=== PATIENT | female | born 1945 | race Caucasian/White ===

== ENCOUNTER 2016-11-11 16:21 | Inpatient (IN) | payer MEDICARE, OTHER ==
[2016-11-11] VITALS (7 sets, daily range): BP systolic 157–186; BP diastolic 79–98; PULSE 75–90; RESP 15–18; TEMP 97.9–98.9; O2SAT 94–100
[~2016-11-11] VITALS: Ht 152.4 cm; Wt 67.4 kg
[~2016-11-11 16:21] MED LIST: ASPI81CH CHEW; ATOR40TA16 PO; CLON0.5T PO; DICL1GEL TOPICAL; LISI10TA3 PO; METO25TA3 PO; PLAV75TA29 PO; PROZ20CA11 PO
--- NOTE | 2016-11-11 16:53 | PD ---
HPI Chief Complaint: Cardiac Complaint Time Seen by Provider: 16:35 Travel History International Travel<30 days: No Contact w/Intl Traveler<30days: No Traveled to known affect area: No History of Present Illness HPI 71-year-old female complains of chest pain. Patient states that she started having substernal chest pressure about 3 weeks ago. Patient denies any pain radiation. Patient denies palpitation nausea or diaphoresis. Patient states that the pain is not worse with exertion. Patient denies any coughing congestion fever chills. Patient has history hypertension, CAD, hyperlipidemia. Patient is a smoker. Patient has history of MIs 2, status post stents placement. Patient on aspirin 325 mg daily and Plavix. Patient also has history of CHF, end-stage renal disease on dialysis. Patient is on dialysis Saturday and weekly. Patient states that she missed her dialysis appointment 3 days ago. 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 Woo recently and was advised to take nitroglycerin as needed for chest pain. On a scale of 1-10 the chest pain is a 3 now. PFSH Past Medical History Hx Anticoagulant Therapy: Yes (PLAVIX) Anemia: Yes Arthritis: Yes Asthma: No Atrial Fibrillation: Yes Blood Disorders: No Anxiety: Yes Depression: Yes Heart Rhythm Problems: Yes (HX OF A-FIB) Cancer: No Cardiovascular Problems: Yes (STENTS, MIX2 CHF) High Cholesterol: Yes Chest Pain: Yes Congestive Heart Failure: Yes COPD: Yes Cerebrovascular Accident: No Coronary Artery Disease: Yes Diabetes: No Dialysis: Yes (sat, , sat) Diminished Hearing: No Endocrine: No Gastrointestinal Disorders: Yes (gerd) Genitourinary: Yes (uti's) Headaches: No Hepatitis: No Hypertension: Yes Immune Disorder: No Implanted Vascular Access Dvce: No Kidney Stones: Yes Musculoskeletal: Yes (arthritis) Neurologic: No Psychiatric: No Reproductive: No Respiratory: Yes (COPD) Migraines: Yes Myocardial Infarction: Yes (JUNE 2014) Renal Failure: Yes Seizures: No Triglycerides - High: Yes Menopausal: Yes Past Surgical History Abdominal Surgery: No AICD: No Arteriovenous Shunt: No Body Medical Devices: right dialysis catheter Cardiac Surgery: Yes (STENTS X 2) Ear Surgery: No Endocrine Surgery: No Eye Surgery: No Genitourinary Surgery: No Gynecologic Surgery: Yes (D & C) Insulin Pump: No Joint Replacement: No Neurologic Surgery: No Oral Surgery: No Pacemaker: No Tonsillectomy: Yes Other Surgery: Yes (right vas cath) Social History Alcohol Use: Yes (occ.) Tobacco Use: Yes (1 ppd) Substance Use: No Allergies-Medications (Allergen,Severity, Reaction): Coded Allergies: Niacin (Verified Allergy, Severe, ANAPHALACTIC, 04/16/16) *MDRO Multi-Drug Resistant Organism (Verified Adverse Reaction, Unknown, ) ESBL+Klebsiella Pneumoniae (urine) - 03/2015 & 05/2015 Reported Meds & Prescriptions Reported Meds & Active Scripts Active Clonazepam 0.5 Mg Tab 0.5 Mg PO BID Plavix (Clopidogrel Bisulfate) 75 Mg Tab 75 Mg PO DAILY Reported Lisinopril 5 Mg Tab 5 Mg PO DAILY Aspirin 325 Mg Tab 325 Mg PO DAILY Metoprolol Tartrate 25 Mg Tab 25 Mg PO BID Atorvastatin (Atorvastatin Calcium) 40 Mg Tab 40 Mg PO HS Review of Systems General / Constitutional: No: Fever Eyes: No: Visual changes HENT: No: Headaches Cardiovascular: Positive: Chest Pain or Discomfort Respiratory: No: Shortness of Breath Gastrointestinal: No: Abdominal Pain Genitourinary: No: Dysuria Musculoskeletal: No: Pain Skin: No Rash Neurologic: No: Weakness Psychiatric: No: Depression Endocrine: No: Polydipsia Hematologic/Lymphatic: No: Easy Bruising Physical Exam Narrative GENERAL: Well-nourished, well-developed patient. SKIN: Focused skin assessment warm/dry. HEAD: Normocephalic. EYES: No scleral icterus. No injection or drainage. NECK: Supple, trachea midline. No JVD or lymphadenopathy. CARDIOVASCULAR: Regular rate and rhythm without murmurs, gallops, or rubs. RESPIRATORY: Breath sounds equal bilaterally. No accessory muscle use. GASTROINTESTINAL: Abdomen soft, non-tender, nondistended. MUSCULOSKELETAL: No cyanosis, or edema. BACK: Nontender without obvious deformity. No CVA tenderness. Neurologic exam normal. Data Data Last Documented VS Vital Signs Date Time Temp Pulse Resp B/P Pulse Ox O2 Delivery O2 Flow Rate FiO2 11/11/16 16:49 97.9 76 18 169/79 100 Room Air Orders Electrocardiogram (11/11/16 16:44) Complete Blood Count With Diff (11/11/16 16:44) Comprehensive Metabolic Panel (11/11/16 16:44) Creatine Kinase (Cpk) (11/11/16 16:44) Troponin I (11/11/16 16:44) B-Type Natriuretic Peptide (11/11/16 16:44) Prothrombin Time / Inr (Pt) (11/11/16 16:44) Act Partial Throm Time (Ptt) (11/11/16 16:44) Chest, Single Ap (11/11/16 16:44) Iv Access Insert/Monitor (11/11/16 16:44) Ecg Monitoring (11/11/16 16:44) Oximetry (11/11/16 16:44) Ondansetron Inj (Zofran Inj) (11/11/16 18:30) Electrocardiogram (11/11/16 ) Labs Laboratory Tests Test 11/11/16 16:45 White Blood Count 4.7 TH/MM3 Red Blood Count 3.45 MIL/MM3 Hemoglobin 11.2 GM/DL Hematocrit 34.4 % Mean Corpuscular Volume 99.7 FL Mean Corpuscular Hemoglobin 32.3 PG Mean Corpuscular Hemoglobin 32.5 % Concent Red Cell Distribution Width 19.8 % Platelet Count 175 TH/MM3 Mean Platelet Volume 7.1 FL Neutrophils (%) (Auto) 82.4 % Lymphocytes (%) (Auto) 8.5 % Monocytes (%) (Auto) 8.2 % Eosinophils (%) (Auto) 0.4 % Basophils (%) (Auto) 0.5 % Neutrophils # (Auto) 3.8 TH/MM3 Lymphocytes # (Auto) 0.4 TH/MM3 Monocytes # (Auto) 0.4 TH/MM3 Eosinophils # (Auto) 0.0 TH/MM3 Basophils # (Auto) 0.0 TH/MM3 CBC Comment DIFF FINAL Differential Comment Prothrombin Time 11.9 SEC Prothromb Time International 1.1 RATIO Ratio Activated Partial 26.9 SEC Thromboplast Time Sodium Level 127 MEQ/L Potassium Level 3.8 MEQ/L Chloride Level 90 MEQ/L Carbon Dioxide Level 18.6 MEQ/L Anion Gap 18 MEQ/L Blood Urea Nitrogen 55 MG/DL Creatinine 4.65 MG/DL Estimat Glomerular Filtration 9 ML/MIN Rate Random Glucose 80 MG/DL Calcium Level 7.9 MG/DL Total Bilirubin 0.8 MG/DL Aspartate Amino Transf 25 U/L (AST/SGOT) Alanine Aminotransferase 14 U/L (ALT/SGPT) Alkaline Phosphatase 177 U/L Total Creatine Kinase 107 U/L Troponin I 0.04 NG/ML B-Type Natriuretic Peptide GREATER THAN 5000 PG/ML Total Protein 7.2 GM/DL Albumin 3.6 GM/DL MDM Medical Decision Making Medical Screen Exam Complete: Yes Emergency Medical Condition: Yes Interpretation(s) Last Impressions Chest X-Ray 11/11/16 1644 Signed Impressions: Service Date/Time: Friday, November 11, 2016 16:52 - CONCLUSION: 1. Mild basilar opacity most characteristic of atelectasis. Cardiomegaly. Joey Wilkerson MD 1829 PM. CBC within normal limit. Sodium 127. Bicarbonate 18.6. BUN 55. Creatinine 4.65. BNP greater than 5000. Cardiac enzymes are normal. Differential Diagnosis Differential diagnosis including musculoskeletal, angina, AL, PE, pneumothorax. Narrative Course 71-year-old female with chest pain. History of CAD status post stents placement. Diagnosis Primary Impression: Chest pain Qualified Code: R07.9 - Chest pain, unspecified type Yared Russell MD Nov 11, 2016 16:53
[2016-11-11] MEDS ORDERED: ASPI325T PO (16:59)
[2016-11-11] MEDS ORDERED: LISI-519 PO (16:59)
[2016-11-11 17:15] LABS: AUTOMATED NEUTROPHIL # 3.8 TH/MM3 (1.8-7.7); BASOPHIL % 0.5 % (0.0-2.0); EOSINOPHIL % 0.4 % (0.0-4.0); HEMATOCRIT 34.4 % (35.0-46.0); HEMO FLAGS DIFF FINAL; LYMPH % 8.5 % (9.0-44.0); LYMPHOCYTE # 0.4 TH/MM3 (1.0-4.8); MEAN CELL VOLUME 99.7 FL (80.0-100.0); MEAN CORPUSCULAR HEMOGLOBIN 32.3 PG (27.0-34.0); MEAN CORPUSCULAR HGB CONC 32.5 % (32.0-36.0); MONO % 8.2 % (0.0-8.0); NEUT % 82.4 % (16.0-70.0); PLATELET COUNT 175 TH/MM3 (150-450); RED BLOOD COUNT 3.45 MIL/MM3 (4.00-5.30); RED CELL DISTRIBUTION WIDTH 19.8 % (11.6-17.2); WHITE BLOOD COUNT 4.7 TH/MM3 (4.0-11.0)
--- NOTE | 2016-11-11 17:23 | RADRPT ---
EXAM DATE/TIME: 11/11/2016 16:52 [facility] COMPARISON: CHEST SINGLE AP, November 04, 2015, 14:40. INDICATIONS : Chest pain. MEDICAL HISTORY : None. SURGICAL HISTORY : None. ENCOUNTER: Initial ACUITY: 1 day PAIN SCORE: 7/10 LOCATION: Bilateral chest FINDINGS: There is cardiomegaly. Mild basilar opacity most characteristic of atelectasis. No effusion. No pneum othorax. Mildly tortuous aorta. CONCLUSION: 1. Mild basilar opacity most characteristic of atelectasis. Cardiomegaly. Joey Wilkerson MD on November 11, 2016 at 17:20 Board Certified Radiologist. This report was verified electronically.
[2016-11-11 17:34] LABS: ANION GAP 18 MEQ/L (5-15); AST (GOT) 25 U/L (15-37); BICARBONATE 18.6 MEQ/L (21.0-32.0); BLOOD UREA NITROGEN 55 MG/DL (7-18); CHLORIDE 90 MEQ/L (98-107); GLOMERULAR FILTRATION RATE 9 ML/MIN (>89); POTASSIUM 3.8 MEQ/L (3.5-5.1); SODIUM (NA) 127 MEQ/L (136-145)
[2016-11-11 17:35] LABS: ALT (GPT) 14 U/L (10-53)
[2016-11-11 17:38] LABS: APTT (PATIENT) 26.9 SEC (24.3-30.1); INTERNATIONAL NORMALIZED RATIO 1.1 RATIO; PROTHROMBIN TIME - PATIENT 11.9 SEC (9.8-11.6)
[2016-11-11 17:39] LABS: ALKALINE PHOSPHATASE 177 U/L (45-117); CREATINE KINASE 107 U/L (26-192); TOTAL BILIRUBIN ADULT 0.8 MG/DL (0.2-1.0)
[2016-11-11] MEDS ORDERED: ONDANSETRON HCL 4 MG/2 ML VIAL IV PUSH ONE (18:30)
[2016-11-11] MEDS ORDERED: ENOXAPARIN SODIUM 80 MG/0.8 ML SYRINGE SQ ONE (18:45)
[2016-11-11] MEDS ORDERED: ACETAMINOPHEN 325 MG TAB PO PRN (19:15)
[2016-11-11] MEDS ORDERED: SENNOSIDES 8.6 MG TAB PO PRN (19:15)
[2016-11-11] MEDS ORDERED: SODIUM CHLORIDE 0.9% FLUSH 10 ML FLUSH IV FLUSH PRN (19:15)
[2016-11-11] MEDS ORDERED: MAGNESIUM HYDROXIDE SUSP 30 ML CUP PO PRN (19:15)
[2016-11-11] MEDS ORDERED: BISACODYL 10 MG SUPP RECTAL PRN (19:15)
[2016-11-11] MEDS ORDERED: LACTULOSE SYRUP 20 GM/30 ML CUP PO PRN (19:15)
--- NOTE | 2016-11-11 19:15 | HHI.HP ---
HPI [facility] Primary [facility] Physician Gudelia Del Real MD Admission Diagnosis chest pain Diagnoses: (1) Chest pain (2) CHF (congestive heart failure) Diagnosis: Principal (3) ESRD (end stage renal disease) Diagnosis: Principal (4) HTN (hypertension) Diagnosis: Principal (5) Tobacco abuse Diagnosis: Principal Travel History International Travel<30 Days: No Contact w/Intl Traveler <30 Da: No Traveled to Known Affected Are: No History of Present Illness This is a 71-year-old female with a PMH of HTN, CAD, ESRD on HD , CHF (Echo 11/06/15 w/ EF 30-35%), COPD and Tobacco Abuse who presented to the ER w/ complaints of chest pain. States symptoms have been ongoing x2-3 wks, follows w / [employer] Operator, Dr. Woo, seen in office and instructed to take NTG for likely angina. On HD and however missed HD on due to symptoms. Today, pt w/ severe pain, mostly on exertion. Took 6 NTG tablets w/ minimal relief. On arrival, BP 169/79, HR 78, O2 sat 98% on RA, Afebrile. CBC unremarkable except for mild anemia, hemoglobin 11.2. Creatinine 4.65, previously 7.68 on 12/13/15. Troponin 0.04. EKG with no acute changes. BNP greater than 5000. CXR with mild basilar opacity characteristic of atelectasis. Dr. Connell consulted by ER physician, recommended Lovenox, V/ Q Scan for possible PE and admission to [facility] for possible ACS. Review of Systems Except as stated in HPI: all other systems reviewed are Neg ROS: 14 point review of systems otherwise negative. Past Family Social History Past Medical History PMH: HTN, CAD, ESRD on HD , CHF (Echo 11/06/15 w/ EF 30-35%), COPD and Tobacco Abuse Past Surgical History PAST SURGICAL HISTORY: Dialysis Catheter Placement, Cardiac Stent, Tonsillectomy, D&C Allergies: Coded Allergies: Niacin (Verified Allergy, Severe, ANAPHALACTIC, 04/16/16) *MDRO Multi-Drug Resistant Organism (Verified Adverse Reaction, Unknown, ) ESBL+Klebsiella Pneumoniae (urine) - 03/2015 & 05/2015 Family History PAST FAMILY HISTORY: Reviewed. No h/o DM or CAD Social History PAST SOCIAL HISTORY: Occasional alcohol. Smokes 1ppd. Negative for drugs. Physical Exam Vital Signs Vital Signs Date Time Temp Pulse Resp B/P Pulse Ox O2 Delivery O2 Flow Rate FiO2 11/11/16 16:49 97.9 76 18 169/79 100 Room Air 11/11/16 16:43 75 18 100 Room Air 11/11/16 16:36 97.9 78 15 169/79 98 Room Air Physical Exam PE: GENERAL: Middle-aged white female in no acute distress. HEENT: PERRLA, EOMI. No scleral icterus or conjunctival pallor. No lid lag or facial droop. CARDIOVASCULAR: Regular rate and rhythm. No obvious murmurs to auscultation. No chest tenderness to palpation. RESPIRATORY: No obvious rhonchi or wheezing. Clear to auscultation. Breath sounds equal bilaterally. GASTROINTESTINAL: Abdomen soft, non-tender, nondistended. BS normal. MUSCULOSKELETAL: Extremities without clubbing, cyanosis, or edema. No obvious deformities. NEUROLOGICAL: Awake, alert and oriented x4. No focal neurologic deficits. Moving both upper and lower extremities spontaneously. Laboratory Laboratory Tests Test 11/11/16 16:45 White Blood Count 4.7 Red Blood Count 3.45 Hemoglobin 11.2 Hematocrit 34.4 Mean Corpuscular Volume 99.7 Mean Corpuscular Hemoglobin 32.3 Mean Corpuscular Hemoglobin 32.5 Concent Red Cell Distribution Width 19.8 Platelet Count 175 Mean Platelet Volume 7.1 Neutrophils (%) (Auto) 82.4 Lymphocytes (%) (Auto) 8.5 Monocytes (%) (Auto) 8.2 Eosinophils (%) (Auto) 0.4 Basophils (%) (Auto) 0.5 Neutrophils # (Auto) 3.8 Lymphocytes # (Auto) 0.4 Monocytes # (Auto) 0.4 Eosinophils # (Auto) 0.0 Basophils # (Auto) 0.0 CBC Comment DIFF FINAL Differential Comment Prothrombin Time 11.9 Prothromb Time International 1.1 Ratio Activated Partial 26.9 Thromboplast Time Sodium Level 127 Potassium Level 3.8 Chloride Level 90 Carbon Dioxide Level 18.6 Anion Gap 18 Blood Urea Nitrogen 55 Creatinine 4.65 Estimat Glomerular Filtration 9 Rate Random Glucose 80 Calcium Level 7.9 Total Bilirubin 0.8 Aspartate Amino Transf 25 (AST/SGOT) Alanine Aminotransferase 14 (ALT/SGPT) Alkaline Phosphatase 177 Total Creatine Kinase 107 Troponin I 0.04 B-Type Natriuretic Peptide GREATER THAN 5000 Total Protein 7.2 Albumin 3.6 Result Diagram: 11/11/16 1645 11/11/16 1645 Assessment and Plan Problem List: (1) Chest pain ICD Code: R07.9 Status: Acute (2) CHF (congestive heart failure) ICD Code: I50.9 Status: Acute (3) ESRD (end stage renal disease) ICD Code: N18.6 Status: Chronic (4) HTN (hypertension) ICD Code: I10 Status: Chronic (5) Tobacco abuse ICD Code: Z72.0 Status: Chronic Assessment and Plan A/P: 1. Chest Pain: R/o ACS, h/o CAD s/p CO/Stent in the past, symptoms ongoing x2- 3wks, seen by [employer] Operator Dr. Woo and prescribed NTG, NTG x6 today prior to arrival w/ minimal improvement. Trop 0.04, EKG w/ no acute ischemia. Dr. Connell consulted by ER physician, recommended Lovenox/VQ Scan and admission for possible ACS. Follow up V/Q. Check serial cardiac enzymes, resume home ASA /Plavix/B-chuck/Statin. NTG/Morphine prn as needed. Will place consult for Dr. Woo w/ whom she follows. 2. CHF: Acute on Chronic. Systolic. Echo 11/06/15 w/ EF 30-35%. BNP >5000. CXR w/ basilar atelectasis, images reviewed by me. Fluid overload likely due to missed HD. 3. ESRD on HD: /, missed HD on . Follows w/ Dr. Wu, will consult to resume HD. 4. HTN: BP 160-170's, resume home medication, monitor BP. 5. Tobacco Abuse: Pt counselled. Ativan prn. No NicoDerm to avoid vasoconstriction. 6. DVT Prophylaxis: S/p Lovenox in ER 7. Social work for d/c planning as needed 8. Case discussed w/ ER physician at length. Physician Certification 2 Midnight Certification Type: Admission for Inpatient Services Order for Inpatient Services The services are ordered in accordance with Medicare regulations or non- Medicare payer requirements, as applicable. In the case of services not specified as inpatient-only, they are appropriately provided as inpatient services in accordance with the 2-midnight benchmark. Estimated LOS (days): 2 days is the estimated time the patient will need to remain in the hospital, assuming treatment plan goals are met and no additional complications. Post-Hospital Plan: Not yet determined Problem Qualifiers (1) Chest pain: Qualified Code: R07.9 - Chest pain, unspecified type Nakia Peraza MD Nov 11, 2016 19:15
[2016-11-11] MEDS ORDERED: NITROGLYCERIN 2% OINT 1 GM PACKET TOPICAL PRN (19:30)
[2016-11-11] MEDS ORDERED: LORazepam 2 MG/ML VIAL IV PUSH PRN (19:30)
[2016-11-11] MEDS: oxyCODONE/ACETAMINOPHEN 5 MG/325 MG TAB PO PRN (20:54)
[2016-11-11] MEDS: DOCUSATE SODIUM 50 MG/SENNA 8.6 MG TAB PO SCH (21:00)
[2016-11-11] MEDS: ATORVASTATIN 40 MG TAB PO SCH (21:00)
[2016-11-11] MEDS: clonazePAM 0.5 MG TAB PO SCH (21:37)
[2016-11-11] MEDS: SODIUM CHLORIDE 0.9% FLUSH 10 ML FLUSH IV FLUSH SCH (21:38)
--- NOTE | 2016-11-11 21:38 | RADRPT ---
EXAM DATE/TIME: 11/11/2016 20:58 [facility] COMPARISON: No previous studies available for comparison. INDICATIONS : Substernal chest pain for 3 weeks. Dyspnea. DOSE: 8.8 mCi Tc99m MAA IV 1.2 mCi Tc99m DTPA aerosol MEDICAL HISTORY : Myocardial infarction. Hypercholesterolemia. Congestive heart failure. Smoker. Hypertension. COPD. Re nal failure. SURGICAL HISTORY : Coronary artery stent. ENCOUNTER: Initial ACUITY: 3 weeks PAIN SCALE: 3/10 LOCATION: chest TECHNIQUE: Following five minutes of tidal breathing of DTPA aerosol, planar images of the lungs were performed in eight projections. The patient was then injected with MAA, and eight-view perfusion scan was perf ormed. FINDINGS: No segmental perfusion abnormalities. Ventilation is somewhat heterogeneous in appearance. Heart size enlarged. CONCLUSION: 1. Low probability for pulmonary embolus. Joey Wilkerson MD on November 11, 2016 at 21:35 Board Certified Radiologist. This report was verified electronically.
[2016-11-11] MEDS: METOPROLOL TARTRATE 25 MG TAB PO SCH (21:40)
[2016-11-11] MEDS: MORPHINE SULFATE 4 MG/ML INJ IV PRN (23:20)
[2016-11-12] VITALS (25 sets, daily range): BP systolic 100–149; BP diastolic 60–85; PULSE 60–73; RESP 16–18; TEMP 97.4–98.9; O2SAT 91–95
[2016-11-12] MEDS: MORPHINE SULFATE 4 MG/ML INJ IV PRN ×5 (04:39→21:35)
[2016-11-12 06:53] LABS: AUTOMATED NEUTROPHIL # 4.8 TH/MM3 (1.8-7.7); BASOPHIL % 0.2 % (0.0-2.0); EOSINOPHIL % 0.1 % (0.0-4.0); HEMATOCRIT 33.9 % (35.0-46.0); HEMO FLAGS DIFF FINAL; LYMPH % 3.9 % (9.0-44.0); LYMPHOCYTE # 0.2 TH/MM3 (1.0-4.8); MEAN CELL VOLUME 99.3 FL (80.0-100.0); MEAN CORPUSCULAR HEMOGLOBIN 33.1 PG (27.0-34.0); MEAN CORPUSCULAR HGB CONC 33.3 % (32.0-36.0); NEUT % 83.8 % (16.0-70.0); PLATELET COUNT 128 TH/MM3 (150-450); RED BLOOD COUNT 3.42 MIL/MM3 (4.00-5.30); RED CELL DISTRIBUTION WIDTH 19.5 % (11.6-17.2); WHITE BLOOD COUNT 5.7 TH/MM3 (4.0-11.0)
[2016-11-12 07:18] LABS: ANION GAP 17 MEQ/L (5-15); AST (GOT) 21 U/L (15-37); BICARBONATE 21.9 MEQ/L (21.0-32.0); BLOOD UREA NITROGEN 60 MG/DL (7-18); CHLORIDE 89 MEQ/L (98-107); GLOMERULAR FILTRATION RATE 9 ML/MIN (>89); POTASSIUM 4.1 MEQ/L (3.5-5.1); SODIUM (NA) 128 MEQ/L (136-145)
[2016-11-12 07:22] LABS: ALKALINE PHOSPHATASE 164 U/L (45-117); ALT (GPT) 13 U/L (10-53); TOTAL BILIRUBIN ADULT 1.6 MG/DL (0.2-1.0)
--- NOTE | 2016-11-12 07:49 | HHI.PR ---
Addendum to Inpatient Note Addendum Reason: Additional Documentation Additional Information I was going to take her for a heart cath but started having severe vomiting. She actually missed 2 days of medications because of nausea and vomiting. I would like her to have upper endoscopy before possible cardiac procedures. Hold her NPO and get a GI consult Tee Woo MD Nov 12, 2016 07:49
[2016-11-12] MEDS: METOPROLOL TARTRATE 25 MG TAB PO SCH ×2 (08:29→21:41)
[2016-11-12] MEDS: clonazePAM 0.5 MG TAB PO SCH ×2 (08:30→21:41)
[2016-11-12] MEDS: ASPIRIN 325 MG TAB PO SCH (08:31)
[2016-11-12] MEDS: CLOPIDOGREL 75 MG TAB PO SCH ×2 (08:31→08:37)
[2016-11-12] MEDS: SODIUM CHLORIDE 0.9% FLUSH 10 ML FLUSH IV FLUSH SCH ×2 (08:35→21:42)
[2016-11-12] MEDS: LISINOPRIL 5 MG TAB PO SCH (08:36)
[2016-11-12] MEDS: DOCUSATE SODIUM 50 MG/SENNA 8.6 MG TAB PO SCH ×2 (08:36→21:00)
--- NOTE | 2016-11-12 08:41 | HHI.PR ---
Subjective Remarks Pt continues to complain of chest pains. 4-510. no more vomiting since this morning. no nausea at this time. Objective Vitals Vital Signs Date Time Temp Pulse Resp B/P Pulse Ox O2 Delivery O2 Flow Rate FiO2 11/12/16 06:00 64 11/12/16 05:00 68 11/12/16 04:41 98.9 61 16 149/85 91 11/12/16 04:00 68 11/12/16 03:00 70 11/12/16 02:00 66 11/12/16 01:00 60 11/12/16 00:00 70 11/11/16 23:58 157/89 11/11/16 23:33 98.9 75 18 184/98 96 11/11/16 22:10 Room Air 11/11/16 21:43 98 Room Air 11/11/16 21:35 90 186/91 94 Room Air 11/11/16 18:57 89 178/87 97 Room Air 11/11/16 16:49 97.9 76 18 169/79 100 Room Air 11/11/16 16:43 75 18 100 Room Air 11/11/16 16:36 97.9 78 15 169/79 98 Room Air I/O 11/11/16 11/11/16 11/11/16 11/12/16 11/12/16 11/12/16 07:00 15:00 23:00 07:00 15:00 23:00 Intake Total 480 ml Output Total 0 ml Balance 480 ml Intake Oral 480 ml Output Stool Total 0 ml # Voids 2 Result Diagram: 11/12/16 0528 11/12/16 0528 Imaging Last Impressions Lung Scan-V Nuclear Medicine 11/11/16 190 Signed Impressions: Service Date/Time: Friday, November 11, 2016 20:58 - CONCLUSION: 1. Low probability for pulmonary embolus. Joey Wilkerson MD Chest X-Ray 11/11/16 1644 Signed Impressions: Service Date/Time: Friday, November 11, 2016 16:52 - CONCLUSION: 1. Mild basilar opacity most characteristic of atelectasis. Cardiomegaly. Joey Wilkerson MD Objective Remarks GENERAL: Middle-aged white female laying in bed HEENT: EOMI. CARDIOVASCULAR: Regular rate and rhythm. No obvious murmurs to auscultation. RESPIRATORY: No obvious wheezing. Clear to auscultation. Breath sounds equal bilaterally. GASTROINTESTINAL: Abdomen soft, non-tender, nondistended. BS normal. MUSCULOSKELETAL: Extremities without edema. No obvious deformities. NEUROLOGICAL: Awake, alert and oriented x4. No focal neurologic deficits. Moving both upper and lower extremities spontaneously. A/P Problem List: (1) Chest pain ICD Code: R07.9 Status: Acute (2) CHF (congestive heart failure) ICD Code: I50.9 Status: Acute (3) ESRD (end stage renal disease) ICD Code: N18.6 Status: Chronic (4) HTN (hypertension) ICD Code: I10 Status: Chronic (5) Tobacco abuse ICD Code: Z72.0 Status: Chronic Assessment and Plan 1. Chest Pain: R/o ACS, h/o CAD s/p MD/Stent in the past, symptoms ongoing x2- 3wks, seen by [employer] Dr. Woo and prescribed NTG, NTG x6 prior to arrival w/ minimal improvement. Trop 0.04, EKG w/ no acute ischemia. VQ Scan showed low prob PE. Serial cardiac enzymes neg. was supposed to go for cardiac cath this morning however pt has been having n/v and vomited prior to going for cath therefore cards has consulted GI, on ASA/Plavix/B-chuck/Statin. NTG/ Morphine prn as needed. Dr. Rivas following. Pt scheduled for EGD today prior to cardiac cath. 2. CHF: Acute on Chronic. Systolic. Echo 11/06/15 w/ EF 30-35%. BNP >5000. CXR w/ basilar atelectasis. Fluid overload likely due to missed HD. Nephrology consulted. 3. ESRD on HD: /, missed HD on . Follows w/ Dr. Wu, nephrology consult inplace. 4. HTN: BP better controlled this morning, on home medication, monitor BP. 5. Tobacco Abuse: Pt has been counselled. Ativan prn. No NicoDerm to avoid vasoconstriction. 6. DVT Prophylaxis: S/p Lovenox in ER, SCD/[facility]OS[facility] Discharge Planning Pt was supposed to get a cardiac cath today but due to vomiting, she will go for EGD today first. Problem Qualifiers (1) Chest pain: Qualified Code: R07.9 - Chest pain, unspecified type Aissatou Fields MD Nov 12, 2016 08:40
--- NOTE | 2016-11-12 09:00 | PD.CONS ---
HPI History of Present Illness This is a 71 year old female who presented to the ER for evaluation of chest pain. She has a history of coronary artery disease, congestive heart failure, and end stage renal disease (on hemodialysis on Tuesdays or Saturdays). She started having chest pain this past Saturday. This is a midsternal "heaviness" that comes and goes and is worse with activity. She has also had associated nausea/vomiting associated with her chest pain. There is no hematemesis. She denies any heartburn or hematochezia. She does have occasional mid abdominal cramping and reports that her stools have been dark. She does take Plavix at home, but states that she has not been able to keep this down since Saturday. She denies any history of PUD and has never had an EGD. There is no family hx of esophageal or gastric cancer. Her maternal grandfather did from colon cancer. She is being evaluated by cardiology and they were planning for cardiac catheterization, but this is on hold and they have requested EGD prior to cardiac catheterization. PFSH Past Medical History HTN CAD ESRD, HD on Saturday and Saturdays CHF COPD Past Surgical History Dialysis catheter placement Cardiac catheterization Tonsillectomy D&C Coded Allergies: Niacin (Verified Allergy, Severe, ANAPHALACTIC, 04/16/16) *MDRO Multi-Drug Resistant Organism (Verified Adverse Reaction, Unknown, ) ESBL+Klebsiella Pneumoniae (urine) - 03/2015 & 05/2015 Medications Allergies Coded Allergies Type Severity Reaction Last Updated Verified Niacin Allergy Severe ANAPHALACTIC 04/16/16 Yes *MDRO Multi-Drug Resistant Organism Adverse Reaction Unknown 04/16/16 Yes Active Scripts Medications Dose Route/Sig Days Date Category Lisinopril 5 Mg Tab 5 Mg PO DAILY 11/11/16 Reported Aspirin 325 Mg Tab 325 Mg PO DAILY 11/11/16 Reported Clonazepam 0.5 Mg Tab 0.5 Mg PO BID 11/01/16 Rx Plavix (Clopidogrel Bisulfate) 75 Mg Tab 75 Mg PO DAILY 10/29/16 Rx Metoprolol Tartrate 25 Mg Tab 25 Mg PO BID 02/28/16 Reported Atorvastatin (Atorvastatin Calcium) 40 Mg Tab 40 Mg PO HS 02/28/16 Reported Family History MGF from colon cancer. Social History Occasional alcohol. Smokes 1ppd. Negative for drugs. Review of Systems Constitutional: COMPLAINS OF: Fatigue, DENIES: Fever, Chills, Change in appetite Respiratory: DENIES: Cough, Shortness of breath Cardiovascular: COMPLAINS OF: Chest pain Gastrointestinal: COMPLAINS OF: Abdominal pain, Black stools (denies black stools, but c/o dark stools), Diarrhea, Nausea, Vomiting, DENIES: Bloody stools , Constipation, Swelling of Abdomen, Heartburn, Hematemesis Musculoskeletal: DENIES: Joint pain Integumentary: DENIES: Abnormal pigmentation Hematologic/lymphatic: DENIES: Bruising Neurologic: DENIES: Headache Psychiatric: DENIES: Confusion GI Exam Vitals I&O Vital Signs Date Time Temp Pulse Resp B/P Pulse Ox O2 Delivery O2 Flow Rate FiO2 11/12/16 06:00 64 11/12/16 05:00 68 11/12/16 04:41 98.9 61 16 149/85 91 11/12/16 04:00 68 11/12/16 03:00 70 11/12/16 02:00 66 11/12/16 01:00 60 11/12/16 00:00 70 11/11/16 23:58 157/89 11/11/16 23:33 98.9 75 18 184/98 96 11/11/16 22:10 Room Air 11/11/16 21:43 98 Room Air 11/11/16 21:35 90 186/91 94 Room Air 11/11/16 18:57 89 178/87 97 Room Air 11/11/16 16:49 97.9 76 18 169/79 100 Room Air 11/11/16 16:43 75 18 100 Room Air 11/11/16 16:36 97.9 78 15 169/79 98 Room Air I/O 11/11/16 11/11/16 11/11/16 11/12/16 11/12/16 11/12/16 07:00 15:00 23:00 07:00 15:00 23:00 Intake Total 480 ml Output Total 0 ml Balance 480 ml Intake Oral 480 ml Output Stool Total 0 ml # Voids 2 Imaging Last Impressions Lung Scan-VQ Nuclear Medicine 11/11/16 1902 Signed Impressions: Service Date/Time: Friday, November 11, 2016 20:58 - CONCLUSION: 1. Low probability for pulmonary embolus. Joey Wilkerson MD Chest X-Ray 11/11/16 2385 Signed Impressions: Service Date/Time: Friday, November 11, 2016 16:52 - CONCLUSION: 1. Mild basilar opacity most characteristic of atelectasis. Cardiomegaly. Joey Wilkerson MD Laboratory Test 11/11/16 11/12/16 11/12/16 16:45 00:12 05:28 White Blood Count 4.7 TH/MM3 5.7 TH/MM3 Red Blood Count 3.45 MIL/MM3 3.42 MIL/MM3 Hemoglobin 11.2 GM/DL 11.3 GM/DL Hematocrit 34.4 % 33.9 % Mean Corpuscular Volume 99.7 FL 99.3 FL Mean Corpuscular Hemoglobin 32.3 PG 33.1 PG Mean Corpuscular Hemoglobin 32.5 % 33.3 % Concent Red Cell Distribution Width 19.8 % 19.5 % Platelet Count 175 TH/MM3 128 TH/MM3 Mean Platelet Volume 7.1 FL 7.9 FL Neutrophils (%) (Auto) 82.4 % 83.8 % Lymphocytes (%) (Auto) 8.5 % 3.9 % Monocytes (%) (Auto) 8.2 % 12.0 % Eosinophils (%) (Auto) 0.4 % 0.1 % Basophils (%) (Auto) 0.5 % 0.2 % Neutrophils # (Auto) 3.8 TH/MM3 4.8 TH/MM3 Lymphocytes # (Auto) 0.4 TH/MM3 0.2 TH/MM3 Monocytes # (Auto) 0.4 TH/MM3 0.7 TH/MM3 Eosinophils # (Auto) 0.0 TH/MM3 0.0 TH/MM3 Basophils # (Auto) 0.0 TH/MM3 0.0 TH/MM3 CBC Comment DIFF FINAL DIFF FINAL Differential Comment Prothrombin Time 11.9 SEC Prothromb Time International 1.1 RATIO Ratio Activated Partial 26.9 SEC Thromboplast Time Sodium Level 127 MEQ/L 128 MEQ/L Potassium Level 3.8 MEQ/L 4.1 MEQ/L Chloride Level 90 MEQ/L 89 MEQ/L Carbon Dioxide Level 18.6 MEQ/L 21.9 MEQ/L Anion Gap 18 MEQ/L 17 MEQ/L Blood Urea Nitrogen 55 MG/DL 60 MG/DL Creatinine 4.65 MG/DL 4.93 MG/DL Estimat Glomerular Filtration 9 ML/MIN 9 ML/MIN Rate Random Glucose 80 MG/DL 127 MG/DL Calcium Level 7.9 MG/DL 8.6 MG/DL Total Bilirubin 0.8 MG/DL 1.6 MG/DL Aspartate Amino Transf 25 U/L 21 U/L (AST/SGOT) Alanine Aminotransferase 14 U/L 13 U/L (ALT/SGPT) Alkaline Phosphatase 177 U/L 164 U/L Total Creatine Kinase 107 U/L Troponin I 0.04 NG/ML 0.04 NG/ML 0.03 NG/ML B-Type Natriuretic Peptide GREATER THAN 5000 PG/ML Total Protein 7.2 GM/DL 7.3 GM/DL Albumin 3.6 GM/DL 3.5 GM/DL Physical Examination HEENT: Normocephalic; atraumatic; no jaundice. CHEST: CTA CARDIAC: RRR ABDOMEN: Soft, nondistended, nontender; no hepatosplenomegaly; bowel sounds are present in all four quadrants. EXTREMITIES: No clubbing, cyanosis, or edema. SKIN: Normal; no rash; no jaundice. SAFETY OFFICER: No focal deficits; alert and oriented times three. Assessment and Plan Plan ASSESSMENT: - N/V. Pt has had chest pain with associated n/v since Saturday. She has a hx of CAD and the plan was for cardiac catheterization, but this is on hold until pt can be evaluated with EGD. She denies hematemesis. She denies black stools, but does report dark stool. Mild mid abdominal cramping. Denies PUD hx. On Plavix , last took on Saturday- states she has not been able to take meds since that time secondary to n/v. LFT T. Bili 1.6, AST 21, ALT 13, Alk Phosph 164. No imaging. Will plan for EGD today, check lipase. If negative, consider imaging of abdomen/gb. PPI. NPO. - Anemia, normocytic. Mild. Denies obvious blood loss, but does report dark stools. 11.3/33.9 - Chest pain. Midsternal "heaviness" with associated n/v since Saturday- worse with exertion. Hx of CAD and CHF. Dr. Woo following, requesting EGD prior to cardiac catheterization. - ESRD, on HD on Tuesdays/Sat. Per renal - COPD, HTN per attending. PLAN: - Plan for egd today - Obtain consents - NPO - Add lipase to labs - Add PPI - Zofran prn - If EGD negative, consider imaging of abdomen with CT vs. US - Supportive care - Further recommendations to follow based on results of above - Pt seen and examined by Dr. Deleon and myself and this note is written on his behalf Medina Perry Nov 12, 2016 09:00
--- NOTE | 2016-11-12 09:07 | MB ---
cc: MANOJ HARRIS M.D. DATE OF CONSULTATION: 11/12/2016 REASON FOR CONSULTATION Gwen Richey is a 71-year-old woman known to me. She has known coronary artery disease. She had a previous non-ST segment elevation [place] in 2014. On August 29, 2014 she underwent stenting of the mid LAD using a 2.5 x 14 bare metal Integrity overlapping with a 2.25 x 14 mm bare metal Integrity stent. At that time her right coronary artery was totally occluded with [id number] collaterals. The circumflex had irregularities. The LAD had an 80% mid lesion. She has been treated medically. She has had problems with intermittent poor compliance. She continues to smoke. She occasionally misses dialysis sessions. She occasionally misses her medication. She has been counseled multiple times on this. She started having chest pain about two weeks ago which became severe in the last two days as a pressure in the center of her chest. She is dialyzed Tuesdays and Saturdays and she missed dialysis on Saturday because of feeling sick. She had some prolonged chest pain before coming in. She also had some chest pain last night. She also notes some nausea, vomiting and diarrhea on Saturday but none today. She had no fever or chills, no cough. PAST MEDICAL HISTORY 1. Coronary artery disease. 2. Previous CHF due to missing dialysis sessions. 3. COPD. 4. End-stage renal disease. 5. Hyperlipidemia. 6. Hypertensive heart disease. 7. Memory loss. 8. Tobacco use. 9. She had some intermittent episodes of nonsustained V-tach even after LAD stenting. PAST SURGICAL HISTORY 1. Cath procedure on August 25, 2014 with stenting of the LAD. 2. Graft fistula in the left upper arm. 3. Previous D&C. 4. Tonsillectomy. MEDICATIONS 1. Aspirin. 2. Clopidogrel. 3. Lisinopril 5 mg. 4. Lipitor 40 mg. 5. Metoprolol 25 mg b.i.d. 6. Nitro paste 1/2 inch q.6h. 7. She also had some pain medication. 8. She received one dose of Lovenox at 9:37 p.m. last night. ALLERGIES NIACIN. FAMILY HISTORY Positive for coronary artery disease in the paternal grandfather, heart disease in the paternal grandfather, myocardial infarction in father at age 60 and mother at age 60. SOCIAL HISTORY Smokes one pack a day since age 20, has never quit. Alcohol intermittent. REVIEW OF SYSTEMS Denies any bleeding. The remaining review of systems is negative. PHYSICAL EXAMINATION GENERAL: A well-developed, well-nourished female in no acute distress. VITAL SIGNS: Charted. HEENT: Unremarkable. NECK: There is a soft right bruit. CHEST: Diminished breath sounds. No wheezes or rales. CARDIAC: S1, S2, regular rate and rhythm. No murmur appreciated. ABDOMEN: Soft, nontender. No masses. EXTREMITIES: Intact femoral pulses. No peripheral edema. EKG EKG when she first came in shows sinus rhythm, poor R-wave progression, about 0.[address] depression, cannot exclude ischemia. IMAGING V/Q scan shows low probability for PE. Chest x-ray shows mild basilar opacity, most characteristic of atelectasis. LABORATORY Hematocrit 33.9. Sodium 128. Troponins are negative. BNP is greater than 5000. IMPRESSION A 71-year-old female with unstable angina for 2 weeks, becoming acutely worse in the past 2 days. Troponins are currently negative. She has longstanding smoking. PLAN The plan is to perform a diagnostic cath and then will decide whether she needs revascularization or treatment with meds. Further therapy to be determined. Informed consent has been obtained. See addendum. Clinical picture has changed after persistent nausea and vomiting with EGDE shwing severe PUD. MD CARMELA Bui/THELMA /7:29 AM /8:38 AM NASRIN
[2016-11-12] MEDS ORDERED: ePHEDrine/NS 25 MG/5 ML SYR IV ONE (12:00)
[2016-11-12] MEDS ORDERED: PROPOFOL 200 MG/20 ML AMP IV ONE (16:00)
--- NOTE | 2016-11-12 16:07 | EKG ---
Date Performed: 11/11/2016 Time Performed: 18:30:43 PTAGE: 71 years EKG: Sinus rhythm POSSIBLE LEFT ATRIAL ENLARGEMENT BORDERLINE RIGHT AXIS DEVIATION CONSIDER ANTERIOR MYOCARDIAL INFARC TION, AGE INDETERMINATE ABNORMAL ECG PREVIOUS TRACING : 11/11/2016 16.30 DOCTOR: Oj Coyne Interpretating Date/Time 11/12/2016 16:06:38
--- NOTE | 2016-11-12 16:08 | GIPROC ---
[facility] [address] [facility]. [facility], [address] EGD PROCEDURE REPORT EXAM DATE: 11/12/2016 PATIENT NAME: Gwen Richey MR#: [id number] BIRTHDATE: 1945 STATUS: inpatient ATTENDING: Mayda Patel MD VISIT ID: [id number] CUPOLA MECHANIC: Julia Wilson RN and Josh Villavicencio RN ORDER #: [id number] INDICATIONS: The patient is a 71 yr old female here for an EGD due to epigastric abdominal pain and vomiting. PROCEDURE PERFORMED: EGD w/ biopsy MEDICATIONS: Per Anesthesia and None. ASA CLASS: Class III PHYSICAL EXAM: normal CONSENT: The patient understands the risks and benefits of the procedure and understands that these risks include, but are not limited to: sedation, allergic reaction, infection, perforation and/or bleeding. Alternative means of evaluation and treatment include, among others: physical exam, x-rays, and/or surgical intervention. The patient elects to proceed with this endoscopic procedure. DESCRIPTION OF PROCEDURE: for proper function. Hand hygiene and appropriate measures for infection prevention was taken. After the risks, benefits and alternatives of the procedure were thoroughly explained, Informed consent was verified, confirmed and timeout was successfully executed by the treatment team. The endoscope was introduced through the mouth and advanced to the second portion of the duodenum. The instrument was slowly withdrawn as the mucosa was fully examined. Sever grade esophagitis D with ulcers in distal esopahus Bx done. Sever gastritis Bx from antrum. Sever duodentitis with multiple small ulcers in the bulb. Retroflexed views revealed no abnormalities The gastroscope was then slowly withdrawn and removed. COMPLICATIONS: There were no complications. IMPRESSIONS: 1. Sever grade esophagitis D with ulcers in distal esopahus Bx done 2. Sever gastritis Bx from antrum 3. Sever duodentitis with multiple small ulcers in the bulb 4. Retroflexed views revealed no abnormalities RECOMMENDATIONS: 1. Await biopsy results. Biopsy results will not be ready for 7-10 days. If you don't hear from us in two weeks, call our office for biopsy results. 2. Anti-reflux regimen 3. Avoid NSAIDS 4. Continue PPI PATIENT CONDITION: stable DISPOSITION: Inpatient REPEAT EXAM: Return 2 months EGD Mayda Patel MD eSigned: Mayda Patel MD 11/12/2016 4:08 PM cc: PATIENT NAME: Gwen Richey MR#: [id number]
--- NOTE | 2016-11-12 16:09 | EKG ---
Date Performed: 11/11/2016 Time Performed: 16:30:14 PTAGE: 71 years EKG: Sinus rhythm POSSIBLE LEFT ATRIAL ENLARGEMENT CONSIDER ANTERIOR MYOCARDIAL INFARCTION, AGE INDETERMINATE ABNORMAL ECG PREVIOUS TRACING : 12/12/2015 16.01 DOCTOR: Oj Coyne Interpretating Date/Time 11/12/2016 16:07:28
[2016-11-12] MEDS ORDERED: DO NOT ADM ANY ANTICOAGULANT DRUGS PRN (16:45)
[2016-11-12] MEDS: ONDANSETRON HCL 4 MG/2 ML VIAL IVP PRN (21:35)
[2016-11-12] MEDS: ATORVASTATIN 40 MG TAB PO SCH (21:40)
[2016-11-13] VITALS (26 sets, daily range): BP systolic 85–118; BP diastolic 57–67; PULSE 66–95; RESP 16–18; TEMP 98–98.3; O2SAT 92–94
[2016-11-13] MEDS: MORPHINE SULFATE 4 MG/ML INJ IV PRN ×3 (00:50→16:54)
[2016-11-13] MEDS: ONDANSETRON HCL 4 MG/2 ML VIAL IVP PRN (06:05)
[2016-11-13 06:40] LABS: AUTOMATED NEUTROPHIL # 4.2 TH/MM3 (1.8-7.7); BASOPHIL % 0.6 % (0.0-2.0); EOSINOPHIL % 0.6 % (0.0-4.0); HEMATOCRIT 33.9 % (35.0-46.0); HEMO FLAGS DIFF FINAL; LYMPH % 6.7 % (9.0-44.0); LYMPHOCYTE # 0.4 TH/MM3 (1.0-4.8); MEAN CELL VOLUME 100.4 FL (80.0-100.0); MEAN CORPUSCULAR HEMOGLOBIN 32.8 PG (27.0-34.0); MEAN CORPUSCULAR HGB CONC 32.7 % (32.0-36.0); MONO % 13.2 % (0.0-8.0); NEUT % 78.9 % (16.0-70.0); PLATELET COUNT 109 TH/MM3 (150-450); RED BLOOD COUNT 3.38 MIL/MM3 (4.00-5.30); RED CELL DISTRIBUTION WIDTH 19.5 % (11.6-17.2); WHITE BLOOD COUNT 5.3 TH/MM3 (4.0-11.0)
[2016-11-13 07:20] LABS: BICARBONATE 26.5 MEQ/L (21.0-32.0)
[2016-11-13] MEDS: clonazePAM 0.5 MG TAB PO SCH ×2 (08:07→21:47)
[2016-11-13] MEDS: DOCUSATE SODIUM 50 MG/SENNA 8.6 MG TAB PO SCH ×2 (08:08→21:00)
[2016-11-13] MEDS: ASPIRIN 325 MG TAB PO SCH (08:09)
[2016-11-13] MEDS: CLOPIDOGREL 75 MG TAB PO SCH (08:09)
[2016-11-13] MEDS: LISINOPRIL 5 MG TAB PO SCH (08:09)
[2016-11-13] MEDS: METOPROLOL TARTRATE 25 MG TAB PO SCH ×3 (08:10→21:47)
[2016-11-13] MEDS: SODIUM CHLORIDE 0.9% FLUSH 10 ML FLUSH IV FLUSH SCH ×2 (08:12→21:47)
--- NOTE | 2016-11-13 09:03 | PD.CARD.PN ---
Subjective Subjective Remarks Intermittent vomiting continues. EGDE results noted Objective Medications Current Medications Medications (Trade) Dose Ordered Sig/Diego Route Start Time Stop Time Status Last Admin (NS Flush) 2 ml UNSCH PRN IV FLUSH 11/11/16 19:15 (NS Flush) 2 ml BID IV FLUSH 11/11/16 21:00 11/13/16 08:12 (Zofran Inj) 4 mg Q6H PRN IVP 11/11/16 19:15 11/13/16 06:05 (Tylenol) 650 mg Q6H PRN PO 11/11/16 19:15 (Percocet 5-325 Mg) 1 tab Q6H PRN PO 11/11/16 19:15 11/11/16 20:54 (Morphine Inj) 2 mg Q3H PRN IV 11/11/16 19:15 11/13/16 06:05 (Ro-Colace) 1 tab BID PO 11/11/16 21:00 (Milk Of Magnesia Liq) 30 ml Q12H PRN PO 11/11/16 19:15 (Senokot) 17.2 mg Q12H PRN PO 11/11/16 19:15 (Dulcolax Supp) 10 mg DAILY PRN RECTAL 11/11/16 19:15 (Lactulose Liq) 30 ml DAILY PRN PO 11/11/16 19:15 (Aspirin) 325 mg DAILY PO 11/12/16 09:00 11/13/16 08:09 (Lipitor) 40 mg HS PO 11/11/16 21:00 11/12/16 21:40 (KlonoPIN) 0.5 mg BID PO 11/11/16 21:00 11/13/16 08:07 (Plavix) 75 mg DAILY PO 11/12/16 09:00 (Prinivil) 5 mg DAILY PO 11/12/16 09:00 (Lopressor) 25 mg BID PO 11/11/16 21:00 11/12/16 21:41 (Nitroglycerin 2% Oint) 0.5 inch Q6HR PRN TOPICAL 11/11/16 19:30 11/11/16 23:20 (Ativan Inj) 1 mg Q2H PRN IV PUSH 11/11/16 19:30 Miscellaneous Information ALL NURSING DEPARTME... UNSCH PRN .XX 11/12/16 16:45 11/13/16 16:44 Vital Signs / I&O Vital Signs Date Time Temp Pulse Resp B/P Pulse Ox O2 Delivery O2 Flow Rate FiO2 11/13/16 08:19 68 11/13/16 07:00 72 11/13/16 07:00 98.1 72 18 85/67 93 11/13/16 06:00 68 11/13/16 05:00 98.3 68 18 100/63 92 11/13/16 05:00 66 11/13/16 04:00 67 11/13/16 03:00 68 11/13/16 02:00 66 11/13/16 01:00 70 11/13/16 00:00 98.3 70 18 114/65 93 11/13/16 00:00 73 11/12/16 23:00 66 11/12/16 22:00 72 11/12/16 21:00 68 11/12/16 20:00 97.4 70 18 113/68 93 11/12/16 20:00 73 11/12/16 19:00 70 11/12/16 18:35 16 11/12/16 18:00 72 11/12/16 17:00 67 11/12/16 16:55 98.4 66 20 121/66 98 Room Air 11/12/16 16:45 66 20 121/66 98 Room Air 11/12/16 16:30 66 20 122/63 100 Room Air 11/12/16 16:24 98.4 72 20 113/58 95 Nasal Cannula 2 11/12/16 15:15 97.7 65 16 100/60 94 11/12/16 15:00 63 11/12/16 14:00 60 11/12/16 13:00 67 11/12/16 12:00 64 11/12/16 11:00 64 11/12/16 11:00 97.7 62 18 100/64 94 11/12/16 10:00 64 11/12/16 09:00 68 I/O 11/12/16 11/12/16 11/12/16 11/13/16 11/13/16 11/13/16 06:59 14:59 22:59 06:59 14:59 22:59 Intake Total 480 ml 230 ml Output Total 0 ml Balance 480 ml 230 ml Intake Oral 480 ml IV Total 30 ml Other 200 ml Output Stool Total 0 ml # Voids 2 2 Physical Exam Awake Chest diminished BS CV S1S2 RRR No edema Laboratory Laboratory Tests Test 11/13/16 05:45 White Blood Count 5.3 TH/MM3 Red Blood Count 3.38 MIL/MM3 Hemoglobin 11.1 GM/DL Hematocrit 33.9 % Mean Corpuscular Volume 100.4 FL Mean Corpuscular Hemoglobin 32.8 PG Mean Corpuscular Hemoglobin 32.7 % Concent Red Cell Distribution Width 19.5 % Platelet Count 109 TH/MM3 Mean Platelet Volume 8.5 FL Neutrophils (%) (Auto) 78.9 % Lymphocytes (%) (Auto) 6.7 % Monocytes (%) (Auto) 13.2 % Eosinophils (%) (Auto) 0.6 % Basophils (%) (Auto) 0.6 % Neutrophils # (Auto) 4.2 TH/MM3 Lymphocytes # (Auto) 0.4 TH/MM3 Monocytes # (Auto) 0.7 TH/MM3 Eosinophils # (Auto) 0.0 TH/MM3 Basophils # (Auto) 0.0 TH/MM3 CBC Comment DIFF FINAL Differential Comment Sodium Level 129 MEQ/L Potassium Level 4.0 MEQ/L Chloride Level 91 MEQ/L Carbon Dioxide Level 26.5 MEQ/L Anion Gap 12 MEQ/L Blood Urea Nitrogen 67 MG/DL Creatinine 5.88 MG/DL Estimat Glomerular Filtration 7 ML/MIN Rate Random Glucose 105 MG/DL Calcium Level 8.7 MG/DL Imaging Last 48 hours Impressions Lung Scan-V Nuclear Medicine 11/11/16 1902 Signed Impressions: Service Date/Time: Friday, November 11, 2016 20:58 - CONCLUSION: 1. Low probability for pulmonary embolus. Joey Wilkerson MD Chest X-Ray 11/11/16 1644 Signed Impressions: Service Date/Time: Friday, November 11, 2016 16:52 - CONCLUSION: 1. Mild basilar opacity most characteristic of atelectasis. Cardiomegaly. Joey Wilkerson MD Assessment and Plan Problem List: (1) CAD (coronary artery disease) Assessment and Plan: Chest pain most likely due to PUD. No troponin changes. Intermittent vomiting continues (2) Duodenitis (3) Duodenal ulcer (4) Esophageal ulcer (5) Esophagitis (6) Tobacco abuse Assessment and Plan: refuses to quit. Counseled. Remains noncompliant. Assessment and Plan I am going to hold off on heart cath. DC Tee Casiano MD Nov 13, 2016 09:03
[2016-11-13] MEDS: PANTOPRAZOLE SOD 40 MG DELAYED RELEASE TAB PO SCH (09:42)
[2016-11-13] MEDS ORDERED: SODIUM CHLOR 0.9% 1000 ML INJ 1,000 ML IV PRN ×2 (09:55)
[2016-11-13] MEDS ORDERED: cloNIDine HCL 0.1 MG TAB PO PRN (10:00)
[2016-11-13] MEDS ORDERED: diphenhydrAMINE HCL 25 MG CAP PO PRN (10:00)
[2016-11-13] MEDS ORDERED: HEPARIN SODIUM - IV 10,000 UNITS/10 ML VIAL IVF PRN (10:00)
[2016-11-13] MEDS ORDERED: SODIUM CHLORIDE 0.9% FLUSH 10 ML FLUSH IV FLUSH PRN (10:00)
[2016-11-13] MEDS ORDERED: ACETAMINOPHEN 325 MG TAB PO PRN (10:00)
[2016-11-13] MEDS ORDERED: MANNITOL 12.5 GM/50 ML VIAL IV PRN (10:00)
[2016-11-13] MEDS ORDERED: ONDANSETRON HCL 4 MG/2 ML VIAL IV PRN (10:00)
[2016-11-13] MEDS ORDERED: GENTAMICIN SULFATE (DIALYSIS USE ONLY) 20 MG/2 ML VIAL IV PRN (10:00)
[2016-11-13] MEDS ORDERED: NITROGLYCERIN 0.4 MG SL 25 TABS/BTL SL PRN (10:00)
[2016-11-13] MEDS ORDERED: HEPARIN SODIUM - IV 10,000 UNITS/10 ML VIAL PRN (10:00)
[2016-11-13] MEDS ORDERED: ALBUMIN HUMAN 25% 25 GM/100 ML BAGP IV PRN (10:00)
--- NOTE | 2016-11-13 10:34 | PD.CONS ---
HPI Service Nephrology Consult Requested By Dr. Peraza Reason for Consult ESRD on HD Primary Care Physician Gudelia Del Real MD History of Present Illness This is a 71 y/o female patient who was referred to ER for evaluation of chest pain. She was at her hospital housekeeper office, Dr. Woo, when she admitted to chest pain for several weeks. She was given NTG which did not alleviate the pain. PMH of HTN, CAD, ESRD on HD T/Sat, CHF (Echo 11/06/15 w/ EF 30-35%), chronic hyponatremia, COPD and current Tobacco Abuse. She has been vomiting frequently since admission. Had an EGD as preop for cardiac cath ( which was cancelled) that showed severe gastric ulcers, a biopsy was taken and is in process. She is seen in preparation for dialysis. A graft of her left upper extremity functions well. We were consulted for dialysis management. She has a hx of non compliance with treatment schedules and physician recommendations. Her last HD was last Saturday, one week ago. She is a full code. (Mily Gray) Review of Systems Constitutional: COMPLAINS OF: Fatigue, DENIES: Fever, Weight gain Cardiovascular: COMPLAINS OF: Chest pain, DENIES: Dyspnea on Exertion, Lower Extremity Edema Gastrointestinal: COMPLAINS OF: Abdominal pain, Nausea, Vomiting, DENIES: Black stools Musculoskeletal: DENIES: Muscle aches Neurologic: DENIES: Headache (Mily Gray) Past Family Social History Allergies: Coded Allergies: Niacin (Verified Allergy, Severe, ANAPHALACTIC, 04/16/16) *MDRO Multi-Drug Resistant Organism (Verified Adverse Reaction, Unknown, ) ESBL+Klebsiella Pneumoniae (urine) - 03/2015 & 05/2015 Past Medical History ESRD on hemodialysis Tuesdays and Saturdays Coronary artery disease status post NSTEMI 2014 Hyperlipidemia Systolic congestive heart failure COPD Anxiety Active tobacco abuse anemia metabolic bone disorder non compliance Past Surgical History PCI with stent placement (BMS to LAD) 2014 AV graft placement in the left upper extremity PermCath placement and removal tonsillectomy D&C Reported Medications Clonazepam 0.5 Mg Tab 0.5 Mg PO BID Plavix (Clopidogrel Bisulfate) 75 Mg Tab 75 Mg PO DAILY Lisinopril 5 Mg Tab 5 Mg PO DAILY Aspirin 325 Mg Tab 325 Mg PO DAILY Metoprolol Tartrate 25 Mg Tab 25 Mg PO BID Atorvastatin (Atorvastatin Calcium) 40 Mg Tab 40 Mg PO HS Active Ordered Medications Current Medications Medications (Trade) Dose Ordered Sig/Diego Route Start Time Stop Time Status Last Admin (NS Flush) 2 ml UNSCH PRN IV FLUSH 11/11/16 19:15 (NS Flush) 2 ml BID IV FLUSH 11/11/16 21:00 11/13/16 08:12 (Zofran Inj) 4 mg Q6H PRN IVP 11/11/16 19:15 11/13/16 06:05 (Tylenol) 650 mg Q6H PRN PO 11/11/16 19:15 (Percocet 5-325 Mg) 1 tab Q6H PRN PO 11/11/16 19:15 11/11/16 20:54 (Morphine Inj) 2 mg Q3H PRN IV 11/11/16 19:15 11/13/16 06:05 (Ro-Colace) 1 tab BID PO 11/11/16 21:00 (Milk Of Magnesia Liq) 30 ml Q12H PRN PO 11/11/16 19:15 (Senokot) 17.2 mg Q12H PRN PO 11/11/16 19:15 (Dulcolax Supp) 10 mg DAILY PRN RECTAL 11/11/16 19:15 (Lactulose Liq) 30 ml DAILY PRN PO 11/11/16 19:15 (Lipitor) 40 mg HS PO 11/11/16 21:00 11/12/16 21:40 (KlonoPIN) 0.5 mg BID PO 11/11/16 21:00 11/13/16 08:07 (Plavix) 75 mg DAILY PO 11/12/16 09:00 (Prinivil) 5 mg DAILY PO 11/12/16 09:00 (Lopressor) 25 mg BID PO 11/11/16 21:00 11/12/16 21:41 (Nitroglycerin 2% Oint) 0.5 inch Q6HR PRN TOPICAL 11/11/16 19:30 11/11/16 23:20 (Ativan Inj) 1 mg Q2H PRN IV PUSH 11/11/16 19:30 Miscellaneous Information ALL NURSING DEPARTME... UNSCH PRN .XX 11/12/16 16:45 11/13/16 16:44 (Protonix) 40 mg DAILY PO 11/13/16 09:15 11/13/16 09:42 Family History no hx of renal disorders strong hx of CAD Social History Active smoker, 1/2 ppd for "years" + ETOH "but not a lot", admits to drinking liquir denies illicit substances Lives alone Independent with ADLs Full code reports family support non compliance with treatment schedules, advised fluid restriction, smoking cessation (Mily Gray) Physical Exam Vital Signs Vital Signs Date Time Temp Pulse Resp B/P Pulse Ox O2 Delivery O2 Flow Rate FiO2 11/13/16 09:25 73 11/13/16 08:19 68 11/13/16 07:00 72 11/13/16 07:00 98.1 72 18 85/67 93 11/13/16 06:00 68 11/13/16 05:00 98.3 68 18 100/63 92 11/13/16 05:00 66 11/13/16 04:00 67 11/13/16 03:00 68 11/13/16 02:00 66 11/13/16 01:00 70 11/13/16 00:00 98.3 70 18 114/65 93 11/13/16 00:00 73 11/12/16 23:00 66 11/12/16 22:00 72 11/12/16 21:00 68 11/12/16 20:00 97.4 70 18 113/68 93 11/12/16 20:00 73 11/12/16 19:00 70 11/12/16 18:35 16 11/12/16 18:00 72 11/12/16 17:00 67 11/12/16 16:55 98.4 66 20 121/66 98 Room Air 11/12/16 16:45 66 20 121/66 98 Room Air 11/12/16 16:30 66 20 122/63 100 Room Air 11/12/16 16:24 98.4 72 20 113/58 95 Nasal Cannula 2 11/12/16 15:15 97.7 65 16 100/60 94 11/12/16 15:00 63 11/12/16 14:00 60 11/12/16 13:00 67 11/12/16 12:00 64 11/12/16 11:00 64 11/12/16 11:00 97.7 62 18 100/64 94 Physical Exam Elderly CF in NAD sitting up in bed receiving dialysis Alert, oriented x 3 S1/S2, no murmurs appreciated Lungs with bibasilar rales, more pronounced on right Abd: soft, non tender, no distension Ext: no edema, LUE AVG, + thrill/bruit prior to being accessed, now accessed for HD without difficulty Laboratory Laboratory Tests Test 11/13/16 05:45 White Blood Count 5.3 Red Blood Count 3.38 Hemoglobin 11.1 Hematocrit 33.9 Mean Corpuscular Volume 100.4 Mean Corpuscular Hemoglobin 32.8 Mean Corpuscular Hemoglobin 32.7 Concent Red Cell Distribution Width 19.5 Platelet Count 109 Mean Platelet Volume 8.5 Neutrophils (%) (Auto) 78.9 Lymphocytes (%) (Auto) 6.7 Monocytes (%) (Auto) 13.2 Eosinophils (%) (Auto) 0.6 Basophils (%) (Auto) 0.6 Neutrophils # (Auto) 4.2 Lymphocytes # (Auto) 0.4 Monocytes # (Auto) 0.7 Eosinophils # (Auto) 0.0 Basophils # (Auto) 0.0 CBC Comment DIFF FINAL Differential Comment Sodium Level 129 Potassium Level 4.0 Chloride Level 91 Carbon Dioxide Level 26.5 Anion Gap 12 Blood Urea Nitrogen 67 Creatinine 5.88 Estimat Glomerular Filtration 7 Rate Random Glucose 105 Calcium Level 8.7 (Mily Gray) Result Diagram: 11/13/16 0545 11/13/16 0545 Imaging Last Impressions Lung Scan-V Nuclear Medicine 11/11/16 1902 Signed Impressions: Service Date/Time: Friday, November 11, 2016 20:58 - CONCLUSION: 1. Low probability for pulmonary embolus. Joey Wilkerson MD Chest X-Ray 11/11/16 1644 Signed Impressions: Service Date/Time: Friday, November 11, 2016 16:52 - CONCLUSION: 1. Mild basilar opacity most characteristic of atelectasis. Cardiomegaly. Joey Wilkerson MD (Mily Gray) Assessment and Plan Problem List: (1) ESRD (end stage renal disease) Plan: Typical /Sat HD schedule last HD one week ago, she missed Saturday due to not feeling well, HD today, orders entered seen during dialysis on a 3K, 3.5 hr treatment, 3.5 L UF, 300 BFR fluid removal as tolerated, she has been vomiting and still makes some urine monitor electrolytes intermittently avoid IVF, gadolinium is contraindicated check phosphorus level, she reports that her binders have been held recently (2) Chest pain Plan: cardiology and GI have evaluated previous plan for heart cath, diagnostic, but that was cancelled chest pain thought to be due to gastritis, ulcers (3) CAD (coronary artery disease) Plan: hx of stents in the past on statin, beta chuck, JOSE, plavix ASA has been stopped (4) Anemia Plan: no epogen required monitor hemoglobin (5) Hyponatremia Plan: chronic, hypervolemic UF with dialysis, discussed fluid restriction (6) CHF (congestive heart failure) Plan: monitor fluid status, UF as tolerated (7) HTN (hypertension) Plan: continue antihypertensives with hold parameters. (Mily Gray) Assessment and Plan patient was seen and examined. Seen during dialysis. Agree with above assessment and plan. (Arvin Farnsworth MD) Problem Qualifiers (1) Chest pain: Qualified Code: R07.9 - Chest pain, unspecified type Mily Gray Nov 13, 2016 10:34 Arvin Farnsworth MD Nov 13, 2016 12:14
[2016-11-13] MEDS: GELATIN 12 MM/7 MM FOAM TOP PRN (13:33)
[2016-11-13] MEDS: SODIUM CHLOR 0.9% 1000 ML INJ 1,000 ML IV PRN (13:33)
--- NOTE | 2016-11-13 15:11 | HHI.PR ---
Subjective Remarks Follow-up for chest pain, emesis, and stage renal disease Patient seen in dialysis. She stated that emesis has improved. She also stated that chest pain has improved and she gets more pain with deep inspiration. otherwise no other complaints. Objective Vitals Vital Signs Date Time Temp Pulse Resp B/P Pulse Ox O2 Delivery O2 Flow Rate FiO2 11/13/16 15:00 98.0 72 18 118/67 93 11/13/16 15:00 72 11/13/16 14:00 72 11/13/16 13:00 74 11/13/16 12:00 70 11/13/16 11:00 73 11/13/16 11:00 73 11/13/16 10:21 73 11/13/16 09:25 73 11/13/16 08:19 68 11/13/16 07:00 72 11/13/16 07:00 98.1 72 18 85/67 93 11/13/16 06:00 68 11/13/16 05:00 98.3 68 18 100/63 92 11/13/16 05:00 66 11/13/16 04:00 67 11/13/16 03:00 68 11/13/16 02:00 66 11/13/16 01:00 70 11/13/16 00:00 98.3 70 18 114/65 93 11/13/16 00:00 73 11/12/16 23:00 66 11/12/16 22:00 72 11/12/16 21:00 68 11/12/16 20:00 97.4 70 18 113/68 93 11/12/16 20:00 73 11/12/16 19:00 70 11/12/16 18:35 16 11/12/16 18:00 72 11/12/16 17:00 67 11/12/16 16:55 98.4 66 20 121/66 98 Room Air 11/12/16 16:45 66 20 121/66 98 Room Air 11/12/16 16:30 66 20 122/63 100 Room Air 11/12/16 16:24 98.4 72 20 113/58 95 Nasal Cannula 2 11/12/16 15:15 97.7 65 16 100/60 94 I/O 11/12/16 11/12/16 11/12/16 11/13/16 11/13/16 11/13/16 06:59 14:59 22:59 06:59 14:59 22:59 Intake Total 480 ml 230 ml Output Total 0 ml Balance 480 ml 230 ml Intake Oral 480 ml IV Total 30 ml Other 200 ml Output Stool Total 0 ml # Voids 2 2 Result Diagram: 11/13/1654411/13/16544 Objective Remarks GENERAL: In no acute distress CARDIOVASCULAR: Regular rate and rhythm without murmurs, gallops, or rubs. RESPIRATORY: Breath sounds equal bilaterally. No accessory muscle use. GASTROINTESTINAL: Abdomen soft, nondistended. Positive for tenderness palpation in the epigastric area but mild. No peritoneal signs. MUSCULOSKELETAL: No cyanosis, or edema. BACK: Nontender without obvious deformity. No CVA tenderness. Procedures EGD on 11/12/2016. Medications and IVs Current Medications Ondansetron HCl (Zofran Inj) 4 mg ONCE ONCE IV PUSH Last administered on 18:38; Start 11/11/16 at 18:30; Stop 11/11/16 at 18:31; Status DC Enoxaparin Sodium (Lovenox Inj) 70 mg ONCE ONCE SQ Last administered on 21:37; Start 11/11/16 at 18:45; Stop 11/11/16 at 18:46; Status DC Sodium Chloride (NS Flush) 2 ml UNSCH PRN IV FLUSH FLUSH AFTER USING IV ACCESS ; Start 11/11/16 at 19:15 Sodium Chloride (NS Flush) 2 ml BID IV FLUSH Last administered on 11/13/16 08: 12; Start 11/11/16 at 21:00 Ondansetron HCl (Zofran Inj) 4 mg Q6H PRN IVP NAUSEA OR VOMITING Last administered on 11/13/16 06:05; Start 11/11/16 at 19:15 Acetaminophen (Tylenol) 650 mg Q6H PRN PO FEVER/PAIN SCALE 1 TO 2; Start at 19:15 Oxycodone/ Acetaminophen (Percocet 5-325 Mg) 1 tab Q6H PRN PO PAIN SCALE 3 TO 5 Last administered on 11/11/16 20:54; Start 11/11/16 at 19:15 Morphine Sulfate (Morphine Inj) 2 mg Q3H PRN IV Pain 6-10 Last administered on 11/13/16 06:05; Start 11/11/16 at 19:15 Senna/Docusate Sodium (Ro-Colace) 1 tab BID PO ; Start 11/11/16 at 21:00 Magnesium Hydroxide (Milk Of Magnesia Liq) 30 ml Q12H PRN PO MILD - MODERATE CONSTIPATION; Start 11/11/16 at 19:15 Sennosides (Senokot) 17.2 mg Q12H PRN PO MODERATE - SEVERE CONSTIPATION; Start 11/11/16 at 19:15 Bisacodyl (Dulcolax Supp) 10 mg DAILY PRN RECTAL SEVERE CONSITIPATION; Start at 19:15 Lactulose (Lactulose Liq) 30 ml DAILY PRN PO SEVERE CONSITIPATION; Start at 19:15 Aspirin (Aspirin) 325 mg DAILY PO Last administered on 11/13/16 08:09; Start at 09:00; Stop 11/13/16 at 09:04; Status DC Atorvastatin Calcium (Lipitor) 40 mg HS PO Last administered on 11/12/16 21:40 ; Start 11/11/16 at 21:00 Clonazepam (KlonoPIN) 0.5 mg BID PO Last administered on 11/13/16 08:07; Start 11/11/16 at 21:00 Clopidogrel Bisulfate (Plavix) 75 mg DAILY PO ; Start 11/12/16 at 09:00 Lisinopril (Prinivil) 5 mg DAILY PO ; Start 11/12/16 at 09:00 Metoprolol Tartrate (Lopressor) 25 mg BID PO Last administered on 11/12/16 21: 41; Start 11/11/16 at 21:00 Nitroglycerin (Nitroglycerin 2% Oint) 0.5 inch Q6HR PRN TOPICAL CHEST PAIN Last administered on 11/11/16 23:20; Start 11/11/16 at 19:30 Lorazepam (Ativan Inj) 1 mg Q2H PRN IV PUSH WITHDRAWAL/AGITATION; Start at 19:30 Propofol (Diprivan 200 Mg/20 ml Inj) 120 mg STK-MED ONCE IV ; Start 11/12/16 at 16:00; Stop 11/12/16 at 16:15; Status DC Miscellaneous Information ALL NURSING DEPARTME... UNSCH PRN .XX SEE LABEL COMMENTS; Start 11/12/16 at 16:45; Stop 11/13/16 at 16:44 Ephedrine Sulfate (ePHEDrine/NS 25 MG/5 ML SYR) 25 mg STK-MED ONCE IV ; Start at 12:00; Stop 11/13/16 at 08:47; Status DC Pantoprazole Sodium 40 mg 40 mg DAILY PO Last administered on 11/13/16 09:42; Start 11/13/16 at 09:15 Sodium Chloride (NS 1000 ml Inj) 1,000 ml @ 0 mls/hr Q0M PRN IV For Prime & Rinse Back Last administered on 11/13/16 13:33; Start 11/13/16 at 09:55 Heparin Sodium (Porcine) 8000 units 8,000 units UNSCH PRN IVF WITH DIALYSIS; Start 11/13/16 at 10:00 Sodium Chloride 1,000 ml @ 200 mls/hr Q5H PRN IV WITH DIALYSIS; Start 11/13/16 at 09:55 Sodium Chloride (NS 1000 ml Inj) 1,000 ml @ 0 mls/hr Q0M PRN IV WITH DIALYSIS; Start 11/13/16 at 09:55 Mannitol (Mannitol Inj) 12.5 gm UNSCH PRN IV WITH DIALYSIS; Start 11/13/16 at 10 :00 Albumin Human (Albumin 25% Inj) 25 gm UNSCH PRN IV WITH DIALYSIS; Start at 10:00 Sodium Chloride (NS Flush) 5 ml UNSCH PRN IV FLUSH WITH DIALYSIS; Start at 10:00 Heparin Sodium (Porcine) (Heparin Inj) UNSCH PRN .XX WITH DIALYSIS; Start 11/13 at 10:00 Gentamicin Sulfate (Gentamicin (Dialysis) Inj) 20 mg UNSCH PRN IV WITH DIALYSIS ; Start 11/13/16 at 10:00 Ondansetron HCl (Zofran Inj) 4 mg UNSCH PRN IV WITH DIALYSIS; Start 11/13/16 at 10:00 Acetaminophen (Tylenol) 650 mg UNSCH PRN PO for headach, pain, temp > 101F; Start 11/13/16 at 10:00 Diphenhydramine HCl (Benadryl) 25 mg UNSCH PRN PO for hives/itching/anaphylaxis ; Start 11/13/16 at 10:00 Nitroglycerin (Nitrostat Sl) 0.4 mg UNSCH PRN SL CHEST PAIN; Start 11/13/16 at 10:00 Clonidine (Catapres) 0.1 mg UNSCH PRN PO for BP > 180/100 X 2 readings; Start 11/13/16 at 10:00 Gelatin (Gelfoam 12 Mm/7 Mm Top) 1 foam UNSCH PRN TOP SEE LABEL COMMENTS Last administered on 11/13/16t 13:33; Start 11/13/16 at 10:00 A/P Problem List: (1) Chest pain ICD Code: R07.9 Status: Acute (2) CHF (congestive heart failure) ICD Code: I50.9 Status: Acute (3) ESRD (end stage renal disease) ICD Code: N18.6 Status: Chronic (4) HTN (hypertension) ICD Code: I10 Status: Chronic (5) Tobacco abuse ICD Code: Z72.0 Status: Chronic Assessment and Plan Chest Pain -r/o ACS, h/o CAD s/p NM/Stent in the past, symptoms ongoing x2-3wks, seen by Wallcovering Texturer Dr. Woo and prescribed NTG, NTG x6 prior to arrival w/ minimal improvement. Trop 0.04, EKG w/ no acute ischemia. VQ Scan showed low prob PE. -Aspirin discontinued by Dr. Woo due to severe ulcers. -Per Dr. Woo very unlikely that this is cardiac in nature. He stated that he will hold off cart catheterization secondary to emesis. Severe Gastritis severe/duodenitis with ulcers/severe esophagitis with ulcer -Per GI recommend PPI, anti-acid, avoid NSAIDs. CHF: Acute on Chronic. Systolic. Echo 11/06/15 w/ EF 30-35%. BNP >5000. CXR w/ basilar atelectasis. -Patient currently in dialysis. ESRD on HD: -/, missed HD on . patient seen by Dr. Wu. Motorcycle Maker is following. HTN -Continue with home medication. Tobacco Abuse: Pt has been counselled. Ativan prn. No NicoDerm to avoid vasoconstriction. DVT Prophylaxis: S/p Lovenox in ER, SCD/AKOSUA Problem Qualifiers (1) Chest pain: Qualified Code: R07.9 - Chest pain, unspecified type Caridad Schaefer MD Nov 13, 2016 15:11
[2016-11-13] MEDS ORDERED: ATROPINE SULFATE 1 MG/10 ML SYRINGE ONE (17:20)
[2016-11-13] MEDS: ATORVASTATIN 40 MG TAB PO SCH (21:47)
[2016-11-13] MEDS: oxyCODONE/ACETAMINOPHEN 5 MG/325 MG TAB PO PRN (22:02)
[2016-11-14] VITALS (38 sets, daily range): BP systolic 71–114; BP diastolic 47–96; PULSE 72–144; RESP 15–20; TEMP 97.8–98.8; O2SAT 88–98
[2016-11-14] MEDS: DOCUSATE SODIUM 50 MG/SENNA 8.6 MG TAB PO SCH ×2 (09:00→20:43)
[2016-11-14] MEDS: LISINOPRIL 5 MG TAB PO SCH (09:00)
[2016-11-14] MEDS ORDERED: PANT40TA3 PO (09:11)
[2016-11-14] MEDS ORDERED: SENN1TAB PO (09:11)
[2016-11-14] MEDS ORDERED: SEVEL800 PO (09:11)
--- NOTE | 2016-11-14 09:14 | HHI.DCPOC ---
Discharge Care Plan Diagnosis: (1) Duodenitis (2) Esophageal ulcer (3) Duodenal ulcer (4) Esophagitis (5) Tobacco abuse Goals to Promote Your Health * To prevent worsening of your condition and complications * To maintain your health at the optimal level Directions to Meet Your Goals Take your medications as prescribed Follow your dietary instruction Follow activity as directed Keep your appointments as scheduled Take your immunizations and boosters as scheduled If your symptoms worsen call your PCP, if no PCP go to Urgent Care Center or Emergency Room Smoking is Dangerous to Your Health. Avoid second hand smoke Call the 24-hour hour crisis hotline for domestic abuse at Caridad Schaefer MD Nov 14, 2016 09:13
--- NOTE | 2016-11-14 09:16 | HHI.DS ---
Discharge Summary Admission Date Nov 11, 2016 at 19:05 Admitting Diagnosis chest pain (1) Chest pain ICD Code: R07.9 (2) CHF (congestive heart failure) ICD Code: I50.9 (3) ESRD (end stage renal disease) ICD Code: N18.6 (4) HTN (hypertension) ICD Code: I10 (5) Tobacco abuse ICD Code: Z72.0 Procedures EGD on 11/12/2016. Brief History - From Admission This is a 71-year-old female with a PMH of HTN, CAD, ESRD on HD /, CHF (Echo 11/06/15 w/ EF 30-35%), COPD and Tobacco Abuse who presented to the ER w/ complaints of chest pain. States symptoms have been ongoing x2-3 wks, follows w / Waiver Analyst, Dr. Woo, seen in office and instructed to take NTG for likely angina. On HD and however missed HD on due to symptoms. Today, pt w/ severe pain, mostly on exertion. Took 6 NTG tablets w/ minimal relief. On arrival, BP 169/79, HR 78, O2 sat 98% on RA, Afebrile. CBC unremarkable except for mild anemia, hemoglobin 11.2. Creatinine 4.65, previously 7.68 on 12/13/15. Troponin 0.04. EKG with no acute changes. BNP greater than 5000. CXR with mild basilar opacity characteristic of atelectasis. Dr. Connell consulted by ER physician, recommended Lovenox, V/ Q Scan for possible PE and [facility]. CBC/BMP: 11/13/16 0545 11/13/16 0545 Significant Findings Laboratory Tests Test 11/11/16 11/12/16 11/13/16 16:45 05:28 05:45 Red Blood Count 3.45 MIL/MM3 3.42 MIL/MM3 3.38 MIL/MM3 (4.00-5.30) (4.00-5.30) (4.00-5.30) Hemoglobin 11.2 GM/DL 11.3 GM/DL 11.1 GM/DL (11.6-15.3) (11.6-15.3) (11.6-15.3) Hematocrit 34.4 % 33.9 % 33.9 % (35.0-46.0) (35.0-46.0) (35.0-46.0) Red Cell Distribution Width 19.8 % 19.5 % 19.5 % (11.6-17.2) (11.6-17.2) (11.6-17.2) Neutrophils (%) (Auto) 82.4 % 83.8 % 78.9 % (16.0-70.0) (16.0-70.0) (16.0-70.0) Lymphocytes (%) (Auto) 8.5 % 3.9 % 6.7 % (9.0-44.0) (9.0-44.0) (9.0-44.0) Monocytes (%) (Auto) 8.2 % (0.0-8.0) 12.0 % 13.2 % (0.0-8.0) (0.0-8.0) Lymphocytes # (Auto) 0.4 TH/MM3 0.2 TH/MM3 0.4 TH/MM3 (1.0-4.8) (1.0-4.8) (1.0-4.8) Prothrombin Time 11.9 SEC (9.8-11.6) Sodium Level 127 MEQ/L 128 MEQ/L 129 MEQ/L (136-145) (136-145) (136-145) Chloride Level 90 MEQ/L 89 MEQ/L 91 MEQ/L (98-107) (98-107) (98-107) Carbon Dioxide Level 18.6 MEQ/L (21.0-32.0) Anion Gap 18 MEQ/L (5-15) 17 MEQ/L (5-15) Blood Urea Nitrogen 55 MG/DL (7-18) 60 MG/DL (7-18) 67 MG/DL (7-18) Creatinine 4.65 MG/DL 4.93 MG/DL 5.88 MG/DL (0.50-1.00) (0.50-1.00) (0.50-1.00) Estimat Glomerular Filtration 9 ML/MIN (>89) 9 ML/MIN (>89) 7 ML/MIN (>89) Rate Calcium Level 7.9 MG/DL (8.5-10.1) Alkaline Phosphatase 177 U/L 164 U/L (45-117) (45-117) B-Type Natriuretic Peptide GREATER THAN 5000 PG/ML (0-100) Platelet Count 128 TH/MM3 109 TH/MM3 (150-450) (150-450) Random Glucose 127 MG/DL (74-106) Total Bilirubin 1.6 MG/DL (0.2-1.0) Mean Corpuscular Volume 100.4 FL (80.0-100.0) Phosphorus Level 7.1 MG/DL (2.5-4.9) PE at Discharge GENERAL: In no acute distress CARDIOVASCULAR: Regular rate and rhythm without murmurs, gallops, or rubs. RESPIRATORY: Breath sounds equal bilaterally. No accessory muscle use. GASTROINTESTINAL: Abdomen soft, nondistended. Positive for tenderness palpation in the epigastric area but mild. No peritoneal signs. MUSCULOSKELETAL: No cyanosis, or edema. BACK: Nontender without obvious deformity. No CVA tenderness. Discharge Disposition: Discharge Home Discharge Instructions DIET: Follow Instructions for: Heart Healthy Diet, Renal Failure Diet Additional Diet Instructions: eat small portions of meals throughout the day. Activities you can perform: Regular-No Restrictions Caridad Schaefer MD Nov 14, 2016 09:16
[2016-11-14] MEDS: clonazePAM 0.5 MG TAB PO SCH ×2 (09:27→20:42)
[2016-11-14] MEDS: CLOPIDOGREL 75 MG TAB PO SCH (09:27)
[2016-11-14] MEDS: METOPROLOL TARTRATE 25 MG TAB PO SCH ×2 (09:29→20:41)
[2016-11-14] MEDS: PANTOPRAZOLE SOD 40 MG DELAYED RELEASE TAB PO SCH (09:29)
[2016-11-14] MEDS: SODIUM CHLORIDE 0.9% FLUSH 10 ML FLUSH IV FLUSH SCH ×2 (09:29→20:43)
--- NOTE | 2016-11-14 10:01 | HHI.NPPN ---
Subjective Complaints: Chest Pain Renal Failure: Chronic, End Stage Renal Disease Interval History Chest pain mostly resolved. No further vomiting episodes. Potential discharge today. (Mily Gray) Review of Systems Cardiovascular Cardiac: Chest Pain (Mily Gray) Gastrointestinal Gastrointestinal: Nausea & Vomiting (Mily Gray) Objective Data Data 11/13/16 11/14/16 18:59 06:59 Intake Total 500 ml 240 ml Balance 500 ml 240 ml Intake Oral 500 ml 240 ml IV Total 0 ml 0 ml # Voids 2 # Bowel Movements 0 1 Vital Signs Date Time Temp Pulse Resp B/P Pulse Ox O2 Delivery O2 Flow Rate FiO2 11/14/16 09:11 88 Nasal Cannula 11/14/16 06:00 87 11/14/16 05:00 81 11/14/16 04:00 81 11/14/16 03:45 92 Room Air 11/14/16 03:45 98.5 83 16 94/60 92 11/14/16 03:00 84 11/14/16 02:00 84 11/14/16 01:00 90 11/14/16 00:00 84 11/13/16 23:30 93 2.00 11/13/16 23:30 98.1 83 16 93/64 93 11/13/16 23:00 94 11/13/16 22:00 84 11/13/16 21:00 98.1 85 16 90/57 93 11/13/16 21:00 94 11/13/16 21:00 93 2.00 11/13/16 20:55 86 Room Air 11/13/16 20:00 94 11/13/16 19:00 95 11/13/16 18:54 76 11/13/16 17:39 71 11/13/16 17:21 94 21 11/13/16 16:11 70 11/13/16 15:00 98.0 72 18 118/67 93 11/13/16 15:00 72 11/13/16 14:00 72 11/13/16 13:00 74 11/13/16 12:00 70 11/13/16 11:00 73 11/13/16 11:00 73 11/13/16 10:21 73 (Mily Gray) -: 11/13/16 0545 11/13/16 0545 Imaging Last 72 hours Impressions Lung Scan-VQ Nuclear Medicine 11/11/16 1902 Signed Impressions: Service Date/Time: Friday, November 11, 2016 20:58 - CONCLUSION: 1. Low probability for pulmonary embolus. Joey Wilkerson MD Chest X-Ray 11/11/16 1644 Signed Impressions: Service Date/Time: Friday, November 11, 2016 16:52 - CONCLUSION: 1. Mild basilar opacity most characteristic of atelectasis. Cardiomegaly. Joey Wilkerson MD (Mily Gray B. COMPUTER SYSTEMS SUPPORT SPECIALIST) Physical Exam General Appearance: Well Developed, Well Nourished, Comfortable (Oleg Grayon B. COMPUTER SYSTEMS SUPPORT SPECIALIST) Eyes Eye Exam: Pupils Equal (Oleg Grayon B. COMPUTER SYSTEMS SUPPORT SPECIALIST) Throat Throat Exam: Oral Mucosa [place] & Moist (MarinaMily B. COMPUTER SYSTEMS SUPPORT SPECIALIST) Pulmonary Resp Exam: Clear Bilaterally, Breath Sounds Equal (MarinaMily B. COMPUTER SYSTEMS SUPPORT SPECIALIST) Cardiology CV Exam: Regular, Normal Sinus Rhythm, Good Perfusion (lOeg Grayon B. COMPUTER SYSTEMS SUPPORT SPECIALIST) Gastrointestinal/Abdomen GI Exam: Soft, Non-Tender, Bowel Sounds Present (MarinaMily B. COMPUTER SYSTEMS SUPPORT SPECIALIST) Musculoskeletal MS Exam: Joints Intact, Normal Gait, Normal Tone, Good Strength (Marina Mily B. COMPUTER SYSTEMS SUPPORT SPECIALIST) Integumentary Skin Exam: Clear, Warm, Dry, Intact (MarinaMily B. COMPUTER SYSTEMS SUPPORT SPECIALIST) Extremeties Extremities Exam: No Edema, Pedal Pulses Palpable (Oleg Grayon B. COMPUTER SYSTEMS SUPPORT SPECIALIST) Neurologic Neuro Exam: Alert, Awake, Oriented, Speech Clear, Moving All Extremities ( MarinaMily B. COMPUTER SYSTEMS SUPPORT SPECIALIST) Psychiatric Psych Exam: Appropriate Responses (MarinaMily B. COMPUTER SYSTEMS SUPPORT SPECIALIST) Assessment/Plan Discussed Condition With: Patient Assessment Summary: Anemia of CKD, Hypertension, End Stage Renal Disease Problem List: (1) ESRD (end stage renal disease) Plan: 3.5 UF yesterday stable from nephrology perspective if discharged advised compliance to Tues/Sat HD schedule Renvela started while admitted, has Fosrenol at home, advised to take 2 tabs with each meal avoid IVF while admitted no dietary protein restriction (2) Chest pain Plan: cardiology and GI have evaluated chest pain thought to be due to gastritis, ulcers F/U with cardiology as recommended (3) CAD (coronary artery disease) Plan: hx of stents in the past on statin, beta chuck, JOSE, plavix ASA has been stopped due to active ulcer (4) Anemia Plan: no epogen required monitor hemoglobin (5) Hyponatremia Plan: chronic, hypervolemic UF with dialysis, discussed fluid restriction (6) CHF (congestive heart failure) Plan: monitor fluid status, UF as tolerated (7) HTN (hypertension) Plan: continue antihypertensives with hold parameters. Plan cleared for discharge from renal perspective (Mily Gray) Plan patient was seen and examined. Dialysis will be continued. Patient was advised to stop smoking. On Protonix. (Arvin Farnsworth MD) Problem Qualifiers (1) Chest pain: Qualified Code: R07.9 - Chest pain, unspecified type Mily Gray Nov 14, 2016 10:01 Arvin Farnsworth MD Nov 15, 2016 09:06
--- NOTE | 2016-11-14 11:51 | HHI.PR ---
Subjective Remarks f/u for Chest pain and emesis patient stated chest pain and emesis resolved and she feels a lot better. she is tolerating PO intake. denied any CP, SOB, palpitations, lightheadedness/dizziness. patient was going to be discharge but then she developed atrial fibrillation with RVR. asymptomatic. d/w her nurse. Objective Vitals Vital Signs Date Time Temp Pulse Resp B/P Pulse Ox O2 Delivery O2 Flow Rate FiO2 11/14/16 10:47 94 Nasal Cannula 2.00 11/14/16 10:20 87 Room Air 11/14/16 09:11 88 Nasal Cannula 11/14/16 07:30 91 Room Air 11/14/16 06:00 87 11/14/16 05:00 81 11/14/16 04:00 81 11/14/16 03:45 92 Room Air 11/14/16 03:45 98.5 83 16 94/60 92 11/14/16 03:00 84 11/14/16 02:00 84 11/14/16 01:00 90 11/14/16 00:00 84 11/13/16 23:30 93 2.00 11/13/16 23:30 98.1 83 16 93/64 93 11/13/16 23:00 94 11/13/16 22:00 84 11/13/16 21:00 98.1 85 16 90/57 93 11/13/16 21:00 94 11/13/16 21:00 93 2.00 11/13/16 20:55 86 Room Air 11/13/16 20:00 94 11/13/16 19:00 95 11/13/16 18:54 76 11/13/16 17:39 71 11/13/16 17:21 94 21 11/13/16 16:11 70 11/13/16 15:00 98.0 72 18 118/67 93 11/13/16 15:00 72 11/13/16 14:00 72 11/13/16 13:00 74 11/13/16 12:00 70 I/O 11/13/16 11/13/16 11/13/16 11/14/16 11/14/16 11/14/16 07:00 15:00 23:00 07:00 15:00 23:00 Intake Total 500 ml 240 ml Output Total 3500 ml Balance -3500 ml 500 ml 240 ml Intake Oral 500 ml 240 ml IV Total 0 ml 0 ml Hemodialysis 3500 ml # Voids 2 # Bowel Movements 0 1 Result Diagram: 11/13/1654411/13/16544 Objective Remarks GENERAL: In no acute distress CARDIOVASCULAR: Regular rate and rhythm without murmurs, gallops, or rubs but later developed atrial fib. she was not examined at that time. RESPIRATORY: Breath sounds equal bilaterally. No accessory muscle use. GASTROINTESTINAL: Abdomen soft, nondistended. negative tenderness palpation. No peritoneal signs. MUSCULOSKELETAL: No cyanosis, or edema. BACK: Nontender without obvious deformity. No CVA tenderness. Procedures EGD on 11/12/2016. Medications and IVs Current Medications Ondansetron HCl (Zofran Inj) 4 mg ONCE ONCE IV PUSH Last administered on 18:38; Start 11/11/16 at 18:30; Stop 11/11/16 at 18:31; Status DC Enoxaparin Sodium (Lovenox Inj) 70 mg ONCE ONCE SQ Last administered on 21:37; Start 11/11/16 at 18:45; Stop 11/11/16 at 18:46; Status DC Sodium Chloride (NS Flush) 2 ml UNSCH PRN IV FLUSH FLUSH AFTER USING IV ACCESS ; Start 11/11/16 at 19:15 Sodium Chloride (NS Flush) 2 ml BID IV FLUSH Last administered on 11/14/16 09: 29; Start 11/11/16 at 21:00 Ondansetron HCl (Zofran Inj) 4 mg Q6H PRN IVP NAUSEA OR VOMITING Last administered on 11/13/16 06:05; Start 11/11/16 at 19:15 Acetaminophen (Tylenol) 650 mg Q6H PRN PO FEVER/PAIN SCALE 1 TO 2; Start at 19:15 Oxycodone/ Acetaminophen (Percocet 5-325 Mg) 1 tab Q6H PRN PO PAIN SCALE 3 TO 5 Last administered on 11/13/16 22:02; Start 11/11/16 at 19:15 Morphine Sulfate (Morphine Inj) 2 mg Q3H PRN IV Pain 6-10 Last administered on 11/13/16 16:54; Start 11/11/16 at 19:15 Senna/Docusate Sodium (Ro-Colace) 1 tab BID PO ; Start 11/11/16 at 21:00 Magnesium Hydroxide (Milk Of Magnesia Liq) 30 ml Q12H PRN PO MILD - MODERATE CONSTIPATION; Start 11/11/16 at 19:15 Sennosides (Senokot) 17.2 mg Q12H PRN PO MODERATE - SEVERE CONSTIPATION; Start 11/11/16 at 19:15 Bisacodyl (Dulcolax Supp) 10 mg DAILY PRN RECTAL SEVERE CONSITIPATION; Start at 19:15 Lactulose (Lactulose Liq) 30 ml DAILY PRN PO SEVERE CONSITIPATION; Start at 19:15 Aspirin (Aspirin) 325 mg DAILY PO Last administered on 11/13/16 08:09; Start at 09:00; Stop 11/13/16 at 09:04; Status DC Atorvastatin Calcium (Lipitor) 40 mg HS PO Last administered on 11/13/16 21:47 ; Start 11/11/16 at 21:00 Clonazepam (KlonoPIN) 0.5 mg BID PO Last administered on 11/14/16 09:27; Start 11/11/16 at 21:00 Clopidogrel Bisulfate (Plavix) 75 mg DAILY PO Last administered on 11/14/16 09: 27; Start 11/12/16 at 09:00 Lisinopril (Prinivil) 5 mg DAILY PO ; Start 11/12/16 at 09:00 Metoprolol Tartrate (Lopressor) 25 mg BID PO Last administered on 11/14/16 09: 29; Start 11/11/16 at 21:00 Nitroglycerin (Nitroglycerin 2% Oint) 0.5 inch Q6HR PRN TOPICAL CHEST PAIN Last administered on 11/11/16 23:20; Start 11/11/16 at 19:30 Lorazepam (Ativan Inj) 1 mg Q2H PRN IV PUSH WITHDRAWAL/AGITATION; Start at 19:30 Propofol (Diprivan 200 Mg/20 ml Inj) 120 mg STK-MED ONCE IV ; Start 11/12/16 at 16:00; Stop 11/12/16 at 16:15; Status DC Miscellaneous Information ALL NURSING DEPARTME... UNSCH PRN .XX SEE LABEL COMMENTS; Start 11/12/16 at 16:45; Stop 11/13/16 at 16:44; Status DC Ephedrine Sulfate (ePHEDrine/NS 25 MG/5 ML SYR) 25 mg STK-MED ONCE IV ; Start at 12:00; Stop 11/13/16 at 08:47; Status DC Pantoprazole Sodium 40 mg 40 mg DAILY PO Last administered on 11/14/16 09:29; Start 11/13/16 at 09:15 Sodium Chloride (NS 1000 ml Inj) 1,000 ml @ 0 mls/hr Q0M PRN IV For Prime & Rinse Back Last administered on 11/13/16 13:33; Start 11/13/16 at 09:55 Heparin Sodium (Porcine) 8000 units 8,000 units UNSCH PRN IVF WITH DIALYSIS; Start 11/13/16 at 10:00 Sodium Chloride 1,000 ml @ 200 mls/hr Q5H PRN IV WITH DIALYSIS; Start 11/13/16 at 09:55 Sodium Chloride (NS 1000 ml Inj) 1,000 ml @ 0 mls/hr Q0M PRN IV WITH DIALYSIS; Start 11/13/16 at 09:55 Mannitol (Mannitol Inj) 12.5 gm UNSCH PRN IV WITH DIALYSIS; Start 11/13/16 at 10 :00 Albumin Human (Albumin 25% Inj) 25 gm UNSCH PRN IV WITH DIALYSIS; Start at 10:00 Sodium Chloride (NS Flush) 5 ml UNSCH PRN IV FLUSH WITH DIALYSIS; Start at 10:00 Heparin Sodium (Porcine) (Heparin Inj) UNSCH PRN .XX WITH DIALYSIS; Start 11/13 at 10:00 Gentamicin Sulfate (Gentamicin (Dialysis) Inj) 20 mg UNSCH PRN IV WITH DIALYSIS ; Start 11/13/16 at 10:00 Ondansetron HCl (Zofran Inj) 4 mg UNSCH PRN IV WITH DIALYSIS; Start 11/13/16 at 10:00 Acetaminophen (Tylenol) 650 mg UNSCH PRN PO for headach, pain, temp > 101F; Start 11/13/16 at 10:00 Diphenhydramine HCl (Benadryl) 25 mg UNSCH PRN PO for hives/itching/anaphylaxis ; Start 11/13/16 at 10:00 Nitroglycerin (Nitrostat Sl) 0.4 mg UNSCH PRN SL CHEST PAIN; Start 11/13/16 at 10:00 Clonidine (Catapres) 0.1 mg UNSCH PRN PO for BP > 180/100 X 2 readings; Start 11/13/16 at 10:00 Gelatin (Gelfoam 12 Mm/7 Mm Top) 1 foam UNSCH PRN TOP SEE LABEL COMMENTS Last administered on 11/13/16t 13:33; Start 11/13/16 at 10:00 Atropine Sulfate (Atropine Inj) 1 mg STK-MED ONCE .ROUTE ; Start 11/13/16 at 17: 20; Stop 11/13/16 at 17:21; Status DC Sevelamer Carbonate (Renvela) 800 mg TIDAC PO ; Start 11/14/16 at 12:00; Status UNV Sevelamer Carbonate (Renvela) 1,600 mg TIDAC PO ; Start 11/14/16 at 12:00 A/P Problem List: (1) Chest pain ICD Code: R07.9 Status: Acute (2) CHF (congestive heart failure) ICD Code: I50.9 Status: Acute (3) ESRD (end stage renal disease) ICD Code: N18.6 Status: Chronic (4) HTN (hypertension) ICD Code: I10 Status: Chronic (5) Tobacco abuse ICD Code: Z72.0 Status: Chronic Assessment and Plan Chest Pain -r/o ACS, h/o CAD s/p MN/Stent in the past, symptoms ongoing x2-3wks, seen by Director Intelligence Analysis Programs Dr. Woo and prescribed NTG, NTG x6 prior to arrival w/ minimal improvement. Trop 0.04, EKG w/ no acute ischemia. VQ Scan showed low prob PE. -Aspirin discontinued by Dr. Woo due to severe ulcers. -due to ulcers. pain improved drastically with treatment. -cath cancelled. atrial fibrillation RVR -patient received metoprolol. SBP in 90s so cant use Cardizem. Director [employer] Analysis [employer] called by nurse. -pending recs from head of global strategic partnerships. Severe Gastritis severe/duodenitis with ulcers/severe esophagitis with ulcer -Per GI recommend PPI, anti-acid, avoid NSAIDs. CHF: Acute on Chronic. Systolic. Echo 11/06/15 w/ EF 30-35%. BNP >5000. CXR w/ basilar atelectasis. -Patient currently in dialysis. ESRD on HD: -/, missed HD on . patient seen by Dr. Wu. [employer] Director is following. HTN -Continue with home medication. Tobacco Abuse: Pt has been counselled. Ativan prn. No NicoDerm to avoid vasoconstriction. DVT Prophylaxis: S/p Lovenox in ER, SCD/AKOSUA Discharge Planning patient was stable for discharge but them developed atrial fibrillation with RVR before she released/discharge. she will need to stay in hospital for treatment. d/w patient's nurse. Problem Qualifiers (1) Chest pain: Qualified Code: R07.9 - Chest pain, unspecified type Caridad Schaefer MD Nov 14, 2016 11:51
[2016-11-14] MEDS: SEVELAMER CARBONATE 800 MG TAB PO SCH ×2 (12:00→16:46)
[2016-11-14] MEDS ORDERED: SEVELAMER CARBONATE 800 MG TAB PO SCH (12:00)
[2016-11-14] MEDS ORDERED: AMIODARONE 150 MG/D5W 97 ML BOLUS 10 MINUTES IV ONE ×2 (13:00)
[2016-11-14] MEDS ORDERED: AMIODARONE INJ 450 MG in D5W (EXCEL BAG) 241 ML IV SCH (13:00)
[2016-11-14] MEDS: oxyCODONE/ACETAMINOPHEN 5 MG/325 MG TAB PO PRN (14:04)
[2016-11-14] MEDS ORDERED: SODIUM CHLORID 0.9% 500 ML INJ 500 ML IV ONE (16:45)
[2016-11-14] MEDS: ONDANSETRON HCL 4 MG/2 ML VIAL IVP PRN (16:46)
[2016-11-14 17:44] LABS: AUTOMATED NEUTROPHIL # 4.5 TH/MM3 (1.8-7.7); BASOPHIL # 0.1 TH/MM3 (0-0.2); BASOPHIL % 1.4 % (0.0-2.0); EOSINOPHIL # 0.1 TH/MM3 (0-0.4); EOSINOPHIL % 1.3 % (0.0-4.0); HEMATOCRIT 35.5 % (35.0-46.0); LYMPH % 7.4 % (9.0-44.0); LYMPHOCYTE # 0.4 TH/MM3 (1.0-4.8); MEAN CELL VOLUME 101.9 FL (80.0-100.0); MEAN CORPUSCULAR HEMOGLOBIN 32.9 PG (27.0-34.0); MEAN CORPUSCULAR HGB CONC 32.3 % (32.0-36.0); MONO % 13.2 % (0.0-8.0); NEUT % 76.7 % (16.0-70.0); PLATELET COUNT 137 TH/MM3 (150-450); RED BLOOD COUNT 3.48 MIL/MM3 (4.00-5.30); RED CELL DISTRIBUTION WIDTH 19.1 % (11.6-17.2); WHITE BLOOD COUNT 5.8 TH/MM3 (4.0-11.0)
[2016-11-14 17:47] LABS: HEMO FLAGS AUTO DIFF
[2016-11-14 18:39] LABS: BANDS 6 % (0-6); BASOPHILS 1 % (0-2); CORRECTED NUCLEATED RBC 2 /100 WBC (0-0); EOSINOPHILS 1 % (0-4); NEUTROPHIL # MANUAL DIFF 4.4 TH/MM3 (1.8-7.7); POLYS (SEG NEUTROPHILS) 69 % (16-70); WBC DIFF SAMPLE 100
[2016-11-14 18:41] LABS: OVALOCYTES 1+ (NORMAL)
[2016-11-14 18:42] LABS: PLATELET ESTIMATE SMEAR LOW (NORMAL); PLATELET MORPHOLOGY NORMAL (NORMAL); SCAN/DIFF FINAL DIFF MANUAL
[2016-11-14] MEDS: ATORVASTATIN 40 MG TAB PO SCH (20:42)
[2016-11-14] MEDS: AMIODARONE 200 MG TAB PO SCH (20:42)
[2016-11-15] VITALS (27 sets, daily range): BP systolic 76–138; BP diastolic 47–60; PULSE 62–88; RESP 18–20; TEMP 97.8–98.8; O2SAT 92–94
[2016-11-15] MEDS: oxyCODONE/ACETAMINOPHEN 5 MG/325 MG TAB PO PRN (06:47)
[2016-11-15] MEDS: SEVELAMER CARBONATE 800 MG TAB PO SCH ×4 (08:00→17:00)
[2016-11-15] MEDS: METOPROLOL TARTRATE 25 MG TAB PO SCH ×3 (09:00→21:27)
[2016-11-15] MEDS: DOCUSATE SODIUM 50 MG/SENNA 8.6 MG TAB PO SCH ×2 (09:00→21:00)
[2016-11-15] MEDS: SODIUM CHLORIDE 0.9% FLUSH 10 ML FLUSH IV FLUSH SCH ×2 (09:00→21:28)
[2016-11-15] MEDS: LISINOPRIL 5 MG TAB PO SCH ×2 (09:00→09:04)
[2016-11-15] MEDS: AMIODARONE 200 MG TAB PO SCH ×2 (09:03→21:27)
[2016-11-15] MEDS: CLOPIDOGREL 75 MG TAB PO SCH (09:03)
[2016-11-15] MEDS: clonazePAM 0.5 MG TAB PO SCH ×2 (09:04→21:27)
[2016-11-15] MEDS: PANTOPRAZOLE SOD 40 MG DELAYED RELEASE TAB PO SCH (09:04)
--- NOTE | 2016-11-15 09:27 | PD.CARD.PN ---
Subjective Subjective Remarks c/o diarrhea. otherwise feeling better Objective Medications Current Medications Medications (Trade) Dose Ordered Sig/Diego Route Start Time Stop Time Status Last Admin (NS Flush) 2 ml UNSCH PRN IV FLUSH 11/11/16 19:15 (NS Flush) 2 ml BID IV FLUSH 11/11/16 21:00 11/15/16 09:00 (Zofran Inj) 4 mg Q6H PRN IVP 11/11/16 19:15 11/14/16 16:46 (Tylenol) 650 mg Q6H PRN PO 11/11/16 19:15 (Percocet 5-325 Mg) 1 tab Q6H PRN PO 11/11/16 19:15 11/15/16 06:47 (Morphine Inj) 2 mg Q3H PRN IV 11/11/16 19:15 11/13/16 16:54 (Ro-Colace) 1 tab BID PO 11/11/16 21:00 (Milk Of Magnesia Liq) 30 ml Q12H PRN PO 11/11/16 19:15 (Senokot) 17.2 mg Q12H PRN PO 11/11/16 19:15 (Dulcolax Supp) 10 mg DAILY PRN RECTAL 11/11/16 19:15 (Lactulose Liq) 30 ml DAILY PRN PO 11/11/16 19:15 (Lipitor) 40 mg HS PO 11/11/16 21:00 11/14/16 20:42 (KlonoPIN) 0.5 mg BID PO 11/11/16 21:00 11/15/16 09:04 (Plavix) 75 mg DAILY PO 11/12/16 09:00 11/15/16 09:03 (Prinivil) 5 mg DAILY PO 11/12/16 09:00 (Lopressor) 25 mg BID PO 11/11/16 21:00 11/14/16 20:41 (Nitroglycerin 2% Oint) 0.5 inch Q6HR PRN TOPICAL 11/11/16 19:30 11/11/16 23:20 (Ativan Inj) 1 mg Q2H PRN IV PUSH 11/11/16 19:30 Pantoprazole Sodium 40 mg 40 mg DAILY PO 11/13/16 09:15 11/15/16 09:04 (NS 1000 ml Inj) 1,000 ml @ 0 mls/hr Q0M PRN IV 11/13/16 09:55 11/13/16 13:33 Heparin Sodium (Porcine) 8000 units 8,000 units UNSCH PRN IVF 11/13/16 10:00 Sodium Chloride 1,000 ml @ 200 mls/hr Q5H PRN IV 11/13/16 09:55 (NS 1000 ml Inj) 1,000 ml @ 0 mls/hr Q0M PRN IV 11/13/16 09:55 (Mannitol Inj) 12.5 gm UNSCH PRN IV 11/13/16 10:00 (Albumin 25% Inj) 25 gm UNSCH PRN IV 11/13/16 10:00 (NS Flush) 5 ml UNSCH PRN IV FLUSH 11/13/16 10:00 (Heparin Inj) UNSCH PRN .XX 11/13/16 10:00 (Gentamicin (Dialysis) Inj) 20 mg UNSCH PRN IV 11/13/16 10:00 (Zofran Inj) 4 mg UNSCH PRN IV 11/13/16 10:00 (Tylenol) 650 mg UNSCH PRN PO 11/13/16 10:00 (Benadryl) 25 mg UNSCH PRN PO 11/13/16 10:00 (Nitrostat Sl) 0.4 mg UNSCH PRN SL 11/13/16 10:00 (Catapres) 0.1 mg UNSCH PRN PO 11/13/16 10:00 (Gelfoam 12 Mm/7 Mm Top) 1 foam UNSCH PRN TOP 11/13/16 10:00 11/13/16 13:33 (Renvela) 1,600 mg TIDAC PO 11/14/16 12:00 (Cordarone) 400 mg BID PO 11/14/16 21:00 11/15/16 09:03 Vital Signs / I&O Vital Signs Date Time Temp Pulse Resp B/P Pulse Ox O2 Delivery O2 Flow Rate FiO2 11/15/16 07:01 70 11/15/16 06:00 76 11/15/16 05:00 74 11/15/16 04:08 98.3 76 20 102/53 94 11/15/16 04:00 Room Air 11/15/16 04:00 74 11/15/16 03:00 74 11/15/16 02:00 88 11/15/16 01:00 77 11/15/16 00:00 97.8 79 20 138/60 94 11/15/16 00:00 80 11/15/16 00:00 94 Room Air 11/14/16 23:00 78 11/14/16 22:00 74 11/14/16 21:02 98/49 11/14/16 21:00 72 11/14/16 20:46 86/57 11/14/16 20:00 72 11/14/16 19:51 97 Nasal Cannula 2.00 11/14/16 19:50 88 21 11/14/16 19:28 75 11/14/16 19:28 97.9 73 20 81/52 93 11/14/16 19:28 Room Air 11/14/16 18:33 94 Nasal Cannula 11/14/16 18:00 74 11/14/16 17:00 72 11/14/16 16:00 72 11/14/16 15:50 97.8 73 15 71/47 94 11/14/16 15:00 74 11/14/16 14:45 90/55 11/14/16 14:30 81/58 11/14/16 14:15 96/65 11/14/16 14:00 128 11/14/16 13:58 114/96 11/14/16 13:00 144 11/14/16 12:00 140 11/14/16 11:30 98 Nasal Cannula 11/14/16 11:20 98.8 129 16 98/60 98 11/14/16 11:00 144 11/14/16 10:47 94 Nasal Cannula 2.00 11/14/16 10:20 103/69 11/14/16 10:20 87 Room Air 11/14/16 10:00 134 I/O 11/14/16 11/14/16 11/14/16 11/15/16 11/15/16 11/15/16 07:00 15:00 23:00 07:00 15:00 23:00 Intake Total 240 ml 1160 ml 200 ml Output Total 0 ml Balance 240 ml 1160 ml 200 ml Intake Oral 240 ml 660 ml 200 ml IV Total 0 ml 500 ml 0 ml Emesis 0 ml # Voids 2 4 3 # Bowel Movements 1 2 3 Physical Exam Awake Chest diminished BS CV S1S2 RRR No edema Tele: AF with RVR yest - fairly brief - now sinus Laboratory Laboratory Tests Test 11/14/16 17:10 White Blood Count 5.8 TH/MM3 Red Blood Count 3.48 MIL/MM3 Hemoglobin 11.5 GM/DL Hematocrit 35.5 % Mean Corpuscular Volume 101.9 FL Mean Corpuscular Hemoglobin 32.9 PG Mean Corpuscular Hemoglobin 32.3 % Concent Red Cell Distribution Width 19.1 % Platelet Count 137 TH/MM3 Mean Platelet Volume 8.6 FL Neutrophils (%) (Auto) 76.7 % Lymphocytes (%) (Auto) 7.4 % Monocytes (%) (Auto) 13.2 % Eosinophils (%) (Auto) 1.3 % Basophils (%) (Auto) 1.4 % Neutrophils # (Auto) 4.5 TH/MM3 Lymphocytes # (Auto) 0.4 TH/MM3 Monocytes # (Auto) 0.8 TH/MM3 Eosinophils # (Auto) 0.1 TH/MM3 Basophils # (Auto) 0.1 TH/MM3 CBC Comment AUTO DIFF Differential Total Cells 100 Counted Neutrophils % (Manual) 69 % Band Neutrophils % 6 % Lymphocytes % 8 % Monocytes % 15 % Eosinophils % 1 % Basophils % 1 % Neutrophils # (Manual) 4.4 TH/MM3 Nucleated Red Blood Cells 2 /100 WBC Differential Comment FINAL DIFF MANUAL Platelet Estimate LOW Platelet Morphology Comment NORMAL Ovalocytes 1+ Assessment and Plan Problem List: (1) CAD (coronary artery disease) Assessment and Plan: doubt ACS (2) Duodenitis (3) Duodenal ulcer (4) Esophageal ulcer (5) Esophagitis (6) Tobacco abuse Assessment and Plan: noncompliant with cessatio (7) Paroxysmal atrial fibrillation with rapid ventricular response Assessment and Plan: Would like to avoid antithrombotic due to PUD/ bleeding risk. Cont amio (8) Hypotension Assessment and Plan: Etiology unclear - she does not look sick/unstable. ? from diarrhea. Will go ahead and check echo Tee Woo MD Nov 15, 2016 09:27
--- NOTE | 2016-11-15 10:01 | HHI.NPPN ---
Subjective Complaints: Chest Pain Renal Failure: Chronic, End Stage Renal Disease Interval History Her discharge was held yesterday due to new onset A fib RVR. She has converted to NSR however is hypotensive this AM. (Mily Gray) Review of Systems Cardiovascular Cardiac: Chest Pain (Mily Gray) Gastrointestinal Gastrointestinal: Nausea & Vomiting (Mily Gray) Objective Data Data 11/14/16 11/15/16 19:00 07:00 Intake Total 1160 ml 200 ml Output Total 0 ml Balance 1160 ml 200 ml Intake Oral 660 ml 200 ml IV Total 500 ml 0 ml Emesis 0 ml # Voids 4 3 # Bowel Movements 2 3 Vital Signs Date Time Temp Pulse Resp B/P Pulse Ox O2 Delivery O2 Flow Rate FiO2 11/15/16 07:01 70 11/15/16 06:00 76 11/15/16 05:00 74 11/15/16 04:08 98.3 76 20 102/53 94 11/15/16 04:00 Room Air 11/15/16 04:00 74 11/15/16 03:00 74 11/15/16 02:00 88 11/15/16 01:00 77 11/15/16 00:00 97.8 79 20 138/60 94 11/15/16 00:00 80 11/15/16 00:00 94 Room Air 11/14/16 23:00 78 11/14/16 22:00 74 11/14/16 21:02 98/49 11/14/16 21:00 72 11/14/16 20:46 86/57 11/14/16 20:00 72 11/14/16 19:51 97 Nasal Cannula 2.00 11/14/16 19:50 88 21 11/14/16 19:28 75 11/14/16 19:28 97.9 73 20 81/52 93 11/14/16 19:28 Room Air 11/14/16 18:33 94 Nasal Cannula 11/14/16 18:00 74 11/14/16 17:00 72 11/14/16 16:00 72 11/14/16 15:50 97.8 73 15 71/47 94 11/14/16 15:00 74 11/14/16 14:45 90/55 8/9/17 14:30 81/58 11/14/16 14:15 96/65 11/14/16 14:00 128 11/14/16 13:58 114/96 11/14/16 13:00 144 11/14/16 12:00 140 11/14/16 11:30 98 Nasal Cannula 11/14/16 11:20 98.8 129 16 98/60 98 11/14/16 11:00 144 11/14/16 10:47 94 Nasal Cannula 2.00 11/14/16 10:20 103/69 11/14/16 10:20 87 Room Air 11/14/16 10:00 134 (Mily Gray) -: 11/14/16 1710 11/13/16 0545 Physical Exam General Appearance: Well Developed, Well Nourished, Comfortable (Mily Gray) Eyes Eye Exam: Pupils Equal (Mily Gray) Throat Throat Exam: Oral Mucosa [place] & Moist (Mily Gray) Pulmonary Resp Exam: Clear Bilaterally, Breath Sounds Equal (Mily Gray) Cardiology CV Exam: Regular, Normal Sinus Rhythm, Good Perfusion (Mily Gray) Gastrointestinal/Abdomen GI Exam: Soft, Non-Tender, Bowel Sounds Present (Mily Gray) Musculoskeletal MS Exam: Joints Intact, Normal Gait, Normal Tone, Good Strength (Mily Gray) Integumentary Skin Exam: Clear, Warm, Dry, Intact (Mily Gray) Extremeties Extremities Exam: No Edema, Pedal Pulses Palpable (Mily Gray) Neurologic Neuro Exam: Alert, Awake, Oriented, Speech Clear, Moving All Extremities ( Mily Gray) Psychiatric Psych Exam: Appropriate Responses (Mily Gray) Assessment/Plan Discussed Condition With: Patient Assessment Summary: Anemia of CKD, Hypertension, End Stage Renal Disease Problem List: (1) ESRD (end stage renal disease) Plan: continue Tues/Sat HD schedule she refused HD today and her blood pressure will likely not support treatment today she was given 500 ml IVF overnight if discharged, advised to start binder therapy with Fosrenol at home also advised compliance to /Sat HD schedule no dietary protein restriction obtain renal panel in AM if not discharged (2) Chest pain Plan: cardiology and GI have evaluated chest pain thought to be due to gastritis, ulcers she is on protonix also on PRN pain medications (3) HTN (hypertension) Plan: hypotensive today hold HTN medications, cardiology has evaluated echo ordered monitor blood pressure of note she has had diarrhea for several days (4) CAD (coronary artery disease) Plan: hx of stents in the past on statin, beta chuck, JOSE, plavix ASA has been stopped due to active ulcer (5) Anemia Plan: no epogen required monitor hemoglobin (6) Hyponatremia Plan: chronic, UF with dialysis, discussed fluid restriction (7) CHF (congestive heart failure) Plan: monitor fluid status, UF as tolerated (8) Atrial fibrillation Plan: new onset she has converted to NSR, no anticoagulation per cardiology on Lopressor and amiodarone (Mily Gray) Plan patient was seen and examined. Developed atrial fibrillation with RVR. Discussed with Dr. Woo. BP was low, antihypertensives held. (Arvin Farnsworth MD) Problem Qualifiers (1) Chest pain: Qualified Code: R07.9 - Chest pain, unspecified type Mily Gray Nov 15, 2016 10:01 Arvin Farnsworth MD Nov 16, 2016 15:20
[2016-11-15] MEDS ORDERED: SODIUM CHLOR 0.9% 250 ML INJ 250 ML IV ONE (13:45)
--- NOTE | 2016-11-15 14:04 | ECHRPT ---
Indication: coronary atherosclerosis CONCLUSIONS Normal left ventricular size. Wall thickness is normal. The left ventricular systolic function is [id number] reduced with an estimated ejection fra ction in the range of 40-45%. The right ventricular systoilc function is moderately decreased. The right atrial size is mildly dilated. Mitral annular calcification is present. Mild mitral valve regurgitation. There is moderate tricuspid regurgitation. There is estimated mild pulmonary hypertension present (40 mmHg). There is a small pericardial effusion present. A small left sided pleural effusion is noted. BP: 102 / 53 HR: 76 Rhythm: Sinus MEASUREMENTS (Male / Female) Normal Values Technical Quality:Good 2D ECHO LV Diastolic Diameter PLAX 4.0 cm 4.2 - 5.9 / 3.9 - 5.3 cm LV Systolic Diameter PLAX 3.3 cm IVS Diastolic Thickness 1.1 cm 0.6 - 1.0 / 0.6 - 0.9 cm LVPW Diastolic Thickness 0.9 cm 0.6 - 1.0 / 0.6 - 0.9 cm LV Relative Wall Thickness 0.5 RV Internal Dim ED PLAX 2.8 cm LA Systolic Diameter LX 4.2 cm 3.0 - 4.0 / 2.7 - 3.8 cm M-MODE Aortic Root Diameter MM 3.1 cm AV Cusp Separation MM 1.9 cm DOPPLER AV Peak Velocity 170.0 cm/s AV Peak Gradient 11.6 mmHg LVOT Peak Velocity 93.8 cm/s LVOT Peak Gradient 3.5 mmHg Mitral E Point Velocity 58.7 cm/s Mitral A Point Velocity 70.1 cm/s Mitral E to A Ratio 0.8 TR Peak Velocity 296.0 cm/s TR Peak Gradient 35.0 mmHg FINDINGS LEFT VENTRICLE Normal left ventricular size. Wall thickness is normal. The left ventricular systolic function is [id number] reduced with an estimated ejection fra ction in the range of 35-40%. RIGHT VENTRICLE The right ventricular systoilc function is moderately decreased. LEFT ATRIUM The left atrial size is normal. RIGHT ATRIUM The right atrial size is mildly dilated. ATRIAL SEPTUM Normal atrial septal thickness without atrial level shunting by limited color doppler interrogation. AORTA The aortic root and proximal ascending aorta are normal in size on limited imaging. MITRAL VALVE Mitral annular calcification is present. Mild mitral valve regurgitation. AORTIC VALVE Trileaflet aortic valve. No aortic valve stenosis or regurgitation. TRICUSPID VALVE There is moderate tricuspid regurgitation. There is estimated mild pulmonary hypertension present (40 mmHg). PULMONARY VALVE The pulmonary valve is not well visualized. VESSELS The inferior vena cava is normal in size. PERICARDIUM There is a small pericardial effusion present. A small left sided pleural effusion is noted. David Moffett MD (Electronically Signed) Final Date:15 November 2016 14:03
--- NOTE | 2016-11-15 14:38 | HHI.PR ---
Subjective Remarks Follow-up for atrial fibrillation and hypotension Patient started to have diarrhea yesterday. She stated that stools look like the time she had C. difficile. She converted back into sinus rhythm. Otherwise she has no complaints. Deny any abdominal pain. She remains afebrile. Objective Vitals Vital Signs Date Time Temp Pulse Resp B/P Pulse Ox O2 Delivery O2 Flow Rate FiO2 11/15/16 14:01 64 11/15/16 13:17 94 11/15/16 13:00 66 11/15/16 12:30 92 Room Air 11/15/16 12:30 98.8 69 18 76/47 92 11/15/16 12:00 70 11/15/16 11:00 70 11/15/16 10:00 72 11/15/16 09:00 68 11/15/16 08:45 98.8 64 18 82/56 94 11/15/16 08:45 94 Room Air 11/15/16 08:00 68 11/15/16 07:01 70 11/15/16 06:00 76 11/15/16 05:00 74 11/15/16 04:08 98.3 76 20 102/53 94 11/15/16 04:00 Room Air 11/15/16 04:00 74 11/15/16 03:00 74 11/15/16 02:00 88 11/15/16 01:00 77 11/15/16 00:00 97.8 79 20 138/60 94 11/15/16 00:00 80 11/15/16 00:00 94 Room Air 11/14/16 23:00 78 11/14/16 22:00 74 11/14/16 21:02 98/49 11/14/16 21:00 72 11/14/16 20:46 86/57 11/14/16 20:00 72 11/14/16 19:51 97 Nasal Cannula 2.00 11/14/16 19:50 88 21 11/14/16 19:28 75 11/14/16 19:28 97.9 73 20 81/52 93 11/14/16 19:28 Room Air 11/14/16 18:33 94 Nasal Cannula 11/14/16 18:00 74 11/14/16 17:00 72 11/14/16 16:00 72 11/14/16 15:50 97.8 73 15 71/47 94 11/14/16 15:00 74 11/14/16 14:45 90/55 I/O 11/14/16 11/14/16 11/14/16 11/15/16 11/15/16 11/15/16 06:59 14:59 22:59 06:59 14:59 22:59 Intake Total 240 ml 1160 ml 200 ml Output Total 0 ml Balance 240 ml 1160 ml 200 ml Intake Oral 240 ml 660 ml 200 ml IV Total 0 ml 500 ml 0 ml Emesis 0 ml # Voids 2 4 3 # Bowel Movements 1 2 3 Result Diagram: 11/14/16 1710 11/13/16 0545 Objective Remarks GENERAL: In no acute distress CARDIOVASCULAR: Regular rate and rhythm without murmurs, gallops, or rubs but later developed atrial fib. she was not examined at that time. RESPIRATORY: Breath sounds equal bilaterally. No accessory muscle use. GASTROINTESTINAL: Abdomen soft, nondistended. negative tenderness palpation. No peritoneal signs. MUSCULOSKELETAL: No cyanosis, or edema. BACK: Nontender without obvious deformity. No CVA tenderness. Procedures EGD on 11/12/2016. A/P Problem List: (1) Chest pain ICD Code: R07.9 Status: Acute (2) CHF (congestive heart failure) ICD Code: I50.9 Status: Acute (3) ESRD (end stage renal disease) ICD Code: N18.6 Status: Chronic (4) HTN (hypertension) ICD Code: I10 Status: Chronic (5) Tobacco abuse ICD Code: Z72.0 Status: Chronic Assessment and Plan 71-year-old female who was admitted due to chest pain Hypotension -Most likely secondary to diarrhea. Patient was given a 500 cc bolus last night. Will give another 250 cc bolus. Clinically she looks well and there are no signs of sepsis. Continue to monitor closely. Diarrhea -Will get stool cultures and C. difficile. -Patient is currently on contact precautions. Chest Pain -r/o ACS, h/o CAD s/p NE/Stent in the past, symptoms ongoing x2-3wks, seen by Radiation / Chemistry Technician Dr. Woo and prescribed NTG, NTG x6 prior to arrival w/ minimal improvement. Trop 0.04, EKG w/ no acute ischemia. VQ Scan showed low prob PE. -Aspirin discontinued by Dr. Chilo due to severe ulcers. -due to ulcers. pain improved drastically with treatment. -cath cancelled. -Echo ordered by package wrapper. atrial fibrillation RVR -patient received metoprolol. SBP in 90s so cant use Cardizem. Radiation / Chemistry Technician called by nurse. -pending recs from package wrapper. Severe Gastritis severe/duodenitis with ulcers/severe esophagitis with ulcer -Per GI recommend PPI, anti-acid, avoid NSAIDs. CHF: Acute on Chronic. Systolic. Echo 11/06/15 w/ EF 30-35%. BNP >5000. CXR w/ basilar atelectasis. -Patient currently in dialysis. ESRD on HD: -/, missed HD on . patient seen by Dr. Wu. Wireless Sales Associate is following. -Per product safety officer advised to start binder therapy with Fosrenol at home, also advised compliance to /Sat HD schedule, no dietary protein restriction , obtain renal panel in AM if not discharged. HTN -Will need to hold antihypertensive medication due to hypotension. Tobacco Abuse - Pt has been counselled. Ativan prn. No NicoDerm to avoid vasoconstriction. DVT Prophylaxis: S/p Lovenox in ER, SCD/AKOSUA Discharge Planning Once hypotension resolved patient can be discharged to home. Problem Qualifiers (1) Chest pain: Qualified Code: R07.9 - Chest pain, unspecified type Caridad Schaefer MD Nov 15, 2016 14:38 Qualified Code: R07.9 - Chest pain, unspecified type Caridad Schaefer MD Nov 15, 2016 14:38
--- NOTE | 2016-11-15 16:15 | EKG ---
Date Performed: 11/14/2016 Time Performed: 10:29:10 PTAGE: 71 years EKG: Atrial fibrillation with rapid ventricular response with PVC(s). Possible inferior infarct - age undetermined Possible anteroseptal infarct - age undetermined Lateral ST-T changes may be due t o myocardial ischemia Compared to the previous tracing atrial fibrillation is new, Q waves in III and aVF are more prominent from the prior tracing Abnormal ECG PREVIOUS TRACING : 11/11/2016 18.30 DOCTOR: Tee Woo Interpretating Date/Time 11/15/2016 16:15:26
[2016-11-15 18:21] LABS: BICARBONATE 26.8 MEQ/L (21.0-32.0); POTASSIUM 3.6 MEQ/L (3.5-5.1)
[2016-11-15 18:49] LABS: C. DIFF EPI 027 PRESUMPTIVE POSITIVE (NEGATIVE); C. DIFF TOXIN PCR POSITIVE (NEGATIVE)
[2016-11-15] MEDS: VANCOMYCIN 500 MG VIAL (FOR ORAL USE ONLY) PO SCH (21:00)
[2016-11-15] MEDS: ATORVASTATIN 40 MG TAB PO SCH (21:27)
[2016-11-15] MEDS: metroNIDAZOLE 500 MG INJ 100 ML IV SCH (21:28)
[2016-11-15 22:47] LABS: APTT (PATIENT) 31.5 SEC (24.3-30.1); INTERNATIONAL NORMALIZED RATIO 1.1 RATIO; PROTHROMBIN TIME - PATIENT 12.7 SEC (9.8-11.6)
[2016-11-15] MEDS: HEPARIN-D5W INJ 250 ML IV SCH (23:18)
[2016-11-16] VITALS (28 sets, daily range): BP systolic 91–103; BP diastolic 51–57; PULSE 60–78; RESP 16–20; TEMP 98–98.9; O2SAT 95–98
[2016-11-16 00:01] LABS: MEAN CELL VOLUME 101.9 FL (80.0-100.0); MEAN CORPUSCULAR HEMOGLOBIN 33.7 PG (27.0-34.0); MEAN CORPUSCULAR HGB CONC 33.1 % (32.0-36.0); PLATELET COUNT 130 TH/MM3 (150-450); RED BLOOD COUNT 3.44 MIL/MM3 (4.00-5.30); RED CELL DISTRIBUTION WIDTH 19.4 % (11.6-17.2); REVIEW FLAG FINAL
[2016-11-16] MEDS ORDERED: HEPARIN SODIUM - IV 10,000 UNITS/10 ML VIAL IV PRN ×2 (02:00)
[2016-11-16] MEDS: metroNIDAZOLE 500 MG INJ 100 ML IV SCH ×4 (03:55→23:14)
[2016-11-16 06:55] LABS: APTT (PATIENT) 35.8 SEC (24.3-30.1)
--- NOTE | 2016-11-16 07:50 | PD.CARD.PN ---
Subjective Subjective Remarks Abdomen hurts. No chest pain in few days Objective Medications Current Medications Medications (Trade) Dose Ordered Sig/Diego Route Start Time Stop Time Status Last Admin (NS Flush) 2 ml UNSCH PRN IV FLUSH 11/11/16 19:15 (NS Flush) 2 ml BID IV FLUSH 11/11/16 21:00 11/15/16 21:28 (Zofran Inj) 4 mg Q6H PRN IVP 11/11/16 19:15 11/14/16 16:46 (Tylenol) 650 mg Q6H PRN PO 11/11/16 19:15 (Percocet 5-325 Mg) 1 tab Q6H PRN PO 11/11/16 19:15 11/15/16 06:47 (Morphine Inj) 2 mg Q3H PRN IV 11/11/16 19:15 11/13/16 16:54 (Ro-Colace) 1 tab BID PO 11/11/16 21:00 (Milk Of Magnesia Liq) 30 ml Q12H PRN PO 11/11/16 19:15 (Senokot) 17.2 mg Q12H PRN PO 11/11/16 19:15 (Dulcolax Supp) 10 mg DAILY PRN RECTAL 11/11/16 19:15 (Lactulose Liq) 30 ml DAILY PRN PO 11/11/16 19:15 (Lipitor) 40 mg HS PO 11/11/16 21:00 11/15/16 21:27 (KlonoPIN) 0.5 mg BID PO 11/11/16 21:00 11/15/16 21:27 (Plavix) 75 mg DAILY PO 11/12/16 09:00 11/15/16 09:03 (Prinivil) 5 mg DAILY PO 11/12/16 09:00 (Lopressor) 25 mg BID PO 11/11/16 21:00 11/15/16 21:27 (Nitroglycerin 2% Oint) 0.5 inch Q6HR PRN TOPICAL 11/11/16 19:30 11/11/16 23:20 (Ativan Inj) 1 mg Q2H PRN IV PUSH 11/11/16 19:30 Pantoprazole Sodium 40 mg 40 mg DAILY PO 11/13/16 09:15 11/15/16 09:04 (NS 1000 ml Inj) 1,000 ml @ 0 mls/hr Q0M PRN IV 11/13/16 09:55 11/13/16 13:33 Heparin Sodium (Porcine) 8000 units 8,000 units UNSCH PRN IVF 11/13/16 10:00 Sodium Chloride 1,000 ml @ 200 mls/hr Q5H PRN IV 11/13/16 09:55 (NS 1000 ml Inj) 1,000 ml @ 0 mls/hr Q0M PRN IV 11/13/16 09:55 (Mannitol Inj) 12.5 gm UNSCH PRN IV 11/13/16 10:00 (Albumin 25% Inj) 25 gm UNSCH PRN IV 11/13/16 10:00 (NS Flush) 5 ml UNSCH PRN IV FLUSH 11/13/16 10:00 (Heparin Inj) UNSCH PRN .XX 11/13/16 10:00 (Gentamicin (Dialysis) Inj) 20 mg UNSCH PRN IV 11/13/16 10:00 (Zofran Inj) 4 mg UNSCH PRN IV 11/13/16 10:00 (Tylenol) 650 mg UNSCH PRN PO 11/13/16 10:00 (Benadryl) 25 mg UNSCH PRN PO 11/13/16 10:00 (Nitrostat Sl) 0.4 mg UNSCH PRN SL 11/13/16 10:00 (Catapres) 0.1 mg UNSCH PRN PO 11/13/16 10:00 (Gelfoam 12 Mm/7 Mm Top) 1 foam UNSCH PRN TOP 11/13/16 10:00 11/13/16 13:33 (Renvela) 1,600 mg TIDAC PO 11/14/16 12:00 Amiodarone HCl 400 mg 400 mg BID PO 11/14/16 21:00 11/15/16 21:27 (Flagyl 500 Mg Inj) 100 ml @ 100 mls/hr Q6H IV 11/15/16 20:00 11/16/16 03:55 (VANCOMYCIN for oral use only) 500 mg QID PO 11/15/16 21:00 11/15/16 21:00 (Heparin Inj) 5,000 units UNSCH PRN IV 11/16/16 02:00 Heparin Sodium (Porcine) 2500 units 2,500 units UNSCH PRN IV 11/16/16 02:00 (Heparin-D5W Inj) 250 ml @ 0 mls/hr TITRATE IV 11/15/16 20:00 11/15/16 23:18 (Ecotrin Ec) 81 mg DAILY PO 11/16/16 09:00 UNV Vital Signs / I&O Vital Signs Date Time Temp Pulse Resp B/P Pulse Ox O2 Delivery O2 Flow Rate FiO2 11/16/16 07:01 62 11/16/16 05:00 64 11/16/16 04:00 75 11/16/16 04:00 98.0 64 20 100/56 98 11/16/16 04:00 94 Room Air 11/16/16 03:00 64 11/16/16 02:00 75 11/16/16 01:00 66 11/16/16 00:00 98.4 68 20 103/57 98 11/16/16 00:00 94 Room Air 11/16/16 00:00 68 11/15/16 21:39 98.6 63 18 89/53 94 11/15/16 20:00 94 Room Air 11/15/16 19:00 63 11/15/16 18:01 62 11/15/16 17:19 92 21 11/15/16 17:01 62 11/15/16 16:00 64 11/15/16 15:45 92 Room Air 11/15/16 15:45 98.4 67 18 96/58 92 11/15/16 15:00 70 11/15/16 14:01 64 11/15/16 13:17 94 11/15/16 13:00 66 11/15/16 12:30 92 Room Air 11/15/16 12:30 98.8 69 18 76/47 92 11/15/16 12:00 70 11/15/16 11:00 70 11/15/16 10:00 72 11/15/16 09:00 68 11/15/16 08:45 98.8 64 18 82/56 94 11/15/16 08:45 94 Room Air 11/15/16 08:00 68 I/O 11/15/16 11/15/16 11/15/16 11/16/16 11/16/16 11/16/16 07:00 15:00 23:00 07:00 15:00 23:00 Intake Total 200 ml 480 ml 500 ml Output Total 0 ml 300 ml Balance 200 ml 180 ml 500 ml Intake Oral 200 ml 480 ml 240 ml IV Total 0 ml 260 ml Output Urine Total 300 ml Emesis 0 ml # Voids 3 3 2 # Bowel Movements 3 1 Physical Exam Awake Chest diminished BS CV S1S2 RRR No edema Tele: sinus Laboratory Laboratory Tests Test 11/15/16 11/15/16 11/15/16 11/15/16 15:41 17:08 21:48 23:14 Stool C. difficile Toxin (PCR) POSITIVE Stl C. difficile Toxin PRESUMPTIVE Epiderm 027 POSITIVE Sodium Level 130 MEQ/L Potassium Level 3.6 MEQ/L Chloride Level 90 MEQ/L Carbon Dioxide Level 26.8 MEQ/L Anion Gap 13 MEQ/L Blood Urea Nitrogen 48 MG/DL Creatinine 6.39 MG/DL Estimat Glomerular Filtration 6 ML/MIN Rate Random Glucose 90 MG/DL Calcium Level 8.9 MG/DL Phosphorus Level 3.8 MG/DL Troponin I 1.12 NG/ML Albumin 2.9 GM/DL Prothrombin Time 12.7 SEC Prothromb Time International 1.1 RATIO Ratio Activated Partial 31.5 SEC Thromboplast Time White Blood Count 4.0 TH/MM3 Red Blood Count 3.44 MIL/MM3 Hemoglobin 11.6 GM/DL Hematocrit 35.0 % Mean Corpuscular Volume 101.9 FL Mean Corpuscular Hemoglobin 33.7 PG Mean Corpuscular Hemoglobin 33.1 % Concent Red Cell Distribution Width 19.4 % Platelet Count 130 TH/MM3 Mean Platelet Volume 8.5 FL Test 11/16/16 06:07 Activated Partial 35.8 SEC Thromboplast Time Assessment and Plan Problem List: (1) CAD (coronary artery disease) Assessment and Plan: No angina. Troponin significantly elevated. Recheck in AM. I might need to do heart cath Saturday. Re=add Ecotrin 81mg daily (2) Duodenitis (3) Duodenal ulcer (4) Esophageal ulcer (5) Esophagitis (6) Tobacco abuse (7) Paroxysmal atrial fibrillation with rapid ventricular response Assessment and Plan: on amio- sinus (8) Hypotension Assessment and Plan: resolved Tee Woo MD Nov 16, 2016 07:50
[2016-11-16] MEDS: SEVELAMER CARBONATE 800 MG TAB PO SCH ×4 (08:00→17:00)
[2016-11-16] MEDS: CLOPIDOGREL 75 MG TAB PO SCH (08:10)
[2016-11-16] MEDS: DOCUSATE SODIUM 50 MG/SENNA 8.6 MG TAB PO SCH ×2 (08:11→21:00)
[2016-11-16] MEDS: LISINOPRIL 5 MG TAB PO SCH (08:11)
[2016-11-16] MEDS: METOPROLOL TARTRATE 25 MG TAB PO SCH ×2 (08:11→21:00)
[2016-11-16] MEDS: VANCOMYCIN 500 MG VIAL (FOR ORAL USE ONLY) PO SCH ×4 (08:11→23:13)
[2016-11-16] MEDS: PANTOPRAZOLE SOD 40 MG DELAYED RELEASE TAB PO SCH (08:11)
[2016-11-16] MEDS: AMIODARONE 200 MG TAB PO SCH ×2 (08:11→23:19)
[2016-11-16] MEDS: clonazePAM 0.5 MG TAB PO SCH ×2 (08:11→23:19)
[2016-11-16] MEDS: SODIUM CHLORIDE 0.9% FLUSH 10 ML FLUSH IV FLUSH SCH ×2 (08:12→23:14)
[2016-11-16] MEDS: ASPIRIN EC 81 MG TABEC PO SCH (08:12)
--- NOTE | 2016-11-16 10:06 | HHI.NPPN ---
Subjective Complaints: Chest Pain Renal Failure: Chronic, End Stage Renal Disease Interval History She is resting. Troponin elevated today. She was started on heparin gtt and ASA was resumed. (Mily Gray) Review of Systems Cardiovascular Cardiac: Chest Pain (Mily Gray) Gastrointestinal Gastrointestinal: Nausea & Vomiting (Mily Gray) Objective Data Data 11/15/16 11/16/16 19:00 07:00 Intake Total 480 ml 500 ml Output Total 300 ml Balance 180 ml 500 ml Intake Oral 480 ml 240 ml IV Total 260 ml Output Urine Total 300 ml # Voids 3 2 # Bowel Movements 1 Vital Signs Date Time Temp Pulse Resp B/P Pulse Ox O2 Delivery O2 Flow Rate FiO2 11/16/16 08:01 95 Room Air 11/16/16 08:01 98.4 65 18 93/56 95 11/16/16 07:01 62 11/16/16 05:00 64 11/16/16 04:00 75 11/16/16 04:00 98.0 64 20 100/56 98 11/16/16 04:00 94 Room Air 11/16/16 03:00 64 11/16/16 02:00 75 11/16/16 01:00 66 11/16/16 00:00 98.4 68 20 103/57 98 11/16/16 00:00 94 Room Air 11/16/16 00:00 68 11/15/16 21:39 98.6 63 18 89/53 94 11/15/16 20:00 94 Room Air 11/15/16 19:00 63 11/15/16 18:01 62 11/15/16 17:19 92 21 11/15/16 17:01 62 11/15/16 16:00 64 11/15/16 15:45 92 Room Air 11/15/16 15:45 98.4 67 18 96/58 92 11/15/16 15:00 70 11/15/16 14:01 64 11/15/16 13:17 94 11/15/16 13:00 66 11/15/16 12:30 92 Room Air 11/15/16 12:30 98.8 69 18 76/47 92 11/15/16 12:00 70 11/15/16 11:00 70 (Mily Gray) -: 11/15/16 2314 11/15/16 1708 Microbiology (Mily Gray) Physical Exam General Appearance: Well Developed, Well Nourished, No Acute Distress, Comfortable ( Mily Gray) Eyes Eye Exam: Pupils Equal (Mily Gray) Throat Throat Exam: Oral Mucosa [place] & Moist (Mily Gray) Pulmonary Resp Exam: Clear Bilaterally, Breath Sounds Equal (Mily Gray) Cardiology CV Exam: Regular, Normal Sinus Rhythm, Good Perfusion (Mily Gray) Gastrointestinal/Abdomen GI Exam: Soft, Non-Tender, Bowel Sounds Present (Mily Gray) Musculoskeletal MS Exam: Joints Intact, Normal Gait, Normal Tone, Good Strength (Mily Gray) Integumentary Skin Exam: Clear, Warm, Dry, Intact (Mily Gray) Extremeties Extremities Exam: No Edema, Pedal Pulses Palpable Extremeties Remarks AVF + thrill/bruit (Mily Gray) Neurologic Neuro Exam: Alert, Awake, Oriented, Speech Clear, Moving All Extremities ( Mily Gray) Psychiatric Psych Exam: Appropriate Responses (Mily Gray) Assessment/Plan Discussed Condition With: Patient Assessment Summary: Anemia of CKD, Hypertension, End Stage Renal Disease Problem List: (1) ESRD (end stage renal disease) Plan: continue /Sat HD schedule she refused additional HD yesterday BP borderline low, hold antihypertensives if indicated no dietary protein restriction obtain renal panel in AM phosphorus has improved gadolinium contraindicated (2) Chest pain Plan: cardiology and GI have evaluated chest pain was thought to be due to gastritis, ulcers troponin is elevated, ASA resumed and started on Heparin discussion about cardiac cath Saturday also on PRN pain medications (3) HTN (hypertension) Plan: BP borderline low hold HTN medications, cardiology has evaluated echo reviewed, EF 40-45% monitor blood pressure of note she has had diarrhea for several days (4) CAD (coronary artery disease) Plan: hx of stents in the past on statin, beta chuck, JOSE, plavix, ASA, heparin see above (5) Anemia Plan: Hb stable no epogen required monitor hemoglobin (6) Hyponatremia Plan: chronic, UF with dialysis, discussed fluid restriction (7) CHF (congestive heart failure) Plan: monitor fluid status, UF as tolerated (8) Atrial fibrillation Plan: new onset she has converted to NSR cardiology following (Mily Gray) Plan patient was seen and examined. Agree with above assessment and plan. Elevated Troponin Cardiology plans to perform cardiac catheterization. Reduce Renvela to 800 mg PO TID with meals. (Arvin Farnsworth MD) Problem Qualifiers (1) Chest pain: Qualified Code: R07.9 - Chest pain, unspecified type Mily Gray Nov 16, 2016 10:06 Arvin Farnsworth MD Nov 16, 2016 15:33
--- NOTE | 2016-11-16 11:41 | HHI.PR ---
Subjective Remarks Follow-up for atrial fibrillation, elevated troponin, c-diff Patient reports she is feeling okay. Abdominal pain has improved. No diarrhea this morning. Troponins elevated overnight, patient started on heparin drip. Cardiology considering heart catheterization on Saturday. Objective Vitals Vital Signs Date Time Temp Pulse Resp B/P Pulse Ox O2 Delivery O2 Flow Rate FiO2 11/16/16 08:01 95 Room Air 11/16/16 08:01 98.4 65 18 93/56 95 11/16/16 07:01 62 11/16/16 05:00 64 11/16/16 04:00 75 11/16/16 04:00 98.0 64 20 100/56 98 11/16/16 04:00 94 Room Air 11/16/16 03:00 64 11/16/16 02:00 75 11/16/16 01:00 66 11/16/16 00:00 98.4 68 20 103/57 98 11/16/16 00:00 94 Room Air 11/16/16 00:00 68 11/15/16 21:39 98.6 63 18 89/53 94 11/15/16 20:00 94 Room Air 11/15/16 19:00 63 11/15/16 18:01 62 11/15/16 17:19 92 21 11/15/16 17:01 62 11/15/16 16:00 64 11/15/16 15:45 92 Room Air 11/15/16 15:45 98.4 67 18 96/58 92 11/15/16 15:00 70 11/15/16 14:01 64 11/15/16 13:17 94 11/15/16 13:00 66 11/15/16 12:30 92 Room Air 11/15/16 12:30 98.8 69 18 76/47 92 11/15/16 12:00 70 I/O 11/15/16 11/15/16 11/15/16 11/16/16 11/16/16 11/16/16 07:00 15:00 23:00 07:00 15:00 23:00 Intake Total 200 ml 480 ml 500 ml Output Total 0 ml 300 ml Balance 200 ml 180 ml 500 ml Intake Oral 200 ml 480 ml 240 ml IV Total 0 ml 260 ml Output Urine Total 300 ml Emesis 0 ml # Voids 3 3 2 # Bowel Movements 3 1 Result Diagram: 11/15/16 2314 11/15/16 1708 Imaging Last Impressions Lung Scan-VQ Nuclear Medicine 11/11/16 1902 Signed Impressions: Service Date/Time: Friday, November 11, 2016 20:58 - CONCLUSION: 1. Low probability for pulmonary embolus. Joey Wilkerson MD Chest X-Ray 11/11/16 1644 Signed Impressions: Service Date/Time: Friday, November 11, 2016 16:52 - CONCLUSION: 1. Mild basilar opacity most characteristic of atelectasis. Cardiomegaly. Joey Wilkerson MD Objective Remarks GENERAL: Patient appears older than stated age CARDIOVASCULAR: Normal rate and regular rhythm without murmurs, gallops, or rubs. RESPIRATORY: Good respiratory efforts. Breath sounds equal and clear to auscultation bilaterally. GASTROINTESTINAL: Abdomen soft, non-tender, non-distended. Normal active bowel sounds MUSCULOSKELETAL: Extremities without cyanosis, or edema. NEURO: Alert & Oriented x4 to person, place, time, situation. Moves all ext x4 PSYCH: Appropriate mood and affect. Procedures EGD on 11/12/2016. A/P Problem List: (1) Chest pain ICD Code: R07.9 Status: Acute (2) CHF (congestive heart failure) ICD Code: I50.9 Status: Acute (3) ESRD (end stage renal disease) ICD Code: N18.6 Status: Chronic (4) HTN (hypertension) ICD Code: I10 Status: Chronic (5) Tobacco abuse ICD Code: Z72.0 Status: Chronic Assessment and Plan 71-year-old female initially presented with chest pain, acute CHF, A. fib with RVR. Patient with elevated troponins and C. difficile colitis. Chest Pain, elevated troponins. -h/o CAD s/p CO/Stent in the past, symptoms ongoing x2-3wks, seen by Relay Man Dr. Woo. VQ Scan showed low prob PE. -Troponins elevated, patient started on heparin drip. On aspirin and Plavix. Cardiology considering heart catheterization on Saturday. Atrial fibrillation RVR -Patient is on amiodarone. Metoprolol as blood pressure can tolerate. Severe Gastritis severe/duodenitis with ulcers/severe esophagitis with ulcer -Per GI recommend PPI, anti-acid, avoid NSAIDs. C. difficile colitis: Continue Flagyl. Symptoms improving. CHF: Acute on Chronic. Systolic. Echo 11/06/15 w/ EF 30-35%. BNP >5000. CXR w/ basilar atelectasis. -Hemodialysis per nephrology. ESRD on HD: -/, missed HD on . patient seen by Dr. Wu. Patch Press Operator is following. -Per manager document control advised to start binder therapy with Fosrenol at home, also advised compliance to /Sat HD schedule, no dietary protein restriction HTN -Lisinopril metoprolol as blood pressure tolerates. Tobacco Abuse - Pt has been counselled. Discharge Planning Continue inpatient treatment. Problem Qualifiers (1) Chest pain: Qualified Code: R07.9 - Chest pain, unspecified type Dilcia Sadler MD Nov 16, 2016 11:41
[2016-11-16] MEDS: ATORVASTATIN 40 MG TAB PO SCH (23:19)
[2016-11-16] MEDS: oxyCODONE/ACETAMINOPHEN 5 MG/325 MG TAB PO PRN (23:20)
[2016-11-16] MEDS: HEPARIN-D5W INJ 250 ML IV SCH (23:23)
[2016-11-17] VITALS (24 sets, daily range): BP systolic 77–117; BP diastolic 44–68; PULSE 60–79; RESP 16–20; TEMP 97.4–98.7; O2SAT 92–100
[2016-11-17 01:21] LABS: APTT (PATIENT) 80.9 SEC (24.3-30.1)
[2016-11-17] MEDS: metroNIDAZOLE 500 MG INJ 100 ML IV SCH ×4 (03:59→21:47)
[2016-11-17] MEDS: SEVELAMER CARBONATE 800 MG TAB PO SCH ×4 (08:00→17:00)
--- NOTE | 2016-11-17 08:54 | PD.CARD.PN ---
Subjective Subjective Remarks The patient denies chest pain, shortness of breath, palpitations, GI symptoms or bleeding. Telemetry reveals sinus rhythm. Objective Medications Reviewed Vital Signs / I&O Vital Signs Date Time Temp Pulse Resp B/P Pulse Ox O2 Delivery O2 Flow Rate FiO2 11/17/16 08:00 74 11/17/16 07:00 98.5 79 20 103/62 99 11/17/16 07:00 99 Room Air 11/17/16 07:00 68 11/17/16 06:00 66 11/17/16 05:47 98.6 64 16 90/52 99 11/17/16 05:00 64 11/17/16 04:00 64 11/17/16 03:44 Room Air 11/17/16 03:00 70 11/17/16 02:00 62 11/17/16 01:01 96 Room Air 11/17/16 01:00 62 11/17/16 00:00 64 11/17/16 00:00 98.7 65 16 90/52 99 11/16/16 23:00 65 11/16/16 22:00 75 11/16/16 21:00 63 11/16/16 20:40 96 Room Air 11/16/16 20:40 98.9 65 16 93/51 96 11/16/16 20:00 78 11/16/16 19:00 67 11/16/16 18:01 78 11/16/16 17:01 78 11/16/16 16:00 62 11/16/16 15:45 97 Room Air 11/16/16 15:45 98.2 64 18 101/57 98 11/16/16 15:00 63 11/16/16 14:00 62 11/16/16 13:49 96 11/16/16 13:00 64 11/16/16 12:01 62 11/16/16 11:30 97 Room Air 11/16/16 11:30 98.2 64 18 91/56 97 11/16/16 11:00 66 11/16/16 10:00 62 11/16/16 09:00 64 I/O 11/16/16 11/16/16 11/16/16 11/17/16 11/17/16 11/17/16 07:00 15:00 23:00 07:00 15:00 23:00 Intake Total 500 ml 1281 ml 680 ml Output Total 200 ml Balance 500 ml 1081 ml 680 ml Intake Oral 240 ml 960 ml 680 ml IV Total 260 ml 321 ml Output Urine Total 200 ml # Voids 2 2 2 # Bowel Movements 4 3 Physical Exam GENERAL: Well-nourished, well-developed patient in no apparent distress. The patient is on dialysis. SKIN: Warm and dry. NECK: JVD normal - less than or equal to 5 cm H20. CARDIOVASCULAR: Regular rate and rhythm without murmurs, gallops, or rubs. RESPIRATORY: Mildly decreased breath sounds - equal bilaterally. No accessory muscle use. No wheezes, rales or rubs. PERIPHERY: No cyanosis, or edema. Laboratory Laboratory Tests Test 11/16/16 11/17/16 17:33 00:25 Activated Partial 49.0 SEC 80.9 SEC Thromboplast Time Assessment and Plan Assessment and Plan Problems: Non-ST elevation DC in the setting of paroxysmal atrial fibrillation. Mild left ventricular dysfunction and mitral regurgitation on echocardiogram. End-stage renal disease on dialysis Hyperlipidemia GI bleed with gastric ulcerations and erosion C. difficile Noncompliance Tobacco abuse Recommendations: No smoking Discontinue heparin. Given the patient's multiple medical issues along with bleeding and GI symptoms we would pursue conservative management at this point in time. Statins Continue amiodarone and Plavix All questions answered Prognosis poor. Gary Benitez MD Nov 17, 2016 08:54
[2016-11-17] MEDS: DOCUSATE SODIUM 50 MG/SENNA 8.6 MG TAB PO SCH ×3 (09:00→21:00)
[2016-11-17 09:34] LABS: AUTOMATED NEUTROPHIL # 5.6 TH/MM3 (1.8-7.7); BASOPHIL % 0.1 % (0.0-2.0); EOSINOPHIL # 0.1 TH/MM3 (0-0.4); EOSINOPHIL % 1.5 % (0.0-4.0); HEMATOCRIT 32.9 % (35.0-46.0); HEMO FLAGS DIFF FINAL; LYMPH % 4.2 % (9.0-44.0); LYMPHOCYTE # 0.3 TH/MM3 (1.0-4.8); MEAN CORPUSCULAR HEMOGLOBIN 32.6 PG (27.0-34.0); MEAN CORPUSCULAR HGB CONC 32.9 % (32.0-36.0); MONO % 14.8 % (0.0-8.0); NEUT % 79.4 % (16.0-70.0); PLATELET COUNT 153 TH/MM3 (150-450); RED BLOOD COUNT 3.33 MIL/MM3 (4.00-5.30); RED CELL DISTRIBUTION WIDTH 19.2 % (11.6-17.2); WHITE BLOOD COUNT 7.1 TH/MM3 (4.0-11.0)
[2016-11-17] MEDS: VANCOMYCIN 500 MG VIAL (FOR ORAL USE ONLY) PO SCH ×4 (09:54→21:49)
[2016-11-17] MEDS: AMIODARONE 200 MG TAB PO SCH ×2 (09:55→21:48)
[2016-11-17] MEDS: LISINOPRIL 5 MG TAB PO SCH (09:55)
[2016-11-17] MEDS: CLOPIDOGREL 75 MG TAB PO SCH (09:55)
[2016-11-17] MEDS: METOPROLOL TARTRATE 25 MG TAB PO SCH ×2 (09:55→21:00)
[2016-11-17] MEDS: PANTOPRAZOLE SOD 40 MG DELAYED RELEASE TAB PO SCH (09:55)
[2016-11-17] MEDS: clonazePAM 0.5 MG TAB PO SCH ×2 (09:55→21:48)
[2016-11-17] MEDS: ASPIRIN EC 81 MG TABEC PO SCH (09:55)
[2016-11-17] MEDS: SODIUM CHLORIDE 0.9% FLUSH 10 ML FLUSH IV FLUSH SCH ×2 (09:56→21:47)
[2016-11-17] MEDS: GELATIN 12 MM/7 MM FOAM TOP PRN (10:02)
[2016-11-17] MEDS: SODIUM CHLOR 0.9% 1000 ML INJ 1,000 ML IV PRN (10:02)
--- NOTE | 2016-11-17 10:20 | HHI.PR ---
Subjective Remarks Patient seen during dialysis. Multiple episodes of diarrhea today. Abdominal pain is minimal. No nausea or vomiting. No chest pain or shortness of breath. Heparin discontinued per cardiology, conservative management at this point given her multiple comorbid conditions. Objective Vitals Vital Signs Date Time Temp Pulse Resp B/P Pulse Ox O2 Delivery O2 Flow Rate FiO2 11/17/16 08:00 74 11/17/16 07:00 98.5 79 20 103/62 99 11/17/16 07:00 99 Room Air 11/17/16 07:00 68 11/17/16 06:00 66 11/17/16 05:47 98.6 64 16 90/52 99 11/17/16 05:00 64 11/17/16 04:00 64 11/17/16 03:44 Room Air 11/17/16 03:00 70 11/17/16 02:00 62 11/17/16 01:01 96 Room Air 11/17/16 01:00 62 11/17/16 00:00 64 11/17/16 00:00 98.7 65 16 90/52 99 11/16/16 23:00 65 11/16/16 22:00 75 11/16/16 21:00 63 11/16/16 20:40 96 Room Air 11/16/16 20:40 98.9 65 16 93/51 96 11/16/16 20:00 78 11/16/16 19:00 67 11/16/16 18:01 78 11/16/16 17:01 78 11/16/16 16:00 62 11/16/16 15:45 97 Room Air 11/16/16 15:45 98.2 64 18 101/57 98 11/16/16 15:00 63 11/16/16 14:00 62 11/16/16 13:49 96 11/16/16 13:00 64 11/16/16 12:01 62 11/16/16 11:30 97 Room Air 11/16/16 11:30 98.2 64 18 91/56 97 11/16/16 11:00 66 I/O 11/16/16 11/16/16 11/16/16 11/17/16 11/17/16 11/17/16 07:00 15:00 23:00 07:00 15:00 23:00 Intake Total 500 ml 1281 ml 680 ml Output Total 200 ml Balance 500 ml 1081 ml 680 ml Intake Oral 240 ml 960 ml 680 ml IV Total 260 ml 321 ml Output Urine Total 200 ml # Voids 2 2 2 # Bowel Movements 4 3 Result Diagram: 11/17/16 0845 11/15/16 1708 Objective Remarks GENERAL: Patient appears older than stated age CARDIOVASCULAR: Normal rate and regular rhythm without murmurs, gallops, or rubs. RESPIRATORY: Good respiratory efforts. Breath sounds equal and clear to auscultation bilaterally. GASTROINTESTINAL: Abdomen soft, mild tenderness to palpation, non-distended. Normal active bowel sounds MUSCULOSKELETAL: Extremities without cyanosis, or edema. NEURO: Alert & Oriented x4 to person, place, time, situation. Moves all ext x4 PSYCH: Appropriate mood and affect. Procedures EGD on 11/12/2016. A/P Problem List: (1) Chest pain ICD Code: R07.9 Status: Acute (2) CHF (congestive heart failure) ICD Code: I50.9 Status: Acute (3) ESRD (end stage renal disease) ICD Code: N18.6 Status: Chronic (4) HTN (hypertension) ICD Code: I10 Status: Chronic (5) Tobacco abuse ICD Code: Z72.0 Status: Chronic Assessment and Plan 71-year-old female initially presented with chest pain, acute CHF, A. fib with RVR. Patient with elevated troponin and C. difficile colitis. Chest Pain, elevated troponins. -h/o CAD s/p VA/Stent in the past, symptoms ongoing x2-3wks. VQ Scan showed low prob PE. -Heparin discontinued per cardiology, conservative management at this point given her multiple comorbid conditions. On aspirin and Plavix. Atrial fibrillation RVR -Patient is on amiodarone. Metoprolol as blood pressure can tolerate. Severe Gastritis severe/duodenitis with ulcers/severe esophagitis with ulcer -Per GI recommend PPI, anti-acid, avoid NSAIDs. C. difficile colitis: Continue oral vancomycin and Flagyl. Symptoms not yet improving. CHF: Acute on Chronic. Systolic. Echo 11/06/15 w/ EF 30-35%. BNP >5000. CXR w/ basilar atelectasis. -Hemodialysis per nephrology. ESRD on HD: -/, missed HD on . patient seen by Dr. Wu. Photographer Model is following. -Per content curator advised to start binder therapy with Fosrenol at home, also advised compliance to Tu/Sat HD schedule, no dietary protein restriction HTN -Lisinopril metoprolol as blood pressure tolerates. Tobacco Abuse - Pt has been counselled. Discharge Planning Continue inpatient treatment. Problem Qualifiers (1) Chest pain: Qualified Code: R07.9 - Chest pain, unspecified type Dilcia Sadler MD Nov 17, 2016 10:20
[2016-11-17 10:21] LABS: BICARBONATE 21.7 MEQ/L (21.0-32.0)
[2016-11-17 10:24] LABS: POTASSIUM 2.9 MEQ/L (3.5-5.1)
--- NOTE | 2016-11-17 11:09 | HHI.NPPN ---
Subjective Complaints: Chest Pain Renal Failure: Chronic, End Stage Renal Disease Additional Remarks Patient seen during HD, has mild nausea, no abd. pain, no chest pain. Review of Systems Cardiovascular Cardiac: Chest Pain Gastrointestinal Gastrointestinal: Nausea & Vomiting Objective Data Data 11/16/16 11/17/16 19:00 07:00 Intake Total 1281 ml 680 ml Output Total 200 ml Balance 1081 ml 680 ml Intake Oral 960 ml 680 ml IV Total 321 ml Output Urine Total 200 ml # Voids 2 2 # Bowel Movements 4 3 Vital Signs Date Time Temp Pulse Resp B/P Pulse Ox O2 Delivery O2 Flow Rate FiO2 11/17/16 10:46 94 11/17/16 08:00 74 11/17/16 07:00 98.5 79 20 103/62 99 11/17/16 07:00 99 Room Air 11/17/16 07:00 68 11/17/16 06:00 66 11/17/16 05:47 98.6 64 16 90/52 99 11/17/16 05:00 64 11/17/16 04:00 64 11/17/16 03:44 Room Air 11/17/16 03:00 70 11/17/16 02:00 62 11/17/16 01:01 96 Room Air 11/17/16 01:00 62 11/17/16 00:00 64 11/17/16 00:00 98.7 65 16 90/52 99 11/16/16 23:00 65 11/16/16 22:00 75 11/16/16 21:00 63 11/16/16 20:40 96 Room Air 11/16/16 20:40 98.9 65 16 93/51 96 11/16/16 20:00 78 11/16/16 19:00 67 11/16/16 18:01 78 11/16/16 17:01 78 11/16/16 16:00 62 11/16/16 15:45 97 Room Air 11/16/16 15:45 98.2 64 18 101/57 98 11/16/16 15:00 63 11/16/16 14:00 62 11/16/16 13:49 96 11/16/16 13:00 64 11/16/16 12:01 62 11/16/16 11:30 97 Room Air 11/16/16 11:30 98.2 64 18 91/56 97 -: 11/17/16 0845 11/17/16 0845 Physical Exam General Appearance: Well Nourished, No Acute Distress, Comfortable Eyes Eye Exam: Pupils Equal Throat Throat Exam: Oral Mucosa [place] & Moist Pulmonary Resp Exam: Clear Bilaterally, Breath Sounds Equal Cardiology CV Exam: Regular, Normal Sinus Rhythm, Good Perfusion Gastrointestinal/Abdomen GI Exam: Soft, Non-Tender, Bowel Sounds Present Musculoskeletal MS Exam: Joints Intact, Normal Gait, Normal Tone, Good Strength Integumentary Skin Exam: Clear, Warm, Dry, Intact Extremeties Extremities Exam: No Edema Neurologic Neuro Exam: Alert, Awake, Oriented, Speech Clear, Moving All Extremities Psychiatric Psych Exam: Appropriate Responses Assessment/Plan Discussed Condition With: Patient Assessment Summary: Anemia of CKD, Hypertension, End Stage Renal Disease Problem List: (1) ESRD (end stage renal disease) Plan: continue Tues/Sat HD schedule BP borderline low, on low dose Lisinopril. no dietary protein restriction phosphorus has improved gadolinium contraindicated. K was low, now on HD, Follow K level. (2) Chest pain Plan: cardiology and GI have evaluated chest pain was thought to be due to gastritis, ulcers troponin is elevated, ASA resumed and started on Heparin discussion about cardiac cath Saturday also on PRN pain medications (3) HTN (hypertension) Plan: BP borderline low hold HTN medications, cardiology has evaluated echo reviewed, EF 40-45% monitor blood pressure of note she has had diarrhea for several days (4) CAD (coronary artery disease) Plan: hx of stents in the past on statin, beta chuck, JOSE, Plavix, ASA, heparin. Conservative management as per cardiology. (5) Anemia Plan: Hb stable no epogen required monitor hemoglobin (6) Hyponatremia Plan: chronic, UF with dialysis, discussed fluid restriction (7) CHF (congestive heart failure) Plan: monitor fluid status, UF as tolerated (8) Atrial fibrillation Plan: new onset she has converted to NSR cardiology following Problem Qualifiers (1) Chest pain: Qualified Code: R07.9 - Chest pain, unspecified type Alonzo Jamison MD Nov 17, 2016 11:09
[2016-11-17] MEDS: LACTOBACILLUS ACIDOPHILUS TAB PO SCH ×2 (13:11→21:48)
[2016-11-17] MEDS ORDERED: POTASSIUM CHLORIDE 20 MEQ CONTROLLED RELEASE TAB PO ONE (17:00)
[2016-11-17] MEDS: ATORVASTATIN 40 MG TAB PO SCH (21:48)
[2016-11-18] VITALS (24 sets, daily range): BP systolic 70–103; BP diastolic 43–54; PULSE 51–74; RESP 16–20; TEMP 97.3–99.3; O2SAT 92–100
[2016-11-18] MEDS ORDERED: SODIUM CHLOR 0.9% 250 ML INJ 250 ML IV ONE (02:00)
[2016-11-18] MEDS: metroNIDAZOLE 500 MG INJ 100 ML IV SCH ×4 (02:02→20:48)
[2016-11-18] MEDS ORDERED: DEXT 5%-NACL 0.45% 500 ML INJ 500 ML IV ONE (03:45)
[2016-11-18] MEDS: oxyCODONE/ACETAMINOPHEN 5 MG/325 MG TAB PO PRN ×2 (04:02→23:49)
[2016-11-18 07:26] LABS: HEMATOCRIT 33.9 % (35.0-46.0); MEAN CELL VOLUME 100.3 FL (80.0-100.0); MEAN CORPUSCULAR HEMOGLOBIN 32.6 PG (27.0-34.0); MEAN CORPUSCULAR HGB CONC 32.5 % (32.0-36.0); PLATELET COUNT 165 TH/MM3 (150-450); RED BLOOD COUNT 3.38 MIL/MM3 (4.00-5.30); RED CELL DISTRIBUTION WIDTH 19.6 % (11.6-17.2); REVIEW FLAG FINAL; WHITE BLOOD COUNT 10.1 TH/MM3 (4.0-11.0)
[2016-11-18] MEDS: SEVELAMER CARBONATE 800 MG TAB PO SCH ×3 (08:00→16:56)
[2016-11-18 08:13] LABS: BICARBONATE 25.2 MEQ/L (21.0-32.0)
[2016-11-18] MEDS: VANCOMYCIN 500 MG VIAL (FOR ORAL USE ONLY) PO SCH ×4 (08:16→20:34)
[2016-11-18] MEDS: CLOPIDOGREL 75 MG TAB PO SCH (08:16)
[2016-11-18] MEDS: ASPIRIN EC 81 MG TABEC PO SCH (08:16)
[2016-11-18] MEDS: clonazePAM 0.5 MG TAB PO SCH ×2 (08:16→20:36)
[2016-11-18] MEDS: SODIUM CHLORIDE 0.9% FLUSH 10 ML FLUSH IV FLUSH SCH ×2 (08:16→20:48)
[2016-11-18] MEDS: PANTOPRAZOLE SOD 40 MG DELAYED RELEASE TAB PO SCH (08:16)
[2016-11-18] MEDS: LACTOBACILLUS ACIDOPHILUS TAB PO SCH ×2 (08:16→20:35)
--- NOTE | 2016-11-18 08:16 | PD.CARD.PN ---
Subjective Subjective Remarks The patient denies chest pain, shortness of breath or bleeding. Her blood pressure has been somewhat low. Telemetry reveals sinus rhythm with premature atrial and ventricular contractions. Objective Medications Reviewed Vital Signs / I&O Vital Signs Date Time Temp Pulse Resp B/P Pulse Ox O2 Delivery O2 Flow Rate FiO2 11/18/16 08:00 63 11/18/16 07:00 99 Room Air 11/18/16 07:00 97.6 51 20 70/44 99 11/18/16 07:00 59 11/18/16 04:00 62 11/18/16 03:17 98.6 70 16 89/44 98 11/18/16 03:03 99 Room Air 11/18/16 03:00 61 11/18/16 02:00 64 11/18/16 01:00 60 11/18/16 00:59 83/46 11/18/16 00:00 60 11/18/16 00:00 98.7 63 16 78/43 100 11/17/16 23:51 100 Room Air 11/17/16 23:00 63 11/17/16 22:00 62 11/17/16 21:00 60 11/17/16 20:38 100 Room Air 11/17/16 20:31 97.7 63 16 77/44 100 11/17/16 20:08 21 11/17/16 20:00 60 11/17/16 19:00 61 11/17/16 18:00 62 11/17/16 17:00 61 11/17/16 16:00 63 11/17/16 15:00 99 Room Air 11/17/16 15:00 97.4 62 16 78/48 100 11/17/16 15:00 63 11/17/16 14:00 64 11/17/16 13:00 71 11/17/16 12:00 98.7 74 20 117/68 92 11/17/16 12:00 99 Room Air 11/17/16 12:00 72 11/17/16 10:46 94 I/O 11/17/16 11/17/16 11/17/16 11/18/16 11/18/16 11/18/16 07:00 15:00 23:00 07:00 15:00 23:00 Intake Total 680 ml 577 ml Output Total 1500 ml Balance 680 ml -1500 ml 577 ml Intake Oral 680 ml 480 ml IV Total 97 ml Hemodialysis 1500 ml # Voids 2 # Bowel Movements 3 1 Physical Exam GENERAL: Well-nourished, well-developed patient in no apparent distress. The patient is on dialysis. SKIN: Warm and dry. NECK: JVD normal - less than or equal to 5 cm H20. CARDIOVASCULAR: Regular rate and rhythm without murmurs, gallops, or rubs. RESPIRATORY: Mildly decreased breath sounds - equal bilaterally. No accessory muscle use. No wheezes, rales or rubs. PERIPHERY: No cyanosis, or edema. Laboratory Laboratory Tests Test 11/17/16 11/17/16 11/18/16 08:45 15:27 06:46 White Blood Count 7.1 TH/MM3 10.1 TH/MM3 Red Blood Count 3.33 MIL/MM3 3.38 MIL/MM3 Hemoglobin 10.8 GM/DL 11.0 GM/DL Hematocrit 32.9 % 33.9 % Mean Corpuscular Volume 99.0 FL 100.3 FL Mean Corpuscular Hemoglobin 32.6 PG 32.6 PG Mean Corpuscular Hemoglobin 32.9 % 32.5 % Concent Red Cell Distribution Width 19.2 % 19.6 % Platelet Count 153 TH/MM3 165 TH/MM3 Mean Platelet Volume 8.1 FL 8.3 FL Neutrophils (%) (Auto) 79.4 % Lymphocytes (%) (Auto) 4.2 % Monocytes (%) (Auto) 14.8 % Eosinophils (%) (Auto) 1.5 % Basophils (%) (Auto) 0.1 % Neutrophils # (Auto) 5.6 TH/MM3 Lymphocytes # (Auto) 0.3 TH/MM3 Monocytes # (Auto) 1.1 TH/MM3 Eosinophils # (Auto) 0.1 TH/MM3 Basophils # (Auto) 0.0 TH/MM3 CBC Comment DIFF FINAL Differential Comment Sodium Level 126 MEQ/L Potassium Level 2.9 MEQ/L 3.0 MEQ/L Chloride Level 91 MEQ/L Carbon Dioxide Level 21.7 MEQ/L Anion Gap 13 MEQ/L Blood Urea Nitrogen 63 MG/DL Creatinine 7.66 MG/DL Estimat Glomerular Filtration 5 ML/MIN Rate Random Glucose 86 MG/DL Calcium Level 8.1 MG/DL Troponin I 0.54 NG/ML Thyroid Stimulating Hormone 1.080 uIU/ML 3rd Gen Assessment and Plan Assessment and Plan Problems: Non-ST elevation [place] in the setting of paroxysmal atrial fibrillation. Mild left ventricular dysfunction and mitral regurgitation on echocardiogram. PVCs End-stage renal disease on dialysis Hyperlipidemia GI bleed with gastric ulcerations and erosion C. difficile Noncompliance Tobacco abuse Recommendations: No smoking Given the patient's multiple medical issues along with bleeding and GI symptoms we would pursue conservative management at this point in time. Statins Continue amiodarone and Plavix All questions answered Prognosis poor. Dr. Woo will return tomorrow. I have asked the nurse to take her blood pressures manually. Her electrolytes need normalization as this will exacerbate her arrhythmias. Gary Benitez MD Nov 18, 2016 08:16
[2016-11-18 08:17] LABS: POTASSIUM 2.7 MEQ/L (3.5-5.1)
[2016-11-18] MEDS: METOPROLOL TARTRATE 25 MG TAB PO SCH ×2 (08:17→21:00)
[2016-11-18] MEDS: LISINOPRIL 5 MG TAB PO SCH (08:17)
[2016-11-18] MEDS: DOCUSATE SODIUM 50 MG/SENNA 8.6 MG TAB PO SCH ×2 (08:17→21:00)
[2016-11-18] MEDS: AMIODARONE 200 MG TAB PO SCH ×2 (08:19→20:35)
[2016-11-18] MEDS ORDERED: POTASSIUM CHLORIDE 20 MEQ CONTROLLED RELEASE TAB PO ONE (08:45)
--- NOTE | 2016-11-18 08:46 | HHI.PR ---
Subjective Remarks No acute events overnight. Patient remains hypotensive with lowest BP this morning being 70/44. She has no complaints at this time aside from diarrhea. She states in the last 24 hours she has had between 15 and 24 episodes of diarrhea. Denies chest pain/shortness of breath. Objective Vitals Vital Signs Date Time Temp Pulse Resp B/P Pulse Ox O2 Delivery O2 Flow Rate FiO2 11/18/16 08:00 63 11/18/16 07:00 99 Room Air 11/18/16 07:00 97.6 51 20 70/44 99 11/18/16 07:00 59 11/18/16 04:00 62 11/18/16 03:17 98.6 70 16 89/44 98 11/18/16 03:03 99 Room Air 11/18/16 03:00 61 11/18/16 02:00 64 11/18/16 01:00 60 11/18/16 00:59 83/46 11/18/16 00:00 60 11/18/16 00:00 98.7 63 16 78/43 100 11/17/16 23:51 100 Room Air 11/17/16 23:00 63 11/17/16 22:00 62 11/17/16 21:00 60 11/17/16 20:38 100 Room Air 11/17/16 20:31 97.7 63 16 77/44 100 11/17/16 20:08 21 11/17/16 20:00 60 11/17/16 19:00 61 11/17/16 18:00 62 11/17/16 17:00 61 11/17/16 16:00 63 11/17/16 15:00 99 Room Air 11/17/16 15:00 97.4 62 16 78/48 100 11/17/16 15:00 63 11/17/16 14:00 64 11/17/16 13:00 71 11/17/16 12:00 98.7 74 20 117/68 92 11/17/16 12:00 99 Room Air 11/17/16 12:00 72 11/17/16 10:46 94 I/O 11/17/16 11/17/16 11/17/16 11/18/16 11/18/16 11/18/16 07:00 15:00 23:00 07:00 15:00 23:00 Intake Total 680 ml 577 ml Output Total 1500 ml Balance 680 ml -1500 ml 577 ml Intake Oral 680 ml 480 ml IV Total 97 ml Hemodialysis 1500 ml # Voids 2 # Bowel Movements 3 1 Result Diagram: 11/18/1664511/18/16645 Objective Remarks GENERAL: Patient appears older than stated age CARDIOVASCULAR: Normal rate and regular rhythm without murmurs, gallops, or rubs. RESPIRATORY: Good respiratory efforts. Breath sounds equal and clear to auscultation bilaterally. GASTROINTESTINAL: Abdomen soft, mild tenderness to palpation, non-distended. Normal active bowel sounds MUSCULOSKELETAL: Extremities without cyanosis, or edema. NEURO: Alert & Oriented x4 to person, place, time, situation. Moves all ext x4 PSYCH: Appropriate mood and affect. Procedures EGD on 11/12/2016. A/P Problem List: (1) Chest pain ICD Code: R07.9 Status: Acute (2) CHF (congestive heart failure) ICD Code: I50.9 Status: Acute (3) ESRD (end stage renal disease) ICD Code: N18.6 Status: Chronic (4) HTN (hypertension) ICD Code: I10 Status: Chronic (5) Tobacco abuse ICD Code: Z72.0 Status: Chronic Assessment and Plan 71-year-old female initially presented with chest pain, acute CHF, A. fib with RVR. Patient with elevated troponin and C. difficile colitis. Chest Pain, elevated troponins. -h/o CAD s/p [place]/Stent in the past, symptoms ongoing x2-3wks. VQ Scan showed low prob PE. -Heparin discontinued per cardiology, conservative management at this point given her multiple comorbid conditions. On aspirin and Plavix. Atrial fibrillation RVR -Patient is on amiodarone. Metoprolol as blood pressure can tolerate. Severe Gastritis severe/duodenitis with ulcers/severe esophagitis with ulcer -Per GI recommend PPI, anti-acid, avoid NSAIDs. C. difficile colitis: Continue oral vancomycin and Flagyl. Symptoms not yet improving. CHF: Acute on Chronic. Systolic. Echo 11/06/15 w/ EF 30-35%. BNP >5000. CXR w/ basilar atelectasis. -Hemodialysis per nephrology. ESRD on HD: -/, missed HD on . patient seen by Dr. Wu. Manager Student Services is following. -Per hob machine operator advised to start binder therapy with Fosrenol at home, also advised compliance to /Sat HD schedule, no dietary protein restriction Hypokalemia -Repleted today HTN -Lisinopril metoprolol as blood pressure tolerates. Patient remains hypotensive. Tobacco Abuse - Pt has been counselled. Discharge Planning Pending resolution of electrolyte abnormalities and diarrhea. Problem Qualifiers (1) Chest pain: Qualified Code: R07.9 - Chest pain, unspecified type Phoebe Yousif MD R3 Nov 18, 2016 08:46
[2016-11-18] MEDS ORDERED: ALBUMIN HUMAN 25% 25 GM/100 ML BAGP IV ONE (13:00)
--- NOTE | 2016-11-18 13:01 | HHI.NPPN ---
Subjective Complaints: Chest Pain Renal Failure: Chronic, End Stage Renal Disease Additional Remarks Patient is alert, no SOB, no chest pain or dizziness. Review of Systems Cardiovascular Cardiac: Chest Pain Gastrointestinal Gastrointestinal: Nausea & Vomiting Objective Data Data 11/17/16 11/18/16 19:00 07:00 Intake Total 577 ml Output Total 1500 ml Balance -923 ml Intake Oral 480 ml IV Total 97 ml Hemodialysis 1500 ml # Bowel Movements 1 Vital Signs Date Time Temp Pulse Resp B/P Pulse Ox O2 Delivery O2 Flow Rate FiO2 11/18/16 12:00 59 11/18/16 11:00 99 Room Air 11/18/16 11:00 97.3 67 20 72/48 99 11/18/16 11:00 64 11/18/16 10:00 66 11/18/16 09:00 61 11/18/16 08:00 63 11/18/16 07:00 99 Room Air 11/18/16 07:00 97.6 51 20 70/44 99 11/18/16 07:00 59 11/18/16 04:00 62 11/18/16 03:17 98.6 70 16 89/44 98 11/18/16 03:03 99 Room Air 11/18/16 03:00 61 11/18/16 02:00 64 11/18/16 01:00 60 11/18/16 00:59 83/46 11/18/16 00:00 60 11/18/16 00:00 98.7 63 16 78/43 100 11/17/16 23:51 100 Room Air 11/17/16 23:00 63 11/17/16 22:00 62 11/17/16 21:00 60 11/17/16 20:38 100 Room Air 11/17/16 20:31 97.7 63 16 77/44 100 11/17/16 20:08 21 11/17/16 20:00 60 11/17/16 19:00 61 11/17/16 18:00 62 11/17/16 17:00 61 11/17/16 16:00 63 11/17/16 15:00 99 Room Air 11/17/16 15:00 97.4 62 16 78/48 100 11/17/16 15:00 63 11/17/16 14:00 64 -: 11/18/16 0646 11/18/16 0646 Physical Exam General Appearance: Well Nourished, No Acute Distress, Comfortable Eyes Eye Exam: Pupils Equal Throat Throat Exam: Oral Mucosa [place] & Moist Pulmonary Resp Exam: Clear Bilaterally, Breath Sounds Equal Cardiology CV Exam: Regular, Normal Sinus Rhythm, Good Perfusion Gastrointestinal/Abdomen GI Exam: Soft, Non-Tender, Bowel Sounds Present Musculoskeletal MS Exam: Joints Intact, Normal Gait, Normal Tone, Good Strength Integumentary Skin Exam: Clear, Warm, Dry, Intact Extremeties Extremities Exam: No Edema Neurologic Neuro Exam: Alert, Awake, Oriented, Speech Clear, Moving All Extremities Psychiatric Psych Exam: Appropriate Responses Assessment/Plan Discussed Condition With: Patient Assessment Summary: Anemia of CKD, Hypertension, End Stage Renal Disease Problem List: (1) ESRD (end stage renal disease) Plan: continue /Sat HD schedule BP is low, 1.5 liters removed yesterday with HD. Give IV Albumin and start Midodrine. no dietary protein restriction phosphorus has improved gadolinium contraindicated. (2) Chest pain Plan: cardiology and GI have evaluated chest pain was thought to be due to gastritis, ulcers troponin is elevated, ASA resumed and started on Heparin discussion about cardiac cath Saturday also on PRN pain medications (3) HTN (hypertension) Plan: BP borderline low hold HTN medications, cardiology has evaluated echo reviewed, EF 40-45% monitor blood pressure of note she has had diarrhea for several days (4) CAD (coronary artery disease) Plan: hx of stents in the past on statin, beta chuck, JOSE, Plavix, ASA, heparin. Conservative management as per cardiology. (5) Anemia Plan: Hb stable no epogen required monitor hemoglobin (6) Hyponatremia Plan: chronic, UF with dialysis, discussed fluid restriction (7) CHF (congestive heart failure) Plan: monitor fluid status, UF as tolerated (8) Atrial fibrillation Plan: new onset she has converted to NSR cardiology following Problem Qualifiers (1) Chest pain: Qualified Code: R07.9 - Chest pain, unspecified type Alonzo Jamison MD Nov 18, 2016 13:01
[2016-11-18] MEDS: MIDODRINE 5 MG TAB PO SCH (16:56)
[2016-11-18] MEDS: ATORVASTATIN 40 MG TAB PO SCH (20:35)
[2016-11-19] VITALS (25 sets, daily range): BP systolic 80–114; BP diastolic 42–74; PULSE 51–72; RESP 16–18; TEMP 97.3–98.3; O2SAT 92–98
[2016-11-19] MEDS: metroNIDAZOLE 500 MG INJ 100 ML IV SCH ×4 (02:18→20:04)
[2016-11-19] MEDS: oxyCODONE/ACETAMINOPHEN 5 MG/325 MG TAB PO PRN (06:26)
[2016-11-19] MEDS: MIDODRINE 5 MG TAB PO SCH ×3 (06:27→17:39)
[2016-11-19 07:00] LABS: AUTOMATED NEUTROPHIL # 7.3 TH/MM3 (1.8-7.7); BASOPHIL % 0.5 % (0.0-2.0); EOSINOPHIL # 0.1 TH/MM3 (0-0.4); EOSINOPHIL % 1.6 % (0.0-4.0); HEMATOCRIT 33.3 % (35.0-46.0); LYMPH % 6.1 % (9.0-44.0); LYMPHOCYTE # 0.5 TH/MM3 (1.0-4.8); MEAN CELL VOLUME 100.6 FL (80.0-100.0); MEAN CORPUSCULAR HEMOGLOBIN 32.4 PG (27.0-34.0); MEAN CORPUSCULAR HGB CONC 32.2 % (32.0-36.0); MONO % 9.3 % (0.0-8.0); NEUT % 82.5 % (16.0-70.0); PLATELET COUNT 183 TH/MM3 (150-450); RED BLOOD COUNT 3.31 MIL/MM3 (4.00-5.30); RED CELL DISTRIBUTION WIDTH 19.3 % (11.6-17.2); WHITE BLOOD COUNT 8.9 TH/MM3 (4.0-11.0)
[2016-11-19 07:02] LABS: HEMO FLAGS AUTO DIFF
[2016-11-19 07:14] LABS: BICARBONATE 24.7 MEQ/L (21.0-32.0)
[2016-11-19 07:31] LABS: POTASSIUM 2.8 MEQ/L (3.5-5.1)
[2016-11-19 08:27] LABS: CRENATED RBCS 1+ (NORMAL); OVALOCYTES 1+ (NORMAL); SCAN/DIFF AUTO DIFF CONFIRMED
[2016-11-19] MEDS: LISINOPRIL 5 MG TAB PO SCH ×2 (09:00→10:43)
[2016-11-19] MEDS: VANCOMYCIN 500 MG VIAL (FOR ORAL USE ONLY) PO SCH ×5 (09:00→21:40)
[2016-11-19] MEDS: METOPROLOL TARTRATE 25 MG TAB PO SCH ×2 (09:00→21:39)
[2016-11-19] MEDS ORDERED: POTASSIUM CHLOR 20 MEQ PREMIX 100 ML IV ONE (09:15)
[2016-11-19] MEDS ORDERED: POTASSIUM CHLORIDE 20 MEQ CONTROLLED RELEASE TAB PO ONE (09:15)
[2016-11-19] MEDS ORDERED: POTASSIUM CHLORIDE 10 MEQ CONTROLLED RELEASE TAB PO ONE (09:15)
--- NOTE | 2016-11-19 10:12 | HHI.PR ---
Subjective Remarks Follow-up for C. difficile colitis and hypotension Patient remains hypotensive with systolic blood pressures in the 80s. She denies any shortness of breathing, chest pain, palpitation, lightheadedness dizziness. Patient very anxious to go home. She stated that abdominal pain is intermittent and mild. Patient stated that her diarrhea has not improved. She has no other complaints. Objective Vitals Vital Signs Date Time Temp Pulse Resp B/P Pulse Ox O2 Delivery O2 Flow Rate FiO2 11/19/16 07:37 18 11/19/16 07:00 97.3 69 18 80/42 92 11/19/16 07:00 65 11/19/16 06:00 64 11/19/16 05:00 60 11/19/16 04:00 64 11/19/16 03:00 97.5 51 18 88/49 98 11/19/16 03:00 60 11/19/16 02:00 64 11/19/16 01:00 62 11/19/16 00:00 70 11/18/16 23:00 97.8 70 18 89/53 98 11/18/16 23:00 62 11/18/16 22:07 21 11/18/16 22:00 64 11/18/16 21:00 72 11/18/16 20:00 64 11/18/16 19:00 98 Room Air 11/18/16 19:00 97.9 51 20 103/54 98 11/18/16 19:00 66 11/18/16 18:00 63 11/18/16 17:00 74 11/18/16 16:00 64 11/18/16 15:00 99.3 64 20 74/50 92 11/18/16 15:00 64 11/18/16 15:00 92 Room Air 11/18/16 14:00 64 11/18/16 13:00 61 11/18/16 12:00 59 11/18/16 11:00 99 Room Air 11/18/16 11:00 97.3 67 20 72/48 99 11/18/16 11:00 64 I/O 11/18/16 11/18/16 11/18/16 11/19/16 11/19/16 11/19/16 07:00 15:00 23:00 07:00 15:00 23:00 Intake Total 1240 ml 480 ml Balance 1240 ml 480 ml Intake Oral 1240 ml 480 ml # Voids 8 7 # Bowel Movements 8 10 Result Diagram: 11/19/1625 11/19/16524 Objective Remarks GENERAL: In no acute distress CARDIOVASCULAR: Regular rate and rhythm without murmurs, gallops, or rubs but later developed atrial fib. she was not examined at that time. RESPIRATORY: Breath sounds equal bilaterally. No accessory muscle use. GASTROINTESTINAL: Abdomen soft, nondistended. negative tenderness palpation. No peritoneal signs. MUSCULOSKELETAL: No cyanosis, or edema. BACK: Nontender without obvious deformity. No CVA tenderness. Procedures EGD on 11/12/2016. A/P Problem List: (1) Chest pain ICD Code: R07.9 Status: Acute (2) CHF (congestive heart failure) ICD Code: I50.9 Status: Acute (3) ESRD (end stage renal disease) ICD Code: N18.6 Status: Chronic (4) HTN (hypertension) ICD Code: I10 Status: Chronic (5) Tobacco abuse ICD Code: Z72.0 Status: Chronic Assessment and Plan 71-year-old female initially presented with chest pain, acute CHF, A. fib with RVR. Patient with elevated troponin and C. difficile colitis. Hypotensive -Secondary to increased volume loss due to diarrhea. -Will need to treat underlying cause which is C. difficile colitis. See treatment as a below. -Will need to be cautious with fluid boluses secondary to end-stage renal failure. Chest Pain, elevated troponins. -h/o CAD s/p AK/Stent in the past, symptoms ongoing x2-3wks. VQ Scan showed low prob PE. -Heparin discontinued per cardiology, conservative management at this point given her multiple comorbid conditions. On aspirin and Plavix. -Cardiac catheterization was ordered. Atrial fibrillation RVR -Patient is on amiodarone. Metoprolol as blood pressure can tolerate. Severe Gastritis severe/duodenitis with ulcers/severe esophagitis with ulcer -Per GI recommend PPI, anti-acid, avoid NSAIDs. C. difficile colitis: Continue oral vancomycin and Flagyl. Symptoms not yet improving. CHF: Acute on Chronic. Systolic. Echo 11/06/15 w/ EF 30-35%. BNP >5000. CXR w/ basilar atelectasis. -Hemodialysis per nephrology. ESRD on HD: -/, missed HD on . patient seen by Dr. Wu. Central Lab Technician is following. -Per user experience lead advised to start binder therapy with Fosrenol at home, also advised compliance to /Sat HD schedule, no dietary protein restriction Hypokalemia -Will need to replenish aggressively. HTN -Lisinopril metoprolol as blood pressure tolerates. Patient remains hypotensive. Tobacco Abuse - Pt has been counselled. Discharge Planning Patient continues to have severe hypokalemia and hypotension. She will need to remain hospitalized until improvement. Problem Qualifiers (1) Chest pain: Qualified Code: R07.9 - Chest pain, unspecified type Caridad Schaefer MD Nov 19, 2016 10:12
--- NOTE | 2016-11-19 10:38 | HHI.NPPN ---
Subjective Complaints: Chest Pain Renal Failure: Chronic, End Stage Renal Disease Interval History Sitting up in bed. She tested positive for C diff, having upwards of 15 bowel movements per day. Cardiac catheterization is planned. (Mily Gray ) Review of Systems Cardiovascular Cardiac: Chest Pain (Mily Gray) Gastrointestinal Gastrointestinal: Diarrhea (Mily Gray) Objective Data Data 11/18/16 11/19/16 19:00 07:00 Intake Total 1240 ml 480 ml Balance 1240 ml 480 ml Intake Oral 1240 ml 480 ml # Voids 8 7 # Bowel Movements 8 10 Vital Signs Date Time Temp Pulse Resp B/P Pulse Ox O2 Delivery O2 Flow Rate FiO2 11/19/16 07:37 18 11/19/16 07:00 97.3 69 18 80/42 92 11/19/16 07:00 65 11/19/16 06:00 64 11/19/16 05:00 60 11/19/16 04:00 64 11/19/16 03:00 97.5 51 18 88/49 98 11/19/16 03:00 60 11/19/16 02:00 64 11/19/16 01:00 62 11/19/16 00:00 70 11/18/16 23:00 97.8 70 18 89/53 98 11/18/16 23:00 62 11/18/16 22:07 21 11/18/16 22:00 64 11/18/16 21:00 72 11/18/16 20:00 64 11/18/16 19:00 98 Room Air 11/18/16 19:00 97.9 51 20 103/54 98 11/18/16 19:00 66 11/18/16 18:00 63 11/18/16 17:00 74 11/18/16 16:00 64 11/18/16 15:00 99.3 64 20 74/50 92 11/18/16 15:00 64 11/18/16 15:00 92 Room Air 11/18/16 14:00 64 11/18/16 13:00 61 11/18/16 12:00 59 11/18/16 11:00 99 Room Air 11/18/16 11:00 97.3 67 20 72/48 99 11/18/16 11:00 64 (Mily Gray) -: 11/19/16 0525 11/19/16 0525 Imaging Last Impressions Lung Scan-VQ Nuclear Medicine 11/11/16 1902 Signed Impressions: Service Date/Time: Friday, November 11, 2016 20:58 - CONCLUSION: 1. Low probability for pulmonary embolus. Joey Wilkerson MD Chest X-Ray 11/11/16 1644 Signed Impressions: Service Date/Time: Friday, November 11, 2016 16:52 - CONCLUSION: 1. Mild basilar opacity most characteristic of atelectasis. Cardiomegaly. Joey Wilkerson MD (Mily Gray) Physical Exam General Appearance: Well Developed, Well Nourished, No Acute Distress, Comfortable ( Mily Gray) Eyes Eye Exam: Pupils Equal (Mily Gray) Throat Throat Exam: Oral Mucosa [place] & Moist (Mily Gray) Pulmonary Resp Exam: Clear Bilaterally, Breath Sounds Equal, No Distress (Mily Gray) Cardiology CV Exam: Regular, Normal Sinus Rhythm, Good Perfusion (Mily Gray) Gastrointestinal/Abdomen GI Exam: Soft, Non-Tender, Bowel Sounds Present (Mily Gray) Musculoskeletal MS Exam: Joints Intact, Normal Gait, Normal Tone, Good Strength (Mily Gray) Integumentary Skin Exam: Clear, Warm, Dry, Intact (Mily Gray) Extremeties Extremities Exam: No Edema Extremeties Remarks AVF + thrill/bruit (Mily Gray) Neurologic Neuro Exam: Alert, Awake, Oriented, Speech Clear, Moving All Extremities ( Mily Gray) Psychiatric Psych Exam: Appropriate Responses (Mily Gray) Assessment/Plan Discussed Condition With: Patient Assessment Summary: Anemia of CKD, Hypertension, End Stage Renal Disease Problem List: (1) ESRD (end stage renal disease) Plan: continue Tues/Sat HD schedule Will dialyze after cardiac catheterization hypokalemic today, ordered replacement IV and PO follow up renal panel no dietary protein restriction; avoid IVF gadolinium is contraindicated. (2) Chest pain Plan: cardiology and GI have evaluated chest pain was thought to be due to gastritis, ulcers troponin was elevated, a cardiac catheterization is planned (3) HTN (hypertension) Plan: persistent hypotension hold HTN medications, cardiology has evaluated echo reviewed, EF 40-45% monitor blood pressure, now on midodrine (4) CAD (coronary artery disease) Plan: hx of stents in the past on statin,, Plavix, ASA, heparin. beta chuck and JOSE held due to hypotension (5) Anemia Plan: Hb stable no epogen required monitor hemoglobin (6) Hyponatremia Plan: chronic, stable UF with dialysis, discussed fluid restriction (7) CHF (congestive heart failure) Plan: monitor fluid status, UF as tolerated (8) Atrial fibrillation Plan: new onset she has converted to NSR cardiology following (Mliy Gray) Plan patient was seen and examined. Having diarrhea. Apparently, cardiac cath has been postponed. On Vancomycin for C.diff. (Arvin Farnsworth MD) Problem Qualifiers (1) Chest pain: Qualified Code: R07.9 - Chest pain, unspecified type Mily Gray Nov 19, 2016 10:37 Arvin Farnsworth MD Nov 20, 2016 11:34
[2016-11-19] MEDS: AMIODARONE 200 MG TAB PO SCH ×2 (10:42→21:39)
[2016-11-19] MEDS: ASPIRIN EC 81 MG TABEC PO SCH (10:42)
[2016-11-19] MEDS: LACTOBACILLUS ACIDOPHILUS TAB PO SCH ×2 (10:42→21:38)
[2016-11-19] MEDS: DOCUSATE SODIUM 50 MG/SENNA 8.6 MG TAB PO SCH ×2 (10:43→21:00)
[2016-11-19] MEDS: clonazePAM 0.5 MG TAB PO SCH ×2 (10:43→21:39)
[2016-11-19] MEDS: SEVELAMER CARBONATE 800 MG TAB PO SCH ×2 (10:43→11:02)
[2016-11-19] MEDS: CLOPIDOGREL 75 MG TAB PO SCH (10:43)
[2016-11-19] MEDS: PANTOPRAZOLE SOD 40 MG DELAYED RELEASE TAB PO SCH (10:43)
[2016-11-19] MEDS: SODIUM CHLORIDE 0.9% FLUSH 10 ML FLUSH IV FLUSH SCH ×2 (11:00→21:00)
--- NOTE | 2016-11-19 11:45 | PD.CARD.PN ---
Subjective Subjective Remarks no angina Objective Medications Current Medications Medications (Trade) Dose Ordered Sig/Diego Route Start Time Stop Time Status Last Admin (NS Flush) 2 ml UNSCH PRN IV FLUSH 11/11/16 19:15 (NS Flush) 2 ml BID IV FLUSH 11/11/16 21:00 11/19/16 11:00 (Zofran Inj) 4 mg Q6H PRN IVP 11/11/16 19:15 11/14/16 16:46 (Tylenol) 650 mg Q6H PRN PO 11/11/16 19:15 (Percocet 5-325 Mg) 1 tab Q6H PRN PO 11/11/16 19:15 11/19/16 06:26 (Morphine Inj) 2 mg Q3H PRN IV 11/11/16 19:15 11/13/16 16:54 (Ro-Colace) 1 tab BID PO 11/11/16 21:00 11/19/16 10:43 (Milk Of Magnesia Liq) 30 ml Q12H PRN PO 11/11/16 19:15 (Senokot) 17.2 mg Q12H PRN PO 11/11/16 19:15 (Dulcolax Supp) 10 mg DAILY PRN RECTAL 11/11/16 19:15 (Lipitor) 40 mg HS PO 11/11/16 21:00 11/18/16 20:35 (KlonoPIN) 0.5 mg BID PO 11/11/16 21:00 11/19/16 10:43 (Plavix) 75 mg DAILY PO 11/12/16 09:00 11/19/16 10:43 (Prinivil) 5 mg DAILY PO 11/12/16 09:00 11/17/16 09:55 (Lopressor) 25 mg BID PO 11/11/16 21:00 11/17/16 09:55 (Nitroglycerin 2% Oint) 0.5 inch Q6HR PRN TOPICAL 11/11/16 19:30 11/11/16 23:20 (Ativan Inj) 1 mg Q2H PRN IV PUSH 11/11/16 19:30 Pantoprazole Sodium 40 mg 40 mg DAILY PO 11/13/16 09:15 11/19/16 10:43 (NS 1000 ml Inj) 1,000 ml @ 0 mls/hr Q0M PRN IV 8/8/17 09:55 11/17/16 10:02 Heparin Sodium (Porcine) 8000 units 8,000 units UNSCH PRN IVF 11/13/16 10:00 Sodium Chloride 1,000 ml @ 200 mls/hr Q5H PRN IV 11/13/16 09:55 (NS 1000 ml Inj) 1,000 ml @ 0 mls/hr Q0M PRN IV 11/13/16 09:55 (Mannitol Inj) 12.5 gm UNSCH PRN IV 11/13/16 10:00 (Albumin 25% Inj) 25 gm UNSCH PRN IV 11/13/16 10:00 (NS Flush) 5 ml UNSCH PRN IV FLUSH 11/13/16 10:00 (Heparin Inj) UNSCH PRN .XX 11/13/16 10:00 (Gentamicin (Dialysis) Inj) 20 mg UNSCH PRN IV 11/13/16 10:00 (Zofran Inj) 4 mg UNSCH PRN IV 11/13/16 10:00 11/17/16 11:03 (Tylenol) 650 mg UNSCH PRN PO 11/13/16 10:00 (Benadryl) 25 mg UNSCH PRN PO 11/13/16 10:00 (Nitrostat Sl) 0.4 mg UNSCH PRN SL 11/13/16 10:00 (Catapres) 0.1 mg UNSCH PRN PO 11/13/16 10:00 (Gelfoam 12 Mm/7 Mm Top) 1 foam UNSCH PRN TOP 11/13/16 10:00 11/17/16 10:02 Amiodarone HCl 400 mg 400 mg BID PO 11/14/16 21:00 11/19/16 10:42 (Flagyl 500 Mg Inj) 100 ml @ 100 mls/hr Q6H IV 11/15/16 20:00 11/19/16 10:59 (VANCOMYCIN for oral use only) 500 mg QID PO 11/15/16 21:00 11/18/16 20:34 (Ecotrin Ec) 81 mg DAILY PO 11/16/16 09:00 11/19/16 10:42 (Lactinex) 1 tab Q12HR PO 11/17/16 11:00 11/19/16 10:42 (Proamatine) 10 mg TID@07,, PO 11/18/16 17:00 11/19/16 06:27 Vital Signs / I&O Vital Signs Date Time Temp Pulse Resp B/P Pulse Ox O2 Delivery O2 Flow Rate FiO2 11/19/16 07:37 18 11/19/16 07:00 97.3 69 18 80/42 92 11/19/16 07:00 65 11/19/16 06:00 64 11/19/16 05:00 60 11/19/16 04:00 64 11/19/16 03:00 97.5 51 18 88/49 98 11/19/16 03:00 60 11/19/16 02:00 64 11/19/16 01:00 62 11/19/16 00:00 70 11/18/16 23:00 97.8 70 18 89/53 98 11/18/16 23:00 62 11/18/16 22:07 21 11/18/16 22:00 64 11/18/16 21:00 72 11/18/16 20:00 64 11/18/16 19:00 98 Room Air 11/18/16 19:00 97.9 51 20 103/54 98 11/18/16 19:00 66 11/18/16 18:00 63 11/18/16 17:00 74 11/18/16 16:00 64 11/18/16 15:00 99.3 64 20 74/50 92 11/18/16 15:00 64 11/18/16 15:00 92 Room Air 11/18/16 14:00 64 11/18/16 13:00 61 11/18/16 12:00 59 I/O 11/18/16 11/18/16 11/18/16 11/19/16 11/19/16 11/19/16 07:00 15:00 23:00 07:00 15:00 23:00 Intake Total 1240 ml 480 ml Balance 1240 ml 480 ml Intake Oral 1240 ml 480 ml # Voids 8 7 # Bowel Movements 8 10 Physical Exam Awake Chest diminished BS CV S1S2 RRR No edema Tele: sinus, PVC's Laboratory Laboratory Tests Test 11/19/16 05:25 White Blood Count 8.9 TH/MM3 Red Blood Count 3.31 MIL/MM3 Hemoglobin 10.7 GM/DL Hematocrit 33.3 % Mean Corpuscular Volume 100.6 FL Mean Corpuscular Hemoglobin 32.4 PG Mean Corpuscular Hemoglobin 32.2 % Concent Red Cell Distribution Width 19.3 % Platelet Count 183 TH/MM3 Mean Platelet Volume 8.3 FL Neutrophils (%) (Auto) 82.5 % Lymphocytes (%) (Auto) 6.1 % Monocytes (%) (Auto) 9.3 % Eosinophils (%) (Auto) 1.6 % Basophils (%) (Auto) 0.5 % Neutrophils # (Auto) 7.3 TH/MM3 Lymphocytes # (Auto) 0.5 TH/MM3 Monocytes # (Auto) 0.8 TH/MM3 Eosinophils # (Auto) 0.1 TH/MM3 Basophils # (Auto) 0.0 TH/MM3 CBC Comment AUTO DIFF Differential Comment AUTO DIFF CONFIRMED Ovalocytes 1+ Crenated Cell 1+ Sodium Level 133 MEQ/L Potassium Level 2.8 MEQ/L Chloride Level 97 MEQ/L Carbon Dioxide Level 24.7 MEQ/L Anion Gap 11 MEQ/L Blood Urea Nitrogen 45 MG/DL Creatinine 6.69 MG/DL Estimat Glomerular Filtration 6 ML/MIN Rate Random Glucose 91 MG/DL Calcium Level 8.5 MG/DL Assessment and Plan Problem List: (1) CAD (coronary artery disease) Assessment and Plan: no angina. Pt. does not want heart cath. (2) Duodenitis (3) Duodenal ulcer (4) Esophageal ulcer (5) Esophagitis (6) Tobacco abuse (7) Paroxysmal atrial fibrillation with rapid ventricular response Assessment and Plan: sinus rhythm (8) Hypotension Assessment and Plan: placed on midodrine Tee Woo MD Nov 19, 2016 11:45
[2016-11-19 19:28] LABS: BICARBONATE 21.5 MEQ/L (21.0-32.0); POTASSIUM 3.7 MEQ/L (3.5-5.1)
[2016-11-19] MEDS: ATORVASTATIN 40 MG TAB PO SCH (21:39)
--- NOTE | 2016-11-19 21:57 | HHI.GIFU ---
Subjective Remarks Patient comfortable in bed but complains of excessive diarrhea she has to go to the bathroom about every hour she denies any fever chills denies any mucus or blood Objective Vitals I&O Vital Signs Date Time Temp Pulse Resp B/P Pulse Ox O2 Delivery O2 Flow Rate FiO2 11/19/16 21:26 97 21 11/19/16 18:14 72 11/19/16 17:21 68 11/19/16 16:00 63 11/19/16 15:42 98.3 62 18 101/60 96 11/19/16 15:00 62 11/19/16 14:00 58 11/19/16 13:20 98 21 11/19/16 13:00 62 11/19/16 12:00 61 11/19/16 11:00 62 11/19/16 11:00 97.9 62 16 100/47 92 11/19/16 10:00 60 11/19/16 07:37 18 11/19/16 07:00 97.3 69 18 80/42 92 11/19/16 07:00 65 11/19/16 06:00 64 11/19/16 05:00 60 11/19/16 04:00 64 11/19/16 03:00 97.5 51 18 88/49 98 11/19/16 03:00 60 11/19/16 02:00 64 11/19/16 01:00 62 11/19/16 00:00 70 11/18/16 23:00 97.8 70 18 89/53 98 11/18/16 23:00 62 11/18/16 22:07 21 11/18/16 22:00 64 I/O 11/18/16 11/18/16 11/18/16 11/19/16 11/19/16 11/19/16 06:59 14:59 22:59 06:59 14:59 22:59 Intake Total 1240 ml 480 ml 1000 ml Balance 1240 ml 480 ml 1000 ml Intake Oral 1240 ml 480 ml 700 ml IV Total 300 ml # Voids 8 7 5 # Bowel Movements 8 10 10 Laboratory Laboratory Tests Test 11/19/16 11/19/16 05:25 18:54 White Blood Count 8.9 Red Blood Count 3.31 Hemoglobin 10.7 Hematocrit 33.3 Mean Corpuscular Volume 100.6 Mean Corpuscular Hemoglobin 32.4 Mean Corpuscular Hemoglobin 32.2 Concent Red Cell Distribution Width 19.3 Platelet Count 183 Mean Platelet Volume 8.3 Neutrophils (%) (Auto) 82.5 Lymphocytes (%) (Auto) 6.1 Monocytes (%) (Auto) 9.3 Eosinophils (%) (Auto) 1.6 Basophils (%) (Auto) 0.5 Neutrophils # (Auto) 7.3 Lymphocytes # (Auto) 0.5 Monocytes # (Auto) 0.8 Eosinophils # (Auto) 0.1 Basophils # (Auto) 0.0 CBC Comment AUTO DIFF Differential Comment AUTO DIFF CONFIRMED Ovalocytes 1+ Crenated Cell 1+ Sodium Level 133 133 Potassium Level 2.8 3.7 Chloride Level 97 102 Carbon Dioxide Level 24.7 21.5 Anion Gap 11 10 Blood Urea Nitrogen 45 47 Creatinine 6.69 7.29 Estimat Glomerular Filtration 6 6 Rate Random Glucose 91 141 Calcium Level 8.5 8.1 Magnesium Level 1.9 Date/Time Procedure Status Source Growth 11/15/16 15:41 Cancelled Stool Stool Physical Exam HEENT: normocephalic; atraumatic; no jaundice. Throat is clear. NECK: Neck is supple, CHEST: Chest is clear to auscultation and percussion. CARDIAC: Regular rate and rhythm with no murmur gallop or rubs. ABDOMEN: Soft, nondistended, nontender; no hepatosplenomegaly; bowel sounds are present in all four quadrants. EXTREMITIES: No clubbing, cyanosis, or edema. SKIN: Normal; no rash; no jaundice. [employer]IC[employer] HELPER: No focal deficits; alert and oriented times three. Assessment and Plan Plan ASSESSMENT: -Worsening Diarrhea in spite of treatment for C. difficile colitis PLAN: - Plan for flexible sigmoidoscopy - Obtain consents - NPO -Continue with present antibiotics but considered switching to by mouth metronidazole -DC all laxatives -Further recommendations shall depend on the findings of flexible sigmoidoscopy Pedro Dozier MD Nov 19, 2016 21:57
[2016-11-20] VITALS (16 sets, daily range): BP systolic 94–105; BP diastolic 47–60; PULSE 48–96; RESP 16–18; TEMP 97.4–98.2; O2SAT 96–98
[2016-11-20] MEDS: metroNIDAZOLE 500 MG INJ 100 ML IV SCH ×4 (03:42→20:00)
[2016-11-20] MEDS: oxyCODONE/ACETAMINOPHEN 5 MG/325 MG TAB PO PRN ×2 (04:03→19:58)
[2016-11-20] MEDS: MIDODRINE 5 MG TAB PO SCH ×3 (06:16→19:53)
[2016-11-20 07:34] LABS: BICARBONATE 20.8 MEQ/L (21.0-32.0); POTASSIUM 3.8 MEQ/L (3.5-5.1)
[2016-11-20] MEDS: VANCOMYCIN 500 MG VIAL (FOR ORAL USE ONLY) PO SCH ×4 (09:00→19:56)
[2016-11-20] MEDS: METOPROLOL TARTRATE 25 MG TAB PO SCH ×2 (09:00→19:53)
[2016-11-20] MEDS: LISINOPRIL 5 MG TAB PO SCH (09:00)
[2016-11-20] MEDS: SODIUM CHLORIDE 0.9% FLUSH 10 ML FLUSH IV FLUSH SCH ×2 (09:00→21:00)
[2016-11-20] MEDS: DOCUSATE SODIUM 50 MG/SENNA 8.6 MG TAB PO SCH (09:00)
--- NOTE | 2016-11-20 09:02 | PD.CARD.PN ---
Subjective Subjective Remarks no complaints Objective Medications Current Medications Medications (Trade) Dose Ordered Sig/Diego Route Start Time Stop Time Status Last Admin (NS Flush) 2 ml UNSCH PRN IV FLUSH 11/11/16 19:15 (NS Flush) 2 ml BID IV FLUSH 11/11/16 21:00 11/19/16 11:00 (Zofran Inj) 4 mg Q6H PRN IVP 11/11/16 19:15 11/14/16 16:46 (Tylenol) 650 mg Q6H PRN PO 11/11/16 19:15 (Percocet 5-325 Mg) 1 tab Q6H PRN PO 11/11/16 19:15 11/20/16 04:03 (Morphine Inj) 2 mg Q3H PRN IV 11/11/16 19:15 11/13/16 16:54 (Ro-Colace) 1 tab BID PO 11/11/16 21:00 11/19/16 10:43 (Milk Of Magnesia Liq) 30 ml Q12H PRN PO 11/11/16 19:15 (Senokot) 17.2 mg Q12H PRN PO 11/11/16 19:15 (Dulcolax Supp) 10 mg DAILY PRN RECTAL 11/11/16 19:15 (Lipitor) 40 mg HS PO 11/11/16 21:00 11/19/16 21:39 (KlonoPIN) 0.5 mg BID PO 11/11/16 21:00 11/19/16 21:39 (Plavix) 75 mg DAILY PO 11/12/16 09:00 11/19/16 10:43 (Prinivil) 5 mg DAILY PO 11/12/16 09:00 11/17/16 09:55 (Lopressor) 25 mg BID PO 11/11/16 21:00 11/19/16 21:39 (Nitroglycerin 2% Oint) 0.5 inch Q6HR PRN TOPICAL 11/11/16 19:30 11/11/16 23:20 (Ativan Inj) 1 mg Q2H PRN IV PUSH 11/11/16 19:30 Pantoprazole Sodium 40 mg 40 mg DAILY PO 11/13/16 09:15 11/19/16 10:43 (NS 1000 ml Inj) 1,000 ml @ 0 mls/hr Q0M PRN IV 8/8/17 09:55 11/17/16 10:02 Heparin Sodium (Porcine) 8000 units 8,000 units UNSCH PRN IVF 11/13/16 10:00 Sodium Chloride 1,000 ml @ 200 mls/hr Q5H PRN IV 11/13/16 09:55 (NS 1000 ml Inj) 1,000 ml @ 0 mls/hr Q0M PRN IV 11/13/16 09:55 (Mannitol Inj) 12.5 gm UNSCH PRN IV 11/13/16 10:00 (Albumin 25% Inj) 25 gm UNSCH PRN IV 11/13/16 10:00 (NS Flush) 5 ml UNSCH PRN IV FLUSH 11/13/16 10:00 (Heparin Inj) UNSCH PRN .XX 11/13/16 10:00 (Gentamicin (Dialysis) Inj) 20 mg UNSCH PRN IV 11/13/16 10:00 (Zofran Inj) 4 mg UNSCH PRN IV 11/13/16 10:00 11/17/16 11:03 (Tylenol) 650 mg UNSCH PRN PO 11/13/16 10:00 (Benadryl) 25 mg UNSCH PRN PO 11/13/16 10:00 (Nitrostat Sl) 0.4 mg UNSCH PRN SL 11/13/16 10:00 (Catapres) 0.1 mg UNSCH PRN PO 11/13/16 10:00 Gelatin 1 foam 1 foam UNSCH PRN TOP 11/13/16 10:00 11/17/16 10:02 (Flagyl 500 Mg Inj) 100 ml @ 100 mls/hr Q6H IV 11/15/16 20:00 11/20/16 03:42 (VANCOMYCIN for oral use only) 500 mg QID PO 11/15/16 21:00 11/19/16 21:40 (Ecotrin Ec) 81 mg DAILY PO 11/16/16 09:00 11/19/16 10:42 (Lactinex) 1 tab Q12HR PO 11/17/16 11:00 11/19/16 21:38 (Proamatine) 10 mg TID@,12,17 PO 11/18/16 17:00 11/20/16 06:16 (Cordarone) 200 mg DAILY PO 11/20/16 09:00 UNV Vital Signs / I&O Vital Signs Date Time Temp Pulse Resp B/P Pulse Ox O2 Delivery O2 Flow Rate FiO2 11/20/16 06:07 58 11/20/16 05:12 49 11/20/16 04:10 58 11/20/16 03:42 98.0 73 16 105/50 96 11/20/16 03:23 55 11/20/16 02:12 58 11/20/16 01:24 55 11/20/16 00:20 98.2 48 16 101/60 98 11/20/16 00:17 55 11/19/16 23:00 56 11/19/16 22:00 58 11/19/16 21:26 97 21 11/19/16 21:00 54 11/19/16 20:15 54 11/19/16 19:15 97.4 56 16 114/74 98 11/19/16 19:15 62 11/19/16 18:14 72 11/19/16 17:21 68 11/19/16 16:00 63 11/19/16 15:42 98.3 62 18 101/60 96 11/19/16 15:00 62 11/19/16 14:00 58 11/19/16 13:20 98 21 11/19/16 13:00 62 11/19/16 12:00 61 11/19/16 11:00 62 11/19/16 11:00 97.9 62 16 100/47 92 11/19/16 10:00 60 I/O 11/19/16 11/19/16 11/19/16 11/20/16 11/20/16 11/20/16 06:59 14:59 22:59 06:59 14:59 22:59 Intake Total 480 ml 1000 ml 458 ml Balance 480 ml 1000 ml 458 ml Intake Oral 480 ml 700 ml 360 ml IV Total 300 ml 98 ml # Voids 7 5 1 # Bowel Movements 10 10 5 Physical Exam Awake Chest diminished BS CV S1S2 RRR No edema Tele: sinus Laboratory Laboratory Tests Test 11/19/16 11/20/16 18:54 06:28 Sodium Level 133 MEQ/L 137 MEQ/L Potassium Level 3.7 MEQ/L 3.8 MEQ/L Chloride Level 102 MEQ/L 104 MEQ/L Carbon Dioxide Level 21.5 MEQ/L 20.8 MEQ/L Anion Gap 10 MEQ/L 12 MEQ/L Blood Urea Nitrogen 47 MG/DL 49 MG/DL Creatinine 7.29 MG/DL 7.75 MG/DL Estimat Glomerular Filtration 6 ML/MIN 5 ML/MIN Rate Random Glucose 141 MG/DL 85 MG/DL Calcium Level 8.1 MG/DL 8.7 MG/DL Phosphorus Level 3.5 MG/DL Albumin 3.0 GM/DL Assessment and Plan Problem List: (1) CAD (coronary artery disease) Assessment and Plan: no angina. Hold off on cath (2) Duodenitis (3) Duodenal ulcer (4) Esophageal ulcer (5) Esophagitis (6) Tobacco abuse (7) Paroxysmal atrial fibrillation with rapid ventricular response Assessment and Plan: cont. amio 200mg daily (8) Hypotension Assessment and Plan: responded to midodrine Assessment and Plan Cardiology OK for discharge Tee Woo MD Nov 20, 2016 09:02
--- NOTE | 2016-11-20 09:19 | HHI.NPPN ---
Subjective Complaints: Chest Pain Renal Failure: Chronic, End Stage Renal Disease Interval History She refused cardiac catheterization. Seen during dialysis today. To have flexible sigmoidoscopy today. (Mily Gray) Review of Systems Cardiovascular Cardiac: Chest Pain (Mily Gray) Gastrointestinal Gastrointestinal: Diarrhea (Mily Gray) Objective Data Data 11/19/16 11/20/16 19:00 07:00 Intake Total 1000 ml 458 ml Balance 1000 ml 458 ml Intake Oral 700 ml 360 ml IV Total 300 ml 98 ml # Voids 5 1 # Bowel Movements 10 5 Vital Signs Date Time Temp Pulse Resp B/P Pulse Ox O2 Delivery O2 Flow Rate FiO2 11/20/16 07:00 97.4 64 18 11/20/16 07:00 56 11/20/16 06:07 58 11/20/16 05:12 49 11/20/16 04:10 58 11/20/16 03:42 98.0 73 16 105/50 96 11/20/16 03:23 55 11/20/16 02:12 58 11/20/16 01:24 55 11/20/16 00:20 98.2 48 16 101/60 98 11/20/16 00:17 55 11/19/16 23:00 56 11/19/16 22:00 58 11/19/16 21:26 97 21 11/19/16 21:00 54 11/19/16 20:15 54 11/19/16 19:15 97.4 56 16 114/74 98 11/19/16 19:15 62 11/19/16 18:14 72 11/19/16 17:21 68 11/19/16 16:00 63 11/19/16 15:42 98.3 62 18 101/60 96 11/19/16 15:00 62 11/19/16 14:00 58 11/19/16 13:20 98 21 11/19/16 13:00 62 11/19/16 12:00 61 11/19/16 11:00 62 11/19/16 11:00 97.9 62 16 100/47 92 11/19/16 10:00 60 (Mily Gray) -: 11/19/16 0525 11/20/16 0628 Imaging Last Impressions Lung Scan-VQ Nuclear Medicine 11/11/16 1902 Signed Impressions: Service Date/Time: Friday, November 11, 2016 20:58 - CONCLUSION: 1. Low probability for pulmonary embolus. Joey Wilkerson MD Chest X-Ray 11/11/16 1644 Signed Impressions: Service Date/Time: Friday, November 11, 2016 16:52 - CONCLUSION: 1. Mild basilar opacity most characteristic of atelectasis. Cardiomegaly. Joey Wilkerson MD (Mily Gray B. SCREEN ROLLER) Physical Exam General Appearance: Well Developed, Well Nourished, No Acute Distress, Comfortable ( Mily Gray B. SCREEN ROLLER) Eyes Eye Exam: Pupils Equal (Mily Gray B. SCREEN ROLLER) Throat Throat Exam: Oral Mucosa [place] & Moist (Oleg Grayon B. SCREEN ROLLER) Pulmonary Resp Exam: Clear Bilaterally, Breath Sounds Equal, No Distress (Oleg Grayon B. SCREEN ROLLER) Cardiology CV Exam: Regular, Normal Sinus Rhythm, Good Perfusion (Mily Gray B. SCREEN ROLLER) Gastrointestinal/Abdomen GI Exam: Soft, Non-Tender, Bowel Sounds Present (Oleg Grayon B. SCREEN ROLLER) Musculoskeletal MS Exam: Joints Intact, Normal Gait, Normal Tone, Good Strength (Oleg Grayon B. SCREEN ROLLER) Integumentary Skin Exam: Clear, Warm, Dry, Intact (MarinaMily B. SCREEN ROLLER) Extremeties Extremities Exam: No Edema Extremeties Remarks AVF + thrill/bruit (MarinaMily B. SCREEN ROLLER) Neurologic Neuro Exam: Alert, Awake, Oriented, Speech Clear, Moving All Extremities ( Mily Gray B. SCREEN ROLLER) Psychiatric Psych Exam: Appropriate Responses (Mily Gray B. SCREEN ROLLER) Assessment/Plan Discussed Condition With: Patient Assessment Summary: Anemia of CKD, Hypertension, End Stage Renal Disease Problem List: (1) ESRD (end stage renal disease) Plan: continue Tues/Sat HD schedule seen during dialysis today on a 3K, 300 BFR, goal 3L potassium was corrected no dietary protein restriction; avoid IVF gadolinium is contraindicated. (2) Chest pain Plan: cardiology and GI have evaluated chest pain was thought to be due to gastritis, ulcers troponin was elevated, but she refused a cardiac catheterization this admission (3) HTN (hypertension) Plan: borderline hypotension hold HTN medications, cardiology has evaluated echo reviewed, EF 40-45% monitor blood pressure, now on midodrine (4) CAD (coronary artery disease) Plan: hx of stents in the past on statin,, Plavix, ASA, heparin. beta chuck and JOSE are held due to hypotension (5) Anemia Plan: Hb stable no epogen required monitor hemoglobin (6) Hyponatremia Plan: chronic, stable UF with dialysis, discussed fluid restriction (7) CHF (congestive heart failure) Plan: monitor fluid status, UF as tolerated (8) Atrial fibrillation Plan: new onset she has converted to NSR cardiology following (9) Diarrhea Plan: C diff positive , on oral vancomycin and Flagyl to have flexible sigmoidoscopy later today GI following (Mily Gray) Plan patient was seen and examined. Patient was seen during dialysis. On 3K, UF goal is 3 liters. She reports that diarrhea has improved. She is scheduled for FOS today. No plans for cardiac cath. (Arvin Farnsworth MD) Problem Qualifiers (1) Chest pain: Qualified Code: R07.9 - Chest pain, unspecified type Mily Gray Nov 20, 2016 09:19 Arvin Farnsworth MD Nov 20, 2016 11:57
[2016-11-20] MEDS: LACTOBACILLUS ACIDOPHILUS TAB PO SCH ×2 (12:23→19:52)
[2016-11-20] MEDS: CLOPIDOGREL 75 MG TAB PO SCH (12:23)
[2016-11-20] MEDS: clonazePAM 0.5 MG TAB PO SCH ×2 (12:23→19:52)
[2016-11-20] MEDS: PANTOPRAZOLE SOD 40 MG DELAYED RELEASE TAB PO SCH (12:24)
[2016-11-20] MEDS: AMIODARONE 200 MG TAB PO SCH (12:24)
[2016-11-20] MEDS: ASPIRIN EC 81 MG TABEC PO SCH (12:24)
[2016-11-20] MEDS ORDERED: PROPOFOL 200 MG/20 ML AMP IV ONE (14:40)
--- NOTE | 2016-11-20 15:17 | PD.PROCEDR ---
GI Procedure REFERRING PHYSICIAN Amanda SANTOS PERFORMED Flexible sigmoidoscopy with biopsy INDICATION FOR PROCEDURE Persistent diarrhea in a patient with recent history of C. difficile colitis PROCEDURE: The procedure, risks and benefits were discussed with Ms. Richey and informed consent was obtained. Anesthesia sedated her with Diprivan. She was placed in the left lateral decubitus position. Flexible Sigmoidoscopy: The Pentax videoscope was introduced through the rectum and advanced to the descending colon. Retroflexion was performed in the rectum. Colonic prep was fair FINDINGS: As the scope was slowly withdrawn colonic mucosa was carefully inspected there were no pseudomembranes noted but there was significant amount of patchy erythema throughout the descending sigmoid and rectum with some mild edema in the sigmoid biopsies were taken from the descending colon and rectal region retroflexion was unremarkable ESTIMATED BLOOD LOSS: None SPECIMENS REMOVED: Descending colon and rectum COMPLICATIONS: None IMPRESSION: Erythema of the descending sigmoid and rectal region No obvious C. difficile colitis as there were no pseudomembranes PLAN: Await biopsy Consider steroids Monitor labs Pedro Dozier MD Nov 20, 2016 15:17
--- NOTE | 2016-11-20 15:43 | HHI.PR ---
Subjective Remarks Follow-up for hypotension and C. difficile colitis Patient continues to have excessive diarrhea about every 30 minutes. She's very anxious to go home. She declined sigmoidoscopy. I discussed with patient extensively on purpose of the sigmoidoscopy. Patient and agree of having it done. She is scheduled this afternoon for the procedure. Otherwise she denies abdominal pain. She had no other complaints. Patient's nurse is at the bedside. Dealt with patient's nurse. Objective Vitals Vital Signs Date Time Temp Pulse Resp B/P Pulse Ox O2 Delivery O2 Flow Rate FiO2 11/20/16 14:55 67 18 112/56 99 11/20/16 14:50 67 16 110/50 99 11/20/16 14:45 98.0 98 16 100/50 98 11/20/16 13:00 73 11/20/16 07:00 97.4 64 18 11/20/16 07:00 56 11/20/16 06:07 58 11/20/16 05:12 49 11/20/16 04:10 58 11/20/16 03:42 98.0 73 16 105/50 96 11/20/16 03:23 55 11/20/16 02:12 58 11/20/16 01:24 55 11/20/16 00:20 98.2 48 16 101/60 98 11/20/16 00:17 55 11/19/16 23:00 56 11/19/16 22:00 58 11/19/16 21:26 97 21 11/19/16 21:00 54 11/19/16 20:15 54 11/19/16 19:15 97.4 56 16 114/74 98 11/19/16 19:15 62 11/19/16 18:14 72 11/19/16 17:21 68 11/19/16 16:00 63 11/19/16 15:42 98.3 62 18 101/60 96 I/O 11/19/16 11/19/16 11/19/16 11/20/16 11/20/16 11/20/16 07:00 15:00 23:00 07:00 15:00 23:00 Intake Total 480 ml 1000 ml 458 ml 100 ml Balance 480 ml 1000 ml 458 ml 100 ml Intake Oral 480 ml 700 ml 360 ml IV Total 300 ml 98 ml 100 ml # Voids 7 5 1 # Bowel Movements 10 10 5 Result Diagram: 8/14/17 0525 11/20/16 0628 Imaging Current Medications Ondansetron HCl (Zofran Inj) 4 mg ONCE ONCE IV PUSH Last administered on 18:38; Start 11/11/16 at 18:30; Stop 11/11/16 at 18:31; Status DC Enoxaparin Sodium (Lovenox Inj) 70 mg ONCE ONCE SQ Last administered on 21:37; Start 11/11/16 at 18:45; Stop 11/11/16 at 18:46; Status DC Sodium Chloride (NS Flush) 2 ml UNSCH PRN IV FLUSH FLUSH AFTER USING IV ACCESS ; Start 11/11/16 at 19:15 Sodium Chloride (NS Flush) 2 ml BID IV FLUSH Last administered on 11/19/16 11: 00; Start 11/11/16 at 21:00 Ondansetron HCl (Zofran Inj) 4 mg Q6H PRN IVP NAUSEA OR VOMITING Last administered on 11/14/16 16:46; Start 11/11/16 at 19:15 Acetaminophen (Tylenol) 650 mg Q6H PRN PO FEVER/PAIN SCALE 1 TO 2; Start at 19:15 Oxycodone/ Acetaminophen (Percocet 5-325 Mg) 1 tab Q6H PRN PO PAIN SCALE 3 TO 5 Last administered on 11/20/16 04:03; Start 11/11/16 at 19:15 Morphine Sulfate (Morphine Inj) 2 mg Q3H PRN IV Pain 6-10 Last administered on 11/13/16 16:54; Start 11/11/16 at 19:15 Senna/Docusate Sodium (Ro-Colace) 1 tab BID PO Last administered on 10:43; Start 11/11/16 at 21:00; Status Hold Magnesium Hydroxide (Milk Of Magnesia Liq) 30 ml Q12H PRN PO MILD - MODERATE CONSTIPATION; Start 11/11/16 at 19:15 Sennosides (Senokot) 17.2 mg Q12H PRN PO MODERATE - SEVERE CONSTIPATION; Start 11/11/16 at 19:15; Status Hold Bisacodyl (Dulcolax Supp) 10 mg DAILY PRN RECTAL SEVERE CONSITIPATION; Start at 19:15; Status Hold Lactulose (Lactulose Liq) 30 ml DAILY PRN PO SEVERE CONSITIPATION; Start at 19:15; Stop 11/19/16 at 11:42; Status DC Aspirin (Aspirin) 325 mg DAILY PO Last administered on 11/13/16 08:09; Start at 09:00; Stop 11/13/16 at 09:04; Status DC Atorvastatin Calcium (Lipitor) 40 mg HS PO Last administered on 11/19/16 21:39 ; Start 11/11/16 at 21:00 Clonazepam (KlonoPIN) 0.5 mg BID PO Last administered on 11/20/16 12:23; Start 11/11/16 at 21:00 Clopidogrel Bisulfate (Plavix) 75 mg DAILY PO Last administered on 11/20/16 12 :23; Start 11/12/16 at 09:00 Lisinopril (Prinivil) 5 mg DAILY PO Last administered on 11/17/16 09:55; Start 11/12/16 at 09:00 Metoprolol Tartrate (Lopressor) 25 mg BID PO Last administered on 11/19/16 21: 39; Start 11/11/16 at 21:00 Nitroglycerin (Nitroglycerin 2% Oint) 0.5 inch Q6HR PRN TOPICAL CHEST PAIN Last administered on 11/11/16 23:20; Start 11/11/16 at 19:30 Lorazepam (Ativan Inj) 1 mg Q2H PRN IV PUSH WITHDRAWAL/AGITATION; Start at 19:30 Propofol (Diprivan 200 Mg/20 ml Inj) 120 mg STK-MED ONCE IV ; Start 11/12/16 at 16:00; Stop 11/12/16 at 16:15; Status DC Miscellaneous Information ALL NURSING DEPARTME... UNSCH PRN .XX SEE LABEL COMMENTS; Start 11/12/16 at 16:45; Stop 11/13/16 at 16:44; Status DC Ephedrine Sulfate (ePHEDrine/NS 25 MG/5 ML SYR) 25 mg STK-MED ONCE IV ; Start at 12:00; Stop 11/13/16 at 08:47; Status DC Pantoprazole Sodium 40 mg 40 mg DAILY PO Last administered on 11/20/16 12:24; Start 11/13/16 at 09:15 Sodium Chloride (NS 1000 ml Inj) 1,000 ml @ 0 mls/hr Q0M PRN IV For Prime & Rinse Back Last administered on 11/17/16 10:02; Start 11/13/16 at 09:55 Heparin Sodium (Porcine) 8000 units 8,000 units UNSCH PRN IVF WITH DIALYSIS; Start 11/13/16 at 10:00 Sodium Chloride 1,000 ml @ 200 mls/hr Q5H PRN IV WITH DIALYSIS; Start 11/13/16 at 09:55 Sodium Chloride (NS 1000 ml Inj) 1,000 ml @ 0 mls/hr Q0M PRN IV WITH DIALYSIS; Start 11/13/16 at 09:55 Mannitol (Mannitol Inj) 12.5 gm UNSCH PRN IV WITH DIALYSIS; Start 11/13/16 at 10 :00 Albumin Human (Albumin 25% Inj) 25 gm UNSCH PRN IV WITH DIALYSIS; Start at 10:00 Sodium Chloride (NS Flush) 5 ml UNSCH PRN IV FLUSH WITH DIALYSIS; Start at 10:00 Heparin Sodium (Porcine) (Heparin Inj) UNSCH PRN .XX WITH DIALYSIS; Start 11/13 at 10:00 Gentamicin Sulfate (Gentamicin (Dialysis) Inj) 20 mg UNSCH PRN IV WITH DIALYSIS ; Start 11/13/16 at 10:00 Ondansetron HCl (Zofran Inj) 4 mg UNSCH PRN IV WITH DIALYSIS Last administered on 11/17/16 11:03; Start 11/13/16 at 10:00 Acetaminophen (Tylenol) 650 mg UNSCH PRN PO for headach, pain, temp > 101F; Start 11/13/16 at 10:00 Diphenhydramine HCl (Benadryl) 25 mg UNSCH PRN PO for hives/itching/anaphylaxis ; Start 11/13/16 at 10:00 Nitroglycerin (Nitrostat Sl) 0.4 mg UNSCH PRN SL CHEST PAIN; Start 11/13/16 at 10:00 Clonidine (Catapres) 0.1 mg UNSCH PRN PO for BP > 180/100 X 2 readings; Start 11/13/16 at 10:00 Gelatin (Gelfoam 12 Mm/7 Mm Top) 1 foam UNSCH PRN TOP SEE LABEL COMMENTS Last administered on 11/17/16 10:02; Start 11/13/16 at 10:00 Atropine Sulfate (Atropine Inj) 1 mg STK-MED ONCE .ROUTE ; Start 11/13/16 at 17: 20; Stop 11/13/16 at 17:21; Status DC Sevelamer Carbonate (Renvela) 800 mg TIDAC PO ; Start 11/14/16 at 12:00; Status UNV Sevelamer Carbonate 1600 mg 1,600 mg TIDAC PO ; Start 11/14/16 at 12:00; Stop 02/22 at 15:33; Status DC Amiodarone HCl 150 mg/Dextrose 100 ml @ 600 mls/hr NOW ONCE IV Last administered on 11/14/16 13:34; Start 11/14/16 at 13:00; Stop 11/14/16 at 13:09; Status DC Amiodarone HCl 450 mg/Dextrose 250 ml @ 0 mls/hr CONTINUOUS IV ; Start 11/14/16 at 13:00; Stop 11/14/16 at 16:37; Status DC Sodium Chloride (NS 500 ml Inj) 500 ml @ 0 mls/hr ONCE ONCE IV Last administered on 11/14/16 16:45; Start 11/14/16 at 16:45; Stop 11/15/16 at 08:45; Status DC Amiodarone HCl 400 mg 400 mg BID PO Last administered on 11/19/16 21:39; Start 11/14/16 at 21:00; Stop 11/20/16 at 08:59; Status DC Sodium Chloride 250 ml @ 250 mls/hr BOLUS ONCE IV Last administered on 21:46; Start 11/15/16 at 13:45; Stop 11/15/16 at 14:44; Status DC Metronidazole (Flagyl 500 Mg Inj) 100 ml @ 100 mls/hr Q6H IV Last administered on 11/20/16 03:42; Start 11/15/16 at 20:00 Vancomycin HCl (VANCOMYCIN for oral use only) 500 mg QID PO Last administered on 11/20/16 12:23; Start 11/15/16 at 21:00 Heparin Sodium (Porcine) (Heparin Inj) 5,000 units UNSCH PRN IV APTT LESS THAN 25; Start 11/16/16 at 02:00; Stop 11/17/16 at 08:56; Status DC Heparin Sodium (Porcine) 2500 units 2,500 units UNSCH PRN IV APTT 25 TO 39 Last administered on 11/16/16 09:04; Start 11/16/16 at 02:00; Stop 11/17/16 at 08:56; Status DC Heparin Sodium/ Dextrose (Heparin-D5W Inj) 250 ml @ 0 mls/hr TITRATE IV Last administered on 11/16/16 23:23; Start 11/15/16 at 20:00; Stop 11/17/16 at 08:56 ; Status DC Aspirin (Ecotrin Ec) 81 mg DAILY PO Last administered on 11/20/16 12:24; Start 11/16/16 at 09:00 Sevelamer Carbonate (Renvela) 800 mg TIDAC PO ; Start 11/16/16 at 17:00; Stop at 11:42; Status DC Lactobacillus Acidophilus (Lactinex) 1 tab Q12HR PO Last administered on 12:23; Start 11/17/16 at 11:00 Potassium Chloride 40 meq 40 meq NOW ONCE PO Last administered on 11/17/16 17 :32; Start 11/17/16 at 17:00; Stop 11/17/16 at 17:01; Status DC Sodium Chloride 250 ml @ 250 mls/hr BOLUS ONCE IV Last administered on 02:01; Start 11/18/16 at 02:00; Stop 11/18/16 at 02:59; Status DC Dextrose/Sodium Chloride (D5W-1/2 NS 500 ml Inj) 500 ml @ 500 mls/hr BOLUS ONCE IV Last administered on 11/18/16 04:02; Start 11/18/16 at 03:45; Stop at 04:44; Status DC Potassium Chloride (KCl) 40 meq ONCE ONCE PO Last administered on 11/18/16 08 :43; Start 11/18/16 at 08:45; Stop 11/18/16 at 08:46; Status DC Albumin Human (Albumin 25% Inj) 25 gm ONCE ONCE IV Last administered on 13:20; Start 11/18/16 at 13:00; Stop 11/18/16 at 13:01; Status DC Midodrine 10 mg 10 mg TID@07,12,17 PO Last administered on 11/20/16 06:16; Start 11/18/16 at 17:00 Potassium Chloride (KCl 20 Meq Premix Inj) 100 ml @ 50 mls/hr BOLUS ONCE IV Last administered on 11/19/16 10:41; Start 11/19/16 at 09:15; Stop 11/19/16 at 11:14; Status DC Potassium Chloride (KCl) 40 meq ONCE ONCE PO Last administered on 11/19/16 10 :43; Start 11/19/16 at 09:15; Stop 11/19/16 at 09:34; Status DC Potassium Chloride (KCl) 30 meq ONCE ONCE PO Last administered on 11/19/16 10 :42; Start 11/19/16 at 09:15; Stop 11/19/16 at 09:34; Status DC Amiodarone HCl (Cordarone) 200 mg DAILY PO Last administered on 11/20/16 12:24 ; Start 11/20/16 at 09:00 Propofol (Diprivan 200 Mg/20 ml Inj) 60 mg STK-MED ONCE IV ; Start 11/20/16 at 14:40; Stop 11/20/16 at 15:00; Status DC Objective Remarks GENERAL: In no acute distress CARDIOVASCULAR: Regular rate and rhythm without murmurs, gallops, or rubs but later developed atrial fib. she was not examined at that time. RESPIRATORY: Breath sounds equal bilaterally. No accessory muscle use. GASTROINTESTINAL: Abdomen soft, nondistended. negative tenderness palpation. No peritoneal signs. MUSCULOSKELETAL: No cyanosis, or edema. BACK: Nontender without obvious deformity. No CVA tenderness. Procedures EGD on 11/12/2016. Medications and IVs Current Medications Ondansetron HCl (Zofran Inj) 4 mg ONCE ONCE IV PUSH Last administered on 18:38; Start 11/11/16 at 18:30; Stop 11/11/16 at 18:31; Status DC Enoxaparin Sodium (Lovenox Inj) 70 mg ONCE ONCE SQ Last administered on 21:37; Start 11/11/16 at 18:45; Stop 11/11/16 at 18:46; Status DC Sodium Chloride (NS Flush) 2 ml UNSCH PRN IV FLUSH FLUSH AFTER USING IV ACCESS ; Start 11/11/16 at 19:15 Sodium Chloride (NS Flush) 2 ml BID IV FLUSH Last administered on 11/19/16 11: 00; Start 11/11/16 at 21:00 Ondansetron HCl (Zofran Inj) 4 mg Q6H PRN IVP NAUSEA OR VOMITING Last administered on 11/14/16 16:46; Start 11/11/16 at 19:15 Acetaminophen (Tylenol) 650 mg Q6H PRN PO FEVER/PAIN SCALE 1 TO 2; Start at 19:15 Oxycodone/ Acetaminophen (Percocet 5-325 Mg) 1 tab Q6H PRN PO PAIN SCALE 3 TO 5 Last administered on 11/20/16 04:03; Start 11/11/16 at 19:15 Morphine Sulfate (Morphine Inj) 2 mg Q3H PRN IV Pain 6-10 Last administered on 11/13/16 16:54; Start 11/11/16 at 19:15 Senna/Docusate Sodium (Ro-Colace) 1 tab BID PO Last administered on 10:43; Start 11/11/16 at 21:00; Status Hold Magnesium Hydroxide (Milk Of Magnesia Liq) 30 ml Q12H PRN PO MILD - MODERATE CONSTIPATION; Start 11/11/16 at 19:15 Sennosides (Senokot) 17.2 mg Q12H PRN PO MODERATE - SEVERE CONSTIPATION; Start 11/11/16 at 19:15; Status Hold Bisacodyl (Dulcolax Supp) 10 mg DAILY PRN RECTAL SEVERE CONSITIPATION; Start at 19:15; Status Hold Lactulose (Lactulose Liq) 30 ml DAILY PRN PO SEVERE CONSITIPATION; Start at 19:15; Stop 11/19/16 at 11:42; Status DC Aspirin (Aspirin) 325 mg DAILY PO Last administered on 11/13/16 08:09; Start at 09:00; Stop 11/13/16 at 09:04; Status DC Atorvastatin Calcium (Lipitor) 40 mg HS PO Last administered on 11/19/16 21:39 ; Start 11/11/16 at 21:00 Clonazepam (KlonoPIN) 0.5 mg BID PO Last administered on 11/20/16 12:23; Start 11/11/16 at 21:00 Clopidogrel Bisulfate (Plavix) 75 mg DAILY PO Last administered on 11/20/16 12 :23; Start 11/12/16 at 09:00 Lisinopril (Prinivil) 5 mg DAILY PO Last administered on 11/17/16 09:55; Start 11/12/16 at 09:00 Metoprolol Tartrate (Lopressor) 25 mg BID PO Last administered on 11/19/16 21: 39; Start 11/11/16 at 21:00 Nitroglycerin (Nitroglycerin 2% Oint) 0.5 inch Q6HR PRN TOPICAL CHEST PAIN Last administered on 11/11/16 23:20; Start 11/11/16 at 19:30 Lorazepam (Ativan Inj) 1 mg Q2H PRN IV PUSH WITHDRAWAL/AGITATION; Start at 19:30 Propofol (Diprivan 200 Mg/20 ml Inj) 120 mg STK-MED ONCE IV ; Start 11/12/16 at 16:00; Stop 11/12/16 at 16:15; Status DC Miscellaneous Information ALL NURSING DEPARTME... UNSCH PRN .XX SEE LABEL COMMENTS; Start 11/12/16 at 16:45; Stop 11/13/16 at 16:44; Status DC Ephedrine Sulfate (ePHEDrine/NS 25 MG/5 ML SYR) 25 mg STK-MED ONCE IV ; Start at 12:00; Stop 11/13/16 at 08:47; Status DC Pantoprazole Sodium 40 mg 40 mg DAILY PO Last administered on 11/20/16 12:24; Start 11/13/16 at 09:15 Sodium Chloride (NS 1000 ml Inj) 1,000 ml @ 0 mls/hr Q0M PRN IV For Prime & Rinse Back Last administered on 11/17/16 10:02; Start 11/13/16 at 09:55 Heparin Sodium (Porcine) 8000 units 8,000 units UNSCH PRN IVF WITH DIALYSIS; Start 11/13/16 at 10:00 Sodium Chloride 1,000 ml @ 200 mls/hr Q5H PRN IV WITH DIALYSIS; Start 11/13/16 at 09:55 Sodium Chloride (NS 1000 ml Inj) 1,000 ml @ 0 mls/hr Q0M PRN IV WITH DIALYSIS; Start 11/13/16 at 09:55 Mannitol (Mannitol Inj) 12.5 gm UNSCH PRN IV WITH DIALYSIS; Start 11/13/16 at 10 :00 Albumin Human (Albumin 25% Inj) 25 gm UNSCH PRN IV WITH DIALYSIS; Start at 10:00 Sodium Chloride (NS Flush) 5 ml UNSCH PRN IV FLUSH WITH DIALYSIS; Start at 10:00 Heparin Sodium (Porcine) (Heparin Inj) UNSCH PRN .XX WITH DIALYSIS; Start 11/13 at 10:00 Gentamicin Sulfate (Gentamicin (Dialysis) Inj) 20 mg UNSCH PRN IV WITH DIALYSIS ; Start 11/13/16 at 10:00 Ondansetron HCl (Zofran Inj) 4 mg UNSCH PRN IV WITH DIALYSIS Last administered on 11/17/16 11:03; Start 11/13/16 at 10:00 Acetaminophen (Tylenol) 650 mg UNSCH PRN PO for headach, pain, temp > 101F; Start 11/13/16 at 10:00 Diphenhydramine HCl (Benadryl) 25 mg UNSCH PRN PO for hives/itching/anaphylaxis ; Start 11/13/16 at 10:00 Nitroglycerin (Nitrostat Sl) 0.4 mg UNSCH PRN SL CHEST PAIN; Start 11/13/16 at 10:00 Clonidine (Catapres) 0.1 mg UNSCH PRN PO for BP > 180/100 X 2 readings; Start 11/13/16 at 10:00 Gelatin (Gelfoam 12 Mm/7 Mm Top) 1 foam UNSCH PRN TOP SEE LABEL COMMENTS Last administered on 11/17/16 10:02; Start 11/13/16 at 10:00 Atropine Sulfate (Atropine Inj) 1 mg STK-MED ONCE .ROUTE ; Start 11/13/16 at 17: 20; Stop 11/13/16 at 17:21; Status DC Sevelamer Carbonate (Renvela) 800 mg TIDAC PO ; Start 11/14/16 at 12:00; Status UNV Sevelamer Carbonate 1600 mg 1,600 mg TIDAC PO ; Start 11/14/16 at 12:00; Stop 02/22 at 15:33; Status DC Amiodarone HCl 150 mg/Dextrose 100 ml @ 600 mls/hr NOW ONCE IV Last administered on 11/14/16 13:34; Start 11/14/16 at 13:00; Stop 11/14/16 at 13:09; Status DC Amiodarone HCl 450 mg/Dextrose 250 ml @ 0 mls/hr CONTINUOUS IV ; Start 11/14/16 at 13:00; Stop 11/14/16 at 16:37; Status DC Sodium Chloride (NS 500 ml Inj) 500 ml @ 0 mls/hr ONCE ONCE IV Last administered on 11/14/16 16:45; Start 11/14/16 at 16:45; Stop 11/15/16 at 08:45; Status DC Amiodarone HCl 400 mg 400 mg BID PO Last administered on 11/19/16 21:39; Start 11/14/16 at 21:00; Stop 11/20/16 at 08:59; Status DC Sodium Chloride 250 ml @ 250 mls/hr BOLUS ONCE IV Last administered on 21:46; Start 11/15/16 at 13:45; Stop 11/15/16 at 14:44; Status DC Metronidazole (Flagyl 500 Mg Inj) 100 ml @ 100 mls/hr Q6H IV Last administered on 11/20/16 03:42; Start 11/15/16 at 20:00 Vancomycin HCl (VANCOMYCIN for oral use only) 500 mg QID PO Last administered on 11/20/16 12:23; Start 11/15/16 at 21:00 Heparin Sodium (Porcine) (Heparin Inj) 5,000 units UNSCH PRN IV APTT LESS THAN 25; Start 11/16/16 at 02:00; Stop 11/17/16 at 08:56; Status DC Heparin Sodium (Porcine) 2500 units 2,500 units UNSCH PRN IV APTT 25 TO 39 Last administered on 11/16/16 09:04; Start 11/16/16 at 02:00; Stop 11/17/16 at 08:56; Status DC Heparin Sodium/ Dextrose (Heparin-D5W Inj) 250 ml @ 0 mls/hr TITRATE IV Last administered on 11/16/16 23:23; Start 11/15/16 at 20:00; Stop 11/17/16 at 08:56 ; Status DC Aspirin (Ecotrin Ec) 81 mg DAILY PO Last administered on 11/20/16 12:24; Start 11/16/16 at 09:00 Sevelamer Carbonate (Renvela) 800 mg TIDAC PO ; Start 11/16/16 at 17:00; Stop at 11:42; Status DC Lactobacillus Acidophilus (Lactinex) 1 tab Q12HR PO Last administered on 12:23; Start 11/17/16 at 11:00 Potassium Chloride 40 meq 40 meq NOW ONCE PO Last administered on 11/17/16 17 :32; Start 11/17/16 at 17:00; Stop 11/17/16 at 17:01; Status DC Sodium Chloride 250 ml @ 250 mls/hr BOLUS ONCE IV Last administered on 02:01; Start 11/18/16 at 02:00; Stop 11/18/16 at 02:59; Status DC Dextrose/Sodium Chloride (D5W-1/2 NS 500 ml Inj) 500 ml @ 500 mls/hr BOLUS ONCE IV Last administered on 11/18/16 04:02; Start 11/18/16 at 03:45; Stop at 04:44; Status DC Potassium Chloride (KCl) 40 meq ONCE ONCE PO Last administered on 11/18/16 08 :43; Start 11/18/16 at 08:45; Stop 11/18/16 at 08:46; Status DC Albumin Human (Albumin 25% Inj) 25 gm ONCE ONCE IV Last administered on 13:20; Start 11/18/16 at 13:00; Stop 11/18/16 at 13:01; Status DC Midodrine 10 mg 10 mg TID@07,12,17 PO Last administered on 11/20/16 06:16; Start 11/18/16 at 17:00 Potassium Chloride (KCl 20 Meq Premix Inj) 100 ml @ 50 mls/hr BOLUS ONCE IV Last administered on 11/19/16 10:41; Start 11/19/16 at 09:15; Stop 11/19/16 at 11:14; Status DC Potassium Chloride (KCl) 40 meq ONCE ONCE PO Last administered on 11/19/16 10 :43; Start 11/19/16 at 09:15; Stop 11/19/16 at 09:34; Status DC Potassium Chloride (KCl) 30 meq ONCE ONCE PO Last administered on 11/19/16 10 :42; Start 11/19/16 at 09:15; Stop 11/19/16 at 09:34; Status DC Amiodarone HCl (Cordarone) 200 mg DAILY PO Last administered on 11/20/16 12:24 ; Start 11/20/16 at 09:00 Propofol (Diprivan 200 Mg/20 ml Inj) 60 mg STK-MED ONCE IV ; Start 11/20/16 at 14:40; Stop 11/20/16 at 15:00; Status DC A/P Problem List: (1) Chest pain ICD Code: R07.9 Status: Acute (2) CHF (congestive heart failure) ICD Code: I50.9 Status: Acute (3) ESRD (end stage renal disease) ICD Code: N18.6 Status: Chronic (4) HTN (hypertension) ICD Code: I10 Status: Chronic (5) Tobacco abuse ICD Code: Z72.0 Status: Chronic Assessment and Plan 71-year-old female initially presented with chest pain, acute CHF, A. fib with RVR. Patient with elevated troponin and C. difficile colitis. Hypotensive -Secondary to increased volume loss due to diarrhea. -Will need to treat underlying cause which is C. difficile colitis. See treatment as a below. -Will need to be cautious with fluid boluses secondary to end-stage renal failure. -Patient was started on Midrin and blood pressure has improved. Concerned that she continues to have increase output. And that she is volume depleted. Chest Pain, elevated troponins. -h/o CAD s/p PA/Stent in the past, symptoms ongoing x2-3wks. VQ Scan showed low prob PE. -Heparin discontinued per cardiology, conservative management at this point given her multiple comorbid conditions. On aspirin and Plavix. -Cardiac catheterization was ordered. Atrial fibrillation RVR -Patient is on amiodarone. Metoprolol as blood pressure can tolerate. Severe Gastritis severe/duodenitis with ulcers/severe esophagitis with ulcer -Per GI recommend PPI, anti-acid, avoid NSAIDs. C. difficile colitis: Continue oral vancomycin and Flagyl. Symptoms not yet improving. Patient schedule for sigmoidoscopy this afternoon. CHF: Acute on Chronic. Systolic. Echo 11/06/15 w/ EF 30-35%. BNP >5000. CXR w/ basilar atelectasis. -Hemodialysis per nephrology. ESRD on HD: -/, missed HD on . patient seen by Dr. Wu. Saturator Operator is following. -Per pharmacology teacher advised to start binder therapy with Fosrenol at home, also advised compliance to /Sat HD schedule, no dietary protein restriction Hypokalemia -Resolved. Continue to replenish as needed. HTN -Lisinopril and metoprolol as blood pressure tolerates. Patient remains hypotensive. Tobacco Abuse - Pt has been counselled. Discharge Planning patient continues to have high output. She is scheduled for sigmoidoscopy today. Problem Qualifiers (1) Chest pain: Qualified Code: R07.9 - Chest pain, unspecified type Caridad Schaefer MD Nov 20, 2016 15:43
[2016-11-20] MEDS: ATORVASTATIN 40 MG TAB PO SCH (19:53)
[2016-11-20 20:56] LABS: BICARBONATE 30.8 MEQ/L (21.0-32.0); POTASSIUM 3.5 MEQ/L (3.5-5.1)
[2016-11-21] VITALS (16 sets, daily range): BP systolic 102–119; BP diastolic 42–60; PULSE 49–58; RESP 18–20; TEMP 97–98; O2SAT 96–100
[2016-11-21] MEDS: metroNIDAZOLE 500 MG INJ 100 ML IV SCH ×2 (02:00→08:00)
[2016-11-21] MEDS: MIDODRINE 5 MG TAB PO SCH ×2 (04:32→09:04)
[2016-11-21 06:44] LABS: HEMATOCRIT 34.8 % (35.0-46.0); MEAN CELL VOLUME 99.1 FL (80.0-100.0); MEAN CORPUSCULAR HEMOGLOBIN 32.3 PG (27.0-34.0); MEAN CORPUSCULAR HGB CONC 32.6 % (32.0-36.0); PLATELET COUNT 212 TH/MM3 (150-450); RED BLOOD COUNT 3.51 MIL/MM3 (4.00-5.30); RED CELL DISTRIBUTION WIDTH 19.7 % (11.6-17.2); REVIEW FLAG FINAL; WHITE BLOOD COUNT 8.1 TH/MM3 (4.0-11.0)
[2016-11-21] MEDS: METOPROLOL TARTRATE 25 MG TAB PO SCH ×2 (09:00→09:03)
[2016-11-21] MEDS ORDERED: methylPREDNISolone SOD SUCC 40 MG/1 ML VIAL IV PUSH SCH (09:00)
[2016-11-21] MEDS: VANCOMYCIN 500 MG VIAL (FOR ORAL USE ONLY) PO SCH (09:00)
[2016-11-21] MEDS: LISINOPRIL 5 MG TAB PO SCH (09:00)
[2016-11-21] MEDS: AMIODARONE 200 MG TAB PO SCH (09:02)
[2016-11-21] MEDS: LACTOBACILLUS ACIDOPHILUS TAB PO SCH (09:02)
[2016-11-21] MEDS: clonazePAM 0.5 MG TAB PO SCH (09:02)
[2016-11-21] MEDS: ASPIRIN EC 81 MG TABEC PO SCH (09:04)
[2016-11-21] MEDS: PANTOPRAZOLE SOD 40 MG DELAYED RELEASE TAB PO SCH (09:04)
[2016-11-21] MEDS: CLOPIDOGREL 75 MG TAB PO SCH (09:04)
[2016-11-21] MEDS: SODIUM CHLORIDE 0.9% FLUSH 10 ML FLUSH IV FLUSH SCH (09:05)
--- NOTE | 2016-11-21 10:55 | HHI.GIFU ---
Subjective Remarks Resting in bed. States she feels better. No further diarrhea- no bowel movement since yesterday. States that she is eating well, no n/v. No abdominal pain. Wants to go home today. (Medina Perry) Objective Vitals I&O Vital Signs Date Time Temp Pulse Resp B/P Pulse Ox O2 Delivery O2 Flow Rate FiO2 11/21/16 10:00 52 11/21/16 09:00 52 11/21/16 08:04 98.0 50 20 102/49 100 11/21/16 08:00 50 11/21/16 07:00 54 11/21/16 06:00 58 11/21/16 05:00 55 11/21/16 04:00 49 11/21/16 04:00 52 18 111/42 96 11/21/16 03:00 52 11/21/16 02:00 50 11/21/16 01:00 55 11/21/16 00:00 53 11/21/16 00:00 50 18 109/58 96 11/20/16 23:00 52 11/20/16 22:00 50 11/20/16 21:00 56 11/20/16 20:00 54 11/20/16 20:00 98.0 56 18 94/47 96 11/20/16 19:00 96 11/20/16 14:55 67 18 112/56 99 11/20/16 14:50 67 16 110/50 99 11/20/16 14:45 98.0 98 16 100/50 98 11/20/16 13:00 73 I/O 11/20/16 11/20/16 11/20/16 11/21/16 11/21/16 11/21/16 07:00 15:00 23:00 07:00 15:00 23:00 Intake Total 458 ml 100 ml 700 ml 240 ml Output Total 3000 ml Balance 458 ml -2900 ml 700 ml 240 ml Intake Oral 360 ml 400 ml 240 ml IV Total 98 ml 100 ml 300 ml Hemodialysis 3000 ml # Voids 1 5 2 # Bowel Movements 5 9 Laboratory Laboratory Tests Test 11/20/16 11/21/16 20:06 06:15 Sodium Level 134 Potassium Level 3.5 Chloride Level 98 Carbon Dioxide Level 30.8 Anion Gap 5 Blood Urea Nitrogen 28 Creatinine 5.13 Estimat Glomerular Filtration 8 Rate Random Glucose 133 Calcium Level 7.9 White Blood Count 8.1 Red Blood Count 3.51 Hemoglobin 11.3 Hematocrit 34.8 Mean Corpuscular Volume 99.1 Mean Corpuscular Hemoglobin 32.3 Mean Corpuscular Hemoglobin 32.6 Concent Red Cell Distribution Width 19.7 Platelet Count 212 Mean Platelet Volume 7.8 Imaging Last Impressions Lung Scan-VQ Nuclear Medicine 11/11/16 1902 Signed Impressions: Service Date/Time: Friday, November 11, 2016 20:58 - CONCLUSION: 1. Low probability for pulmonary embolus. Joey Wilkerson MD Chest X-Ray 11/11/16 1644 Signed Impressions: Service Date/Time: Friday, November 11, 2016 16:52 - CONCLUSION: 1. Mild basilar opacity most characteristic of atelectasis. Cardiomegaly. Joey Wilkerson MD Physical Exam HEENT: Normocephalic; atraumatic; no jaundice. CHEST: CTA. CARDIAC: RRR. ABDOMEN: Soft, nondistended, nontender; no hepatosplenomegaly; bowel sounds are present in all four quadrants. EXTREMITIES: No clubbing, cyanosis, or edema. SKIN: Normal; no rash; no jaundice. MACHINE SHOP INSPECTOR: No focal deficits; alert and oriented times three. (Medina Perry [facility]) Assessment and Plan Plan ASSESSMENT: - Worsening diarrhea in patient with C. Difficile. Pt was having significant diarrhea with loose stools every hour despite tx for CDiff. S/P Flexible sigmoidoscopy (11/20/16)----> Erythema of the descending sigmoid and rectal region. No obvious C. difficile colitis as there were no pseudomembranes. Pathology pending. Plan was to check stool for cdiff and if negative, consider steroids. However, patient reports that her diarrhea has resolved- no bowel movements since yesterday and that she is not having any nausea, vomiting, abdominal pain, diarrhea, and would like to go home. She would like to fu as outpatient. - N/V. RESOLVED. EGD (11/21/16)-----> 1. Severe grade esophagitis D with ulcers in distal esophagus Bx. done 2. Severe gastritis Bx from antrum 3. Severe duodentitis with multiple small ulcers in the bulb 4. Retroflexed views revealed no abnormalities. Pathology reactive/chemical gastropathy, gastroesophageal mucosa with rare goblet cells suggestive of early intestinal metaplasia and abundant fibrinopurulent exudate consistent with ulcer base. Gomori methenamine silver stain is negative for fungal organisms. negative for dysplasia or malignancy. PPI. Rpt egd 2 months. - Anemia, normocytic. Mild. HH stable. - CAD, COPD, HTN per attending. - ESRD, on HD on Tuesdays/Sat. Per renal PLAN: - CHRISTIANO - Await pathology - Cont. Flagyl, Oral Vanco - FU LEANDRO in 2 weeks - Okay to discharge from GI standpoint - Pt seen and examined by Dr. Dozier and myself and this note is written on his behalf (Medina Perry) Physician Comments Patient seen and examined Agree with above Continue with antibiotics for a couple of weeks Follow-up with GI Possible inflammatory bowel disease will await pathology (Pedro Dozier MD) Medina Perry Nov 21, 2016 10:55 Pedro Dozier MD Nov 21, 2016 12:31
[2016-11-21] MEDS ORDERED: MIDO5TAB PO (11:45)
[2016-11-21] MEDS ORDERED: LACT PO (11:45)
[2016-11-21] MEDS ORDERED: VANC500I3 PO (11:45)
[2016-11-21] MEDS ORDERED: ASPI-99 PO (11:45)
[2016-11-21] MEDS ORDERED: AMIO200T PO (11:45)
[2016-11-21] MEDS ORDERED: METR-1 PO (11:47)
--- NOTE | 2016-11-21 11:48 | HHI.DS ---
Discharge Summary Admission Date Nov 11, 2016 at 19:05 Admitting Diagnosis chest pain (1) Chest pain ICD Code: R07.9 (2) CHF (congestive heart failure) ICD Code: I50.9 (3) ESRD (end stage renal disease) ICD Code: N18.6 (4) HTN (hypertension) ICD Code: I10 (5) Tobacco abuse ICD Code: Z72.0 Procedures EGD on 11/12/2016. Brief History - From Admission This is a 71-year-old female with a PMH of HTN, CAD, ESRD on HD /, CHF (Echo 11/06/15 w/ EF 30-35%), COPD and Tobacco Abuse who presented to the ER w/ complaints of chest pain. States symptoms have been ongoing x2-3 wks, follows w / Oil Drilling Engineer, Dr. Woo, seen in office and instructed to take NTG for likely angina. On HD and however missed HD on due to symptoms. Today, pt w/ severe pain, mostly on exertion. Took 6 NTG tablets w/ minimal relief. On arrival, BP 169/79, HR 78, O2 sat 98% on RA, Afebrile. CBC unremarkable except for mild anemia, hemoglobin 11.2. Creatinine 4.65, previously 7.68 on 12/13/15. Troponin 0.04. EKG with no acute changes. BNP greater than 5000. CXR with mild basilar opacity characteristic of atelectasis. Dr. Connell consulted by ER physician, recommended Lovenox, V/ Q Scan for possible PE and admission to [facility] for possible ACS. CBC/BMP: 11/21/16 0615 11/20/162005 Significant Findings Laboratory Tests Test 11/19/16 11/19/16 11/20/16 11/20/16 05:25 18:54 06:28 20:06 Red Blood Count 3.31 MIL/MM3 (4.00-5.30) Hemoglobin 10.7 GM/DL (11.6-15.3) Hematocrit 33.3 % (35.0-46.0) Mean Corpuscular Volume 100.6 FL (80.0-100.0) Red Cell Distribution Width 19.3 % (11.6-17.2) Neutrophils (%) (Auto) 82.5 % (16.0-70.0) Lymphocytes (%) (Auto) 6.1 % (9.0-44.0) Monocytes (%) (Auto) 9.3 % (0.0-8.0) Lymphocytes # (Auto) 0.5 TH/MM3 (1.0-4.8) Ovalocytes 1+ (NORMAL) Crenated Cell 1+ (NORMAL) Sodium Level 133 MEQ/L 133 MEQ/L 134 MEQ/L (136-145) (136-145) (136-145) Potassium Level 2.8 MEQ/L (3.5-5.1) Chloride Level 97 MEQ/L (98-107) Blood Urea Nitrogen 45 MG/DL (7-18) 47 MG/DL (7-18) 49 MG/DL (7-18) 28 MG/DL (7- 18) Creatinine 6.69 MG/DL 7.29 MG/DL 7.75 MG/DL 5.13 MG/DL (0.50-1.00) (0.50-1.00) (0.50-1.00) (0.50-1.00) Estimat Glomerular Filtration 6 ML/MIN (>89) 6 ML/MIN (>89) 5 ML/MIN (>89) 8 ML/ MIN (>89) Rate Random Glucose 141 MG/DL 133 MG/DL (74-106) (74-106) Calcium Level 8.1 MG/DL 7.9 MG/DL (8.5-10.1) (8.5-10.1) Carbon Dioxide Level 20.8 MEQ/L (21.0-32.0) Albumin 3.0 GM/DL (3.4-5.0) Test 11/21/16 06:15 Red Blood Count 3.51 MIL/MM3 (4.00-5.30) Hemoglobin 11.3 GM/DL (11.6-15.3) Hematocrit 34.8 % (35.0-46.0) Red Cell Distribution Width 19.7 % (11.6-17.2) PE at Discharge GENERAL: Patient appears older than stated age CARDIOVASCULAR: Normal rate and regular rhythm without murmurs, gallops, or rubs. RESPIRATORY: Good respiratory efforts. Breath sounds equal and clear to auscultation bilaterally. GASTROINTESTINAL: Abdomen soft, mild tenderness to palpation, non-distended. Normal active bowel sounds MUSCULOSKELETAL: Extremities without cyanosis, or edema. NEURO: Alert & Oriented x4 to person, place, time, situation. Moves all ext x4 PSYCH: Appropriate mood and affect. Hospital Course Assessment and Plan 71-year-old female initially presented with chest pain, acute CHF, A. fib with RVR. Patient with elevated troponin and C. difficile colitis. Hypotensive -Secondary to increased volume loss due to diarrhea. -Will need to treat underlying cause which is C. difficile colitis. See treatment as a below. -Will need to be cautious with fluid boluses secondary to end-stage renal failure. -Patient was started on Midrin and blood pressure has improved. Concerned that she continues to have increase output. And that she is volume depleted. Chest Pain, elevated troponins. -h/o CAD s/p MS/Stent in the past, symptoms ongoing x2-3wks. VQ Scan showed low prob PE. -Heparin discontinued per cardiology, conservative management at this point given her multiple comorbid conditions. On aspirin and Plavix. -Cardiac catheterization was ordered. Atrial fibrillation RVR -Patient is on amiodarone. Metoprolol as blood pressure can tolerate. Severe Gastritis severe/duodenitis with ulcers/severe esophagitis with ulcer -Per GI recommend PPI, anti-acid, avoid NSAIDs. C. difficile colitis: Continue oral vancomycin and Flagyl. Symptoms not yet improving. Patient schedule for sigmoidoscopy this afternoon. CHF: Acute on Chronic. Systolic. Echo 11/06/15 w/ EF 30-35%. BNP >5000. CXR w/ basilar atelectasis. -Hemodialysis per nephrology. ESRD on HD: -/, missed HD on . patient seen by Dr. Wu. Skin Drier is following. -Per catalyst operator chief advised to start binder therapy with Fosrenol at home, also advised compliance to /Sat HD schedule, no dietary protein restriction Hypokalemia -Resolved. Continue to replenish as needed. HTN -Lisinopril and metoprolol as blood pressure tolerates. Patient remains hypotensive. Tobacco Abuse - Pt has been counselled. Discharge Planning patient continues to have high output. She is scheduled for sigmoidoscopy today Discharge Disposition: Discharge Home Discharge Instructions DIET: Follow Instructions for: Heart Healthy Diet, Renal Failure Diet Additional Diet Instructions: eat small portions of meals throughout the day. Activities you can perform: Regular-No Restrictions Caridad Schaefer MD Nov 21, 2016 11:48
--- NOTE | 2016-11-21 11:48 | HHI.DCPOC ---
Discharge Care Plan Diagnosis: (1) Paroxysmal atrial fibrillation with rapid ventricular response (2) Hypotension (3) Esophageal ulcer (4) Duodenal ulcer (5) Esophagitis (6) CAD (coronary artery disease) (7) C. difficile colitis Goals to Promote Your Health * To prevent worsening of your condition and complications * To maintain your health at the optimal level Directions to Meet Your Goals Take your medications as prescribed Follow your dietary instruction Follow activity as directed Keep your appointments as scheduled Take your immunizations and boosters as scheduled If your symptoms worsen call your PCP, if no PCP go to Urgent Care Center or Emergency Room Smoking is Dangerous to Your Health. Avoid second hand smoke Call the 24-hour hour crisis hotline for domestic abuse at Caridad Schaefer MD Nov 21, 2016 11:48
--- NOTE | 2016-11-21 12:11 | HHI.NPPN ---
Subjective Complaints: Chest Pain Renal Failure: Chronic, End Stage Renal Disease Interval History She had flexible sigmoidoscopy after dialysis yesterday. To be discharged today. (Mily Gray) Review of Systems Cardiovascular Cardiac: Chest Pain (Mily Gray) Gastrointestinal Gastrointestinal: Diarrhea (Mily Gray) Objective Data Data 11/20/16 11/21/16 18:59 06:59 Intake Total 800 ml 240 ml Output Total 3000 ml Balance -2200 ml 240 ml Intake Oral 400 ml 240 ml IV Total 400 ml Hemodialysis 3000 ml # Voids 5 2 # Bowel Movements 9 Vital Signs Date Time Temp Pulse Resp B/P Pulse Ox O2 Delivery O2 Flow Rate FiO2 11/21/16 11:53 98 21 11/21/16 10:00 52 11/21/16 09:00 52 11/21/16 08:04 98.0 50 20 102/49 100 11/21/16 08:00 50 11/21/16 07:00 54 11/21/16 06:00 58 11/21/16 05:00 55 11/21/16 04:00 49 11/21/16 04:00 52 18 111/42 96 11/21/16 03:00 52 11/21/16 02:00 50 11/21/16 01:00 55 11/21/16 00:00 53 11/21/16 00:00 50 18 109/58 96 11/20/16 23:00 52 11/20/16 22:00 50 11/20/16 21:00 56 11/20/16 20:00 54 11/20/16 20:00 98.0 56 18 94/47 96 11/20/16 19:00 96 11/20/16 14:55 67 18 112/56 99 11/20/16 14:50 67 16 110/50 99 11/20/16 14:45 98.0 98 16 100/50 98 11/20/16 13:00 73 (Mily Gray) -: 11/21/16 0615 11/20/162005 Physical Exam General Appearance: Well Developed, Well Nourished, No Acute Distress, Comfortable ( Mily Gray) Eyes Eye Exam: Pupils Equal (Mily Gray) Throat Throat Exam: Oral Mucosa [place] & Moist (Mily Gray) Pulmonary Resp Exam: Clear Bilaterally, Breath Sounds Equal, No Distress (Mily Gray) Cardiology CV Exam: Regular, Normal Sinus Rhythm, Good Perfusion (Mily Gray) Gastrointestinal/Abdomen GI Exam: Soft, Non-Tender, Bowel Sounds Present (Mily Gray) Musculoskeletal MS Exam: Joints Intact, Normal Gait, Normal Tone, Good Strength (Mily Gray) Integumentary Skin Exam: Clear, Warm, Dry, Intact (Mily Gray) Extremeties Extremities Exam: No Edema Extremeties Remarks AVF + thrill/bruit (Mily Gray) Neurologic Neuro Exam: Alert, Awake, Oriented, Speech Clear, Moving All Extremities ( Mily Gray) Psychiatric Psych Exam: Appropriate Responses (Mily Gray) Assessment/Plan Discussed Condition With: Patient Assessment Summary: Anemia of CKD, Hypertension, End Stage Renal Disease Problem List: (1) ESRD (end stage renal disease) Plan: continue /Sat HD schedule 3L UF yesterday no renal concerns she is eating well, tolerating oral fluids she is stable for discharge, can resume outpatient HD after discharge (2) Chest pain Plan: cardiology and GI have evaluated chest pain was thought to be due to gastritis, ulcers troponin was elevated, but she refused a cardiac catheterization this admission (3) HTN (hypertension) Plan: borderline hypotension hold HTN medications, cardiology has evaluated echo reviewed, EF 40-45% monitor blood pressure, now on midodrine (4) CAD (coronary artery disease) Plan: hx of stents in the past on statin,, Plavix, ASA, heparin. beta chuck and JOSE were held due to hypotension (5) Anemia Plan: Hb stable no epogen required monitor hemoglobin (6) Hyponatremia Plan: chronic, stable UF with dialysis, discussed fluid restriction (7) CHF (congestive heart failure) Plan: monitor fluid status, UF as tolerated (8) Atrial fibrillation Plan: new onset this hospitalization she has converted to NSR cardiology following (9) Diarrhea Plan: C diff positive , although scope did not reveal colitis to be discharged on Flagyl GI following (Mily Gray) Problem List: (1) ESRD (end stage renal disease) Plan: continue Tu/Sat HD schedule 3L UF yesterday no renal concerns she is eating well, tolerating oral fluids she is stable for discharge, can resume outpatient HD after discharge (2) Chest pain Plan: cardiology and GI have evaluated chest pain was thought to be due to gastritis, ulcers troponin was elevated, but she refused a cardiac catheterization this admission (3) HTN (hypertension) Plan: borderline hypotension hold HTN medications, cardiology has evaluated echo reviewed, EF 40-45% monitor blood pressure, now on midodrine (4) CAD (coronary artery disease) Plan: hx of stents in the past on statin,, Plavix, ASA, heparin. beta chuck and JOSE were held due to hypotension (5) Anemia Plan: Hb stable no epogen required monitor hemoglobin (6) Hyponatremia Plan: chronic, stable UF with dialysis, discussed fluid restriction (7) CHF (congestive heart failure) Plan: monitor fluid status, UF as tolerated (8) Atrial fibrillation Plan: new onset this hospitalization she has converted to NSR cardiology following (9) Diarrhea Plan: C diff positive , although scope did not reveal colitis to be discharged on Flagyl GI following Plan patient was seen and examined. Agree with above assessment and plan. (Arvin Farnsworth MD) Problem Qualifiers (1) Chest pain: Qualified Code: R07.9 - Chest pain, unspecified type Mily Gray Nov 21, 2016 12:11 Arvin Farnsworth MD Nov 21, 2016 20:00
--- NOTE | 2016-11-21 12:29 | HHI.PR ---
Objective Vitals Vital Signs Date Time Temp Pulse Resp B/P Pulse Ox O2 Delivery O2 Flow Rate FiO2 11/21/16 11:53 98 21 11/21/16 10:00 52 11/21/16 09:00 52 11/21/16 08:04 98.0 50 20 102/49 100 11/21/16 08:00 50 11/21/16 07:00 54 11/21/16 06:00 58 11/21/16 05:00 55 11/21/16 04:00 49 11/21/16 04:00 52 18 111/42 96 11/21/16 03:00 52 11/21/16 02:00 50 11/21/16 01:00 55 11/21/16 00:00 53 11/21/16 00:00 50 18 109/58 96 11/20/16 23:00 52 11/20/16 22:00 50 11/20/16 21:00 56 11/20/16 20:00 54 11/20/16 20:00 98.0 56 18 94/47 96 11/20/16 19:00 96 11/20/16 14:55 67 18 112/56 99 11/20/16 14:50 67 16 110/50 99 11/20/16 14:45 98.0 98 16 100/50 98 11/20/16 13:00 73 I/O 11/20/16 11/20/16 11/20/16 11/21/16 11/21/16 11/21/16 07:00 15:00 23:00 07:00 15:00 23:00 Intake Total 458 ml 100 ml 700 ml 240 ml Output Total 3000 ml Balance 458 ml -2900 ml 700 ml 240 ml Intake Oral 360 ml 400 ml 240 ml IV Total 98 ml 100 ml 300 ml Hemodialysis 3000 ml # Voids 1 5 2 # Bowel Movements 5 9 Result Diagram: 11/21/1615 11/20/162005 Objective Remarks GENERAL: In no acute distress CARDIOVASCULAR: Regular rate and rhythm without murmurs, gallops, or rubs but later developed atrial fib. she was not examined at that time. RESPIRATORY: Breath sounds equal bilaterally. No accessory muscle use. GASTROINTESTINAL: Abdomen soft, nondistended. negative tenderness palpation. No peritoneal signs. MUSCULOSKELETAL: No cyanosis, or edema. BACK: Nontender without obvious deformity. No CVA tenderness. Procedures EGD on 11/12/2016. A/P Problem List: (1) Chest pain ICD Code: R07.9 Status: Acute (2) CHF (congestive heart failure) ICD Code: I50.9 Status: Acute (3) ESRD (end stage renal disease) ICD Code: N18.6 Status: Chronic (4) HTN (hypertension) ICD Code: I10 Status: Chronic (5) Tobacco abuse ICD Code: Z72.0 Status: Chronic Assessment and Plan 71-year-old female initially presented with chest pain, acute CHF, A. fib with RVR. Patient with elevated troponin and C. difficile colitis. Hypotensive -Secondary to increased volume loss due to diarrhea. -Will need to treat underlying cause which is C. difficile colitis. See treatment as a below. -Will need to be cautious with fluid boluses secondary to end-stage renal failure. -Patient was started on Midrin and blood pressure has improved. Concerned that she continues to have increase output. And that she is volume depleted. Chest Pain, elevated troponins. -h/o CAD s/p SC/Stent in the past, symptoms ongoing x2-3wks. VQ Scan showed low prob PE. -Heparin discontinued per cardiology, conservative management at this point given her multiple comorbid conditions. On aspirin and Plavix. -Cardiac catheterization was ordered. Atrial fibrillation RVR -Patient is on amiodarone. Metoprolol as blood pressure can tolerate. Severe Gastritis severe/duodenitis with ulcers/severe esophagitis with ulcer -Per GI recommend PPI, anti-acid, avoid NSAIDs. C. difficile colitis: Continue oral vancomycin and Flagyl. Symptoms not yet improving. Patient schedule for sigmoidoscopy this afternoon. CHF: Acute on Chronic. Systolic. Echo 11/06/15 w/ EF 30-35%. BNP >5000. CXR w/ basilar atelectasis. -Hemodialysis per nephrology. ESRD on HD: -/, missed HD on . patient seen by Dr. Wu. Pipe Out Worker is following. -Per senior product marketing manager advised to start binder therapy with Fosrenol at home, also advised compliance to Tues/Sat HD schedule, no dietary protein restriction Hypokalemia -Resolved. Continue to replenish as needed. HTN -Lisinopril and metoprolol as blood pressure tolerates. Patient remains hypotensive. Tobacco Abuse - Pt has been counselled. Discharge Planning patient continues to have high output. She is scheduled for sigmoidoscopy today. Problem Qualifiers (1) Chest pain: Qualified Code: R07.9 - Chest pain, unspecified type Caridad Schaefer MD Nov 21, 2016 12:29
== END 2016-11-21 13:31 | disposition home or self-care (01) | DRG 380 ==
LOC: NEPC 16:21 → NEDA 19:05 → HCIS 22:47
PROVIDERS: ADMIT Family Medicine; ATTEND Family Medicine
PROC: 0DB38ZX Excision of Lower Esophagus, Via Natural or Artificial Opening Endoscopic, Diagnostic (ICD-10-PCS; 2016-11-12)
PROC: 0DB68ZX Excision of Stomach, Via Natural or Artificial Opening Endoscopic, Diagnostic (ICD-10-PCS; 2016-11-12)
PROC: 5A1D60Z (ICD-10-PCS; principal; 2016-11-13)
PROC: 0DBM8ZX Excision of Descending Colon, Via Natural or Artificial Opening Endoscopic, Diagnostic (ICD-10-PCS; 2016-11-20)
PROC: 0DBP8ZX Excision of Rectum, Via Natural or Artificial Opening Endoscopic, Diagnostic (ICD-10-PCS; 2016-11-20)
DX: K22.10 Ulcer of esophagus without bleeding (principal); N18.6 End stage renal disease; I21.4 Non-ST elevation (NSTEMI) myocardial infarction; I50.23 Acute on chronic systolic (congestive) heart failure; I47.2 Ventricular tachycardia; A04.7 Enterocolitis due to Clostridium difficile; I95.9 Hypotension, unspecified; K26.9 Duodenal ulcer, unspecified as acute or chronic, without hemorrhage or perforation; E87.1 Hypo-osmolality and hyponatremia; I25.110 Atherosclerotic heart disease of native coronary artery with unstable angina pectoris; I13.2 Hypertensive heart and chronic kidney disease with heart failure and with stage 5 chronic kidney disease, or end stage renal disease; I48.0 Paroxysmal atrial fibrillation; I10 Essential (primary) hypertension; J44.9 Chronic obstructive pulmonary disease, unspecified; F32.9 Major depressive disorder, single episode, unspecified; E78.5 Hyperlipidemia, unspecified; F17.210 Nicotine dependence, cigarettes, uncomplicated; I25.2 Old myocardial infarction; Z79.01 Long term (current) use of anticoagulants; K21.0 Gastro-esophageal reflux disease with esophagitis; Z79.82 Long term (current) use of aspirin; Z95.5 Presence of coronary angioplasty implant and graft; Z99.2 Dependence on renal dialysis; D63.1 Anemia in chronic kidney disease; E87.6 Hypokalemia; K29.80 Duodenitis without bleeding; K29.70 Gastritis, unspecified, without bleeding; Z91.19 Patient's noncompliance with other medical treatment and regimen
CPT/HCPCS: 71010; 78582; 80048; 80053; 80069; 82550; 83690; 83735; 83880; 84100; 84132; 84443; 84484; 85007; 85025; 85027; 85610; 85730; 87493; 88305; 88312; 90935; 93005; 93306; 96374; A9540; A9567; J0282; J0461; J1644; J1650; J2270; J2405; J3480; J7030; J7040; J7050; P9047

== ENCOUNTER 2016-12-07 09:12 | Inpatient (IN) | payer MEDICARE, OTHER ==
[~2016-12-07] VITALS: Ht 170.2 cm; Wt 67.5 kg
[2016-12-07] VITALS (11 sets, daily range): BP systolic 116–163; BP diastolic 62–90; PULSE 91–109; RESP 16–25; TEMP 97.3–99.2; O2SAT 95–98
[~2016-12-07 09:12] MED LIST changes: +AMIO200T PO; +ASPI-99 PO; -ASPI81CH CHEW; -DICL1GEL TOPICAL; +LACT PO; -LISI10TA3 PO; +METR-1 PO; +MIDO5TAB PO; +PANT40TA3 PO; -PROZ20CA11 PO; +SENN1TAB PO; +SEVEL800 PO; +VANC500I3 PO
[2016-12-07] MEDS ORDERED: PANTOPRAZOLE INJ 80 MG in SODIUM CHLORIDE 0.9% INJ 35 ML IV ONE (09:57)
[2016-12-07] MEDS ORDERED: ONDANSETRON HCL 4 MG/2 ML VIAL ONE (09:57)
[2016-12-07] MEDS ORDERED: SODIUM CHLOR 0.9% 1000 ML INJ 1,000 ML IV SCH ×2 (09:57→11:43)
[2016-12-07] MEDS ORDERED: ONDANSETRON HCL 4 MG/2 ML VIAL IV PUSH ONE (10:00)
[2016-12-07] MEDS ORDERED: PROTHROMBIN COMPLEX CONC INJ 3,500 UNITS in SYRINGE/BAG 1 EA IV ONE (10:00)
[2016-12-07] MEDS ORDERED: SODIUM CHLORIDE 0.9% FLUSH 10 ML FLUSH IVF PRN (10:00)
[2016-12-07 10:16] LABS: AUTOMATED NEUTROPHIL # 4.1 TH/MM3 (1.8-7.7); BASOPHIL % 0.7 % (0.0-2.0); EOSINOPHIL % 0.7 % (0.0-4.0); HEMATOCRIT 26.9 % (35.0-46.0); HEMO FLAGS DIFF FINAL; LYMPH % 7.2 % (9.0-44.0); LYMPHOCYTE # 0.4 TH/MM3 (1.0-4.8); MEAN CELL VOLUME 99.9 FL (80.0-100.0); MEAN CORPUSCULAR HEMOGLOBIN 32.8 PG (27.0-34.0); MEAN CORPUSCULAR HGB CONC 32.8 % (32.0-36.0); MONO % 8.7 % (0.0-8.0); NEUT % 82.7 % (16.0-70.0); PLATELET COUNT 210 TH/MM3 (150-450); WHITE BLOOD COUNT 4.9 TH/MM3 (4.0-11.0)
[2016-12-07 10:26] LABS: INTERNATIONAL NORMALIZED RATIO 1.2 RATIO; PROTHROMBIN TIME - PATIENT 13.2 SEC (9.8-11.6)
[2016-12-07 10:35] LABS: ALT (GPT) 12 U/L (10-53); ANION GAP 14 MEQ/L (5-15); AST (GOT) 12 U/L (15-37); BICARBONATE 23.5 MEQ/L (21.0-32.0); BLOOD UREA NITROGEN 92 MG/DL (7-18); CHLORIDE 102 MEQ/L (98-107); GLOMERULAR FILTRATION RATE 12 ML/MIN (>89); POTASSIUM 4.3 MEQ/L (3.5-5.1); SODIUM (NA) 139 MEQ/L (136-145)
[2016-12-07 10:38] LABS: ALKALINE PHOSPHATASE 132 U/L (45-117); TOTAL BILIRUBIN ADULT 0.5 MG/DL (0.2-1.0)
--- NOTE | 2016-12-07 10:49 | RADRPT ---
EXAM DATE/TIME: 12/07/2016 10:02 [facility] COMPARISON: CHEST SINGLE AP, November 11, 2016, 16:52. INDICATIONS : Pat[place] complaining of abdominal pain, vomiting and shortness of breath MEDICAL HISTORY : None. SURGICAL HISTORY : cardiac stent placement ENCOUNTER: Initial ACUITY: 1 day PAIN SCORE: 5/10 LOCATION: Bilateral lower chest FINDINGS: A single portable frontal view the chest shows a small left pleural effusion with left lower lobe par enchymal consolidation. This is new from the prior study. Right lung is clear. Heart is at the upper limits of normal in terms of size. CONCLUSION: Right pleural effusion with right lower lobe atelectasis versus infiltrate. Marlon Waite Jr., MD on December 07, 2016 at 10:47 Board Certified Radiologist. This report was verified electronically.
--- NOTE | 2016-12-07 10:52 | PD.CONS ---
HPI History of Present Illness This is a 71 year old female who came to the emergency room for evaluation of hematemesis, consisting of bright red blood. Her vomiting started about 7am this morning. She had some mild abdominal discomfort with bloating/gas and shortly after vomited a large amount of bright red blood. She states that she had 2 episodes at home and then another 2 here in the ER. There are no aggravating or alleviating factors. She reports that she wasn't having any diarrhea at home until last night, when she started having dark tarry stools. She was recently hospitalized last month and was evaluated by our service at that time for worsening diarrhea, C Difficile colitis, nausea, and vomiting. She was evaluated with EGD (11/13/16)--->. Severe grade esophagitis D with ulcers in distal esophagus Bx. done 2. Severe gastritis Bx from antrum 3. Severe duodenitis with multiple small ulcers in the bulb 4. Retroflexed views revealed no abnormalities. Pathology reactive/chemical gastropathy, gastroesophageal mucosa with rare goblet cells suggestive of early intestinal metaplasia and abundant fibrinopurulent exudate consistent with ulcer base. Gomori methenamine silver stain is negative for fungal organisms. negative for dysplasia or malignancy. Flexible sigmoidoscopy (11/20/16)----> Erythema of the descending sigmoid and rectal region. No obvious C. difficile colitis as there were no pseudomembranes. Plan was for patient to take PPI, Oral Vanco and repeat EGD in 2 months. The patient was discharged home with Protonix 40mg po daily, Oral vanco po QID x 8 days, but the patient states she did not continue these at home, because she did not like the way they made her feel. Of note, she also takes Plavix/ASA and reports that she took this last yesterday. PFSH Past Medical History HTN CAD ESRD, HD on Saturday and Saturdays CHF COPD CDifficile colitis Severe grade D esophagitis with ulcers, gastritis Past Surgical History Dialysis catheter placement Cardiac catheterization Tonsillectomy D&C EGD Flexible sigmoidoscopy Coded Allergies: niacin (Unverified Allergy, Severe, ANAPHALACTIC, 12/07/16) *MDRO Multi-Drug Resistant Organism (Verified Adverse Reaction, Unknown, ) ESBL+Klebsiella Pneumoniae (urine) - 03/2015 & 05/2015 Medications Allergies Coded Allergies Type Severity Reaction Last Updated Verified niacin Allergy Severe ANAPHALACTIC 12/07/16 No *MDRO Multi-Drug Resistant Organism Adverse Reaction Unknown 12/07/16 Yes Active Scripts Medications Dose Route/Sig Max Daily Dose Days Date Category Adult Aspirin EC Low Strength (Aspirin) 81 Mg Tabec 81 Mg PO DAILY 11/21/16 Rx Clonazepam 0.5 Mg Tab 0.5 Mg PO BID 11/01/16 Rx Plavix (Clopidogrel Bisulfate) 75 Mg Tab 75 Mg PO DAILY 10/29/16 Rx Metoprolol Tartrate 25 Mg Tab 25 Mg PO BID 02/28/16 Reported Atorvastatin (Atorvastatin Calcium) 40 Mg Tab 40 Mg PO HS 02/28/16 Reported Family History MGF from colon cancer. Social History Occasional alcohol. Smokes 1ppd. Negative for drugs. Review of Systems Constitutional: COMPLAINS OF: Fatigue, DENIES: Weight loss, Change in appetite Respiratory: DENIES: Cough Cardiovascular: DENIES: Chest pain Gastrointestinal: COMPLAINS OF: Abdominal pain, Black stools, Diarrhea, Nausea , Vomiting, Swelling of Abdomen, Hematemesis Musculoskeletal: COMPLAINS OF: Joint pain Hematologic/lymphatic: COMPLAINS OF: Bruising Neurologic: DENIES: Headache Psychiatric: DENIES: Confusion GI Exam Vitals I&O Vital Signs Date Time Temp Pulse Resp B/P (MAP) Pulse Ox O2 Delivery O2 Flow Rate FiO2 12/07/16 10:10 18 97 Room Air 12/07/16 09:18 98.6 16 160/72 (101) Laboratory Test 12/07/16 10:04 White Blood Count 4.9 TH/MM3 Red Blood Count 2.70 MIL/MM3 Hemoglobin 8.8 GM/DL Hematocrit 26.9 % Mean Corpuscular Volume 99.9 FL Mean Corpuscular Hemoglobin 32.8 PG Mean Corpuscular Hemoglobin Concent 32.8 % Red Cell Distribution Width 20.0 % Platelet Count 210 TH/MM3 Mean Platelet Volume 7.5 FL Neutrophils (%) (Auto) 82.7 % Lymphocytes (%) (Auto) 7.2 % Monocytes (%) (Auto) 8.7 % Eosinophils (%) (Auto) 0.7 % Basophils (%) (Auto) 0.7 % Neutrophils # (Auto) 4.1 TH/MM3 Lymphocytes # (Auto) 0.4 TH/MM3 Monocytes # (Auto) 0.4 TH/MM3 Eosinophils # (Auto) 0.0 TH/MM3 Basophils # (Auto) 0.0 TH/MM3 CBC Comment DIFF FINAL Differential Comment Prothrombin Time 13.2 SEC Prothromb Time International Ratio 1.2 RATIO Activated Partial Thromboplast Time 27.0 SEC Blood Urea Nitrogen 92 MG/DL Creatinine 3.71 MG/DL Random Glucose 105 MG/DL Total Protein 6.2 GM/DL Albumin 2.6 GM/DL Calcium Level 7.9 MG/DL Alkaline Phosphatase 132 U/L Aspartate Amino Transf (AST/SGOT) 12 U/L Alanine Aminotransferase (ALT/SGPT) 12 U/L Total Bilirubin 0.5 MG/DL Sodium Level 139 MEQ/L Potassium Level 4.3 MEQ/L Chloride Level 102 MEQ/L Carbon Dioxide Level 23.5 MEQ/L Anion Gap 14 MEQ/L Estimat Glomerular Filtration Rate 12 ML/MIN Lipase 306 U/L Physical Examination HEENT: Normocephalic; atraumatic; no jaundice. CHEST: CTA CARDIAC: RRR ABDOMEN: Soft, nondistended, nontender; no hepatosplenomegaly; bowel sounds are present in all four quadrants. EXTREMITIES: No clubbing, cyanosis, or edema. SKIN: Normal; no rash; no jaundice. 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 Assessment and Plan Plan ASSESSMENT: - Upper GI bleeding, hematemesis. Sudden onset of hematemesis with 4 episodes of large amount red blood since 7am this morning. S/P recent EGD (11/13/16)--->. Severe grade esophagitis D with ulcers in distal esophagus Bx. done 2. Severe gastritis Bx from antrum 3. Severe duodenitis with multiple small ulcers in the bulb 4. Retroflexed views revealed no abnormalities. Pathology reactive/chemical gastropathy, gastroesophageal mucosa with rare goblet cells suggestive of early intestinal metaplasia and abundant fibrinopurulent exudate consistent with ulcer base. Gomori methenamine silver stain is negative for fungal organisms. negative for dysplasia or malignancy. She was discharged home with PPI, but did not continue this at home. She is on Plavix/ASA- last took yesterday. Plan for EGD with control of bleeding today. Protonix Gtt. Hemodynamically stable at this time. - Acute blood loss anemia. Baseline around high /. HH 8.8/26.9. - Recent CDiff infection. Pt was hospitalized last month and treated for CDiff. Flexible sigmoidoscopy (11/20/16)----> Erythema of the descending sigmoid and rectal region. No obvious C. difficile colitis as there were no pseudomembranes. Pathology revealed acute colitis with non-specific features. She was discharged with Oral Vanco x 8 days, but did not continue this at home. She reports that she was not having diarrhea until last night- black tarry stool. Check stool for cdiff. - Recent severe esophagitis, ulcers, gastritis. Protonix gtt, EGD today. - ESRD, on HD Tuesdays/Saturdays - CAD, COPD, HTN. Takes Plavix and asa at home, last took yesterday. PLAN: - Plan for egd with control of bleeding today - Obtain consents - NPO - Protonix Gtt - Serial HH - Transfuse as necessary - Send stool for CDiff PCR - CBC, BMP in am - Supportive care - Further recommendations to follow based on results of above - Pt seen and examined by Dr. Deleon and myself and this note is written on his behalf Medina Perry Dec 07, 2016 10:52
[2016-12-07 11:29] LABS: BACTERIA, URINE RARE /hpf; BLOOD, URINE SMALL (NEG); GLUCOSE,URINE NEG (NEG); KETONE, URINE NEG (NEG); NITRITE,URINE NEG (NEG); SQUAMOUS EPITHELIAL CELL URINE 1 /hpf (0-5); URINE COLOR YELLOW (YELLW/STRAW)
[2016-12-07] MEDS: PANTOPRAZOLE INJ 80 MG in SODIUM CHLORIDE 0.9% INJ 100 ML IV SCH ×2 (11:29→19:57)
[2016-12-07 11:33] LABS: COMMENT (UR) CULT NOT INDICATED; CULTURE IF INDICATED CULT NOT INDICATED
[2016-12-07] MEDS ORDERED: RESP: ALBUTEROL 2.5 MG/3 ML NEB (PRN) INH (11:45)
[2016-12-07] MEDS ORDERED: SODIUM CHLORIDE 0.9% FLUSH 10 ML FLUSH IV FLUSH PRN ×2 (11:45→14:30)
[2016-12-07] MEDS ORDERED: MISCELLANEOUS NURSING INFORMATION XX SCH (11:45)
[2016-12-07] MEDS ORDERED: MORPHINE SULFATE 4 MG/ML INJ IV PRN (11:45)
[2016-12-07] MEDS ORDERED: ONDANSETRON HCL 4 MG/2 ML VIAL IV PRN ×2 (11:45→14:30)
[2016-12-07] MEDS ORDERED: CHLORHEXIDINE GLUCONATE 2 % 1 PACK (2 CLOTHS) TOP PRN (11:45)
[2016-12-07] MEDS ORDERED: DEXTROSE 50% IN WATER 50 ML VIAL(D50) IV PRN (12:00)
[2016-12-07] MEDS: INSULIN NovoLIN REGULAR SUPPLEMENTAL SCALE SQ SCH ×2 (12:00→18:00)
[2016-12-07] MEDS ORDERED: GLUCAGON 1 MG/ML VIAL OTHER PRN (12:00)
--- NOTE | 2016-12-07 12:08 | HHI.HP ---
[facility] Service Critical Care Medicine Primary Care Physician Katie Mccarthy MD Admission Diagnosis GI BLEED Diagnosis: (1) Upper GI bleeding Diagnosis: Principal (2) Dyslipidemia Diagnosis: Secondary (3) Acute blood loss anemia Diagnosis: Principal (4) Hypoalbuminemia Diagnosis: Secondary (5) Body mass index (BMI) 22.0-22.9, adult Diagnosis: Secondary (6) Atrial fibrillation Diagnosis: Principal (7) Duodenitis Diagnosis: Principal (8) Esophageal ulcer Diagnosis: Principal (9) Tobacco abuse Diagnosis: Principal (10) Duodenal ulcer Diagnosis: Principal (11) Esophagitis Diagnosis: Principal (12) CAD (coronary artery disease) Diagnosis: Principal (13) Combined systolic and diastolic congestive heart failure Diagnosis: Principal (14) HTN (hypertension) Diagnosis: Principal (15) Anxiety Diagnosis: Principal (16) Pleural effusion, not elsewhere classified Diagnosis: Principal Chief Complaint: Hematemesis Travel History International Travel<30 Days: No Contact w/Intl Traveler <30 Da: No Traveled to Known Affected Are: No History of Present Illness 71 year old female. Date of admission 12/07/2016. 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 difficile and ESBL positive Klebsiella UTI. She is also a history of depression on chronic clonazepam. She is on aspirin and Plavix. Today, she presents to [facility] for evaluation of hematemesis, consisting of bright red blood. According to records , this began approximately 7am this morning. She had some mild abdominal discomfort with bloating/gas and shortly after vomited a large amount of bright red blood. She states that she had 2 episodes at home and then another 2 here in the ER. Last month she was actually admitted to [facility] for evaluation C. difficile. She had an EGD which revealed Severe grade esophagitis D with ulcers in distal esophagus Bx., severe gastritis Bx from antrum and severe duodenitis with multiple small ulcers in the bulb Flexible sigmoidoscopy revealed Erythema of the descending sigmoid and rectal region. No obvious C. difficile colitis as there were no pseudomembranes. Plan was for patient to take PPI, Oral Vanco and repeat EGD in 2 months. The patient was discharged home with Protonix 40mg po daily, Oral vanco po QID x 8 days, but the patient states she did not continue these at home, because she did not like the way they made her feel. Hemoglobin was 8.8. She received 1 L normal saline bolus, 80 mg pantoprazole IV 1 is currently on drip at 8 mg an hour. She has received one pack platelets and is ordered for 2 units PRBCs stat. GI plans for upper endoscopy today. Currently hemodynamically stable and atrial fibrillation. She is awake and alert black commands. Less nauseous denies abdominal pain, chest pain, first breath. Review of Systems Constitutional: COMPLAINS OF: Fatigue, DENIES: Fever, Weight gain, Weight loss Endocrine: DENIES: Polydipsia, Polyuria Eyes: DENIES: Blurred vision, Double Vision Respiratory: COMPLAINS OF: Hemoptysis, DENIES: Sputum production, Shortness of breath Cardiovascular: DENIES: Chest pain Gastrointestinal: COMPLAINS OF: Abdominal pain, Nausea Genitourinary: DENIES: Nocturia Musculoskeletal: DENIES: Joint pain Integumentary: DENIES: Rash Hematologic/lymphatic: DENIES: Bruising Immunologic/allergic: DENIES: Eczema Neurologic: DENIES: Localized weakness Psychiatric: COMPLAINS OF: Anxiety, DENIES: Depression Past Family Social History Allergies: Coded Allergies: niacin (Unverified Allergy, Severe, ANAPHALACTIC, 12/07/16) *MDRO Multi-Drug Resistant Organism (Verified Adverse Reaction, Unknown, ) ESBL+Klebsiella Pneumoniae (urine) - 03/2015 & 05/2015 Past Medical History Dementia disorder NOS Anxiety disorder NOS Combined chronic systolic and diastolic heart failure ejection fraction 30% COPD with ongoing tobaccoism End-stage renal disease on hemodialysis Saturday/Saturday with [facility] History of C. difficile History of ESBL positive Klebsiella UTI Hypertension Dyslipidemia Chronic Clopidogrel use Past Surgical History D&C EGD Flexible sigmoidoscopy Left upper extremity fistula Stent LAD 2014 T&A Reported Medications Clopidogrel 75 mg by mouth daily Aspirin 81 mg by mouth daily Atorvastatin 40 mg by mouth daily Clonazepam 0.5 mill grams twice a day Metoprolol 25 mg by mouth twice a day Active Ordered Medications Reviewed in EMR Family History Paternal grandfather positive for coronary disease, hypertension and heart disease. Mother and father both with myocardial infarctions. Social History Smokes 1 pack per day since age 20. Occasional use. Denies IV drug use. Physical Exam Vital Signs Vital Signs Date Time Temp Pulse Resp B/P (MAP) Pulse Ox O2 Delivery O2 Flow Rate FiO2 12/07/16 11:25 98.9 95 22 119/64 12/07/16 11:05 98.5 100 18 128/66 98 12/07/16 10:10 18 97 Room Air 12/07/16 09:18 98.6 16 160/72 (101) Physical Exam GENERAL: 71-year-old female, resting in bed in no acute distress SKIN: Warm and dry. Well perfused HEAD: Atraumatic. Normocephalic. EYES: Pupils equal and round around 2 mm bilaterally and reactive. No scleral icterus. No injection or drainage. ENT: No nasal bleeding or discharge. Mucous membranes pink and moist. NECK: Trachea midline. No JVD. CARDIOVASCULAR: IRR. S1, S2. No S4 without murmur RESPIRATORY: Diminished breath sounds right lower lobe. Few scattered crackles. No wheezing. Trickle excursion GASTROINTESTINAL: Abdomen soft, nondistended. Hypoactive bowel sounds appreciated. No guarding or rigidity. MUSCULOSKELETAL: Extremities with trace lower extremity edema. No obvious deformities. Left upper extremity fistula with positive palpable thrill NEUROLOGICAL: Awake and alert. No obvious cranial nerve deficits. Motor grossly within normal limits. Five out of 5 muscle strength in the arms and legs. Normal speech. Laboratory Laboratory Tests Test 12/07/16 10:04 12/07/16 11:13 White Blood Count 4.9 Red Blood Count 2.70 Hemoglobin 8.8 Hematocrit 26.9 Mean Corpuscular Volume 99.9 Mean Corpuscular Hemoglobin 32.8 Mean Corpuscular Hemoglobin Concent 32.8 Red Cell Distribution Width 20.0 Platelet Count 210 Mean Platelet Volume 7.5 Neutrophils (%) (Auto) 82.7 Lymphocytes (%) (Auto) 7.2 Monocytes (%) (Auto) 8.7 Eosinophils (%) (Auto) 0.7 Basophils (%) (Auto) 0.7 Neutrophils # (Auto) 4.1 Lymphocytes # (Auto) 0.4 Monocytes # (Auto) 0.4 Eosinophils # (Auto) 0.0 Basophils # (Auto) 0.0 CBC Comment DIFF FINAL Differential Comment Prothrombin Time 13.2 Prothromb Time International Ratio 1.2 Activated Partial Thromboplast Time 27.0 Blood Urea Nitrogen 92 Creatinine 3.71 Random Glucose 105 Total Protein 6.2 Albumin 2.6 Calcium Level 7.9 Alkaline Phosphatase 132 Aspartate Amino Transf (AST/SGOT) 12 Alanine Aminotransferase (ALT/SGPT) 12 Total Bilirubin 0.5 Sodium Level 139 Potassium Level 4.3 Chloride Level 102 Carbon Dioxide Level 23.5 Anion Gap 14 Estimat Glomerular Filtration Rate 12 Lipase 306 Urine Color YELLOW Urine Turbidity CLEAR Urine pH 6.0 Urine Specific [place] 1.016 Urine Protein 30 Urine Glucose (UA) NEG Urine Ketones NEG Urine Occult Blood SMALL Urine Nitrite NEG Urine Bilirubin NEG Urine Urobilinogen LESS THAN 2.0 Urine Leukocyte Esterase NEG Urine RBC LESS THAN 1 Urine WBC 7 Urine Squamous Epithelial Cells 1 Urine Bacteria RARE Microscopic Urinalysis Comment CULT NOT INDICATED Result Diagram: 12/07/16 1004 12/07/16 1004 Imaging Last Impressions Chest X-Ray 12/07/16 0957 Signed Impressions: Service Date/Time: Saturday, December 07, 2016 10:02 - CONCLUSION: Right pleural effusion with right lower lobe atelectasis versus infiltrate. MD Darwin Barrios Jr. VTE Risk Assessment Darwin VTE Risk Assessment: Mod/High Risk (score >= 2) VTE Pharm Contraindication: Hemorrhage Caprini Risk Assessment Model Point Value = 1 Point Value = 2 Point Value = 3 Point Value = 5 Age 41-60 Minor surgery BMI > 25 kg/m2 Swollen legs Varicose veins or History of unexplained or recurrent spontaneous Oral contraceptives or hormone replacement Sepsis (< 1 month) Serious lung disease, including pneumonia (< 1 month) Abnormal pulmonary function Acute myocardial infarction Congestive heart failure (< 1 month) History of inflammatory bowel disease Medical patient at bed rest Age 61-74 Arthroscopic surgery Major open surgery (> 45 min) Laparoscopic surgery (> 45 min) Malignancy Confined to bed (> 72 hours) Immobilizing plaster cast Central venous access Age >= 75 History of VTE Family history of VTE Factor V Leiden Prothrombin [id number] Lupus anticoagulant Anticardiolipin antibodies Elevated serum homocysteine Heparin-induced thrombocytopenia Other congenital or acquired thrombophilia Stroke (< 1 month) Elective arthroplasty Hip, pelvis, or leg fracture Acute spinal cord injury (< 1 month) Prophylaxis Regimen Total Risk Factor Score Risk Level Prophylaxis Regimen 0-1 Low Early ambulation 2 Moderate Order ONE of the following: *Sequential Compression Device (SCD) *Heparin 5000 units SQ BID 3-4 Higher Order ONE of the following medications: *Heparin 5000 units SQ TID *Enoxaparin/Lovenox 40 mg SQ daily (WT < 150 kg, CrCl > 30 mL/min) *Enoxaparin/Lovenox 30 mg SQ daily (WT < 150 kg, CrCl > 10-29 mL/min) *Enoxaparin/Lovenox 30 mg SQ BID (WT < 150 kg, CrCl > 30 mL/min) AND/OR *Sequential Compression Device (SCD) 5 or more Highest Order ONE of the following medications: *Heparin 5000 units SQ TID (Preferred with Epidurals) *Enoxaparin/Lovenox 40 mg SQ daily (WT < 150 kg, CrCl > 30 mL/min) *Enoxaparin/Lovenox 30 mg SQ daily (WT < 150 kg, CrCl > 10-29 mL/min) *Enoxaparin/Lovenox 30 mg SQ BID (WT < 150 kg, CrCl > 30 mL/min) AND *Sequential Compression Device (SCD) Assessment and Plan Assessment and Plan Neuro/Psych: Depression/anxiety Chronic benzodiazepine use Acetaminophen for fever Morphine 2 mill grams every 2 hours when necessary pain 6-10 Holding home medication of clonazepam 0.5 mill grams by mouth twice a day CV: Atrial fibrillation/rate controlled Chronic systolic and diastolic heart failure ejection fraction 30% 10/21 Hypertension Dyslipidemia Coronary disease status post stent LAD 2014 Holding metoprolol 25 mg by mouth twice a day in light of acute bleeding Holding aspirin 81 mg by mouth daily and Clopidogrel 75 mg by mouth daily Currently normal saline at 84 cc an hour. Received 1 LNS bolus in ED. Resp: COPD Nasal cannula to maintain saturations greater than equal to 92% Spirometry while awake Chest x-ray/31 revealed right pleural effusion/atelectasis. GI: Upper GI bleed History of grade D esophagitis, esophageal ulcers,, gastric and duodenal sacral bulb ulcers History of C. difficile Pantoprazole 80 mg IV 1 followed by 8 mg an hour GI consult for EGD emergent Nothing by mouth status : Plata catheter not indicated Endo: Sliding-scale insulin with Accu-Cheks to maintain euglycemia/low regimen Renal: End-stage renal disease on hemodialysis Saturday/Saturday with [facility] Consultation nephrology. Saw last hospitalization Heme: Acute blood loss anemia Chronic aspirin use Clopidogrel use Received 1 pack platelets in ED. PFA pending 2 units PRBCs on hold Serial hemoglobins. Transfuse as clinically indicated Holding aspirin and clopidogrel ID: History of C. difficile and ESBL positive Klebsiella UTI Monitor for infection FEN: Replace electrolytes as clinically indicated MSK: PT evaluate and treat Access - Utilize peripheral IV in right upper extremity. Central line if indicated. Prophylaxis - GI - pantoprazole drip - DVT - SCD/pharmacological prophylaxis contra indicated with acute hemorrhage Level III admission Code Status Full code Discussed Condition With Patient. Dr. Tay. Care plan discussed and all questions answered. Problem Qualifiers (1) Atrial fibrillation: Qualified Codes: I48.2 - Chronic atrial fibrillation (2) Esophageal ulcer: Qualified Codes: K22.11 - Ulcer of esophagus with bleeding (3) CAD (coronary artery disease): Qualified Codes: I25.10 - Atherosclerotic heart disease of [place] coronary artery without angina pectoris (4) Combined systolic and diastolic congestive heart failure: Qualified Codes: I50.42 - Chronic combined systolic (congestive) and diastolic (congestive) heart failure (5) HTN (hypertension): Qualified Codes: I10 - Essential (primary) hypertension Kevin Edmond MD Dec 07, 2016 12:08
--- NOTE | 2016-12-07 12:22 | PD ---
HPI Chief Complaint: GI Complaint Time Seen by Provider: 09:51 Travel History International Travel<30 days: No Contact w/Intl Traveler<30days: No Traveled to known affect area: No History of Present Illness HPI Patient is 71-year-old female with history of hypertension, coronary artery disease, end-stage renal disease on hemodialysis, CHF, COPD, tobacco abuse, presents to emergency room with complaints of GI bleed. Reports that she has not been feeling well since yesterday, reports that she has been having abdominal pain. Patient reports that this morning, she had 2 episodes of hematemesis. Patient currently is on Plavix as well as aspirin daily as she has history of afib. . Patient has seen Dr. Dozier in the past and recently had an EGD which showed severe grade esophagitis with ulcers in the distal esophagus. It also showed severe gastritis at the antrum of her stomach. Patient here for evaluation of hematemesis PFSH Past Medical History Hx Anticoagulant Therapy: Yes (PLAVIX) Anemia: Yes Arthritis: Yes Asthma: No Atrial Fibrillation: Yes Blood Disorders: No Anxiety: Yes Depression: Yes Heart Rhythm Problems: Yes (HX OF A-FIB) Cancer: No Cardiac Catheterization: Yes Cardiovascular Problems: Yes (CHF) High Cholesterol: Yes Chest Pain: Yes Congestive Heart Failure: Yes COPD: Yes Cerebrovascular Accident: No Coronary Artery Disease: Yes Diabetes: No Dialysis: Yes (Sat) Diminished Hearing: No Endocrine: No Gastrointestinal Disorders: Yes (gerd) Genitourinary: Yes (uti's) Headaches: No Hepatitis: No Hypertension: Yes Immune Disorder: No Implanted Vascular Access Dvce: No Kidney Stones: Yes Musculoskeletal: Yes (Arthritis) Neurologic: No Psychiatric: No Reproductive: No Respiratory: Yes (COPD) Migraines: Yes Myocardial Infarction: Yes (JUNE 2014) Renal Failure: Yes (Left upper fistula) Seizures: No Triglycerides - High: Yes Influenza Vaccination: Yes Menopausal: Yes Past Surgical History Abdominal Surgery: No AICD: No Arteriovenous Shunt: No Body Medical Devices: right dialysis catheter Cardiac Surgery: Yes (STENTS X 2) Coronary Stent: Yes Ear Surgery: No Endocrine Surgery: No Eye Surgery: No Genitourinary Surgery: No Gynecologic Surgery: Yes (D & C) Insulin Pump: No Joint Replacement: No Neurologic Surgery: No Oral Surgery: No Pacemaker: No Tonsillectomy: Yes Other Surgery: Yes (right vas cath;LEFT ARM ARTIFICIAL VEIN) Social History Alcohol Use: Yes (occ.) Tobacco Use: Yes (1 ppd) Substance Use: No Allergies-Medications (Allergen,Severity, Reaction): Coded Allergies: niacin (Unverified Allergy, Severe, ANAPHALACTIC, 12/07/16) *MDRO Multi-Drug Resistant Organism (Verified Adverse Reaction, Unknown, ) ESBL+Klebsiella Pneumoniae (urine) - 03/2015 & 05/2015 Reported Meds & Prescriptions Reported Meds & Active Scripts Active Clonazepam 0.5 Mg Tab 0.5 Mg PO BID Plavix (Clopidogrel Bisulfate) 75 Mg Tab 75 Mg PO DAILY Reported Metoprolol Tartrate 25 Mg Tab 25 Mg PO BID Atorvastatin (Atorvastatin Calcium) 40 Mg Tab 40 Mg PO HS Review of Systems General / Constitutional: No: Fever Eyes: No: Visual changes HENT: No: Headaches Cardiovascular: No: Chest Pain or Discomfort Respiratory: No: Shortness of Breath Gastrointestinal: Positive: Nausea, Vomiting, Abdominal Pain, Hematemesis Genitourinary: No: Dysuria Musculoskeletal: No: Pain Skin: No Rash Neurologic: No: Weakness Psychiatric: No: Depression Endocrine: No: Polydipsia Hematologic/Lymphatic: No: Easy Bruising Physical Exam Narrative GENERAL: Severe distress SKIN: Focused skin assessment warm and pale HEAD: Atraumatic. Normocephalic. EYES: Pupils equal and round. No scleral icterus. No injection or drainage. ENT: No nasal bleeding or discharge. Mucous membranes pink and moist. Patient NECK: Trachea midline. No JVD. CARDIOVASCULAR: Regular rate and rhythm. No murmur appreciated. RESPIRATORY: No accessory muscle use. Clear to auscultation. Breath sounds equal bilaterally. GASTROINTESTINAL: Abdomen soft, diffusely tender abdomen.. Hepatic and splenic margins not palpable. Patient vomiting bright red blood on evaluation MUSCULOSKELETAL: No obvious deformities. No clubbing. No cyanosis. No edema. NEUROLOGICAL: Awake and alert. No obvious cranial nerve deficits. Motor grossly within normal limits. Normal speech. PSYCHIATRIC: Patient anxious on exam Data Data Last Documented VS Vital Signs Date Time Temp Pulse Resp B/P (MAP) Pulse Ox O2 Delivery O2 Flow Rate FiO2 12/07/16 11:05 98.5 100 18 128/66 98 12/07/16 10:10 Room Air Orders Orders Ondansetron Inj (Zofran Inj) (12/07/16 10:00) Ondansetron Inj (Zofran Inj) (12/07/16 09:57) Complete Blood Count With Diff (12/07/16 09:57) Comprehensive Metabolic Panel (12/07/16 09:57) Lipase (12/07/16 09:57) Prothrombin Time / Inr (Pt) (12/07/16 09:57) Act Partial Throm Time (Ptt) (12/07/16 09:57) Urinalysis - C+S If Indicated (12/07/16 09:57) Type And Screen (12/07/16 09:57) Red Blood Cells (Rbc) (12/07/16 09:57) Chest, Single Ap (12/07/16 09:57) Ecg Monitoring (12/07/16 09:57) Iv Access Insert/Monitor (12/07/16 09:57) Ng Gastric Tube Insert/Monitor (12/07/16 09:57) Oximetry (12/07/16 09:57) Urinary Catheter Insert/Apply (12/07/16 09:57) Sodium Chlor 0.9% 1000 Ml Inj (Ns 1000 M (12/07/16 09:57) Sodium Chloride 0.9% Flush (Ns Flush) (12/07/16 10:00) Sodium Chloride 0.9... W/Pantoprazole In (12/07/16 09:57) Sodium Chloride 0.9... W/Pantoprazole In (12/07/16 09:57) ^ Lab Follow Up (12/07/16 09:58) Consult Gastroenterology (12/07/16 ) Platelet Pheresis (12/07/16 10:12) Blood Product Administration (12/07/16 10:12) (Hub Use Only)Inp Phy Cons/Ref (12/07/16 ) Platelet Function Studies (12/07/16 11:05) Admit Order (Ed Use Only) (12/07/16 11:10) Labs Laboratory Tests Test 12/07/16 10:04 White Blood Count 4.9 TH/MM3 Red Blood Count 2.70 MIL/MM3 Hemoglobin 8.8 GM/DL Hematocrit 26.9 % Mean Corpuscular Volume 99.9 FL Mean Corpuscular Hemoglobin 32.8 PG Mean Corpuscular Hemoglobin Concent 32.8 % Red Cell Distribution Width 20.0 % Platelet Count 210 TH/MM3 Mean Platelet Volume 7.5 FL Neutrophils (%) (Auto) 82.7 % Lymphocytes (%) (Auto) 7.2 % Monocytes (%) (Auto) 8.7 % Eosinophils (%) (Auto) 0.7 % Basophils (%) (Auto) 0.7 % Neutrophils # (Auto) 4.1 TH/MM3 Lymphocytes # (Auto) 0.4 TH/MM3 Monocytes # (Auto) 0.4 TH/MM3 Eosinophils # (Auto) 0.0 TH/MM3 Basophils # (Auto) 0.0 TH/MM3 CBC Comment DIFF FINAL Differential Comment Prothrombin Time 13.2 SEC Prothromb Time International Ratio 1.2 RATIO Activated Partial Thromboplast Time 27.0 SEC Blood Urea Nitrogen 92 MG/DL Creatinine 3.71 MG/DL Random Glucose 105 MG/DL Total Protein 6.2 GM/DL Albumin 2.6 GM/DL Calcium Level 7.9 MG/DL Alkaline Phosphatase 132 U/L Aspartate Amino Transf (AST/SGOT) 12 U/L Alanine Aminotransferase (ALT/SGPT) 12 U/L Total Bilirubin 0.5 MG/DL Sodium Level 139 MEQ/L Potassium Level 4.3 MEQ/L Chloride Level 102 MEQ/L Carbon Dioxide Level 23.5 MEQ/L Anion Gap 14 MEQ/L Estimat Glomerular Filtration Rate 12 ML/MIN Lipase 306 U/L MDM Medical Decision Making Medical Screen Exam Complete: Yes Emergency Medical Condition: Yes Interpretation(s) Vital Signs Date Time Temp Pulse Resp B/P (MAP) Pulse Ox O2 Delivery O2 Flow Rate FiO2 12/07/16 11:05 98.5 100 18 128/66 98 12/07/16 10:10 18 97 Room Air 12/07/16 09:18 98.6 16 160/72 (101) Laboratory Tests Test 12/07/16 10:04 White Blood Count 4.9 TH/MM3 (4.0-11.0) Red Blood Count 2.70 MIL/MM3 (4.00-5.30) Hemoglobin 8.8 GM/DL (11.6-15.3) Hematocrit 26.9 % (35.0-46.0) Mean Corpuscular Volume 99.9 FL (80.0-100.0) Mean Corpuscular Hemoglobin 32.8 PG (27.0-34.0) Mean Corpuscular Hemoglobin Concent 32.8 % (32.0-36.0) Red Cell Distribution Width 20.0 % (11.6-17.2) Platelet Count 210 TH/MM3 (150-450) Mean Platelet Volume 7.5 FL (7.0-11.0) Neutrophils (%) (Auto) 82.7 % (16.0-70.0) Lymphocytes (%) (Auto) 7.2 % (9.0-44.0) Monocytes (%) (Auto) 8.7 % (0.0-8.0) Eosinophils (%) (Auto) 0.7 % (0.0-4.0) Basophils (%) (Auto) 0.7 % (0.0-2.0) Neutrophils # (Auto) 4.1 TH/MM3 (1.8-7.7) Lymphocytes # (Auto) 0.4 TH/MM3 (1.0-4.8) Monocytes # (Auto) 0.4 TH/MM3 (0-0.9) Eosinophils # (Auto) 0.0 TH/MM3 (0-0.4) Basophils # (Auto) 0.0 TH/MM3 (0-0.2) CBC Comment DIFF FINAL Differential Comment Prothrombin Time 13.2 SEC (9.8-11.6) Prothromb Time International Ratio 1.2 RATIO Activated Partial Thromboplast Time 27.0 SEC (24.3-30.1) Blood Urea Nitrogen 92 MG/DL (7-18) Creatinine 3.71 MG/DL (0.50-1.00) Random Glucose 105 MG/DL (74-106) Total Protein 6.2 GM/DL (6.4-8.2) Albumin 2.6 GM/DL (3.4-5.0) Calcium Level 7.9 MG/DL (8.5-10.1) Alkaline Phosphatase 132 U/L (45-117) Aspartate Amino Transf (AST/SGOT) 12 U/L (15-37) Alanine Aminotransferase (ALT/SGPT) 12 U/L (10-53) Total Bilirubin 0.5 MG/DL (0.2-1.0) Sodium Level 139 MEQ/L (136-145) Potassium Level 4.3 MEQ/L (3.5-5.1) Chloride Level 102 MEQ/L (98-107) Carbon Dioxide Level 23.5 MEQ/L (21.0-32.0) Anion Gap 14 MEQ/L (5-15) Estimat Glomerular Filtration Rate 12 ML/MIN (>89) Lipase 306 U/L (73-393) Last Impressions Chest X-Ray 12/07/16 0957 Signed Impressions: Service Date/Time: Wednesday, December 07, 2016 10:02 - CONCLUSION: Right pleural effusion with right lower lobe atelectasis versus infiltrate. Marlon Waite Jr., MD Differential Diagnosis Differential includes GI bleed, duodenal ulcer, duodenitis, esophagitis Narrative Course 71-year-old female currently taking Plavix and aspirin, presents to emergency room with complaints of GI bleed. She had dena hematemesis upon arrival, IV fluids as well as Zofran. She is end-stage renal disease on hemodialysis, she does make urine at this time. Patient was initially given Zofran for her nausea. She was started on a Protonix bolus as well as Protonix drip. 2 units of packed red blood cells as well as 1 unit pack of platelets were ordered for patient. Lab work including type and screen ordered. Call made to Dr. Deleon with GI. Dr. Deleon from GI saw patient in consult. Plan to take patient to the endoscopy suite after she receives her platelets. NG tube was ordered which patient refused. Patient is currently hemodynamically stable after her resuscitation. Case was reviewed with Dr. Edmond who accepts pt to his service in the ICU Critical Care Narrative Aggregate critical care time was 60 minutes. Time to perform other separately billable procedures was not included in the critical care time. My time did not include minutes spent treating any other patients simultaneously or on activities that did not directly contribute to the patient's treatment. The services I provided to this patient were to treat and/or prevent clinically significant deterioration that could result in: , decompensation, deterioration I provided critical care services requiring my management, as noted below: Chart data review, documentation time, medication orders and management, vital sign assessments/reviewing monitor data, ordering and reviewing lab tests, ordering and interpreting/reviewing x-rays and diagnostic studies, care of the patient and discussion of the patient with the admitting physicians. Diagnosis Primary Impression: Upper GI bleeding Admitting Information Admitting Physician Requests: Admit Phoebe Tay DO Dec 07, 2016 12:21
[2016-12-07] MEDS ORDERED: ACETAMINOPHEN 1000 MG/100 ML VIAL IV PRN (13:00)
[2016-12-07] MEDS ORDERED: SODIUM CHLOR 0.9% 1000 ML INJ 1,000 ML IV PRN (14:24)
[2016-12-07] MEDS ORDERED: SODIUM CHLOR 0.9% 1000 ML INJ 1,000 ML OTHER PRN ×2 (14:24)
--- NOTE | 2016-12-07 14:24 | PD.CONS ---
HPI Service Nephrology Consult Requested By Dr. Jones Reason for Consult ESRD on HD Primary Care Physician Katie Mccarthy MD History of Present Illness Ms. Richey is a 71 y/o female patient who came to ER for evaluation of hematemesis. She had 4 episodes of bright red bloody vomit since 0700. Some abdominal pain associated with vomiting, also reports dark stools. She takes ASA and plavix daily. PMH of ESRD with HD on Tuesdays and Saturdays, anxiety, COPD with active smoking, CHF (EF 30%), and anemia, . She was admitted last month and had EGD on 11/13 that showed Severe grade esophagitis D with ulcers in distal esophagus. She was to take Protonix daily and also oral vancomycin for C Diff but she did not continue after discharge. She has a history of noncompliance in the past, is only on 2 HD days/week as she continually missed treatments when ordered 3 times/week. She has been evaluated by GI, is due for upper EGD today. She is receiving one unit PRBC currently. Hb is 8.8 today. We were consulted for dialysis management. (Mily Gray) Review of Systems Constitutional: COMPLAINS OF: Fatigue, DENIES: Change in appetite Respiratory: DENIES: Shortness of breath Cardiovascular: DENIES: Dyspnea on Exertion Gastrointestinal: COMPLAINS OF: Abdominal pain, Black stools, Nausea, Vomiting , DENIES: Difficulty Swallowing (Mily Gray) Past Family Social History Allergies: Coded Allergies: niacin (Unverified Allergy, Severe, ANAPHALACTIC, 12/07/16) *MDRO Multi-Drug Resistant Organism (Verified Adverse Reaction, Unknown, ) ESBL+Klebsiella Pneumoniae (urine) - 03/2015 & 05/2015 Past Medical History ESRD on hemodialysis Tuesdays and Saturdays Coronary artery disease status post NSTEMI 2014 Hyperlipidemia Systolic congestive heart failure COPD Anxiety Active tobacco abuse anemia metabolic bone disorder non compliance Past Surgical History PCI with stent placement (BMS to LAD) 2014 AV graft placement in the left upper extremity PermCath placement and removal tonsillectomy D&C EGD flexible sigmoidoscopy Reported Medications Clonazepam 0.5 Mg Tab 0.5 Mg PO BID Plavix (Clopidogrel Bisulfate) 75 Mg Tab 75 Mg PO DAILY Metoprolol Tartrate 25 Mg Tab 25 Mg PO BID Atorvastatin (Atorvastatin Calcium) 40 Mg Tab 40 Mg PO HS Active Ordered Medications Current Medications Medications (Trade) Dose Ordered Sig/Diego Route Start Time Stop Time Status Last Admin Pantoprazole Sodium 80 mg/ Sodium Chloride 100 ml @ 10 mls/hr Q10H IV 12/07/16 09:57 12/07/16 11:29 Sodium Chloride 1,000 ml @ 84 mls/hr [id number] IV 12/07/16 11:43 (NS Flush) 2 ml UNSCH PRN IV FLUSH 12/07/16 11:45 (NS Flush) 2 ml BID IV FLUSH 12/07/16 21:00 (Morphine Inj) 2 mg Q2H PRN IV 12/07/16 11:45 (Zofran Inj) 4 mg Q6H PRN IV 12/07/16 11:45 (Duoneb Neb) 1 ampule Q6HR NEB INH 12/07/16 16:00 (Albuterol Neb) 2.5 mg Q2HR NEB PRN INH 12/07/16 11:45 Miscellaneous Information 1 [id number] XX 12/07/16 11:45 (Chlorhexidine 2% Cloth) 3 pack Taper DAILY@04 TOP 12/08/16 04:00 12/04/17 03:59 (Chlorhexidine 2% Cloth) 3 pack UNSCH PRN TOP 12/07/16 11:45 (Ofirmev 1000 Mg/ 100 ml Inj) 650 mg Q6H PRN IV 12/07/16 13:00 (D50w (Vial) Inj) 50 ml UNSCH PRN IV 12/07/16 12:00 (Glucagon Inj) 1 mg UNSCH PRN OTHER 12/07/16 12:00 (NovoLIN R SUPPLEMENTAL SCALE) 1 Q6HR SQ 12/07/16 12:00 Family History no hx of renal disorders Social History Active smoker, 1/2 ppd for "years" + ETOH , denies daily use, admits to drinking liquor denies illicit substances Lives alone Independent with ADLs Full code reports family support non compliance with treatment schedules, advised fluid restriction, smoking cessation (Mily Gray) Physical Exam Vital Signs Vital Signs Date Time Temp Pulse Resp B/P (MAP) Pulse Ox O2 Delivery O2 Flow Rate FiO2 12/07/16 13:08 98.7 98 21 117/63 97 12/07/16 13:08 98.7 98 21 117/63 (81) 97 Room Air 12/07/16 12:48 99.2 99 16 116/62 97 12/07/16 12:48 99.2 99 16 116/62 (80) 97 Room Air 12/07/16 11:25 98.9 95 22 119/64 (82) Room Air 12/07/16 11:25 98.9 95 22 119/64 12/07/16 11:05 98.5 100 18 128/66 98 12/07/16 11:05 98.5 100 18 128/66 (86) 98 Room Air 12/07/16 10:10 18 97 Room Air 12/07/16 09:18 98.6 16 160/72 (101) Physical Exam Elderly CF in NAD sitting up in bed Alert, oriented x 3 S1/S2, no murmurs appreciated, BP 150/81 Lungs with bibasilar rales, more pronounced on left Abd: soft, non tender, no distension Ext: no edema, LUE AVG, + thrill/bruit Skin: intact Laboratory Laboratory Tests Test 12/07/16 10:04 12/07/16 11:13 White Blood Count 4.9 Red Blood Count 2.70 Hemoglobin 8.8 Hematocrit 26.9 Mean Corpuscular Volume 99.9 Mean Corpuscular Hemoglobin 32.8 Mean Corpuscular Hemoglobin Concent 32.8 Red Cell Distribution Width 20.0 Platelet Count 210 Mean Platelet Volume 7.5 Neutrophils (%) (Auto) 82.7 Lymphocytes (%) (Auto) 7.2 Monocytes (%) (Auto) 8.7 Eosinophils (%) (Auto) 0.7 Basophils (%) (Auto) 0.7 Neutrophils # (Auto) 4.1 Lymphocytes # (Auto) 0.4 Monocytes # (Auto) 0.4 Eosinophils # (Auto) 0.0 Basophils # (Auto) 0.0 CBC Comment DIFF FINAL Differential Comment Prothrombin Time 13.2 Prothromb Time International Ratio 1.2 Activated Partial Thromboplast Time 27.0 Blood Urea Nitrogen 92 Creatinine 3.71 Random Glucose 105 Total Protein 6.2 Albumin 2.6 Calcium Level 7.9 Alkaline Phosphatase 132 Aspartate Amino Transf (AST/SGOT) 12 Alanine Aminotransferase (ALT/SGPT) 12 Total Bilirubin 0.5 Sodium Level 139 Potassium Level 4.3 Chloride Level 102 Carbon Dioxide Level 23.5 Anion Gap 14 Estimat Glomerular Filtration Rate 12 Lipase 306 Urine Color YELLOW Urine Turbidity CLEAR Urine pH 6.0 Urine Specific [place] 1.016 Urine Protein 30 Urine Glucose (UA) NEG Urine Ketones NEG Urine Occult Blood SMALL Urine Nitrite NEG Urine Bilirubin NEG Urine Urobilinogen LESS THAN 2.0 Urine Leukocyte Esterase NEG Urine RBC LESS THAN 1 Urine WBC 7 Urine Squamous Epithelial Cells 1 Urine Bacteria RARE Microscopic Urinalysis Comment CULT NOT INDICATED (Mily Gray) Result Diagram: 12/07/16 1004 12/07/16 1004 Imaging Last 72 hours Impressions Chest X-Ray 12/07/16 0957 Signed Impressions: Service Date/Time: Saturday, December 07, 2016 10:02 - CONCLUSION: Right pleural effusion with right lower lobe atelectasis versus infiltrate. Marlon Waite Jr., MD (Mily Gray) Assessment and Plan Problem List: (1) ESRD (end stage renal disease) ICD Codes: N18.6 - End-stage renal disease Status: Chronic Plan: Resume Saturday/Saturday HD schedule no urgent need for HD today monitor electrolytes, replace as needed follow fluid status, avoid IVF (stop current fluids infusing) avoid Left arm procedures obtain intermittent renal panel , start phosphorus binders if needed high protein diet when no longer NPO (2) Upper GI bleeding ICD Codes: K92.2 - Gastrointestinal hemorrhage, unspecified Plan: GI has evaluated due for EGD (urgent) today transfuse as needed started on Protonix (3) Anemia ICD Codes: D64.9 - Anemia Status: Acute Plan: Transfusion ordered follow Hb epogen ordered to be given with HD (4) Tobacco abuse ICD Codes: Z72.0 - Tobacco use Status: Chronic Plan: cessation advised (Mily Gray) Assessment and Plan patient was seen and examined. Agree with above assessment and plan. Dialysis to be done tomorrow. GI followup. Received blood transfusion. (Arvin Farnsworth MD) Mily Gray Dec 07, 2016 14:24 Arvin Farnsworth MD Dec 07, 2016 15:35
[2016-12-07] MEDS ORDERED: GENTAMICIN SULFATE (DIALYSIS USE ONLY) 20 MG/2 ML VIAL IV PRN (14:30)
[2016-12-07] MEDS ORDERED: NITROGLYCERIN 0.4 MG SL 25 TABS/BTL SL PRN (14:30)
[2016-12-07] MEDS ORDERED: ALBUMIN HUMAN 25% 25 GM/100 ML BAGP IV PRN (14:30)
[2016-12-07] MEDS ORDERED: MANNITOL 12.5 GM/50 ML VIAL IV PRN (14:30)
[2016-12-07] MEDS ORDERED: diphenhydrAMINE HCL 25 MG CAP PO PRN (14:30)
[2016-12-07] MEDS ORDERED: ACETAMINOPHEN 325 MG TAB PO PRN (14:30)
[2016-12-07] MEDS ORDERED: cloNIDine HCL 0.1 MG TAB PO PRN (14:30)
[2016-12-07] MEDS ORDERED: HEPARIN SODIUM - IV 10,000 UNITS/10 ML VIAL PRN (14:30)
[2016-12-07] MEDS ORDERED: GELATIN 12 MM/7 MM FOAM TOP PRN (14:30)
[2016-12-07] MEDS ORDERED: HEPARIN SODIUM - IV 10,000 UNITS/10 ML VIAL IVF PRN (14:30)
[2016-12-07] MEDS ORDERED: EPOETIN ALFA 10,000 UNITS/ML VIAL IV PRN (14:30)
[2016-12-07] MEDS: RESP: ALBUTEROL 2.5 MG/IPRATROPIUM 0.5 MG NEB (SCH) INH ×2 (16:00→22:00)
[2016-12-07 19:17] LABS: HEMATOCRIT 25.8 % (35.0-46.0); REVIEW FLAG FINAL
[2016-12-07] MEDS: SODIUM CHLORIDE 0.9% FLUSH 10 ML FLUSH IV FLUSH SCH (21:00)
[2016-12-07 23:14] LABS: HEMATOCRIT 23.1 % (35.0-46.0)
[2016-12-07 23:16] LABS: REVIEW FLAG FINAL
[2016-12-08] VITALS (12 sets, daily range): BP systolic 113–153; BP diastolic 55–70; PULSE 90–101; RESP 14–24; TEMP 97.1–99.1; O2SAT 90–99
[2016-12-08 01:25] LABS: HEMATOCRIT 22.8 % (35.0-46.0); MEAN CORPUSCULAR HEMOGLOBIN 30.7 PG (27.0-34.0); MEAN CORPUSCULAR HGB CONC 31.3 % (32.0-36.0); PLATELET COUNT 207 TH/MM3 (150-450); RED BLOOD COUNT 2.33 MIL/MM3 (4.00-5.30); RED CELL DISTRIBUTION WIDTH 22.4 % (11.6-17.2); REVIEW FLAG FINAL; WHITE BLOOD COUNT 7.1 TH/MM3 (4.0-11.0)
[2016-12-08 02:05] LABS: BICARBONATE 19.4 MEQ/L (21.0-32.0); MAGNESIUM 1.6 MG/DL (1.5-2.5); POTASSIUM 3.9 MEQ/L (3.5-5.1)
[2016-12-08] MEDS: CHLORHEXIDINE GLUCONATE 2 % 1 PACK (2 CLOTHS) TOP SCH (04:00)
[2016-12-08] MEDS: RESP: ALBUTEROL 2.5 MG/IPRATROPIUM 0.5 MG NEB (SCH) INH ×4 (04:26→21:34)
[2016-12-08 05:45] LABS: INTERNATIONAL NORMALIZED RATIO 1.1 RATIO; PROTHROMBIN TIME - PATIENT 11.9 SEC (9.8-11.6)
[2016-12-08] MEDS: PANTOPRAZOLE INJ 80 MG in SODIUM CHLORIDE 0.9% INJ 100 ML IV SCH (05:57)
[2016-12-08] MEDS: INSULIN NovoLIN REGULAR SUPPLEMENTAL SCALE SQ SCH ×4 (06:00→18:00)
[2016-12-08 06:06] LABS: ALT (GPT) 9 U/L (10-53); ANION GAP 18 MEQ/L (5-15); AST (GOT) 6 U/L (15-37); BICARBONATE 18.1 MEQ/L (21.0-32.0); BLOOD UREA NITROGEN 123 MG/DL (7-18); CHLORIDE 102 MEQ/L (98-107); GLOMERULAR FILTRATION RATE 11 ML/MIN (>89); MAGNESIUM 1.6 MG/DL (1.5-2.5); POTASSIUM 3.7 MEQ/L (3.5-5.1); SODIUM (NA) 138 MEQ/L (136-145)
[2016-12-08 06:07] LABS: ALKALINE PHOSPHATASE 109 U/L (45-117); TOTAL BILIRUBIN ADULT 0.7 MG/DL (0.2-1.0)
[2016-12-08 06:31] LABS: AUTOMATED NEUTROPHIL # 6.2 TH/MM3 (1.8-7.7); BASOPHIL # 0.1 TH/MM3 (0-0.2); BASOPHIL % 0.9 % (0.0-2.0); EOSINOPHIL # 0.1 TH/MM3 (0-0.4); EOSINOPHIL % 1.6 % (0.0-4.0); HEMATOCRIT 23.2 % (35.0-46.0); HEMO FLAGS DIFF FINAL; LYMPH % 10.6 % (9.0-44.0); LYMPHOCYTE # 0.9 TH/MM3 (1.0-4.8); MEAN CELL VOLUME 100.3 FL (80.0-100.0); MEAN CORPUSCULAR HEMOGLOBIN 31.3 PG (27.0-34.0); MEAN CORPUSCULAR HGB CONC 31.2 % (32.0-36.0); MONO % 9.7 % (0.0-8.0); NEUT % 77.2 % (16.0-70.0); PLATELET COUNT 218 TH/MM3 (150-450); RED BLOOD COUNT 2.32 MIL/MM3 (4.00-5.30); RED CELL DISTRIBUTION WIDTH 22.3 % (11.6-17.2)
[2016-12-08] MEDS: SODIUM CHLORIDE 0.9% FLUSH 10 ML FLUSH IV FLUSH SCH ×2 (09:00→21:00)
--- NOTE | 2016-12-08 10:00 | EKG ---
Date Performed: 12/07/2016 Time Performed: 12:36:54 PTAGE: 71 years EKG: Sinus rhythm LOW QRS VOLTAGE IN EXTREMITY LEADS NONSPECIFIC T-WAVE ABNORMALITY BORDERLINE ECG PREVIOUS TRACING : 11/14/2016 10.29 DOCTOR: Miguel Angel Moon Interpretating Date/Time 12/08/2016 09:58:47
--- NOTE | 2016-12-08 10:09 | HHI.CCPN ---
Subjective Remarks/Hospital Course 71 year old female. Date of admission 12/07/2016. 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 difficile and ESBL positive Klebsiella UTI. She is also a history of depression on chronic clonazepam. She is on aspirin and Plavix. Today, she presents to [facility] for evaluation of hematemesis, consisting of bright red blood. According to records , this began approximately 7am this morning. She had some mild abdominal discomfort with bloating/gas and shortly after vomited a large amount of bright red blood. She states that she had 2 episodes at home and then another 2 here in the ER. Last month she was actually admitted to [facility] for evaluation C. difficile. She had an EGD which revealed Severe grade esophagitis D with ulcers in distal esophagus Bx., severe gastritis Bx from antrum and severe duodenitis with multiple small ulcers in the bulb Flexible sigmoidoscopy revealed Erythema of the descending sigmoid and rectal region. No obvious C. difficile colitis as there were no pseudomembranes. Plan was for patient to take PPI, Oral Vanco and repeat EGD in 2 months. The patient was discharged home with Protonix 40mg po daily, Oral vanco po QID x 8 days, but the patient states she did not continue these at home, because she did not like the way they made her feel. Hemoglobin was 8.8. She received 1 L normal saline bolus, 80 mg pantoprazole IV 1 is currently on drip at 8 mg an hour. She has received one pack platelets and is ordered for 2 units PRBCs stat. GI plans for upper endoscopy today. Currently hemodynamically stable and atrial fibrillation. She is awake and alert black commands. Less nauseous denies abdominal pain, chest pain, first breath. Subjective 12/08: Hemoglobin down to 7.3. Receive 1 unit PRBCs and 1 pack platelets yesterday. Positive BM/dark stools. No hematemesis. Plan for EGD today with hemodialysis to follow with transfusion 1 unit PRBCs. Objective Vital Signs Date Time Temp Pulse Resp B/P (MAP) Pulse Ox O2 Delivery O2 Flow Rate FiO2 12/08/16 04:00 97.1 100 18 153/70 (97) 97 12/07/16 13:08 Room Air Intake and Output 9/2/17 9/2/17 9/3/17 08:00 16:00 00:00 Intake Total 100 ml Balance 100 ml Result Diagram: 12/08/16 0455 12/08/16 0455 Imaging Last Impressions Chest X-Ray 12/07/16 0957 Signed Impressions: Service Date/Time: Wednesday, December 07, 2016 10:02 - CONCLUSION: Right pleural effusion with right lower lobe atelectasis versus infiltrate. Marlon Waite Jr., MD Objective Remarks GENERAL: 71-year-old female, resting in bed in no acute distress SKIN: Warm and dry. Well perfused HEAD: Atraumatic. Normocephalic. EYES: Pupils equal and round around 2 mm bilaterally and reactive. No scleral icterus. No injection or drainage. ENT: No nasal bleeding or discharge. Mucous membranes pink and moist. NECK: Trachea midline. No JVD. CARDIOVASCULAR: IRR. S1, S2. No S4 without murmur RESPIRATORY: Diminished breath sounds right lower lobe. Few scattered crackles. No wheezing. Symmetrical excursion GASTROINTESTINAL: Abdomen soft, nondistended. Hypoactive bowel sounds appreciated. No guarding or rigidity. MUSCULOSKELETAL: Extremities with trace lower extremity edema. No obvious deformities. Left upper extremity fistula with positive palpable thrill NEUROLOGICAL: Awake and alert. No obvious cranial nerve deficits. Motor grossly within normal limits. Five out of 5 muscle strength in the arms and legs. Normal speech. A/P Assessment and Plan Neuro/Psych: Depression/anxiety Chronic benzodiazepine use Acetaminophen for fever Morphine 2 mill grams every 2 hours when necessary pain 6-10 Holding home medication of clonazepam 0.5 mill grams by mouth twice a day CV: Atrial fibrillation/rate controlled Chronic systolic and diastolic heart failure ejection fraction 30% 10/21 Hypertension Dyslipidemia Coronary disease status post stent LAD 2014 Holding metoprolol 25 mg by mouth twice a day in light of acute bleeding Holding aspirin 81 mg by mouth daily and Clopidogrel 75 mg by mouth daily Currently normal saline at 84 cc an hour. Received 1 LNS bolus in ED. Resp: COPD Nasal cannula to maintain saturations greater than equal to 92%. Currently in room air Spirometry while awake Chest x-ray 12/07 revealed right pleural effusion/atelectasis. GI: Upper GI bleed History of grade D esophagitis, esophageal ulcers,, gastric and duodenal sacral bulb ulcers History of C. difficile Pantoprazole 80 mg IV 1 followed by 8 mg an hour GI consult for EGD emergent Nothing by mouth status See history above. : Plata catheter not indicated Endo: Sliding-scale insulin with Accu-Cheks to maintain euglycemia/low regimen Renal: End-stage renal disease on hemodialysis Saturday/Saturday with [facility] nephrology. Saw last hospitalization. Plan for hemodialysis today Heme: Acute blood loss anemia Chronic aspirin use Clopidogrel use Received 1 pack platelets in ED. PFA pending 1 units PRBCs history yesterday. Will transfuse 1 today. Serial hemoglobins. Transfuse as clinically indicated Holding aspirin and clopidogrel ID: History of C. difficile and ESBL positive Klebsiella UTI Monitor for infection FEN: Replace electrolytes as clinically indicated MSK: PT evaluate and treat Access - Utilize peripheral IV in right upper extremity. Central line if indicated. Prophylaxis - GI - pantoprazole drip - DVT - SCD/pharmacological prophylaxis contra indicated with acute hemorrhage Level II follow-up Kevin Edmond MD Dec 08, 2016 10:09
--- NOTE | 2016-12-08 10:16 | EKG ---
Date Performed: 12/07/2016 Time Performed: 23:49:56 PTAGE: 71 years EKG: Sinus rhythm Possible anterior infarct - age undetermined Lateral T wave changes are nonspecific Low QRS voltages in limb leads Abnormal ECG NO PREVIOUS TRACING DOCTOR: Miguel Angel Moon Interpretating Date/Time 12/08/2016 10:15:55
[2016-12-08] MEDS ORDERED: SIMETHICONE SUSP DROPS 40 MG/0.6 ML 30 ML BTL ONE (12:39)
[2016-12-08] MEDS ORDERED: PROPOFOL 200 MG/20 ML AMP IV PUSH ONE (12:41)
--- NOTE | 2016-12-08 12:52 | HHI.GIFU ---
Subjective Remarks EGD with biopsy Indication: hematemesis Meds: GET anesthesia Findings: Esophagus distal esophagitis with erosion Stomach: antral ulcer gastritis. Biopsy taken of gastritis Duodenum: duodenitis. No blood present. Low likelihood of rebleed Rec: OK to transfer to floor Stop protonix drip when it is complete, then switch to protonix 40 PO bid Full liquid diet. Objective Vitals I&O Vital Signs Date Time Temp Pulse Resp B/P (MAP) Pulse Ox O2 Delivery O2 Flow Rate FiO2 12/08/16 10:59 94 12/08/16 10:00 93 12/08/16 08:00 99.1 93 14 113/55 (74) 99 12/08/16 08:00 93 12/08/16 04:00 97.1 100 18 153/70 (97) 97 12/08/16 04:00 100 12/08/16 02:00 100 12/08/16 00:00 97.4 101 23 146/67 (93) 96 12/08/16 00:00 101 12/07/16 22:00 101 12/07/16 20:00 97.3 104 25 144/90 (108) 96 12/07/16 20:00 104 12/07/16 18:00 109 12/07/16 16:00 104 12/07/16 16:00 98.7 104 23 163/81 (108) 95 12/07/16 16:00 91 12/07/16 14:41 98.9 94 20 130/64 (86) 97 12/07/16 13:08 98.7 98 21 117/63 97 12/07/16 13:08 98.7 98 21 117/63 (81) 97 Room Air I/O 12/07/16 12/07/16 12/07/16 12/08/16 12/08/16 12/08/16 06:59 14:59 22:59 06:59 14:59 22:59 Intake Total 323 ml 464 ml 100 ml Balance 323 ml 464 ml 100 ml Intake Oral 0 ml IV Total 35 ml 209 ml 100 ml Packed Cells 250 ml Platelets 288 ml Blood Product IV Normal Saline Flush 5 ml # Voids 2 # Bowel Movements 1 Laboratory Laboratory Tests Test 12/07/16 15:30 12/07/16 18:44 12/07/16 22:40 12/08/16 00:53 Nasal Screen MRSA (PCR) MRSA NOT DETECTED Hemoglobin 8.4 7.4 7.1 Hematocrit 25.8 23.1 22.8 Platelet Function Screen (ADP) 110 Platelet Function Scrn (Epinephrine GREATER THAN 223 White Blood Count 7.1 Red Blood Count 2.33 Mean Corpuscular Volume 98.0 Mean Corpuscular Hemoglobin 30.7 Mean Corpuscular Hemoglobin Concent 31.3 Red Cell Distribution Width 22.4 Platelet Count 207 Mean Platelet Volume 7.4 Blood Urea Nitrogen 131 Creatinine 3.90 Random Glucose 84 Calcium Level 8.1 Magnesium Level 1.6 Sodium Level 139 Potassium Level 3.9 Chloride Level 104 Carbon Dioxide Level 19.4 Anion Gap 16 Estimat Glomerular Filtration Rate 11 Troponin I 0.04 Test 12/08/16 04:55 White Blood Count 8.0 Red Blood Count 2.32 Hemoglobin 7.3 Hematocrit 23.2 Mean Corpuscular Volume 100.3 Mean Corpuscular Hemoglobin 31.3 Mean Corpuscular Hemoglobin Concent 31.2 Red Cell Distribution Width 22.3 Platelet Count 218 Mean Platelet Volume 7.6 Neutrophils (%) (Auto) 77.2 Lymphocytes (%) (Auto) 10.6 Monocytes (%) (Auto) 9.7 Eosinophils (%) (Auto) 1.6 Basophils (%) (Auto) 0.9 Neutrophils # (Auto) 6.2 Lymphocytes # (Auto) 0.9 Monocytes # (Auto) 0.8 Eosinophils # (Auto) 0.1 Basophils # (Auto) 0.1 CBC Comment DIFF FINAL Differential Comment Prothrombin Time 11.9 Prothromb Time International Ratio 1.1 Activated Partial Thromboplast Time 24.0 Blood Urea Nitrogen 123 Creatinine 4.06 Random Glucose 76 Total Protein 6.0 Albumin 2.6 Calcium Level 8.1 Phosphorus Level 3.9 Magnesium Level 1.6 Alkaline Phosphatase 109 Aspartate Amino Transf (AST/SGOT) 6 Alanine Aminotransferase (ALT/SGPT) 9 Total Bilirubin 0.7 Sodium Level 138 Potassium Level 3.7 Chloride Level 102 Carbon Dioxide Level 18.1 Anion Gap 18 Estimat Glomerular Filtration Rate 11 Physical Exam HEENT: Pupils round and reactive to light; normocephalic; atraumatic; no jaundice. Throat is clear. NECK: Neck is supple, no JVD, no lymphadenopathy. CHEST: Chest is clear to auscultation and percussion. CARDIAC: Regular rate and rhythm with no murmur gallop or rubs. ABDOMEN: Soft, nondistended, nontender; no hepatosplenomegaly; bowel sounds are present in all four quadrants. EXTREMITIES: No clubbing, cyanosis, or edema. SKIN: Normal; no rash; no jaundice. 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 Assessment and Plan Plan ASSESSMENT: - Upper GI bleeding, hematemesis. Sudden onset of hematemesis with 4 episodes of large amount red blood since 7am this morning. S/P recent EGD (11/13/16)--->. Severe grade esophagitis D with ulcers in distal esophagus Bx. done 2. Severe gastritis Bx from antrum 3. Severe duodenitis with multiple small ulcers in the bulb 4. Retroflexed views revealed no abnormalities. Pathology reactive/chemical gastropathy, gastroesophageal mucosa with rare goblet cells suggestive of early intestinal metaplasia and abundant fibrinopurulent exudate consistent with ulcer base. Gomori methenamine silver stain is negative for fungal organisms. negative for dysplasia or malignancy. She was discharged home with PPI, but did not continue this at home. She is on Plavix/ASA- last took yesterday. Plan for EGD with control of bleeding today. Protonix Gtt. Hemodynamically stable at this time. - Acute blood loss anemia. Baseline around high 10/11. HH 8.8/26.9. - Recent CDiff infection. Pt was hospitalized last month and treated for CDiff. Flexible sigmoidoscopy (11/20/16)----> Erythema of the descending sigmoid and rectal region. No obvious C. difficile colitis as there were no pseudomembranes. Pathology revealed acute colitis with non-specific features. She was discharged with Oral Vanco x 8 days, but did not continue this at home. She reports that she was not having diarrhea until last night- black tarry stool. Check stool for cdiff. - Recent severe esophagitis, ulcers, gastritis. Protonix gtt, EGD today. - ESRD, on HD Tuesdays/Saturdays - CAD, COPD, HTN. Takes Plavix and asa at home, last took yesterday. EGD performed. See above PLAN: - Protonix Gtt when bag is complet, then protonix po bid AC Ok to transfer to floor - Transfuse as necessary - Send stool for CDiff PCR - CBC, BMP in am - Supportive care Long Deleon MD Dec 08, 2016 12:52
--- NOTE | 2016-12-08 13:29 | HHI.NPPN ---
Subjective History of Present Illness 71 y/o female patient who came to ER for evaluation of hematemesis. She had 4 episodes of bright red bloody vomit since 0700. Some abdominal pain associated with vomiting, also reports dark stools. She takes ASA and plavix daily. PMH of ESRD with HD on Tuesdays and Saturdays, anxiety, COPD with active smoking, CHF ( EF 30%), and anemia, . She was admitted last month and had EGD on 11/13 that showed Severe grade esophagitis D with ulcers in distal esophagus. She was to take Protonix daily and also oral vancomycin for C Diff but she did not continue after discharge. Additional Remarks Patient is alert, no SOB, no abd,. pain, feeling better. Objective Data Data 12/08/16 12/09/16 18:59 06:59 Intake Total 200 ml Balance 200 ml Other 200 ml Vital Signs Date Time Temp Pulse Resp B/P (MAP) Pulse Ox O2 Delivery O2 Flow Rate FiO2 12/08/16 10:59 94 12/08/16 10:00 93 12/08/16 08:00 99.1 93 14 113/55 (74) 99 12/08/16 08:00 93 12/08/16 04:00 97.1 100 18 153/70 (97) 97 12/08/16 04:00 100 12/08/16 02:00 100 12/08/16 00:00 97.4 101 23 146/67 (93) 96 12/08/16 00:00 101 12/07/16 22:00 101 12/07/16 20:00 97.3 104 25 144/90 (108) 96 12/07/16 20:00 104 12/07/16 18:00 109 12/07/16 16:00 104 12/07/16 16:00 98.7 104 23 163/81 (108) 95 12/07/16 16:00 91 12/07/16 14:41 98.9 94 20 130/64 (86) 97 -: 12/08/16 0455 12/08/16 0455 Physical Exam General Appearance: No Acute Distress, Comfortable Eyes Eye Exam: Pupils Equal Throat Throat Exam: Oral Mucosa [place] & Moist Neck Neck Exam: Neck Supple Pulmonary Resp Exam: No Distress, Rhonchi, Decreased Bases, Diminished Breath Sounds Cardiology CV Exam: Regular, Normal Sinus Rhythm Gastrointestinal/Abdomen GI Exam: Soft, Non-Tender, Bowel Sounds Present, Distended Extremeties Extremities Exam: Trace Edema Neurologic Neuro Exam: Alert, Awake, Oriented Psychiatric Psych Exam: Appropriate Responses Assessment/Plan Problem List: (1) ESRD (end stage renal disease) ICD Codes: N18.6 - End-stage renal disease Status: Chronic Plan: On Saturday/Saturday HD schedule monitor electrolytes, replace as needed follow fluid status, avoid IVF. avoid Left arm procedures obtain intermittent renal panel , start phosphorus binders if needed HD done today, 3 liters removed. Tolerated well. (2) Upper GI bleeding ICD Codes: K92.2 - Gastrointestinal hemorrhage, unspecified Plan: GI has evaluated due for EGD (urgent) today transfuse as needed started on Protonix (3) Anemia ICD Codes: D64.9 - Anemia Status: Acute Plan: Transfusion ordered follow Hb epogen ordered to be given with HD (4) Tobacco abuse ICD Codes: Z72.0 - Tobacco use Status: Chronic Plan: cessation advised Alonzo Jamison MD Dec 08, 2016 13:29
[2016-12-08] MEDS ORDERED: DO NOT ADM ANY ANTICOAGULANT DRUGS PRN (13:30)
[2016-12-08 18:01] LABS: HEMATOCRIT 21.2 % (35.0-46.0); REVIEW FLAG FINAL
[2016-12-09] VITALS (9 sets, daily range): BP systolic 115–126; BP diastolic 57–65; PULSE 86–97; RESP 16–23; TEMP 98.4–98.8; O2SAT 92–96
[2016-12-09 00:11] LABS: HEMATOCRIT 22.9 % (35.0-46.0); REVIEW FLAG FINAL
[2016-12-09] MEDS: RESP: ALBUTEROL 2.5 MG/IPRATROPIUM 0.5 MG NEB (SCH) INH ×2 (03:22→09:25)
[2016-12-09] MEDS: CHLORHEXIDINE GLUCONATE 2 % 1 PACK (2 CLOTHS) TOP SCH (04:00)
[2016-12-09] MEDS: INSULIN NovoLIN REGULAR SUPPLEMENTAL SCALE SQ SCH ×2 (06:00)
[2016-12-09 06:06] LABS: AUTOMATED NEUTROPHIL # 3.8 TH/MM3 (1.8-7.7); BASOPHIL % 0.9 % (0.0-2.0); BICARBONATE 29.5 MEQ/L (21.0-32.0); EOSINOPHIL # 0.2 TH/MM3 (0-0.4); EOSINOPHIL % 3.3 % (0.0-4.0); HEMATOCRIT 23.8 % (35.0-46.0); HEMO FLAGS DIFF FINAL; LYMPH % 12.9 % (9.0-44.0); LYMPHOCYTE # 0.7 TH/MM3 (1.0-4.8); MEAN CORPUSCULAR HEMOGLOBIN 30.3 PG (27.0-34.0); MEAN CORPUSCULAR HGB CONC 31.9 % (32.0-36.0); MONO % 10.4 % (0.0-8.0); NEUT % 72.5 % (16.0-70.0); PLATELET COUNT 181 TH/MM3 (150-450); POTASSIUM 3.3 MEQ/L (3.5-5.1); RED BLOOD COUNT 2.51 MIL/MM3 (4.00-5.30); RED CELL DISTRIBUTION WIDTH 22.8 % (11.6-17.2); WHITE BLOOD COUNT 5.2 TH/MM3 (4.0-11.0)
[2016-12-09] MEDS: SODIUM CHLORIDE 0.9% FLUSH 10 ML FLUSH IV FLUSH SCH (08:59)
--- NOTE | 2016-12-09 10:04 | HHI.GIFU ---
Subjective Remarks Lying in bed in no apparent distress. Asking if she can go home. Tolerating diet. No nausea or vomiting. Denies abdominal pain. Reports soft stool. Objective Vitals I&O Vital Signs Date Time Temp Pulse Resp B/P (MAP) Pulse Ox O2 Delivery O2 Flow Rate FiO2 12/09/16 09:25 92 12/09/16 08:00 98.7 96 19 126/65 (85) 92 12/09/16 08:00 96 12/09/16 06:00 86 12/09/16 04:00 98.6 92 23 115/60 (78) 94 12/09/16 04:00 92 12/09/16 02:00 97 12/09/16 00:00 92 12/09/16 00:00 98.4 92 16 116/57 (76) 96 12/08/16 22:00 96 12/08/16 21:35 92 21 12/08/16 20:00 94 12/08/16 20:00 98.7 94 23 120/58 (78) 90 12/08/16 18:00 92 12/08/16 16:00 98.3 94 24 120/58 (78) 96 12/08/16 16:00 94 12/08/16 14:00 98.2 90 23 124/60 (81) 98 12/08/16 14:00 90 12/08/16 13:15 79 20 127/63 (84) 100 Nasal Cannula 4 12/08/16 13:00 83 20 122/65 (84) 98 Nasal Cannula 4 12/08/16 12:57 98.1 90 20 115/56 (75) 100 Nasal Cannula 4 12/08/16 10:59 94 12/08/16 10:00 93 I/O 12/08/16 12/08/16 12/08/16 12/09/16 12/09/16 12/09/16 07:00 15:00 23:00 07:00 15:00 23:00 Intake Total 100 ml 270 ml 250 ml 750 ml Output Total 3000 ml 40 ml Balance 100 ml 270 ml -2750 ml 710 ml Intake Oral 750 ml IV Total 100 ml 70 ml Packed Cells 250 ml Other 200 ml Output Urine Total 0 ml Stool Total 40 ml Hemodialysis 3000 ml # Bowel Movements 2 Laboratory Laboratory Tests Test 12/08/16 16:42 12/09/16 00:06 12/09/16 04:36 Hemoglobin 7.1 7.4 7.6 Hematocrit 21.2 22.9 23.8 White Blood Count 5.2 Red Blood Count 2.51 Mean Corpuscular Volume 95.0 Mean Corpuscular Hemoglobin 30.3 Mean Corpuscular Hemoglobin Concent 31.9 Red Cell Distribution Width 22.8 Platelet Count 181 Mean Platelet Volume 7.1 Neutrophils (%) (Auto) 72.5 Lymphocytes (%) (Auto) 12.9 Monocytes (%) (Auto) 10.4 Eosinophils (%) (Auto) 3.3 Basophils (%) (Auto) 0.9 Neutrophils # (Auto) 3.8 Lymphocytes # (Auto) 0.7 Monocytes # (Auto) 0.5 Eosinophils # (Auto) 0.2 Basophils # (Auto) 0.0 CBC Comment DIFF FINAL Differential Comment Blood Urea Nitrogen 65 Creatinine 2.86 Random Glucose 83 Albumin 2.5 Calcium Level 8.0 Phosphorus Level 3.2 Sodium Level 138 Potassium Level 3.3 Chloride Level 101 Carbon Dioxide Level 29.5 Anion Gap 8 Estimat Glomerular Filtration Rate 16 Imaging Last Impressions Chest X-Ray 12/07/16 0957 Signed Impressions: Service Date/Time: Wednesday, December 07, 2016 10:02 - CONCLUSION: Right pleural effusion with right lower lobe atelectasis versus infiltrate. Marlon Waite Jr., MD Physical Exam HEENT: PERRLA NECK: Neck is supple. CHEST: CTA CARDIAC: RRR with no murmur gallop or rubs. ABDOMEN: Soft, nondistended, nontender; no hepatosplenomegaly; bowel sounds are present x 4 quadrants. EXTREMITIES: No clubbing, cyanosis, or edema. SKIN: Normal; no rash; no jaundice. 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 Assessment and Plan Plan ASSESSMENT: - Upper GI bleeding, hematemesis. Sudden onset of hematemesis with 4 episodes of large amount red blood since 7am this morning. S/P recent EGD (11/13/16)--->. Severe grade esophagitis D with ulcers in distal esophagus Bx. done 2. Severe gastritis Bx from antrum 3. Severe duodenitis with multiple small ulcers in the bulb 4. Retroflexed views revealed no abnormalities. Pathology reactive/chemical gastropathy, gastroesophageal mucosa with rare goblet cells suggestive of early intestinal metaplasia and abundant fibrinopurulent exudate consistent with ulcer base. Gomori methenamine silver stain is negative for fungal organisms. negative for dysplasia or malignancy. She was discharged home with PPI, but did not continue this at home. She is on Plavix/ASA- last took yesterday. Plan for EGD with control of bleeding today. Protonix Gtt. Hemodynamically stable at this time. - Acute blood loss anemia. Baseline around high 01/16. HH 8.8/26.9. - Recent CDiff infection. Pt was hospitalized last month and treated for CDiff. Flexible sigmoidoscopy (11/20/16)----> Erythema of the descending sigmoid and rectal region. No obvious C. difficile colitis as there were no pseudomembranes. Pathology revealed acute colitis with non-specific features. She was discharged with Oral Vanco x 8 days, but did not continue this at home. She reports that she was not having diarrhea until last night- black tarry stool. Check stool for cdiff. - Recent severe esophagitis, ulcers, gastritis. Protonix gtt, EGD today. - ESRD, on HD Tuesdays/Saturdays - CAD, COPD, HTN. Takes Plavix and asa at home, last took yesterday. 12/09/16--EGD with biopsy 12/08/16--Distal esophagitis with erosion. Antral ulcer gastritis. Biopsy taken of gastritis. Duodenitis. No blood present. Low likelihood of rebleed HH stable, 7.6/23.8 PLAN: - Okay to discharge from GI standpoint - Continue Protonix PO BID - Followup with GI in 2 weeks Patient seen and examined by Dr. Deleon and myself and this note is written on his behalf. Sammie Smith Dec 09, 2016 10:04
--- NOTE | 2016-12-09 10:50 | HHI.CCPN ---
Subjective Remarks/Hospital Course 71 year old female. Date of admission 12/07/2016. 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 difficile and ESBL positive Klebsiella UTI. She is also a history of depression on chronic clonazepam. She is on aspirin and Plavix. Today, she presents to [facility] for evaluation of hematemesis, consisting of bright red blood. According to records , this began approximately 7am this morning. She had some mild abdominal discomfort with bloating/gas and shortly after vomited a large amount of bright red blood. She states that she had 2 episodes at home and then another 2 here in the ER. Last month she was actually admitted to [facility] for evaluation C. difficile. She had an EGD which revealed Severe grade esophagitis D with ulcers in distal esophagus Bx., severe gastritis Bx from antrum and severe duodenitis with multiple small ulcers in the bulb Flexible sigmoidoscopy revealed Erythema of the descending sigmoid and rectal region. No obvious C. difficile colitis as there were no pseudomembranes. Plan was for patient to take PPI, Oral Vanco and repeat EGD in 2 months. The patient was discharged home with Protonix 40mg po daily, Oral vanco po QID x 8 days, but the patient states she did not continue these at home, because she did not like the way they made her feel. Hemoglobin was 8.8. She received 1 L normal saline bolus, 80 mg pantoprazole IV 1 is currently on drip at 8 mg an hour. She has received one pack platelets and is ordered for 2 units PRBCs stat. GI plans for upper endoscopy today. Currently hemodynamically stable and atrial fibrillation. She is awake and alert black commands. Less nauseous denies abdominal pain, chest pain, first breath. 12/08: Hemoglobin down to 7.3. Receive 1 unit PRBCs and 1 pack platelets yesterday. Positive BM/dark stools. No hematemesis. Plan for EGD today with hemodialysis to follow with transfusion 1 unit PRBCs. Subjective 12/09: Hemoglobin stable after transfusion. Tolerating diet. Likely home in AM. Aspirin and Plavix have not been resumed yet. Objective Vital Signs Date Time Temp Pulse Resp B/P (MAP) Pulse Ox O2 Delivery O2 Flow Rate FiO2 12/09/16 10:00 91 12/09/16 09:25 92 12/09/16 08:00 98.7 19 126/65 (85) 12/08/16 21:35 21 12/08/16 13:15 Nasal Cannula 4 Intake and Output 12/09/16 12/09/16 12/10/16 08:00 16:00 00:00 Intake Total 750 ml Output Total 40 ml Balance 710 ml Result Diagram: 12/09/16 0436 12/09/16 0436 Imaging Last Impressions Chest X-Ray 12/07/16 0957 Signed Impressions: Service Date/Time: Wednesday, December 07, 2016 10:02 - CONCLUSION: Right pleural effusion with right lower lobe atelectasis versus infiltrate. Marlon Waite Jr., MD Objective Remarks GENERAL: 71-year-old female, resting in bed in no acute distress SKIN: Warm and dry. Well perfused HEAD: Atraumatic. Normocephalic. EYES: Pupils equal and round around 2 mm bilaterally and reactive. No scleral icterus. No injection or drainage. ENT: No nasal bleeding or discharge. Mucous membranes pink and moist. NECK: Trachea midline. No JVD. CARDIOVASCULAR: IRR. S1, S2. No S4 without murmur RESPIRATORY: Diminished breath sounds right lower lobe. Few scattered crackles. No wheezing. Symmetrical excursion GASTROINTESTINAL: Abdomen soft, nondistended. Hypoactive bowel sounds appreciated. No guarding or rigidity. MUSCULOSKELETAL: Extremities with trace lower extremity edema. No obvious deformities. Left upper extremity fistula with positive palpable thrill NEUROLOGICAL: Awake and alert. No obvious cranial nerve deficits. Motor grossly within normal limits. Five out of 5 muscle strength in the arms and legs. Normal speech. A/P Assessment and Plan Neuro/Psych: Depression/anxiety Chronic benzodiazepine use Acetaminophen for fever Morphine 2 mill grams every 2 hours when necessary pain 6-10 Resuming home medication of clonazepam 0.5 mill grams by mouth twice a day CV: Atrial fibrillation/rate controlled Chronic systolic and diastolic heart failure ejection fraction 30% 10/21 Hypertension Dyslipidemia Coronary disease status post stent LAD 2014 Holding metoprolol 25 mg by mouth twice a day in light of acute bleeding Holding aspirin 81 mg by mouth daily and Clopidogrel 75 mg by mouth daily discontinue IV fluids Resp: COPD Nasal cannula to maintain saturations greater than equal to 92%. Currently in room air Spirometry while awake Chest x-ray 12/07 revealed right pleural effusion/atelectasis. GI: Upper GI bleed History of grade D esophagitis, esophageal ulcers,, gastric and duodenal sacral bulb ulcers History of C. difficile Pantoprazole 40 mg by mouth daily GI consult for EGD 12/08 revealed similar esophagitis, esophageal gastric and duodenal ulcers. No active bleeding. Advance diet per GI : Plata catheter not indicated Endo: Sliding-scale insulin with Accu-Cheks to maintain euglycemia/low regimen Renal: End-stage renal disease on hemodialysis Saturday/Saturday with [facility] nephrology. Saw last hospitalization. Plan for hemodialysis today Heme: Acute blood loss anemia Chronic aspirin use Clopidogrel use Received 1 pack platelets in ED. 1 units PRBCs history yesterday. Will transfuse 12/08. Serial hemoglobins. Transfuse as clinically indicated Holding aspirin and clopidogrel. Resume when okay with GI ID: History of C. difficile and ESBL positive Klebsiella UTI Monitor for infection FEN: Hypokalemia Replace electrolytes as clinically indicated. 10 mEq potassium chloride 1 now MSK: PT evaluate and treat Access - Utilize peripheral IV in right upper extremity. Central line if indicated. Prophylaxis - GI - pantoprazole - DVT - SCD/pharmacological prophylaxis contra indicated with acute hemorrhage Level II follow-up Patient is stable from a critical care medicine standpoint. Transfer to floor. Assign care to hospitalist in a.m. 12/10. Kevin Edmond MD Dec 09, 2016 10:50
[2016-12-09] MEDS ORDERED: INSULIN NovoLIN REGULAR SUPPLEMENTAL SCALE SQ SCH (11:00)
[2016-12-09] MEDS ORDERED: PANTOPRAZOLE SOD 40 MG DELAYED RELEASE TAB PO ONE (11:00)
[2016-12-09] MEDS ORDERED: POTASSIUM CHLORIDE 10 MEQ CONTROLLED RELEASE TAB PO ONE (11:00)
--- NOTE | 2016-12-09 15:30 | HHI.NPPN ---
Subjective History of Present Illness 71 y/o female patient who came to ER for evaluation of hematemesis. She had 4 episodes of bright red bloody vomit since 0700. Some abdominal pain associated with vomiting, also reports dark stools. She takes ASA and plavix daily. PMH of ESRD with HD on Tuesdays and Saturdays, anxiety, COPD with active smoking, CHF ( EF 30%), and anemia, . She was admitted last month and had EGD on 11/13 that showed Severe grade esophagitis D with ulcers in distal esophagus. She was to take Protonix daily and also oral vancomycin for C Diff but she did not continue after discharge. Additional Remarks Patient is alert, no SOB, no abd,. pain, feeling better, clinically same. Objective Data Data Vital Signs Date Time Temp Pulse Resp B/P (MAP) Pulse Ox O2 Delivery O2 Flow Rate FiO2 12/09/16 14:00 96 12/09/16 12:00 96 12/09/16 12:00 98.8 96 16 125/59 (81) 94 12/09/16 10:00 91 12/09/16 09:25 92 12/09/16 08:00 98.7 96 19 126/65 (85) 92 12/09/16 08:00 96 12/09/16 06:00 86 12/09/16 04:00 98.6 92 23 115/60 (78) 94 12/09/16 04:00 92 12/09/16 02:00 97 12/09/16 00:00 92 12/09/16 00:00 98.4 92 16 116/57 (76) 96 12/08/16 22:00 96 12/08/16 21:35 92 21 12/08/16 20:00 94 12/08/16 20:00 98.7 94 23 120/58 (78) 90 12/08/16 18:00 92 12/08/16 16:00 98.3 94 24 120/58 (78) 96 12/08/16 16:00 94 -: 12/09/16 0436 12/09/16 0436 Physical Exam General Appearance: No Acute Distress, Comfortable Eyes Eye Exam: Pupils Equal Throat Throat Exam: Oral Mucosa Alice & Moist Neck Neck Exam: Neck Supple Pulmonary Resp Exam: No Distress, Rhonchi, Decreased Bases, Diminished Breath Sounds Cardiology CV Exam: Regular, Normal Sinus Rhythm Gastrointestinal/Abdomen GI Exam: Soft, Non-Tender, Bowel Sounds Present, Distended Extremeties Extremities Exam: Trace Edema Neurologic Neuro Exam: Alert, Awake, Oriented Psychiatric Psych Exam: Appropriate Responses Assessment/Plan Problem List: (1) ESRD (end stage renal disease) ICD Codes: N18.6 - End-stage renal disease Status: Chronic Plan: On Saturday/Saturday HD schedule monitor electrolytes, replace as needed follow fluid status, avoid IVF. avoid Left arm procedures obtain intermittent renal panel , start phosphorus binders if needed HD done yesterday, 3 liters removed. Patient now wants to sign AMA, I ask her to wait until tomorrow, but want to go. (2) Upper GI bleeding ICD Codes: K92.2 - Gastrointestinal hemorrhage, unspecified Plan: GI has evaluated due for EGD (urgent) today transfuse as needed started on Protonix (3) Anemia ICD Codes: D64.9 - Anemia Status: Acute Plan: Transfusion ordered follow Hb epogen ordered to be given with HD (4) Tobacco abuse ICD Codes: Z72.0 - Tobacco use Status: Chronic Plan: cessation advised Alonzo Jamison MD Dec 09, 2016 15:30
[2016-12-09] MEDS ORDERED: ATORVASTATIN 40 MG TAB PO SCH (21:00)
[2016-12-09] MEDS ORDERED: clonazePAM 0.5 MG TAB PO SCH (21:00)
[2016-12-10] MEDS ORDERED: PANTOPRAZOLE SOD 40 MG DELAYED RELEASE TAB PO SCH (09:00)
[2017-01-08] MEDS ORDERED: CLON0.5T PO (09:33)
== END 2016-12-09 18:15 | disposition left against medical advice (07) | DRG 377 ==
LOC: NEPC 09:12 → NEDA 11:11 → HIME 14:40
PROVIDERS: ADMIT Internal Medicine Critical Care Medicine; ATTEND Internal Medicine Critical Care Medicine
PROC: 30233K1 Transfusion of Nonautologous Frozen Plasma into Peripheral Vein, Percutaneous Approach (ICD-10-PCS; principal; 2016-12-07)
PROC: 30233N1 Transfusion of Nonautologous Red Blood Cells into Peripheral Vein, Percutaneous Approach (ICD-10-PCS; 2016-12-07)
PROC: 6A550Z2 Pheresis of Platelets, Single (ICD-10-PCS; 2016-12-07)
PROC: 0T9B70Z Drainage of Bladder with Drainage Device, Via Natural or Artificial Opening (ICD-10-PCS; 2016-12-07)
PROC: 5A1D60Z (ICD-10-PCS; 2016-12-08)
PROC: 0DB98ZX Excision of Duodenum, Via Natural or Artificial Opening Endoscopic, Diagnostic (ICD-10-PCS; 2016-12-09)
PROC: 0DB68ZX Excision of Stomach, Via Natural or Artificial Opening Endoscopic, Diagnostic (ICD-10-PCS; 2016-12-09)
DX: K92.2 Gastrointestinal hemorrhage, unspecified (principal); N18.6 End stage renal disease; I13.2 Hypertensive heart and chronic kidney disease with heart failure and with stage 5 chronic kidney disease, or end stage renal disease; E88.89 Other specified metabolic disorders; I48.2 Chronic atrial fibrillation; E88.09 Other disorders of plasma-protein metabolism, not elsewhere classified; I50.42 Chronic combined systolic (congestive) and diastolic (congestive) heart failure; D62 Acute posthemorrhagic anemia; J98.11 Atelectasis; F03.90 Unspecified dementia, unspecified severity, without behavioral disturbance, psychotic disturbance, mood disturbance, and anxiety; J44.9 Chronic obstructive pulmonary disease, unspecified; E78.00 Pure hypercholesterolemia, unspecified; I25.10 Atherosclerotic heart disease of native coronary artery without angina pectoris; K21.0 Gastro-esophageal reflux disease with esophagitis; M19.90 Unspecified osteoarthritis, unspecified site; F32.9 Major depressive disorder, single episode, unspecified; F41.9 Anxiety disorder, unspecified; K29.60 Other gastritis without bleeding; K29.80 Duodenitis without bleeding; K26.9 Duodenal ulcer, unspecified as acute or chronic, without hemorrhage or perforation; K25.9 Gastric ulcer, unspecified as acute or chronic, without hemorrhage or perforation; E87.6 Hypokalemia; I25.2 Old myocardial infarction; F17.210 Nicotine dependence, cigarettes, uncomplicated; Z80.0 Family history of malignant neoplasm of digestive organs; Z79.02 Long term (current) use of antithrombotics/antiplatelets; Z79.82 Long term (current) use of aspirin; Z91.19 Patient's noncompliance with other medical treatment and regimen; Z79.899 Other long term (current) drug therapy; Z68.23 Body mass index [BMI] 23.0-23.9, adult; Z87.19 Personal history of other diseases of the digestive system; Z95.5 Presence of coronary angioplasty implant and graft; Z87.442 Personal history of urinary calculi; Z99.2 Dependence on renal dialysis
CPT/HCPCS: 36430; 71010; 80048; 80053; 80069; 81001; 82948; 83690; 83735; 84100; 84484; 85014; 85018; 85025; 85027; 85576; 85610; 85730; 86850; 86900; 86901; 86920; 87641; 88305; 88312; 90935; 93005; 94664; 96374; C9113; J2405; J7613; P9016; P9035; Q4081

== ENCOUNTER 2017-06-13 10:54 | Emergency (ER) | payer MEDICARE ==
[~2017-06-13] VITALS: Ht 175.3 cm; Wt 67.0 kg
[~2017-06-13 10:54] MED LIST changes: -AMIO200T PO; -ASPI-99 PO; +ASPI1TAB56 PO; -LACT PO; +LANT500 CHEW; -METR-1 PO; -MIDO5TAB PO; -PANT40TA3 PO; +PARO10TA2 PO; -SENN1TAB PO; -SEVEL800 PO; -VANC500I3 PO; +ZOLO50TA PO
[2017-06-13 11:06] VITALS: BP 161/92; PULSE 90; RESP 18; TEMP 97.8; O2SAT 99
[2017-06-13] MEDS ORDERED: SODIUM CHLORIDE 0.9% FLUSH 10 ML FLUSH IVF PRN (11:15)
[2017-06-13] MEDS ORDERED: MECLIZINE HCL 25 MG TAB PO ONE (11:15)
--- NOTE | 2017-06-13 11:50 | RADRPT ---
EXAM DATE/TIME: 06/13/2017 11:32 [facility] COMPARISON: CHEST SINGLE AP, December 07, 2016, 10:02. INDICATIONS : Chest pain and shortness of breath. MEDICAL HISTORY : Hypercholesterolemia. Hypertension Myocardial infarction. Congestive heart failure, Coronary thomas ry disease, AFIB, COPD, Emphysema, GERD, Right upper kidney fistula, Arthritis, Renal calculi. SURGICAL HISTORY : Left upper kidney fistula, Stents, Cardiac cath. ENCOUNTER: Initial ACUITY: 1 day PAIN SCORE: 2/10 LOCATION: Bilateral chest FINDINGS: A single view of the chest demonstrates the lungs to be symmetrically aerated without evidence of mas s, infiltrate or effusion. The previously noted left effusion has resolved. Stable 5 mm density is ag ain seen overlying the right lower lung. The heart size is mildly enlarged but stable.. Osseous stru ctures are intact and stable. CONCLUSION: No acute disease. Angel Dickinson MD on June 13, 2017 at 11:48 Board Certified Radiologist. This report was verified electronically.
[2017-06-13 11:58] LABS: AUTOMATED NEUTROPHIL # 2.4 TH/MM3 (1.8-7.7); BASOPHIL # 0.1 TH/MM3 (0-0.2); BASOPHIL % 1.7 % (0.0-2.0); EOSINOPHIL # 0.1 TH/MM3 (0-0.4); EOSINOPHIL % 2.5 % (0.0-4.0); HEMATOCRIT 33.5 % (35.0-46.0); HEMOGLOBIN 10.8 GM/DL (11.6-15.3); LYMPH % 19.7 % (9.0-44.0); LYMPHOCYTE # 0.7 TH/MM3 (1.0-4.8); MEAN CELL VOLUME 96.7 FL (80.0-100.0); MEAN CORPUSCULAR HEMOGLOBIN 31.1 PG (27.0-34.0); MEAN CORPUSCULAR HGB CONC 32.2 % (32.0-36.0); MEAN PLATELET VOLUME 7.3 FL (7.0-11.0); MONO % 8.7 % (0.0-8.0); MONOCYTE # 0.3 TH/MM3 (0-0.9); NEUT % 67.4 % (16.0-70.0); PLATELET COUNT 159 TH/MM3 (150-450); RED BLOOD COUNT 3.47 MIL/MM3 (4.00-5.30); RED CELL DISTRIBUTION WIDTH 19.5 % (11.6-17.2); WHITE BLOOD COUNT 3.6 TH/MM3 (4.0-11.0)
[2017-06-13 12:08] LABS: INTERNATIONAL NORMALIZED RATIO 1.1 RATIO; PROTHROMBIN TIME - PATIENT 11.6 SEC (9.8-11.6)
--- NOTE | 2017-06-13 12:50 | RADRPT ---
EXAM DATE/TIME: 06/13/2017 11:45 [facility] COMPARISON: CT BRAIN W/O CONTRAST, June 09, 2015, 17:28. INDICATIONS : Patient hit forehead Saturday after syncopal episode RADIATION DOSE: 35.85 CTDIvol (mGy) MEDICAL HISTORY : Hypertension. Cardiovascular disease Chronic obstructive pulmonary disease. SURGICAL HISTORY : None. ENCOUNTER: Initial ACUITY: 3 days PAIN SCALE: 3/10 LOCATION: frontal TECHNIQUE: Multiple contiguous axial images were obtained of the head. Using automated exposure control and adj ustment of the mA and/or kV according to patient size, radiation dose was kept as low as reasonably a chievable to obtain optimal diagnostic quality images. DICOM format image data is available electro nically for review and comparison. FINDINGS: CEREBRUM: The ventricles are normal for age. No evidence of midline shift, mass lesion, hemorrhage or acute in farction. No extra-axial fluid collections are seen. POSTERIOR FOSSA: The cerebellum and brainstem are intact. The 4th ventricle is midline. The cerebellopontine angle i s unremarkable. EXTRACRANIAL: The visualized portion of the orbits is intact. SKULL: The calvaria is intact. No evidence of skull fracture. CONCLUSION: No acute disease. No significant change has occurred. No evidence of acute infarct, hemorrhage, mass or edema. Willian Lemus MD on June 13, 2017 at 12:46 Board Certified Radiologist. This report was verified electronically.
--- NOTE | 2017-06-13 13:09 | PD ---
HPI Chief Complaint: Dizziness Time Seen by Provider: 11:01 Travel History International Travel<30 days: No Contact w/Intl Traveler<30days: No Traveled to known affect area: No History of Present Illness HPI Patient is a 71 year old female who comes in complaining of dizziness. She says Saturday she got so dizzy that she passed out. She has continued to feel dizzy for the past few days. She says she was walking back from the store when she felt very dizzy today and she was worried she may pass out again. She describes it as a lightheadedness, not a spinning sensation. She hit her head when she passed out on Saturday. She denies having any chest pain or SOB. She has a history of ESRD and normally is dialyzed , , however, missed dialysis on Saturday. She reports increased swelling of her legs. She says this has never happened before. Severity is moderate. PFSH Past Medical History Hx Anticoagulant Therapy: Yes (PLAVIX) Anemia: Yes Arthritis: Yes Asthma: No Atrial Fibrillation: Yes Autoimmune Disease: No Blood Disorders: No Anxiety: Yes Depression: Yes Heart Rhythm Problems: Yes (HX OF A-FIB) Cancer: No Cardiac Catheterization: Yes Cardiovascular Problems: Yes (CHF) High Cholesterol: Yes Chest Pain: Yes Congestive Heart Failure: Yes COPD: Yes Cerebrovascular Accident: No Coronary Artery Disease: Yes Diabetes: No Dialysis: Yes (Sat) Diminished Hearing: No Endocrine: No Gastrointestinal Disorders: Yes (gerd) Genitourinary: Yes (uti's) Headaches: No Hepatitis: No Hypertension: Yes Immune Disorder: No Implanted Vascular Access Dvce: Yes Kidney Stones: Yes Musculoskeletal: Yes (Arthritis) Neurologic: No Psychiatric: No Reproductive: No Respiratory: Yes (COPD) Migraines: Yes Myocardial Infarction: Yes (JUNE 2014) Renal Failure: Yes (Left upper fistula) Seizures: No Triglycerides - High: Yes Tetanus Vaccination: < 5 Years Influenza Vaccination: Yes ?: Not Menopausal: Yes Past Surgical History Abdominal Surgery: No AICD: No Arteriovenous Shunt: No Body Medical Devices: right dialysis catheter Cardiac Surgery: Yes (STENTS X 2) Coronary Stent: Yes Ear Surgery: No Endocrine Surgery: No Eye Surgery: No Genitourinary Surgery: No Gynecologic Surgery: Yes (D & C) Insulin Pump: No Joint Replacement: No Neurologic Surgery: No Oral Surgery: No Pacemaker: No Tonsillectomy: Yes Other Surgery: Yes (right vas cath;LEFT ARM ARTIFICIAL VEIN) Social History Alcohol Use: No Tobacco Use: Yes Substance Use: No Allergies-Medications (Allergen,Severity, Reaction): Coded Allergies: niacin (Unverified Allergy, Severe, ANAPHALACTIC, 03/08/17) No Known Allergies (Unverified Allergy, Unknown, 03/08/17) Reported Meds & Prescriptions Reported Meds & Active Scripts Active Clonazepam 0.5 Mg Tab 0.5 Mg PO BID Paroxetine (Paroxetine HCl) 10 Mg Tab 10 Mg PO DAILY Adult Aspirin EC Low Strength (Aspirin) 81 Mg Tabec 81 Mg PO DAILY Plavix (Clopidogrel Bisulfate) 75 Mg Tab 75 Mg PO DAILY Reported Metoprolol Tartrate 25 Mg Tab 25 Mg PO BID Atorvastatin (Atorvastatin Calcium) 40 Mg Tab 40 Mg PO HS Fosrenol (Lanthanum Carbonate) 500 Mg Chew 500 Mg CHEW TID WITH MEALS Zoloft (Sertraline HCl) 50 Mg Tab Unknown Dose PO DAILY Review of Systems Except as stated in HPI: all other systems reviewed are Neg General / Constitutional: No: Fever, Chills Eyes: No: Blurred Vision HENT: Positive: Lightheadedness Cardiovascular: No: Chest Pain or Discomfort, Palpitations Respiratory: No: Shortness of Breath Gastrointestinal: No: Nausea, Vomiting Musculoskeletal: Positive: Edema, No: Myalgias Skin: No Rash, No Change in Pigmentation Neurologic: Positive: Dizziness, No: Weakness Physical Exam Narrative GENERAL: Awake and alert, in no acute distress. SKIN: Focused skin assessment warm/dry. Discoloration of both lower extremities. No evidence of infection. HEAD: Atraumatic. Normocephalic. EYES: Pupils equal and round. No scleral icterus. EOMI, no nystagmus. ENT: Mucous membranes pink and moist. NECK: Trachea midline. No JVD. CARDIOVASCULAR: Regular rate and rhythm. No murmur appreciated. RESPIRATORY: No accessory muscle use. Clear to auscultation. Breath sounds equal bilaterally. GASTROINTESTINAL: Abdomen soft, non-tender, nondistended. MUSCULOSKELETAL: No obvious deformities. No clubbing. No cyanosis. 2+ pitting edema of the lower extremities. NEUROLOGICAL: Awake and alert. No obvious cranial nerve deficits. Motor grossly within normal limits. Normal speech. PSYCHIATRIC: Appropriate mood and affect; insight and judgment normal. Data Data Last Documented VS Vital Signs Date Time Temp Pulse Resp B/P (MAP) Pulse Ox O2 Delivery O2 Flow Rate FiO2 06/13/17 11:10 99 Room Air 06/13/17 11:06 97.8 90 18 161/92 (115) Orders Orders Complete Blood Count With Diff (06/13/17 11:13) Comprehensive Metabolic Panel (06/13/17 11:13) Troponin I (06/13/17 11:13) Act Partial Throm Time (Ptt) (06/13/17 11:13) Prothrombin Time / Inr (Pt) (06/13/17 11:13) Chest, Single Ap (06/13/17 11:13) Ct Brain W/O Iv Contrast(Rout) (06/13/17 11:13) Ecg Monitoring (06/13/17 11:13) Iv Access Insert/Monitor (06/13/17 11:13) Oximetry (06/13/17 11:13) Meclizine (Antivert) (06/13/17 11:15) Sodium Chloride 0.9% Flush (Ns Flush) (06/13/17 11:15) Electrocardiogram (06/13/17 ) Labs Laboratory Tests Test 06/13/17 11:30 06/13/17 14:01 White Blood Count 3.6 TH/MM3 Red Blood Count 3.47 MIL/MM3 Hemoglobin 10.8 GM/DL Hematocrit 33.5 % Mean Corpuscular Volume 96.7 FL Mean Corpuscular Hemoglobin 31.1 PG Mean Corpuscular Hemoglobin Concent 32.2 % Red Cell Distribution Width 19.5 % Platelet Count 159 TH/MM3 Mean Platelet Volume 7.3 FL Neutrophils (%) (Auto) 67.4 % Lymphocytes (%) (Auto) 19.7 % Monocytes (%) (Auto) 8.7 % Eosinophils (%) (Auto) 2.5 % Basophils (%) (Auto) 1.7 % Neutrophils # (Auto) 2.4 TH/MM3 Lymphocytes # (Auto) 0.7 TH/MM3 Monocytes # (Auto) 0.3 TH/MM3 Eosinophils # (Auto) 0.1 TH/MM3 Basophils # (Auto) 0.1 TH/MM3 CBC Comment DIFF FINAL Differential Comment Prothrombin Time 11.6 SEC Prothromb Time International Ratio 1.1 RATIO Activated Partial Thromboplast Time 26.6 SEC Blood Urea Nitrogen 36 MG/DL Creatinine 5.52 MG/DL Random Glucose 95 MG/DL Total Protein 7.8 GM/DL Albumin 3.1 GM/DL Calcium Level 8.1 MG/DL Alkaline Phosphatase 234 U/L Aspartate Amino Transf (AST/SGOT) 17 U/L Alanine Aminotransferase (ALT/SGPT) 10 U/L Total Bilirubin 0.6 MG/DL Sodium Level 133 MEQ/L Potassium Level 4.3 MEQ/L Chloride Level 99 MEQ/L Carbon Dioxide Level 21.6 MEQ/L Anion Gap 12 MEQ/L Estimat Glomerular Filtration Rate 8 ML/MIN Troponin I 0.03 NG/ML MDM Medical Decision Making Medical Screen Exam Complete: Yes Emergency Medical Condition: Yes Medical Record Reviewed: Yes Interpretation(s) ECG shows NSR at 89, no ST elevation or depression Differential Diagnosis dehydration vs vertigo vs ACS (unlikely) Narrative Course Patient is a 71 year old female who comes in complaining of dizziness. Exam shows no neurologic abnormalities. IV established, labs sent. Labs show elevated Cr, consistent with her ESRD. CXR shows no evidence of fluid overload. CT head shows no acute abnormalities. Last [address] 06/13/17 1113 Signed Impressions: Service Date/Time: June 11:45 - CONCLUSION: No acute disease. No significant change has occurred. No evidence of acute infarct, hemorrhage, mass or edema. Willian Lemus MD Chest X-Ray 06/13/17 1113 Signed Impressions: Service Date/Time: June 11:32 - CONCLUSION: No acute disease. Angel Dickinson MD Patient advised she should be admitted for further work-up of her syncopal episode 4 days ago, however, she does not want to stay at this time. I explained to her the importance of continued testing/monitoring, but she would rather follow up with her doctors. She feels better after the meclizine. She will be discharged with a prescription for the Meclizine. She is advised to follow up with her doctors and return at any time for any worsening symptoms. Diagnosis Primary Impression: Dizziness Patient Instructions: Dizziness (ED), General Instructions Additional Instructions: Follow up with your doctors. Go to dialysis as scheduled. Return to the ED as needed for any worsening symptoms. Scripts Meclizine (Meclizine) 25 Mg Tab 25 MG PO TID Y for VERTIGO for 5 Days, TAB 0 Refills Prov: Kristie Mackey MD 06/13/17 Disposition: 01 DISCHARGE HOME Condition: Stable Kristie Mackey MD Jun 13, 2017 13:09
--- NOTE | 2017-06-13 13:37 | EKG ---
Date Performed: 06/13/2017 Time Performed: 11:06:05 PTAGE: 71 years EKG: Sinus rhythm WITH OCCASIONAL SUPRAVENTRICULAR PREMATURE COMPLEXES POSSIBLE LEFT ATRIAL ENLARGEMENT BORDERLINE RIG HT AXIS DEVIATION BORDERLINE ECG PREVIOUS TRACING : 12/07/2016 23.49 No significant change from previous tracing noted. DOCTOR: Momo Ramon Interpretating Date/Time 06/13/2017 13:36:19
[2017-06-13 14:51] LABS: ALBUMIN 3.1 GM/DL (3.4-5.0); ALT (GPT) 10 U/L (10-53); AST (GOT) 17 U/L (15-37); BICARBONATE 21.6 MEQ/L (21.0-32.0); BLOOD UREA NITROGEN 36 MG/DL (7-18); CALCIUM 8.1 MG/DL (8.5-10.1); CHLORIDE 99 MEQ/L (98-107); CREATININE 5.52 MG/DL (0.50-1.00); GLOMERULAR FILTRATION RATE 8 ML/MIN (>89); GLUCOSE,RANDOM 95 MG/DL (74-106); SODIUM (NA) 133 MEQ/L (136-145)
[2017-06-13 14:55] LABS: ALKALINE PHOSPHATASE 234 U/L (45-117); TOTAL BILIRUBIN ADULT 0.6 MG/DL (0.2-1.0); TOTAL PROTEIN 7.8 GM/DL (6.4-8.2); TROPONIN I 0.03 NG/ML (0.02-0.05)
[2017-06-13] MEDS ORDERED: MECL-62 PO (15:01)
== END 2017-06-13 15:57 | disposition home or self-care (01) ==
LOC: NEPE 10:54
DX: R42 Dizziness and giddiness (principal); R94.31 Abnormal electrocardiogram [ECG] [EKG]; I48.91 Unspecified atrial fibrillation; E78.00 Pure hypercholesterolemia, unspecified; I13.2 Hypertensive heart and chronic kidney disease with heart failure and with stage 5 chronic kidney disease, or end stage renal disease; I50.9 Heart failure, unspecified; N18.6 End stage renal disease; J44.9 Chronic obstructive pulmonary disease, unspecified; Z72.0 Tobacco use
CPT/HCPCS: 70450; 71045; 80053; 84484; 85025; 85610; 85730; 93005

== ENCOUNTER 2017-07-27 11:40 | Inpatient (IN) | payer MEDICARE ==
[~2017-07-27] VITALS: Ht 165.1 cm; Wt 70.0 kg
[~2017-07-27 11:40] MED LIST changes: +MECL-62 PO
[2017-07-27 11:49] VITALS: BP 134/68; PULSE 92; RESP 16; TEMP 97.7; O2SAT 100
--- NOTE | 2017-07-27 12:29 | RADRPT ---
EXAM DATE/TIME: 07/27/2017 12:10 [facility] COMPARISON: CHEST SINGLE AP, June 13, 2017, 11:32. INDICATIONS : Acute mental status changes.. MEDICAL HISTORY : Hypertension. Cardiovascular disease Chronic obstructive pulmonary disease. SURGICAL HISTORY : None. ENCOUNTER: Initial ACUITY: 1 day PAIN SCORE: Non-responsive. LOCATION: Bilateral chest FINDINGS: A single view of the chest demonstrates the lungs to be symmetrically aerated without evidence of mas s, infiltrate or effusion. There is mild scarring. The cardiomediastinal contours are unremarkable. Osseous structures are intact. CONCLUSION: No acute disease. There is mild scarring. Srinivas Trevino MD on July 27, 2017 at 12:26 Board Certified Radiologist. This report was verified electronically.
--- NOTE | 2017-07-27 12:37 | PD ---
HPI Chief Complaint: Altered Mental Status Time Seen by Provider: 12:07 Travel History International Travel<30 days: No Contact w/Intl Traveler<30days: No Traveled to known affect area: No History of Present Illness HPI 71yo F with PMH of ESRD on HD T//Sat, CHF EF 30%, CAD, depression was brought here by [facility] for altered mental status. [facility]AC said dialysis center called and said she has not been there since 07/06 and started out as a wellness check. Pt was found walking around in her house but confused. Initially was hypoglycemic at 46 and improved after 1 amp of D50. However, pt still seemed confused after the blood glucose was improved. Denies any fever, chest pain, sob, n/v, abdominal pain, focal weakness or numbness. Pt is AAOx2 and said she had dialysis a few days ago. [employer]ler[employer] Teacher is Dr. Wu. [facility] Past Medical History Hx Anticoagulant Therapy: Yes (PLAVIX) Anemia: Yes Arthritis: Yes Asthma: No Atrial Fibrillation: Yes Autoimmune Disease: No Blood Disorders: No Anxiety: Yes Depression: Yes Heart Rhythm Problems: Yes (HX OF A-FIB) Cancer: No Cardiac Catheterization: Yes Cardiovascular Problems: Yes (CHF) High Cholesterol: Yes Chest Pain: Yes Congestive Heart Failure: Yes COPD: Yes Cerebrovascular Accident: No Coronary Artery Disease: Yes Diabetes: No Dialysis: Yes (Sat) Diminished Hearing: No Endocrine: No Gastrointestinal Disorders: Yes (gerd) Genitourinary: Yes (uti's) Headaches: No Hepatitis: No Hypertension: Yes Immune Disorder: No Implanted Vascular Access Dvce: Yes Kidney Stones: Yes Musculoskeletal: Yes (Arthritis) Neurologic: No Psychiatric: No Reproductive: No Respiratory: Yes (COPD) Migraines: Yes Myocardial Infarction: Yes (JUNE 2014) Renal Failure: Yes (Left upper fistula) Seizures: No Triglycerides - High: Yes ?: Not Menopausal: Yes Past Surgical History Abdominal Surgery: No AICD: No Arteriovenous Shunt: No Body Medical Devices: right dialysis catheter Cardiac Surgery: Yes (STENTS X 2) Coronary Stent: Yes Ear Surgery: No Endocrine Surgery: No Eye Surgery: No Genitourinary Surgery: No Gynecologic Surgery: Yes (D & C) Insulin Pump: No Joint Replacement: No Neurologic Surgery: No Oral Surgery: No Pacemaker: No Tonsillectomy: Yes Other Surgery: Yes (right vas cath;LEFT ARM ARTIFICIAL VEIN) Social History Alcohol Use: No Tobacco Use: Yes Substance Use: No Allergies-Medications (Allergen,Severity, Reaction): Coded Allergies: niacin (Unverified Allergy, Severe, ANAPHALACTIC, 03/08/17) No Known Allergies (Unverified Allergy, Unknown, 03/08/17) Reported Meds & Prescriptions Reported Meds & Active Scripts Active Meclizine (Meclizine HCl) 25 Mg Tab 25 Mg PO TID PRN 5 Days Clonazepam 0.5 Mg Tab 0.5 Mg PO BID Paroxetine (Paroxetine HCl) 10 Mg Tab 10 Mg PO DAILY Adult Aspirin EC Low Strength (Aspirin) 81 Mg Tabec 81 Mg PO DAILY Plavix (Clopidogrel Bisulfate) 75 Mg Tab 75 Mg PO DAILY Reported Metoprolol Tartrate 25 Mg Tab 25 Mg PO BID Atorvastatin (Atorvastatin Calcium) 40 Mg Tab 40 Mg PO HS Review of Systems ROS Limitations: Clinical Condition Physical Exam Narrative GENERAL: 71yo F not in distress. SKIN: Focused skin assessment warm/dry. HEAD: Atraumatic. Normocephalic. EYES: Pupils equal and round. No scleral icterus. No injection or drainage. ENT: No nasal bleeding or discharge. Mucous membranes pink and moist. NECK: Trachea midline. No JVD. CARDIOVASCULAR: Regular rate and rhythm. No murmur appreciated. RESPIRATORY: No accessory muscle use. Clear to auscultation. Breath sounds equal bilaterally. GASTROINTESTINAL: Abdomen soft, non-tender, nondistended. MUSCULOSKELETAL: No obvious deformities. No clubbing. No cyanosis. No edema. NEUROLOGICAL: Awake and alert. No obvious cranial nerve deficits. Motor grossly within normal limits. Normal speech. Data Data Last Documented VS Vital Signs Date Time Temp Pulse Resp B/P (MAP) Pulse Ox O2 Delivery O2 Flow Rate FiO2 07/27/17 14:30 61 19 129/91 (104) 100 Room Air 07/27/17 11:49 97.7 Orders Orders Electrocardiogram (07/27/17 12:07) Ammonia (07/27/17 12:07) Complete Blood Count With Diff (07/27/17 12:07) Comprehensive Metabolic Panel (07/27/17 12:07) Creatine Kinase (Cpk) (07/27/17 12:07) Prothrombin Time / Inr (Pt) (07/27/17 12:07) Act Partial Throm Time (Ptt) (07/27/17 12:07) Troponin I (07/27/17 12:07) Thyroid Stimulating Hormone (07/27/17 12:07) Urinalysis - C+S If Indicated (07/27/17 12:07) Chest, Single Ap (07/27/17 12:07) Ct Brain W/O Iv Contrast(Rout) (07/27/17 12:07) Drug Screen, Random Urine (07/27/17 12:07) Alcohol (Ethanol) (07/27/17 12:07) Salicylates (Aspirin) (07/27/17 14:13) Tylenol (Acetaminophen) (07/27/17 14:13) Place In Observation (07/27/17 ) Vital Signs (Adult) Q4H (07/27/17 14:33) Neuro Checks Q4H (07/27/17 14:33) Activity Oob With Assistance (07/27/17 14:33) Bedside Glucose LESLY.CSUGAR (07/27/17 14:33) Intake + Output LESLY.QSHIFT (07/27/17 14:33) Diet Heart Healthy (07/27/17 Dinner) Sodium Chloride 0.9% Flush (Ns Flush) (07/27/17 14:45) Sodium Chloride 0.9% Flush (Ns Flush) (07/27/17 21:00) Acetaminophen (Tylenol) (07/27/17 14:45) Ondansetron Inj (Zofran Inj) (07/27/17 14:45) Comprehensive Metabolic Panel (07/28/17 06:00) Complete Blood Count With Diff (07/28/17 06:00) Resp Oxygen Edwin C Titrat 1-4 L (07/27/17 ) Pt Request For Service (07/27/17 14:33) Enoxaparin Inj (Lovenox Inj) (07/27/17 16:00) Scd Bilateral/Knee High LESLY.BID (07/27/17 14:33) Jatin Bilateral/Knee High LESLY.QSHIFT (07/27/17 14:33) Naloxone Inj (Narcan Inj) (07/27/17 14:45) Docusate Sodium-Senna (Ro-Colace) (07/27/17 21:00) Magnesium Hydroxide Liq (Milk Of Magnesi (07/27/17 14:45) Sennosides (Senokot) (07/27/17 14:45) Bisacodyl Supp (Dulcolax Supp) (07/27/17 14:45) Lactulose Liq (Lactulose Liq) (07/27/17 14:45) Admit Order (Ed Use Only) (07/27/17 14:46) Labs Laboratory Tests Test 07/27/17 12:10 07/27/17 14:25 White Blood Count 8.3 TH/MM3 Red Blood Count 3.77 MIL/MM3 Hemoglobin 11.9 GM/DL Hematocrit 37.7 % Mean Corpuscular Volume 99.8 FL Mean Corpuscular Hemoglobin 31.5 PG Mean Corpuscular Hemoglobin Concent 31.6 % Red Cell Distribution Width 19.3 % Platelet Count 128 TH/MM3 Mean Platelet Volume 7.6 FL Neutrophils (%) (Auto) 90.0 % Lymphocytes (%) (Auto) 3.7 % Monocytes (%) (Auto) 5.3 % Eosinophils (%) (Auto) 0.8 % Basophils (%) (Auto) 0.2 % Neutrophils # (Auto) 7.5 TH/MM3 Lymphocytes # (Auto) 0.3 TH/MM3 Monocytes # (Auto) 0.4 TH/MM3 Eosinophils # (Auto) 0.1 TH/MM3 Basophils # (Auto) 0.0 TH/MM3 CBC Comment DIFF FINAL Differential Comment Prothrombin Time 13.3 SEC Prothromb Time International Ratio 1.3 RATIO Activated Partial Thromboplast Time 31.9 SEC Blood Urea Nitrogen 102 MG/DL Creatinine 8.93 MG/DL Random Glucose 179 MG/DL Total Protein 7.1 GM/DL Albumin 2.4 GM/DL Calcium Level 7.7 MG/DL Alkaline Phosphatase 157 U/L Aspartate Amino Transf (AST/SGOT) 18 U/L Alanine Aminotransferase (ALT/SGPT) 9 U/L Total Bilirubin 0.6 MG/DL Sodium Level 136 MEQ/L Potassium Level 4.1 MEQ/L Chloride Level 106 MEQ/L Carbon Dioxide Level 14.5 MEQ/L Anion Gap 16 MEQ/L Estimat Glomerular Filtration Rate 4 ML/MIN Ammonia 33 MCMOL/L Total Creatine Kinase 74 U/L Troponin I 0.11 NG/ML Thyroid Stimulating Hormone 3rd Gen 3.610 uIU/ML Ethyl Alcohol Level LESS THAN 3 MG/DL Salicylates Level 4.4 MG/DL Acetaminophen Level LESS THAN 2.0 MCG/ML MDM Medical Decision Making Medical Screen Exam Complete: Yes Emergency Medical Condition: Yes Interpretation(s) EKG: NSR 94bpm. Normal axis. PVCs. Q wave V2, V3. Differential Diagnosis Electrolyte abnormality vs. ICH vs. uremia vs. hepatic encephalopathy vs. dehydration Narrative Course 71yo F with ESRD was brought here by [facility] for altered mental status. Pt is AAOx2 here. Do not know her baseline and pt has no family members or visitors. Tried calling phone number in chart but it was a fax machine. Labs reviewed, no leukocytosis. H/H normal. Mild thrombocytopenia at 128,000. Ammonia 33. BUN/creatinine 102/8.93 which is worst than her last BUN/creatinine of 36/5.52 on 06/13/17. CXR negative. CT brain negative. Alcohol negative. Do not think that pt miss many days of hemodialysis since potassium is normal. However, will admit for observation for altered mental status as I do not know her baseline and there is no family member or friend. Do not feel it is a safe discharge. Diagnosis Primary Impression: Altered mental status Qualified Codes: R41.82 - Altered mental status, unspecified Admitting Information Admitting Physician Requests: Observation Francisca Guzman DO Jul 27, 2017 12:37
[2017-07-27 12:48] LABS: AUTOMATED NEUTROPHIL # 7.5 TH/MM3 (1.8-7.7); BASOPHIL % 0.2 % (0.0-2.0); EOSINOPHIL # 0.1 TH/MM3 (0-0.4); EOSINOPHIL % 0.8 % (0.0-4.0); HEMATOCRIT 37.7 % (35.0-46.0); HEMOGLOBIN 11.9 GM/DL (11.6-15.3); LYMPH % 3.7 % (9.0-44.0); LYMPHOCYTE # 0.3 TH/MM3 (1.0-4.8); MEAN CELL VOLUME 99.8 FL (80.0-100.0); MEAN CORPUSCULAR HEMOGLOBIN 31.5 PG (27.0-34.0); MEAN CORPUSCULAR HGB CONC 31.6 % (32.0-36.0); MEAN PLATELET VOLUME 7.6 FL (7.0-11.0); MONO % 5.3 % (0.0-8.0); MONOCYTE # 0.4 TH/MM3 (0-0.9); PLATELET COUNT 128 TH/MM3 (150-450); RED BLOOD COUNT 3.77 MIL/MM3 (4.00-5.30); RED CELL DISTRIBUTION WIDTH 19.3 % (11.6-17.2); WHITE BLOOD COUNT 8.3 TH/MM3 (4.0-11.0)
[2017-07-27 13:02] LABS: INTERNATIONAL NORMALIZED RATIO 1.3 RATIO; PROTHROMBIN TIME - PATIENT 13.3 SEC (9.8-11.6)
[2017-07-27 13:05] LABS: ALT (GPT) 9 U/L (10-53)
[2017-07-27 13:27] LABS: ALBUMIN 2.4 GM/DL (3.4-5.0); ALKALINE PHOSPHATASE 157 U/L (45-117); AST (GOT) 18 U/L (15-37); BICARBONATE 14.5 MEQ/L (21.0-32.0); BLOOD UREA NITROGEN 102 MG/DL (7-18); CALCIUM 7.7 MG/DL (8.5-10.1); CHLORIDE 106 MEQ/L (98-107); CREATININE 8.93 MG/DL (0.50-1.00); GLOMERULAR FILTRATION RATE 4 ML/MIN (>89); GLUCOSE,RANDOM 179 MG/DL (74-106); SODIUM (NA) 136 MEQ/L (136-145); TOTAL BILIRUBIN ADULT 0.6 MG/DL (0.2-1.0); TOTAL PROTEIN 7.1 GM/DL (6.4-8.2); TROPONIN I 0.11 NG/ML (0.02-0.05)
--- NOTE | 2017-07-27 13:36 | RADRPT ---
EXAM DATE/TIME: 07/27/2017 13:14 [place] COMPARISON: CT BRAIN W/O CONTRAST, June 13, 2017, 11:45. INDICATIONS : Altered mental status. RADIATION DOSE: 66.34 CTDIvol (mGy) ; Tabletop CT Head MEDICAL HISTORY : Cardiovascular disease. Renal failure, chronic. Hypertension. SURGICAL HISTORY : None. ENCOUNTER: Initial ACUITY: 1 day PAIN SCALE: Non-responsive LOCATION: cranial TECHNIQUE: Multiple contiguous axial images were obtained of the head. Using automated exposure control and adj ustment of the mA and/or kV according to patient size, radiation dose was kept as low as reasonably a chievable to obtain optimal diagnostic quality images. DICOM format image data is available electro nically for review and comparison. FINDINGS: CEREBRUM: The ventricles are normal for age. No evidence of midline shift, mass lesion, hemorrhage or acute in farction. No extra-axial fluid collections are seen. POSTERIOR FOSSA: The cerebellum and brainstem are intact. The 4th ventricle is midline. The cerebellopontine angle i s unremarkable. EXTRACRANIAL: The visualized portion of the orbits is intact. SKULL: The calvaria is intact. No evidence of skull fracture. CONCLUSION: No acute intracranial process, trauma or fracture. Benedicto Pérez MD on July 27, 2017 at 13:29 Board Certified Radiologist. This report was verified electronically.
[2017-07-27 14:30] VITALS: BP 129/91; PULSE 61; RESP 19; O2SAT 100
[2017-07-27] MEDS ORDERED: BISACODYL 10 MG SUPP RECTAL PRN (14:45)
[2017-07-27] MEDS ORDERED: LACTULOSE SYRUP 20 GM/30 ML CUP PO PRN (14:45)
[2017-07-27] MEDS ORDERED: NALOXONE HCL 0.4 MG/ML AMP IV PUSH PRN (14:45)
[2017-07-27] MEDS ORDERED: MAGNESIUM HYDROXIDE SUSP 30 ML CUP PO PRN (14:45)
[2017-07-27] MEDS ORDERED: ACETAMINOPHEN 325 MG TAB PO PRN (14:45)
[2017-07-27] MEDS ORDERED: SENNOSIDES 8.6 MG TAB PO PRN (14:45)
[2017-07-27] MEDS ORDERED: SODIUM CHLORIDE 0.9% FLUSH 10 ML FLUSH IV FLUSH PRN (14:45)
[2017-07-27] MEDS ORDERED: ONDANSETRON HCL 4 MG/2 ML VIAL IVP PRN (14:45)
--- NOTE | 2017-07-27 14:49 | HHI.HP ---
[facility] Unknown Admission Diagnosis Diagnoses: Chief Complaint: altered mental status Travel History International Travel<30 Days: No Contact w/Intl Traveler <30 Da: No Traveled to Known Affected Are: No History of Present Illness 71 year old female with PMH of end-stage renal disease on hemodialysis Tuesdays and Saturdays, combined systolic and diastolic heart failure ejection fraction 30%, coronary disease with a stent LAD 2014, h.o GIB and ulcers, history of C. difficile and ESBL positive Klebsiella UTI. She is also a history of depression on chronic clonazepam. She is on aspirin and Plavix. Was sent by [facility] for evaluation of altered mental status. Patient is here alert and oriented x2. Review of Systems ROS Limitations: Clinical Condition, Altered Mental Status, Poor Historian Except as stated in HPI: all other systems reviewed are Neg Past Family Social History Past Medical History Dementia disorder NOS Anxiety disorder NOS Combined chronic systolic and diastolic heart failure ejection fraction 30% COPD with ongoing tobaccoism End-stage renal disease on hemodialysis Saturday/Saturday with [facility] History of C. difficile History of ESBL positive Klebsiella UTI Hypertension Dyslipidemia Chronic Clopidogrel use Past Surgical History D&C EGD Flexible sigmoidoscopy Left upper extremity fistula Stent LAD 2014 T&A Reported Medications Reported Meds & Active Scripts Active Meclizine (Meclizine HCl) 25 Mg Tab 25 Mg PO TID PRN 5 Days Clonazepam 0.5 Mg Tab 0.5 Mg PO BID Paroxetine (Paroxetine HCl) 10 Mg Tab 10 Mg PO DAILY Adult Aspirin EC Low Strength (Aspirin) 81 Mg Tabec 81 Mg PO DAILY Plavix (Clopidogrel Bisulfate) 75 Mg Tab 75 Mg PO DAILY Reported Metoprolol Tartrate 25 Mg Tab 25 Mg PO BID Atorvastatin (Atorvastatin Calcium) 40 Mg Tab 40 Mg PO HS Fosrenol (Lanthanum Carbonate) 500 Mg Chew 500 Mg CHEW TID WITH MEALS Zoloft (Sertraline HCl) 50 Mg Tab Unknown Dose PO DAILY Allergies: Coded Allergies: niacin (Unverified Allergy, Severe, ANAPHALACTIC, 03/08/17) No Known Allergies (Unverified Allergy, Unknown, 03/08/17) Family History Paternal grandfather positive for coronary disease, hypertension and heart disease. Mother and father both with myocardial infarctions. Social History Smokes 1 pack per day since age 20. Occasional use. Denies IV drug use. Physical Exam Vital Signs Vital Signs Date Time Temp Pulse Resp B/P (MAP) Pulse Ox O2 Delivery O2 Flow Rate FiO2 07/27/17 14:30 61 19 129/91 (104) 100 Room Air 07/27/17 11:55 Room Air 07/27/17 11:49 97.7 92 16 134/68 (90) 100 Room Air Physical Exam GENERAL: This is a well-nourished, well-developed patient, in no apparent distress. SKIN: No rashes, ecchymoses or lesions. Cool and dry. HEAD: Atraumatic. Normocephalic. No temporal or scalp tenderness. EYES: Pupils equal round and reactive. Extraocular motions intact. No scleral icterus. No injection or drainage. ENT: Nose without bleeding, purulent drainage or septal hematoma. Throat without erythema, tonsillar hypertrophy or exudate. Uvula midline. Airway patent. NECK: Trachea midline. No JVD or lymphadenopathy. Supple, nontender, no meningeal signs. CARDIOVASCULAR: Regular rate and rhythm without murmurs, gallops, or rubs. RESPIRATORY: Clear to auscultation. Breath sounds equal bilaterally. No wheezes , rales, or rhonchi. GASTROINTESTINAL: Abdomen soft, non-tender, nondistended. No hepato-splenomegaly , or palpable masses. No guarding. MUSCULOSKELETAL: Extremities without clubbing, cyanosis, or edema. No joint tenderness, effusion, or edema noted. No calf tenderness. Negative Homans sign bilaterally. NEUROLOGICAL: Awake and alert. Cranial nerves II through XII intact. Motor and sensory grossly within normal limits. Five out of 5 muscle strength in all muscle groups. Normal speech. Laboratory Laboratory Tests Test 07/27/17 12:10 07/27/17 14:25 White Blood Count 8.3 Red Blood Count 3.77 Hemoglobin 11.9 Hematocrit 37.7 Mean Corpuscular Volume 99.8 Mean Corpuscular Hemoglobin 31.5 Mean Corpuscular Hemoglobin Concent 31.6 Red Cell Distribution Width 19.3 Platelet Count 128 Mean Platelet Volume 7.6 Neutrophils (%) (Auto) 90.0 Lymphocytes (%) (Auto) 3.7 Monocytes (%) (Auto) 5.3 Eosinophils (%) (Auto) 0.8 Basophils (%) (Auto) 0.2 Neutrophils # (Auto) 7.5 Lymphocytes # (Auto) 0.3 Monocytes # (Auto) 0.4 Eosinophils # (Auto) 0.1 Basophils # (Auto) 0.0 CBC Comment DIFF FINAL Differential Comment Prothrombin Time 13.3 Prothromb Time International Ratio 1.3 Activated Partial Thromboplast Time 31.9 Blood Urea Nitrogen 102 Creatinine 8.93 Random Glucose 179 Total Protein 7.1 Albumin 2.4 Calcium Level 7.7 Alkaline Phosphatase 157 Aspartate Amino Transf (AST/SGOT) 18 Alanine Aminotransferase (ALT/SGPT) 9 Total Bilirubin 0.6 Sodium Level 136 Potassium Level 4.1 Chloride Level 106 Carbon Dioxide Level 14.5 Anion Gap 16 Estimat Glomerular Filtration Rate 4 Ammonia 33 Total Creatine Kinase 74 Troponin I 0.11 Thyroid Stimulating Hormone 3rd Gen 3.610 Ethyl Alcohol Level LESS THAN 3 Result Diagram: 07/27/17 1210 07/27/17 1210 Imaging Last Impressions Head CT 07/27/17 1207 Signed Impressions: Service Date/Time: Thursday, July 27, 2017 13:14 - CONCLUSION: No acute intracranial process, trauma or fracture. Benedicto Pérez MD Chest X-Ray 07/27/17 1207 Signed Impressions: Service Date/Time: Thursday, July 27, 2017 12:10 - CONCLUSION: No acute disease. There is mild scarring. MD Darwin Flores VTE Risk Assessment Caprini VTE Risk Assessment: Mod/High Risk (score >= 2) Caprini Risk Assessment Model Point Value = 1 Point Value = 2 Point Value = 3 Point Value = 5 Age 41-60 Minor surgery BMI > 25 kg/m2 Swollen legs Varicose veins or History of unexplained or recurrent spontaneous Oral contraceptives or hormone replacement Sepsis (< 1 month) Serious lung disease, including pneumonia (< 1 month) Abnormal pulmonary function Acute myocardial infarction Congestive heart failure (< 1 month) History of inflammatory bowel disease Medical patient at bed rest Age 61-74 Arthroscopic surgery Major open surgery (> 45 min) Laparoscopic surgery (> 45 min) Malignancy Confined to bed (> 72 hours) Immobilizing plaster cast Central venous access Age >= 75 History of VTE Family history of VTE Factor V Leiden Prothrombin [id number] Lupus anticoagulant Anticardiolipin antibodies Elevated serum homocysteine Heparin-induced thrombocytopenia Other congenital or acquired thrombophilia Stroke (< 1 month) Elective arthroplasty Hip, pelvis, or leg fracture Acute spinal cord injury (< 1 month) Prophylaxis Regimen Total Risk Factor Score Risk Level Prophylaxis Regimen 0-1 Low Early ambulation 2 Moderate Order ONE of the following: *Sequential Compression Device (SCD) *Heparin 5000 units SQ BID 3-4 Higher Order ONE of the following medications: *Heparin 5000 units SQ TID *Enoxaparin/Lovenox 40 mg SQ daily (WT < 150 kg, CrCl > 30 mL/min) *Enoxaparin/Lovenox 30 mg SQ daily (WT < 150 kg, CrCl > 10-29 mL/min) *Enoxaparin/Lovenox 30 mg SQ BID (WT < 150 kg, CrCl > 30 mL/min) AND/OR *Sequential Compression Device (SCD) 5 or more Highest Order ONE of the following medications: *Heparin 5000 units SQ TID (Preferred with Epidurals) *Enoxaparin/Lovenox 40 mg SQ daily (WT < 150 kg, CrCl > 30 mL/min) *Enoxaparin/Lovenox 30 mg SQ daily (WT < 150 kg, CrCl > 10-29 mL/min) *Enoxaparin/Lovenox 30 mg SQ BID (WT < 150 kg, CrCl > 30 mL/min) AND *Sequential Compression Device (SCD) Assessment and Plan Assessment and Plan Acute encephalopathy poss 2/2 BZs also missed HD. Per son patient gets altered mental status when she is missing HD. Depression/anxiety Chronic benzodiazepine use Acetaminophen for fever/pain Holding home medication of clonazepam 0.5 mill grams by mouth twice a day End-stage renal disease on hemodialysis Saturday/Saturday with [facility]. Non compliant with HD. Consultation nephrology Dr Wu Atrial fibrillation/rate controlled Chronic systolic and diastolic heart failure ejection fraction 30% 10/21 Hypertension Dyslipidemia Coronary disease status post stent LAD 2014 Cont metoprolol 25 mg by mouth twice a day Cont aspirin 81 mg by mouth daily and Clopidogrel 75 mg by mouth daily COPD without exacerbation, duonebs History of grade D esophagitis, esophageal ulcers, gastric and duodenal sacral bulb ulcers H/O Acute blood loss anemia Chronic aspirin use Clopidogrel use History of C. difficile and ESBL positive Klebsiella UTI DVT - SCD/teds/lovenox per renal dose Cosma,Tish MD Jul 27, 2017 14:49
[2017-07-27] MEDS ORDERED: ENOXAPARIN SODIUM 30 MG/0.3 ML SYRINGE SQ SCH (16:00)
[2017-07-27 16:11] VITALS: O2SAT 100
[2017-07-27 16:41] VITALS: BP 123/66; PULSE 87; RESP 20; TEMP 97.5; O2SAT 99
[2017-07-27 20:40] VITALS: BP 129/67; PULSE 96; RESP 16; TEMP 98.7
[2017-07-27 21:23] VITALS: BP 164/66
[2017-07-27] MEDS: DOCUSATE SODIUM 50 MG/SENNA 8.6 MG TAB PO SCH (23:16)
[2017-07-27] MEDS: SODIUM CHLORIDE 0.9% FLUSH 10 ML FLUSH IV FLUSH SCH (23:16)
[2017-07-28] VITALS (7 sets, daily range): BP systolic 126–139; BP diastolic 61–82; PULSE 88–102; RESP 16–20; TEMP 98.5–98.7; O2SAT 97–99
[2017-07-28] MEDS: DOCUSATE SODIUM 50 MG/SENNA 8.6 MG TAB PO SCH ×2 (08:28→22:33)
[2017-07-28] MEDS: SODIUM CHLORIDE 0.9% FLUSH 10 ML FLUSH IV FLUSH SCH ×2 (08:28→22:33)
[2017-07-28 08:36] LABS: AUTOMATED NEUTROPHIL # 7.5 TH/MM3 (1.8-7.7); BASOPHIL # 0.1 TH/MM3 (0-0.2); BASOPHIL % 1.2 % (0.0-2.0); EOSINOPHIL # 0.2 TH/MM3 (0-0.4); EOSINOPHIL % 2.3 % (0.0-4.0); HEMATOCRIT 42.4 % (35.0-46.0); HEMOGLOBIN 13.4 GM/DL (11.6-15.3); LYMPH % 3.8 % (9.0-44.0); LYMPHOCYTE # 0.3 TH/MM3 (1.0-4.8); MEAN CORPUSCULAR HEMOGLOBIN 31.2 PG (27.0-34.0); MEAN CORPUSCULAR HGB CONC 31.5 % (32.0-36.0); MEAN PLATELET VOLUME 7.4 FL (7.0-11.0); MONO % 4.1 % (0.0-8.0); MONOCYTE # 0.3 TH/MM3 (0-0.9); NEUT % 88.6 % (16.0-70.0); PLATELET COUNT 135 TH/MM3 (150-450); RED BLOOD COUNT 4.29 MIL/MM3 (4.00-5.30); RED CELL DISTRIBUTION WIDTH 19.5 % (11.6-17.2); WHITE BLOOD COUNT 8.5 TH/MM3 (4.0-11.0)
[2017-07-28 09:03] LABS: ALT (GPT) 12 U/L (10-53); AST (GOT) 16 U/L (15-37); BICARBONATE 11.7 MEQ/L (21.0-32.0); BLOOD UREA NITROGEN 105 MG/DL (7-18); CALCIUM 8.2 MG/DL (8.5-10.1); CHLORIDE 107 MEQ/L (98-107); CREATININE 9.09 MG/DL (0.50-1.00); GLOMERULAR FILTRATION RATE 4 ML/MIN (>89); GLUCOSE,RANDOM 90 MG/DL (74-106); SODIUM (NA) 136 MEQ/L (136-145)
[2017-07-28 09:05] LABS: ALKALINE PHOSPHATASE 183 U/L (45-117); TOTAL BILIRUBIN ADULT 0.6 MG/DL (0.2-1.0); TOTAL PROTEIN 7.3 GM/DL (6.4-8.2)
--- NOTE | 2017-07-28 10:50 | HHI.PR ---
Subjective Remarks in no acute distress. awake and alert- oriented to person and place. afebrile. Objective Vitals Vital Signs Date Time Temp Pulse Resp B/P (MAP) Pulse Ox O2 Delivery O2 Flow Rate FiO2 07/28/17 07:47 99 21 07/28/17 07:06 98.7 102 16 139/82 (101) 99 07/28/17 04:09 88 16 132/61 (84) 07/28/17 01:19 89 16 131/62 (85) 07/27/17 20:40 98.7 96 16 129/67 (87) 07/27/17 16:41 97.5 87 20 123/66 (85) 99 07/27/17 16:38 07/27/17 16:11 100 07/27/17 14:30 61 19 129/91 (104) 100 Room Air 07/27/17 11:55 Room Air 07/27/17 11:49 97.7 92 16 134/68 (90) 100 Room Air Result Diagram: 07/28/17 0720 07/28/17 0720 Imaging Last Impressions Head CT 07/27/17 1207 Signed Impressions: Service Date/Time: Thursday, July 27, 2017 13:14 - CONCLUSION: No acute intracranial process, trauma or fracture. Benedicto Pérez MD Chest X-Ray 07/27/17 120 Signed Impressions: Service Date/Time: Thursday, July 27, 2017 12:10 - CONCLUSION: No acute disease. There is mild scarring. Srinivas Trevino MD Objective Remarks GENERAL: This is a well-nourished, well-developed patient, in no apparent distress. CARDIOVASCULAR: Regular rate and regular rhythm without murmurs, gallops, or rubs. RESPIRATORY: Clear to auscultation. Breath sounds equal bilaterally. No wheezes , rales, or rhonchi. GASTROINTESTINAL: Abdomen soft, non-tender, nondistended. Normal, active bowel sounds MUSCULOSKELETAL: Extremities without clubbing, cyanosis, or edema. NEURO: awake and alert- oriented to person and place. Medications and IVs Inpatient Medications Acetaminophen (Tylenol) 650 mg Q4H PRN PO TEMP > 100.4; Start 07/27/17 at 14:45 Bisacodyl (Dulcolax Supp) 10 mg DAILY PRN RECTAL SEVERE CONSITIPATION; Start at 14:45 Enoxaparin Sodium (Lovenox Inj) 30 mg Q24H SQ Last administered on 07/27/17at 15 :56; Start 07/27/17 at 16:00 Lactulose (Lactulose Liq) 30 ml DAILY PRN PO SEVERE CONSITIPATION; Start at 14:45 Magnesium Hydroxide (Milk Of Magnesia Liq) 30 ml Q12H PRN PO Mild constipation ; Start 07/27/17 at 14:45 Naloxone HCl (Narcan Inj) 0.4 mg UNSCH PRN IV PUSH SEE LABEL COMMENTS; Start at 14:45 Ondansetron HCl (Zofran Inj) 4 mg Q6H PRN IVP NAUSEA OR VOMITING; Start at 14:45 Senna/Docusate Sodium (Ro-Colace) 1 tab BID PO ; Start 07/27/17 at 21:00 Sennosides (Senokot) 17.2 mg Q12H PRN PO Moderate constipation; Start 07/27/17 at 14:45 Sodium Chloride (NS Flush) 2 ml BID IV FLUSH Last administered on 07/28/17at 08: 28; Start 07/27/17 at 21:00 A/P Assessment and Plan Acute encephalopathy poss 2/2 BZs also missed HD. Per son patient gets altered mental status when she is missing HD. Depression/anxiety Chronic benzodiazepine use Acetaminophen for fever/pain Holding home medication of clonazepam 0.5 mill grams by mouth twice a day End-stage renal disease on hemodialysis Saturday/Saturday with [facility]. Non compliant with HD. Consultation nephrology Dr Wu Atrial fibrillation/rate controlled Chronic systolic and diastolic heart failure ejection fraction 30% 10/21 Hypertension Dyslipidemia Coronary disease status post stent LAD 2014 Cont metoprolol 25 mg by mouth twice a day Cont aspirin 81 mg by mouth daily and Clopidogrel 75 mg by mouth daily COPD without exacerbation, duonebs as needed. History of grade D esophagitis, esophageal ulcers, gastric and duodenal sacral bulb ulcers History of C. difficile and ESBL positive Klebsiella UTI DVT - SCD/teds Marilin Renteria MD Jul 28, 2017 10:50
[2017-07-28] MEDS: CLOPIDOGREL 75 MG TAB PO SCH (11:57)
[2017-07-28] MEDS: ASPIRIN EC 81 MG TABEC PO SCH (11:57)
[2017-07-28] MEDS ORDERED: SODIUM CHLOR 0.9% 1000 ML INJ 1,000 ML OTHER PRN ×2 (12:33)
[2017-07-28] MEDS ORDERED: SODIUM CHLOR 0.9% 1000 ML INJ 1,000 ML IV PRN (12:33)
--- NOTE | 2017-07-28 12:37 | PD.CONS ---
HPI Service Nephrology Consult Requested By Dr. Velarde Reason for Consult ESRD on HD Primary Care Physician Unknown History of Present Illness Patient is a 71yo with a past medical history of end stage renal disease on hemodialysis Saturday and Saturday, congestive heart failure, chronic obstructive pulmonary disease, demenita/anxiety/depression, hypertension, and dyslipidemia. Per patient she only missed dialysis on Saturday but per records the dialysis center called and said she has not been there since 07/06. Floriculturist is Dr. Wu and per patient she does dialysis on Saturday and Saturday. 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 difficile History of ESBL positive Klebsiella UTI Hypertension Dyslipidemia Chronic Clopidogrel use Past Surgical History Past Medical History Dementia disorder NOS Anxiety disorder NOS D&C EGD Flexible sigmoidoscopy Left upper extremity fistula Stent LAD 2014 T&A Active Ordered Medications Current Medications Medications (Trade) Dose Ordered Sig/Diego Route Start Time Stop Time Status Last Admin (NS Flush) 2 ml UNSCH PRN IV FLUSH 07/27/17 14:45 (NS Flush) 2 ml BID IV FLUSH 07/27/17 21:00 07/28/17 08:28 (Tylenol) 650 mg Q4H PRN PO 07/27/17 14:45 (Zofran Inj) 4 mg Q6H PRN IVP 07/27/17 14:45 (Narcan Inj) 0.4 mg UNSCH PRN IV PUSH 07/27/17 14:45 (Ro-Colace) 1 tab BID PO 07/27/17 21:00 (Milk Of Magnesia Liq) 30 ml Q12H PRN PO 07/27/17 14:45 (Senokot) 17.2 mg Q12H PRN PO 07/27/17 14:45 (Dulcolax Supp) 10 mg DAILY PRN RECTAL 07/27/17 14:45 (Lactulose Liq) 30 ml DAILY PRN PO 07/27/17 14:45 (Ecotrin Ec) 81 mg DAILY PO 07/28/17 11:00 07/28/17 11:57 (Lipitor) 40 mg HS PO 07/28/17 21:00 (Plavix) 75 mg DAILY PO 07/28/17 11:00 07/28/17 11:57 (Lopressor) 25 mg BID PO 07/28/17 21:00 (Heparin Inj) 5,000 units Q12HR SQ 07/28/17 21:00 Future Hold Family History Paternal grandfather positive for coronary disease, hypertension and heart disease. Mother and father both with myocardial infarctions. Social History Smokes 1 pack per day since age 20. Occasional use. Denies IV drug use. (Annabella Zhu) Physical Exam Vital Signs Vital Signs Date Time Temp Pulse Resp B/P (MAP) Pulse Ox O2 Delivery O2 Flow Rate FiO2 07/28/17 07:47 99 21 07/28/17 07:06 98.7 102 16 139/82 (101) 99 07/28/17 04:09 88 16 132/61 (84) 07/28/17 01:19 89 16 131/62 (85) 07/27/17 20:40 98.7 96 16 129/67 (87) 07/27/17 16:41 97.5 87 20 123/66 (85) 99 07/27/17 16:38 07/27/17 16:11 100 07/27/17 14:30 61 19 129/91 (104) 100 Room Air Physical Exam GENERAL: Anxious, alert to person and place SKIN: Warm and dry. HEAD: Normocephalic. EYES: No scleral icterus. No injection or drainage. NECK: Supple, trachea midline. No JVD or lymphadenopathy. CARDIOVASCULAR: Regular rate and rhythm without murmurs, gallops, or rubs. RESPIRATORY: Breath sounds equal bilaterally. No accessory muscle use. GASTROINTESTINAL: Abdomen soft, non-tender, nondistended. MUSCULOSKELETAL: No cyanosis, or edema. BACK: Nontender without obvious deformity. No CVA tenderness. Laboratory Laboratory Tests Test 07/27/17 14:25 07/28/17 07:20 Salicylates Level 4.4 Acetaminophen Level LESS THAN 2.0 White Blood Count 8.5 Red Blood Count 4.29 Hemoglobin 13.4 Hematocrit 42.4 Mean Corpuscular Volume 99.0 Mean Corpuscular Hemoglobin 31.2 Mean Corpuscular Hemoglobin Concent 31.5 Red Cell Distribution Width 19.5 Platelet Count 135 Mean Platelet Volume 7.4 Neutrophils (%) (Auto) 88.6 Lymphocytes (%) (Auto) 3.8 Monocytes (%) (Auto) 4.1 Eosinophils (%) (Auto) 2.3 Basophils (%) (Auto) 1.2 Neutrophils # (Auto) 7.5 Lymphocytes # (Auto) 0.3 Monocytes # (Auto) 0.3 Eosinophils # (Auto) 0.2 Basophils # (Auto) 0.1 CBC Comment DIFF FINAL Differential Comment Blood Urea Nitrogen 105 Creatinine 9.09 Random Glucose 90 Total Protein 7.3 Albumin 2.0 Calcium Level 8.2 Alkaline Phosphatase 183 Aspartate Amino Transf (AST/SGOT) 16 Alanine Aminotransferase (ALT/SGPT) 12 Total Bilirubin 0.6 Sodium Level 136 Potassium Level 4.0 Chloride Level 107 Carbon Dioxide Level 11.7 Anion Gap 17 Estimat Glomerular Filtration Rate 4 (Annabella Zhu) Result Diagram: 07/28/17 0720 07/28/17 0720 Imaging Last Impressions Head CT 07/27/17 1207 Signed Impressions: Service Date/Time: Thursday, July 27, 2017 13:14 - CONCLUSION: No acute intracranial process, trauma or fracture. Benedicto Pérez MD Chest X-Ray 07/27/17 1207 Signed Impressions: Service Date/Time: Thursday, July 27, 2017 12:10 - CONCLUSION: No acute disease. There is mild scarring. Srinivas Trevino MD (Annabella Zhu) Assessment and Plan Problem List: (1) ESRD (end stage renal disease) on dialysis ICD Codes: N18.6 - End stage renal disease; Z99.2 - Dependence on renal dialysis Status: Chronic Plan: On Saturday/Saturday HD schedule per records last dialysis 07/06 Plan Dialysis planned for today orders placed HCO3 low will order replacement Monitor electrolytes, replace as needed Avoid IVF (2) HTN (hypertension) ICD Codes: I10 - Essential (primary) hypertension Status: Chronic Plan: will monitor (Annabella Zhu) Problem List: (1) ESRD (end stage renal disease) on dialysis ICD Codes: N18.6 - End stage renal disease; Z99.2 - Dependence on renal dialysis Status: Chronic Plan: On Saturday/Saturday HD schedule per records last dialysis 07/06 Plan Dialysis planned for today orders placed HCO3 low will order replacement Monitor electrolytes, replace as needed Avoid IVF. Patient seen and examined, agree with above. HD today, Dr. Farnsworth will follow in AM. (2) HTN (hypertension) ICD Codes: I10 - Essential (primary) hypertension Status: Chronic Plan: will monitor (Alonzo Jamison MD) Annabella Zhu Jul 28, 2017 12:37 Alonzo Jamison MD Jul 28, 2017 15:00
[2017-07-28] MEDS ORDERED: HEPARIN SODIUM - IV 10,000 UNITS/10 ML VIAL PRN (12:45)
[2017-07-28] MEDS ORDERED: MANNITOL 12.5 GM/50 ML VIAL IV PRN (12:45)
[2017-07-28] MEDS ORDERED: cloNIDine HCL 0.1 MG TAB PO PRN (12:45)
[2017-07-28] MEDS ORDERED: HEPARIN SODIUM - IV 10,000 UNITS/10 ML VIAL IV FLUSH PRN (12:45)
[2017-07-28] MEDS ORDERED: NITROGLYCERIN 0.4 MG SL 25 TABS/BTL SL PRN (12:45)
[2017-07-28] MEDS ORDERED: GELATIN 12 MM/7 MM FOAM TOP PRN (12:45)
[2017-07-28] MEDS ORDERED: diphenhydrAMINE HCL 25 MG CAP PO PRN (12:45)
[2017-07-28] MEDS ORDERED: ALBUMIN 25% INJ 100 ML IV PRN (12:45)
[2017-07-28] MEDS ORDERED: ACETAMINOPHEN 325 MG TAB PO PRN (12:45)
[2017-07-28] MEDS ORDERED: ONDANSETRON HCL 4 MG/2 ML VIAL IV PUSH PRN (12:45)
[2017-07-28] MEDS ORDERED: SODIUM CHLORIDE 0.9% FLUSH 10 ML FLUSH IV FLUSH PRN (12:45)
[2017-07-28] MEDS ORDERED: SODIUM BICARBONATE 8.4% INJ 50 MEQ/50 ML SYR IV ONE (19:15)
[2017-07-28] MEDS ORDERED: metroNIDAZOLE 500 MG INJ 100 ML IV SCH (19:30)
[2017-07-28] MEDS ORDERED: HEPARIN SODIUM - SQ 10,000 UNITS/ML VIAL SQ SCH (21:00)
[2017-07-28] MEDS ORDERED: metroNIDAZOLE 500 MG TAB PO SCH (22:00)
[2017-07-28] MEDS: METOPROLOL TARTRATE 25 MG TAB PO SCH (22:33)
[2017-07-28] MEDS: ATORVASTATIN 40 MG TAB PO SCH (22:33)
[2017-07-28] MEDS: SODIUM BICARBONATE 650 MG TAB PO SCH (22:33)
[2017-07-28] MEDS: VANCOMYCIN 500 MG VIAL (FOR ORAL USE ONLY) PO SCH (22:33)
[2017-07-29] VITALS (11 sets, daily range): BP systolic 112–137; BP diastolic 58–79; PULSE 67–80; RESP 16–18; TEMP 97.7–98.8; O2SAT 94–100
--- NOTE | 2017-07-29 00:47 | EKG ---
Date Performed: 07/27/2017 Time Performed: 11:55:06 PTAGE: 71 years EKG: Sinus rhythm WITH FREQUENT VENTRICULAR PREMATURE COMPLEXES POSSIBLE ANTERIOR MYOCARDIAL INFARCTION ABNORMAL ECG I NTERPRETATION BASED ON A DEFAULT AGE OF 40 YEARS PREVIOUS TRACING : 06/13/2017 11.06 Since the previous tracing, no significant change not ed DOCTOR: William Rivera Interpretating Date/Time 07/29/2017 00:45:54
[2017-07-29] MEDS: VANCOMYCIN 500 MG VIAL (FOR ORAL USE ONLY) PO SCH ×4 (02:00→21:58)
[2017-07-29 06:35] LABS: BICARBONATE 16.7 MEQ/L (21.0-32.0); CALCIUM 7.8 MG/DL (8.5-10.1); CREATININE 8.56 MG/DL (0.50-1.00)
[2017-07-29] MEDS: SODIUM BICARBONATE 650 MG TAB PO SCH ×2 (07:57→22:00)
[2017-07-29] MEDS: CLOPIDOGREL 75 MG TAB PO SCH (07:57)
[2017-07-29] MEDS: ASPIRIN EC 81 MG TABEC PO SCH (07:57)
[2017-07-29] MEDS: SODIUM CHLORIDE 0.9% FLUSH 10 ML FLUSH IV FLUSH SCH ×2 (07:57→22:01)
[2017-07-29] MEDS: DOCUSATE SODIUM 50 MG/SENNA 8.6 MG TAB PO SCH ×2 (07:57→19:45)
[2017-07-29] MEDS: METOPROLOL TARTRATE 25 MG TAB PO SCH ×2 (07:58→22:00)
--- NOTE | 2017-07-29 09:46 | HHI.PR ---
Subjective Remarks in no acute distress. denies pain. awake and alert. no sob. Objective Vitals Vital Signs Date Time Temp Pulse Resp B/P (MAP) Pulse Ox O2 Delivery O2 Flow Rate FiO2 07/29/17 09:04 97.7 73 16 121/63 (82) 98 07/29/17 04:12 98.2 77 16 117/67 (84) 97 07/29/17 01:09 98.0 72 16 112/64 (80) 97 07/28/17 20:43 98.7 94 16 134/69 (90) 97 07/28/17 17:45 98.5 92 20 126/64 (84) 97 07/28/17 13:03 98.5 90 18 128/69 (88) 97 I/O 07/28/17 07/28/17 07/28/17 07/29/17 07/29/17 07/29/17 07:00 15:00 23:00 07:00 15:00 23:00 Intake Total 50 ml Balance 50 ml Intake Oral 50 ml Result Diagram: 07/28/17 0720 07/29/17 0554 Imaging Last Impressions Head CT 07/27/17 1207 Signed Impressions: Service Date/Time: Thursday, July 27, 2017 13:14 - CONCLUSION: No acute intracranial process, trauma or fracture. Benedicto Pérez MD Chest X-Ray 07/27/17 1207 Signed Impressions: Service Date/Time: Thursday, July 27, 2017 12:10 - CONCLUSION: No acute disease. There is mild scarring. Srinivas Trevino MD Objective Remarks GENERAL: This is a well-nourished, well-developed patient, in no apparent distress. CARDIOVASCULAR: Regular rate and regular rhythm without murmurs, gallops, or rubs. RESPIRATORY: Clear to auscultation. Breath sounds equal bilaterally. No wheezes , rales, or rhonchi. GASTROINTESTINAL: Abdomen soft, non-tender, nondistended. Normal, active bowel sounds MUSCULOSKELETAL: Extremities without clubbing, cyanosis, or edema. NEURO: awake and alert- oriented to person and place. Medications and IVs Inpatient Medications Acetaminophen (Tylenol) 650 mg UNSCH PRN PO for headach, pain, temp > 101F; Start 07/28/17 at 12:45 Albumin Human 100 ml @ 60 mls/hr UNSCH PRN IV WITH DIALYSIS; Start 07/28/17 at 12:45 Aspirin (Ecotrin Ec) 81 mg DAILY PO Last administered on 07/29/17at 07:57; Start 07/28/17 at 11:00 Atorvastatin Calcium (Lipitor) 40 mg HS PO Last administered on 07/28/17at 22:33 ; Start 07/28/17 at 21:00 Bisacodyl (Dulcolax Supp) 10 mg DAILY PRN RECTAL SEVERE CONSITIPATION; Start at 14:45 Clonidine (Catapres) 0.1 mg UNSCH PRN PO for BP > 180/100 X 2 readings; Start 07/28/17 at 12:45 Clopidogrel Bisulfate (Plavix) 75 mg DAILY PO Last administered on 07/29/17at 07 :57; Start 07/28/17 at 11:00; Status Future Hold Diphenhydramine HCl (Benadryl) 25 mg UNSCH PRN PO for hives/itching/anaphylaxis ; Start 07/28/17 at 12:45 Enoxaparin Sodium (Lovenox Inj) 30 mg Q24H SQ Last administered on 07/27/17at 15 :56; Start 07/27/17 at 16:00; Stop 07/28/17 at 10:52; Status DC Gelatin (Gelfoam 12 Mm/7 Mm Top) 1 foam UNSCH PRN TOP SEE LABEL COMMENTS; Start 07/28/17 at 12:45 Gentamicin Sulfate (Gentamicin Inj) 20 mg UNSCH PRN OTHER WITH DIALYSIS; Start 07/28/17 at 12:45 Heparin Sodium (Porcine) (Heparin Inj) UNSCH PRN .XX WITH DIALYSIS; Start at 12:45 Lactulose (Lactulose Liq) 30 ml DAILY PRN PO SEVERE CONSITIPATION; Start at 14:45 Magnesium Hydroxide (Milk Of Magnesia Liq) 30 ml Q12H PRN PO Mild constipation ; Start 07/27/17 at 14:45 Mannitol (Mannitol Inj) 12.5 gm UNSCH PRN IV WITH DIALYSIS; Start 07/28/17 at 12:45 Metoprolol Tartrate (Lopressor) 25 mg BID PO Last administered on 07/29/17at 07: 58; Start 07/28/17 at 21:00 Metronidazole 100 ml @ 100 mls/hr Q8H IV ; Start 07/28/17 at 19:30; Stop at 19:33; Status DC Metronidazole (Flagyl) 500 mg Q8HR PO ; Start 07/28/17 at 22:00; Stop 07/28/17 at 22:00; Status DC Naloxone HCl (Narcan Inj) 0.4 mg UNSCH PRN IV PUSH SEE LABEL COMMENTS; Start at 14:45 Nitroglycerin (Nitrostat Sl) 0.4 mg UNSCH PRN SL CHEST PAIN; Start 07/28/17 at 12:45 Ondansetron HCl (Zofran Inj) 4 mg UNSCH PRN IV PUSH WITH DIALYSIS; Start at 12:45 Senna/Docusate Sodium (Ro-Colace) 1 tab BID PO Last administered on at 07:57; Start 07/27/17 at 21:00 Sennosides (Senokot) 17.2 mg Q12H PRN PO Moderate constipation; Start 07/27/17 at 14:45 Sodium Bicarbonate (Sodium Bicarbonate 8.4% Inj) 50 meq NOW ONCE IV Last administered on 07/28/17at 22:33; Start 07/28/17 at 19:15; Stop 07/28/17 at 19:16 ; Status DC Sodium Bicarbonate (Sodium Bicarbonate) 650 mg Q12HR PO Last administered on at 07:57; Start 07/28/17 at 21:00 Sodium Chloride (NS Flush) 5 ml UNSCH PRN IV FLUSH WITH DIALYSIS; Start at 12:45 Vancomycin HCl (VANCOMYCIN for oral use only) 125 mg Q6H PO Last administered on 07/29/17at 07:58; Start 07/28/17 at 20:00 A/P Assessment and Plan Acute encephalopathy poss 2/2 BZs also missed HD. Per son patient gets altered mental status when she is missing HD. Depression/anxiety Chronic benzodiazepine use Acetaminophen for fever/pain Holding home medication of clonazepam 0.5 mill grams by mouth twice a day End-stage renal disease on hemodialysis Saturday/Saturday with [facility]. Non compliant with HD. clotted AV fistual Consultation nephrology Dr Wu. IR consulted. Atrial fibrillation/rate controlled Chronic systolic and diastolic heart failure ejection fraction 30% 10/21 Hypertension Dyslipidemia Coronary disease status post stent LAD 2015 Cont metoprolol 25 mg by mouth twice a day hold plavix for now since IR consulted . C diff colitis; started on Vanco- will monitor. COPD without exacerbation, duonebs as needed. History of grade D esophagitis, esophageal ulcers, gastric and duodenal sacral bulb ulcers History of ESBL positive Klebsiella UTI DVT - SCD/teds Discharge Planning awaiting nephrology and IR evaluation. Marilin Renteria MD Jul 29, 2017 09:46
--- NOTE | 2017-07-29 10:51 | HHI.NPPN ---
Subjective General Problems: Anemia, Edema, Heart Disease, Hypertension, Mebatolic Acidosis Renal Failure: Chronic, End Stage Renal Disease Interval History She is slow to respond. Looks ill. Last dialysis 07/06. Her AVF is clotted therefore did not have HD yesterday. On Plavix daily. IR informed us they require a 5 day hold on antiplatelet medications however given risk of permanent loss of AV access, risk of bleeding is outweighed by benefit. IR ( radiologist) agreed to attempt declotting. She has been made NPO. Has severe pain, is hypersensitive to palpation. Also has new blister no left leg. Seems confused. (Mily Gray) Review of Systems General Constitutional: Fatigue (Mily Gray) Cardiovascular Cardiac: Edema (Mily Grya) Gastrointestinal Gastrointestinal: Nausea & Vomiting (Mily Gray) Skin Skin: Skin Rash, Lesions (Mily Gray) Psych Psych: Depression (Mily Gray) Objective Data Data Vital Signs Date Time Temp Pulse Resp B/P (MAP) Pulse Ox O2 Delivery O2 Flow Rate FiO2 07/29/17 09:04 97.7 73 16 121/63 (82) 98 07/29/17 04:12 98.2 77 16 117/67 (84) 97 07/29/17 01:09 98.0 72 16 112/64 (80) 97 07/28/17 20:43 98.7 94 16 134/69 (90) 97 07/28/17 17:45 98.5 92 20 126/64 (84) 97 07/28/17 13:03 98.5 90 18 128/69 (88) 97 (Mily Gray) -: 07/28/17 0720 07/29/17 0554 Imaging Last [address] 07/27/17 1207 Signed Impressions: Service Date/Time: Thursday, July 27, 2017 13:14 - CONCLUSION: No acute intracranial process, trauma or fracture. Benedicto Pérez MD Chest X-Ray 07/27/17 1207 Signed Impressions: Service Date/Time: Thursday, July 27, 2017 12:10 - CONCLUSION: No acute disease. There is mild scarring. Srinivas Trevino MD (Mily Gray B. BAR TENDER) Physical Exam General Appearance: No Acute Distress, Comfortable, Malnourished Appearance Remarks flat affect (Mily Gray B. BAR TENDER) Eyes Eye Exam: Pupils Equal, Pupils Reactive (Mily Gray B. BAR TENDER) Throat Throat Exam: Oral Mucosa [place] & Moist (Oleg Grayon B. BAR TENDER) Pulmonary Resp Exam: Breath Sounds Equal, Crackles (Mily Gray B. BAR TENDER) Cardiology CV Exam: Regular, Normal Sinus Rhythm (Mily Gray B. BAR TENDER) Gastrointestinal/Abdomen GI Exam: Soft, Non-Tender (Mily Gray B. BAR TENDER) Musculoskeletal MS Exam: Normal Tone, Atrophy, Unable to Ambulate (Mily Gray B. BAR TENDER) Integumentary Skin Exam: Warm, Dry Skin Remarks dark blister left leg, medial thigh (Mily Gray B. BAR TENDER) Extremeties Extremities Exam: Pedal Pulses Palpable, Moderate Edema (Mily Gray B. BAR TENDER) Neurologic Neuro Exam: Awake, Speech Clear (Mily Gray. BAR TENDER) Assessment/Plan Discussed Condition With: Patient Assessment Summary: Fluid/Volume Overload, CHF, Hypertension, End Stage Renal Disease Problem List: (1) ESRD (end stage renal disease) on dialysis ICD Codes: N18.6 - End stage renal disease; Z99.2 - Dependence on renal dialysis Status: Chronic Plan: Typical Saturday/Saturday HD schedule outpatient, last HD 07/06 Needs dialysis has metabolic acidosis, should correct with HD D/W radiologist, pt is NPO, to attempt declotting today. Plavix on hold (she is NPO) HD today if successful. If not will need vascath placed Repeat labs daily. Phosphorus level added on Avoid IVF, gadolinium is contraindicated High protein diet when no longer NPO (2) HTN (hypertension) ICD Codes: I10 - Essential (primary) hypertension Status: Chronic Plan: Monitor blood pressure, titrate medications as needed (3) C. difficile colitis ICD Codes: A04.7 - Enterocolitis due to Clostridium difficile Status: Acute Plan: On PO Vancomycin Also contact precautions (4) Tobacco abuse ICD Codes: Z72.0 - Tobacco use Status: Chronic Plan: Counseled on cessation of ETOH and tobacco (5) Combined systolic and diastolic congestive heart failure ICD Codes: I50.40 - Unspecified combined systolic (congestive) and diastolic ( congestive) heart failure Status: Acute Plan: Monitor fluid status UF as tolerated with dialysis (Mily Gray) Plan patient was seen and examined. Totally non compliant patient, presented with uremia. Patient's access is clotted. I discussed with radiology about declotting. Later, it was declotted, but there was oozing of blood, dialysis could not be accomplished. (Arvin Farnsworth MD) Mily Gray Jul 29, 2017 10:51 Arvin Farnsworth MD Jul 30, 2017 10:10
[2017-07-29] MEDS ORDERED: MIDAZOLAM HCL 2 MG/2 ML VIAL ONE (14:00)
[2017-07-29] MEDS ORDERED: ALTEPLASE RECOMBINANT 2 MG VIAL ONE (14:49)
--- NOTE | 2017-07-29 15:53 | PD.RAD ---
Post Procedure Progress Note Pre Procedure Diagnosis: (1) AV graft thrombosis Post Procedure Diagnosis: (1) AV graft thrombosis Procedure Date: Jul 29, 2017 Supervising Radiologist: Adrian Sánchez Proceduralist/Assist: RT Linda(R), RT Nicolette(R) Anesthesia: Conscious Sedation Plan of Activity Patient to Unit: [facility] Patient Condition: Good See PACS Report for procedural detail/treatment Vascular-Venous Procedure Procedure 1 Procedure Site: Left Arm Procedure(s): AV Graft/Fistula Evaluation Procedure 2 Procedure Site: Left Arm Procedure(s): Angioplasty, Thrombolysis Access Access Site(s): Graft/Fistula Adrian Sánchez MD Jul 29, 2017 15:53
--- NOTE | 2017-07-29 16:07 | RADRPT ---
EXAM DATE/TIME: 07/29/2017 13:25 [facility] COMPARISON: No previous studies available for comparison. INDICATIONS : Patient presents with non functioning fistula in left arm, here for repair. 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 difficile History of ESBL positive Klebsiella UTI Hypertension Dyslipidemia Chronic Clopidogrel use SURGICAL HISTORY : D&C EGD Flexible sigmoidoscopy Left upper extremity fistula Stent LAD 2014 T&A ENCOUNTER: Initial ACUITY: 2 days PAIN SCORE: 7/10 LOCATION: Bilateral legs FLUORO TIME: 6.7 minutes IMAGE SERIES: 7 ACCESS SITE: Left Basilic vein SEDATION TIME: 45 minutes CONTRAST: 1.) 70 cc Visipaque (iodixanol) MEDICATION(S): 1.) 1 mg midazolam (Versed) IV 2.) 75 mcg fentanyl (Sublimaze) IV DEVICE(S): 1.) Left stent (balloon expanding) 6x40 tank charger balloon PROCEDURE : 1. Ultrasound guided puncture of the arterial limb of the fistula. 2. Ultrasound guided puncture of the venous limb of the fistula. 3. Evaluation of dialysis graft. 4. TPA thrombolysis of dialysis graft. 5. Mechanical thrombolysis of dialysis graft. 6. Angioplasty of the venous anastomosis. 7. Angioplasty of the arterial anastomosis. 8. Upper extremity venogram. 9. Superior venacavogram. 10. Conscious sedation with continuous EKG and oximetry monitoring. The risks, benefits and alternatives to the procedure were explained and verbal and written consent w as obtained. The site was prepped in sterile fashion. Full sterile technique was used, including cap, mask, steri le gloves and gown and a large sterile sheet. Hand hygiene and 2% chlorhexidine and/or betadine/alco hol prep was utilized per protocol for cutaneous antisepsis. Sterile gel and sterile probe cover wer e utilized for ultrasound guidance. The skin and subcutaneous tissues were infiltrated with local an esthetic solution. With ultrasound and fluoroscopic guidance the arterial limb of the fistula was punctured directed tow ronn the venous anastomosis and a 6 Syrian sheath was placed. A Berenstein catheter was at advanced t hrough the clotted portion of the graft into the superior vena cava where a superior cavogram was per formed in the AP projection. This demonstrates no evidence of central venous stenosis. The catheter was then retracted where venogram of the upper extremity was performed. A fistulogram was performed through the previously placed sheath demonstrating thrombus within the fistula. Following this thro ugh the previously placed sheath 6 mg of TPA and 5000 units of heparin were placed within the fistula . Mechanical thrombectomy of the graft was performed using a partially inflated balloon and angioplas ty was then performed with a fully inflated 6 mm balloon at the level of the venous anastomosis. Fol lowup angiography demonstrates resolution of the clot within the fistula. Attention was then turned to the arterial limb fistula. With ultrasound and and fluoroscopic guidanc e the venous limb of the fistula was punctured towards the arterial anastomosis and a 6 Syrian sheath was placed. A guidewire was advanced through the arterial anastomosis where angioplasty was perform ed at this level. Followup examination the fistula demonstrates good flow through the fistula and no evidence of residual stenosis. The patient tolerated the procedure well and there were no complications. Conscious sedation was per formed with the prescribed dosages and duration as above in the presence of an independent trained ra diology nurse to assist in the monitoring of the patient. EKG and oximetry remained stable throughou t the procedure. CONCLUSION: Uncomplicated declotting of thrombosed fistula. Adrian Sánchez MD on July 29, 2017 at 16:04 Board Certified Radiologist. This report was verified electronically.
[2017-07-29] MEDS ORDERED: THROMBIN (TOPICAL) 5,000 UNIT VIAL ONE (17:40)
--- NOTE | 2017-07-29 18:09 | PD.RAD ---
Radiology Note Called to [facility] for bleeding from recently repaired dialysis fistula left arm. Slight ooze from puncture sites. Treated with throbin injection and manual pressure. Area redressed and elbow placed on arm board to limit motion. Pulse detected in fistula with doppler. Benedicto Pérez MD Jul 29, 2017 18:09
[2017-07-29] MEDS ORDERED: DOCUSATE SODIUM 50 MG/SENNA 8.6 MG TAB PO PRN (19:45)
[2017-07-29] MEDS: ATORVASTATIN 40 MG TAB PO SCH (22:01)
[2017-07-29] MEDS ORDERED: MELATONIN 5 MG TAB PO ONE (23:00)
[2017-07-30] MEDS: VANCOMYCIN 500 MG VIAL (FOR ORAL USE ONLY) PO SCH ×4 (02:33→22:32)
[2017-07-30 03:58] VITALS: BP 109/59; PULSE 68; RESP 18; TEMP 96; O2SAT 100
[2017-07-30 07:58] VITALS: BP 113/76; PULSE 73; RESP 20; TEMP 97.6
[2017-07-30] MEDS: METOPROLOL TARTRATE 25 MG TAB PO SCH ×2 (08:23→22:33)
[2017-07-30] MEDS: ASPIRIN EC 81 MG TABEC PO SCH (08:23)
[2017-07-30] MEDS: SODIUM CHLORIDE 0.9% FLUSH 10 ML FLUSH IV FLUSH SCH ×2 (08:23→22:33)
[2017-07-30] MEDS: SODIUM BICARBONATE 650 MG TAB PO SCH ×2 (08:23→22:33)
--- NOTE | 2017-07-30 08:59 | HHI.NPPN ---
Subjective General Problems: Anemia, Edema, Heart Disease, Hypertension, Mebatolic Acidosis Renal Failure: Chronic, End Stage Renal Disease Interval History Attempted declotting of AVG in IR yesterday. s/p balloon angioplasty, TPA, and thrombolysis. The pt was brought to dialysis after, HD nurses were unable to detect a thrill or bruit. In addition the access was oozing. She was reevalated by radiologist. This AM the access is still not appear to be working. Made NPO. To have vascath placed. (Mily Gray) Review of Systems General Constitutional: Fatigue (Mily Gray) Cardiovascular Cardiac: Edema (Mily Gray) Gastrointestinal Gastrointestinal: Nausea & Vomiting (Mily Gray) Skin Skin: Skin Rash, Lesions (Mily Gray) Psych Psych: Depression (Mily Gray) Objective Data Data Vital Signs Date Time Temp Pulse Resp B/P (MAP) Pulse Ox O2 Delivery O2 Flow Rate FiO2 07/30/17 07:58 97.6 73 20 113/76 (88) 07/30/17 03:58 96.0 68 18 109/59 (76) 100 07/29/17 23:22 97.8 67 18 133/58 (83) 07/29/17 22:20 79 121/71 (88) 07/29/17 19:32 97.9 78 18 116/64 (81) 07/29/17 17:06 79 18 121/68 (85) 95 07/29/17 16:36 80 18 133/74 (93) 95 07/29/17 16:06 80 18 137/74 (95) 94 07/29/17 15:51 97.8 80 18 123/69 (87) 95 07/29/17 13:24 98.8 80 16 128/79 (95) 100 07/29/17 09:04 97.7 73 16 121/63 (82) 98 (Mily Gray) -: 07/28/17 0720 07/29/17 0554 Imaging Last 72 hours Impressions Shunt Study 07/29/17 0000 Signed Impressions: Service Date/Time: Saturday, July 29, 2017 13:25 - CONCLUSION: Uncomplicated declotting of thrombosed fistula. Adrian Sánchez MD Head CT 07/27/17 1207 Signed Impressions: Service Date/Time: Thursday, July 27, 2017 13:14 - CONCLUSION: No acute intracranial process, trauma or fracture. Benedicto Pérez MD Chest X-Ray 07/27/17 1207 Signed Impressions: Service Date/Time: Thursday, July 27, 2017 12:10 - CONCLUSION: No acute disease. There is mild scarring. Srinivas Trevino MD (Marina,Mily B. TWO NEEDLE MACHINE OPERATOR) Physical Exam General Appearance: No Acute Distress, Comfortable, Malnourished Appearance Remarks flat affect (MarinaMily B. TWO NEEDLE MACHINE OPERATOR) Eyes Eye Exam: Pupils Equal, Pupils Reactive (MarinaMily B. TWO NEEDLE MACHINE OPERATOR) Throat Throat Exam: Oral Mucosa [place] & Moist (MarinaMily B. TWO NEEDLE MACHINE OPERATOR) Pulmonary Resp Exam: Breath Sounds Equal, Crackles (MarinaMily B. TWO NEEDLE MACHINE OPERATOR) Cardiology CV Exam: Regular, Normal Sinus Rhythm (Oleg Grayon B. TWO NEEDLE MACHINE OPERATOR) Gastrointestinal/Abdomen GI Exam: Soft, Non-Tender (Marina,Mily B. TWO NEEDLE MACHINE OPERATOR) Musculoskeletal MS Exam: Normal Tone, Atrophy, Unable to Ambulate (MarinaMily B. TWO NEEDLE MACHINE OPERATOR) Integumentary Skin Exam: Warm, Dry Skin Remarks dark blister left leg, medial thigh (MarinaMily B. TWO NEEDLE MACHINE OPERATOR) Extremeties Extremities Exam: Pedal Pulses Palpable, Moderate Edema Extremeties Remarks left arm, AVG, dressing in place. AVG feels hard, not patent (MarinaMily B. TWO NEEDLE MACHINE OPERATOR) Neurologic Neuro Exam: Awake, Speech Clear (MarinaMily B. TWO NEEDLE MACHINE OPERATOR) Assessment/Plan Discussed Condition With: Patient Assessment Summary: Fluid/Volume Overload, CHF, Hypertension, End Stage Renal Disease Problem List: (1) ESRD (end stage renal disease) on dialysis ICD Codes: N18.6 - End stage renal disease; Z99.2 - Dependence on renal dialysis Status: Chronic Plan: Typical Saturday/Saturday HD schedule outpatient, last HD 07/06 Needs dialysis unsuccessful AVG declotting NPO for vascath today HD today. Repeat labs tomorrow has metabolic acidosis, should correct with HD Plavix on hold Order Sevelamer for hyperphosphatemia Avoid IVF, gadolinium is contraindicated High protein diet when no longer NPO (2) HTN (hypertension) ICD Codes: I10 - Essential (primary) hypertension Status: Chronic Plan: Monitor blood pressure, titrate medications as needed (3) C. difficile colitis ICD Codes: A04.7 - Enterocolitis due to Clostridium difficile Status: Acute Plan: On PO Vancomycin Also contact precautions (4) Tobacco abuse ICD Codes: Z72.0 - Tobacco use Status: Chronic Plan: Counseled on cessation of ETOH and tobacco (5) Combined systolic and diastolic congestive heart failure ICD Codes: I50.40 - Unspecified combined systolic (congestive) and diastolic ( congestive) heart failure Status: Acute Plan: Monitor fluid status UF as tolerated with dialysis (Mily Gray) Plan patient was seen and examined. Agree with above assessment and plan. Vascath placement today and dialysis (Arvin Farnsworth MD) Mily Gray Jul 30, 2017 08:59 Arvin Farnsworth MD Jul 30, 2017 14:34
[2017-07-30 10:44] LABS: BICARBONATE 16.9 MEQ/L (21.0-32.0); CALCIUM 7.4 MG/DL (8.5-10.1); CREATININE 8.67 MG/DL (0.50-1.00)
[2017-07-30 10:57] LABS: CALCIUM-PROTEIN CORRECTED 7.6 MG/DL (8.5-10.1); TOTAL PROTEIN 6.7 GM/DL (6.4-8.2)
--- NOTE | 2017-07-30 11:19 | PD.RAD ---
Post Procedure Progress Note Pre Procedure Diagnosis: (1) Infection of arteriovenous fistula (2) ESRD (end stage renal disease) Post Procedure Diagnosis: (1) Infection of arteriovenous fistula (2) ESRD (end stage renal disease) Procedure Date: Jul 30, 2017 Supervising Radiologist: Marlon Waite JR Proceduralist/Assist: Yeimi Wakefield, RT(R)(CV), Kanchan Knutson RT(R) Anesthesia: Local Plan of Activity Patient to Unit: Nursing Unit Patient Condition: Good See PACS Report for procedural detail/treatment Central Venous Access Device Procedure 1 Right Internal Jugular Hemodialysis Catheter Non-Tunneled Placement dual lumen [place]: 14 Findings: Left arm AVF. Placed RIJ Vascath. Functions well. OK to use. Plan Can convert to Permcath in future if needed. Jr Ravindra.,Marlon Mendez MD Jul 30, 2017 11:19
[2017-07-30] MEDS ORDERED: SODIUM CHLORIDE 0.9% FLUSH 10 ML FLUSH IV FLUSH PRN (11:30)
[2017-07-30] MEDS ORDERED: HEPARIN SODIUM - IV 2,000 UNITS/2 ML VIAL IV FLUSH PRN (11:30)
[2017-07-30 12:20] VITALS: BP 121/59; PULSE 64; RESP 18; TEMP 97.4
--- NOTE | 2017-07-30 14:33 | HHI.PR ---
Subjective Remarks The patient seemed to be confused about why she was in the hospital. She endorsed having a lot of superficial pain but nothing substantial. She does not recall having any problem with her fistula. Discussed with nursing. Objective Vitals Vital Signs Date Time Temp Pulse Resp B/P (MAP) Pulse Ox O2 Delivery O2 Flow Rate FiO2 07/30/17 12:20 97.4 64 18 121/59 (79) 07/30/17 07:58 97.6 73 20 113/76 (88) 07/30/17 03:58 96.0 68 18 109/59 (76) 100 07/29/17 23:22 97.8 67 18 133/58 (83) 07/29/17 22:20 79 121/71 (88) 07/29/17 19:32 97.9 78 18 116/64 (81) 07/29/17 17:06 79 18 121/68 (85) 95 07/29/17 16:36 80 18 133/74 (93) 95 07/29/17 16:06 80 18 137/74 (95) 94 07/29/17 15:51 97.8 80 18 123/69 (87) 95 I/O 07/29/17 07/29/17 07/29/17 07/30/17 07/30/17 07/30/17 07:00 15:00 23:00 07:00 15:00 23:00 Output Total 350 ml Balance -350 ml Output Urine Total 350 ml Result Diagram: 07/28/17 0720 07/30/17 0943 Imaging Last Impressions Shunt Study 07/29/17 0000 Signed Impressions: Service Date/Time: Saturday, July 29, 2017 13:25 - CONCLUSION: Uncomplicated declotting of thrombosed fistula. Adrian Sánchez MD Head CT 07/27/17 1207 Signed Impressions: Service Date/Time: Thursday, July 27, 2017 13:14 - CONCLUSION: No acute intracranial process, trauma or fracture. Benedicto Pérez MD Chest X-Ray 07/27/171206 Signed Impressions: Service Date/Time: Thursday, July 27, 2017 12:10 - CONCLUSION: No acute disease. There is mild scarring. Srinivas Trevino MD Objective Remarks GENERAL: This is a well-nourished, well-developed patient, in no apparent distress. HEENT: NC, AT. CARDIOVASCULAR: Regular rate and regular rhythm without murmurs, gallops, or rubs. RESPIRATORY: Clear to auscultation. Breath sounds equal bilaterally. No wheezes , rales or rhonchi. GASTROINTESTINAL: Abdomen soft, non-tender, nondistended. MUSCULOSKELETAL: Extremities without clubbing, cyanosis. TR edema in the LEs. NEURO: Awake and alert, confused. Medications and IVs Current Medications Medications (Trade) Dose Ordered Sig/Diego Route Start Time Stop Time Status Last Admin (NS Flush) 2 ml UNSCH PRN IV FLUSH 07/27/17 14:45 (NS Flush) 2 ml BID IV FLUSH 07/27/17 21:00 07/30/17 08:23 (Tylenol) 650 mg Q4H PRN PO 07/27/17 14:45 (Zofran Inj) 4 mg Q6H PRN IVP 07/27/17 14:45 (Narcan Inj) 0.4 mg UNSCH PRN IV PUSH 07/27/17 14:45 (Milk Of Magnesia Liq) 30 ml Q12H PRN PO 07/27/17 14:45 (Senokot) 17.2 mg Q12H PRN PO 07/27/17 14:45 (Dulcolax Supp) 10 mg DAILY PRN RECTAL 07/27/17 14:45 (Lactulose Liq) 30 ml DAILY PRN PO 07/27/17 14:45 (Ecotrin Ec) 81 mg DAILY PO 07/28/17 11:00 07/30/17 08:23 (Lipitor) 40 mg HS PO 07/28/17 21:00 07/29/17 22:01 (Plavix) 75 mg DAILY PO 07/28/17 11:00 Future Hold 07/29/17 07:57 (Lopressor) 25 mg BID PO 07/28/17 21:00 07/30/17 08:23 (Heparin Inj) 5,000 units Q12HR SQ 07/28/17 21:00 Future Hold Sodium Chloride 1,000 ml @ 0 mls/hr Q0M PRN OTHER 07/28/17 12:33 (Heparin Inj) 8,000 units UNSCH PRN IV FLUSH 07/28/17 12:45 Sodium Chloride 1,000 ml @ 200 mls/hr Q5H PRN IV 4/22/18 12:33 Sodium Chloride 1,000 ml @ 0 mls/hr Q0M PRN OTHER 07/28/17 12:33 (Mannitol Inj) 12.5 gm UNSCH PRN IV 07/28/17 12:45 Albumin Human 100 ml @ 60 mls/hr UNSCH PRN IV 07/28/17 12:45 (NS Flush) 5 ml UNSCH PRN IV FLUSH 07/28/17 12:45 (Heparin Inj) UNSCH PRN .XX 07/28/17 12:45 (Gentamicin Inj) 20 mg UNSCH PRN OTHER 07/28/17 12:45 (Zofran Inj) 4 mg UNSCH PRN IV PUSH 07/28/17 12:45 (Tylenol) 650 mg UNSCH PRN PO 07/28/17 12:45 (Benadryl) 25 mg UNSCH PRN PO 07/28/17 12:45 (Nitrostat Sl) 0.4 mg UNSCH PRN SL 07/28/17 12:45 (Catapres) 0.1 mg UNSCH PRN PO 07/28/17 12:45 (Gelfoam 12 Mm/7 Mm Top) 1 foam UNSCH PRN TOP 07/28/17 12:45 (Sodium Bicarbonate) 650 mg Q12HR PO 07/28/17 21:00 07/30/17 08:23 (VANCOMYCIN for oral use only) 125 mg Q6H PO 07/28/17 20:00 07/30/17 14:19 (Ro-Colace) 1 tab BID PRN PO 07/29/17 19:45 (NS Flush) UNSCH PRN IV FLUSH 07/30/17 11:30 (Heparin Inj) UNSCH PRN IV FLUSH 07/30/17 11:30 A/P Assessment and Plan Acute encephalopathy Possibly 2/2 benzos and missed HD. Per son patient gets altered mental status when she is missing HD. - dialysis. - holding benzos. Will resume at lower dose as needed. End-stage renal disease On hemodialysis. Non compliant with HD. Clotted AV fistuala. VasCath placed by IR. - Consultation nephrology, Dr Wu. Continue dialysis as scheduled. Atrial fibrillation/ Chronic systolic and diastolic heart failure/Coronary disease status post stent LAD 2014 Stable at this time. - Cont metoprolol 25 mg by mouth twice a day. - hold Plavix for now. - telemetry. C diff colitis PCR was positive. - started on Vanco- will monitor. COPD No exacerbation. - Duonebs and oxygen as needed. Hypoglycemia Likely s/t decreased PO intake. - follow glucose per protocol. DVT - SCD/teds Srinivas Guzman DO Jul 30, 2017 14:33
--- NOTE | 2017-07-30 14:48 | RADRPT ---
EXAM DATE/TIME: 07/30/2017 10:53 [place] COMPARISON: No previous studies available for comparison. INDICATIONS : Patient with nonfunctioning av fistula. Needs dialysis access. MEDICAL HISTORY : 1. HTN 2.ESRD 3.CAD 4. COPD 5. C diff SURGICAL HISTORY : 1. D&C 2. AV fistula 3. EGD 4. flexible sigmoidoscopy 5. Stent LAD ENCOUNTER: Subsequent ACUITY: 3 days PAIN SCORE: 3/10 LOCATION: all over FLUORO TIME: 0.8 minutes IMAGE SERIES: 1 ACCESS: Right internal jugular vein DEVICE(S): 1.) 14 Vietnamese dual lumen 15 cm Schon catheter PROCEDURE : 1. Ultrasound guided venipuncture. 2. Fluoroscopic guidance. 3. Central line placement. The risks, benefits and alternatives to the procedure were explained and verbal and written consent w as obtained. The site was prepped in sterile fashion. Full sterile technique was used, including ca p, mask, sterile gloves and gown and a large sterile sheet. Hand hygiene and 2% chlorhexidine prep w as utilized per protocol for cutaneous antisepsis with appropriate dry time for site. Sterile gel an d sterile probe cover were utilized for ultrasound guidance. The skin and subcutaneous tissues were infiltrated with local anesthetic solution. A suitable site a ludwig the vein was selected with ultrasound and fluoroscopic guidance. A small incision was made. Th e vein was accessed under direct ultrasound visualization using the micropuncture technique. The neelam ropuncture set was exchanged for a 0.035 wire. The tract was dilated. The catheter was advanced int o position under direct fluoroscopic visualization. The catheter was fixed in place with suture and a sterile dressing was applied. The patient tolerated the procedure well and there were no complications. CONCLUSION: Uncomplicated line placement as above. Marlon Waite Jr., MD on July 30, 2017 at 14:43 Board Certified Radiologist. This report was verified electronically.
[2017-07-30] MEDS ORDERED: PILL SPLITTER OTHER PRN (15:00)
[2017-07-30 17:24] VITALS: BP 134/70; PULSE 68; RESP 18; TEMP 96.7; O2SAT 94
[2017-07-30] MEDS: ATORVASTATIN 40 MG TAB PO SCH (22:32)
[2017-07-31 00:27] VITALS: BP 114/59; PULSE 81; RESP 16; TEMP 98.2; O2SAT 98
[2017-07-31] MEDS: VANCOMYCIN 500 MG VIAL (FOR ORAL USE ONLY) PO SCH ×4 (02:56→20:55)
[2017-07-31 07:50] LABS: ALBUMIN 2.2 GM/DL (3.4-5.0); BICARBONATE 22.7 MEQ/L (21.0-32.0); CREATININE 6.37 MG/DL (0.50-1.00); PHOSPHORUS 4.6 MG/DL (2.5-4.9)
[2017-07-31 07:52] LABS: CALCIUM 7.4 MG/DL (8.5-10.1)
[2017-07-31 08:28] VITALS: BP 105/59; PULSE 71; RESP 20; TEMP 98.6; O2SAT 99
[2017-07-31] MEDS ORDERED: POTASSIUM BICARBONATE 25 MEQ EFFERVESCENT TAB PO ONE (08:45)
[2017-07-31] MEDS: SODIUM CHLORIDE 0.9% FLUSH 10 ML FLUSH IV FLUSH SCH ×2 (08:58→20:58)
[2017-07-31] MEDS: METOPROLOL TARTRATE 25 MG TAB PO SCH ×2 (08:59→20:54)
[2017-07-31] MEDS: ASPIRIN EC 81 MG TABEC PO SCH (08:59)
[2017-07-31 11:20] LABS: CALCIUM 7.4 MG/DL (8.5-10.1); CALCIUM-PROTEIN CORRECTED 7.7 MG/DL (8.5-10.1); TOTAL PROTEIN 6.6 GM/DL (6.4-8.2)
--- NOTE | 2017-07-31 11:26 | PD.VS.CON ---
History of Present Illness Chief Complaint: ESRD, need for HD Access Consult Requested by: Dr. Wu History of Present Illness 71 yo female with ESRD and needs HD access. Has h/o L U E AVF that thrombosed and underwent attempted lysis with IR that was unsuccessful.She is RIGHT handed and has no other access attempts. Currently has a tunneled catheter. Past/Family/Social History Past Medical History anxiety COPD CAD CHF (EF 30%) ESRD HTN XOL CAD Past Surgical History L UE AVF T&A Social History lives in [facility] Family History NC Home Medications Active Scripts Meclizine (Meclizine) 25 Mg Tab, 25 MG PO TID Y for VERTIGO for 5 Days, TAB 0 Refills Prov:Kristie Mackey MD 06/13/17 Clonazepam (Clonazepam) 0.5 Mg Tab, 0.5 MG PO BID, #60 TAB 0 Refills Prov:Georgie Mccarthy MD R3 05/05/17 Paroxetine (Paroxetine) 10 Mg Tab, 10 MG PO DAILY, #30 TAB 0 Refills Prov:Georgie Mccarthy MD R3 03/08/[address] (Adult Aspirin EC Low Strength) 81 Mg Tabec, 81 MG PO DAILY for CAD, #30 TAB 0 Refills Prov:Caridad Schaefer MD 11/21/16 Clopidogrel (Plavix) 75 Mg Tab, 75 MG PO DAILY for Blood Clot Prevention, #30 TAB 5 Refills Prov:Inessa Hollingsworth MD R2 10/29/16 Reported Medications Metoprolol Tartrate (Metoprolol Tartrate) 25 Mg Tab, 25 MG PO BID, #60 TAB 0 Refills 02/28/16 Atorvastatin (Atorvastatin) 40 Mg Tab, 40 MG PO HS for Cholesterol Management, # 30 TAB 0 Refills 02/28/16 Coded Allergies: niacin (Unverified Allergy, Severe, ANAPHALACTIC, 03/08/17) No Known Allergies (Unverified Allergy, Unknown, 03/08/17) Review of Systems Constitutional: DENIES: Fever, Chills Physical Exam Vitals/I&O Date Time Temp Pulse Resp B/P (MAP) Pulse Ox O2 Delivery O2 Flow Rate FiO2 07/31/17 08:28 98.6 71 20 105/59 (74) 99 07/31/17 05:46 07/31/17 00:27 98.2 81 16 114/59 (77) 98 07/30/17 17:24 96.7 68 18 134/70 (91) 94 07/30/17 12:20 97.4 64 18 121/59 (79) Neuro: mildly somnolent, no apparent distress HEENT: NC/AT Neck: no JVD; trachea midline Heart: reg rate Lungs: diminished Vascular: palpable brachial pulses Extremities: no L UE thrill Laboratory Tests Test 07/31/17 05:24 Blood Urea Nitrogen 73 Creatinine 6.37 Random Glucose 74 Albumin 2.2 Calcium Level 7.4 Phosphorus Level 4.6 Sodium Level 139 Potassium Level 3.1 Chloride Level 102 Carbon Dioxide Level 22.7 Anion Gap 14 Estimat Glomerular Filtration Rate 6 Last 48 hours Impressions Catheter Placement X-Ray 07/30/17 0000 Signed Impressions: Service Date/Time: Sunday, July 30, 2017 10:53 - CONCLUSION: Uncomplicated line placement as above. Marlon Waite Jr., MD Assessment and Plan Plan ESRD needs new AVF. 1. Will f/u as outpatient in my clinic in 1-2 weeks 2. Continue to use catheter Cyrus Barragan MD FACS RPVI courtesy van driver [facility] at [facility] [phone] Cyrus Barragan MD Jul 31, 2017 11:26
[2017-07-31 11:29] VITALS: BP 100/54; PULSE 66; RESP 16; TEMP 98.3; O2SAT 95
[2017-07-31] MEDS ORDERED: POTASSIUM CHLORIDE 10 MEQ CONTROLLED RELEASE TAB PO ONE (11:30)
--- NOTE | 2017-07-31 11:30 | HHI.PR ---
Subjective Remarks The patient said she was having diarrhea. She says she has had C. difficile before. She said she spoke with Dr. Barragan earlier today. She was speaking on the phone. No acute concerns. Objective Vitals Vital Signs Date Time Temp Pulse Resp B/P (MAP) Pulse Ox O2 Delivery O2 Flow Rate FiO2 07/31/17 08:28 98.6 71 20 105/59 (74) 99 07/31/17 05:46 07/31/17 00:27 98.2 81 16 114/59 (77) 98 07/30/17 17:24 96.7 68 18 134/70 (91) 94 07/30/17 12:20 97.4 64 18 121/59 (79) I/O 07/30/17 07/30/17 07/30/17 07/31/17 07/31/17 07/31/17 07:00 15:00 23:00 07:00 15:00 23:00 Intake Total 940 ml Output Total 3253 ml Balance -2313 ml Intake Oral 940 ml Output Urine Total 550 ml Stool Total 3 ml Hemodialysis 2700 ml # Voids 2 # Bowel Movements 1 Result Diagram: 07/28/17 0720 07/31/17 0524 Imaging Last Impressions Catheter Placement X-Ray 07/30/17 0000 Signed Impressions: Service Date/Time: Sunday, July 30, 2017 10:53 - CONCLUSION: Uncomplicated line placement as above. Malron Waite Jr., MD Shunt Study 07/29/17 0000 Signed Impressions: Service Date/Time: Saturday, July 29, 2017 13:25 - CONCLUSION: Uncomplicated declotting of thrombosed fistula. Adrian Sánchez MD Head CT 07/27/17 1207 Signed Impressions: Service Date/Time: Thursday, July 27, 2017 13:14 - CONCLUSION: No acute intracranial process, trauma or fracture. Benedicto Pérez MD Chest X-Ray 07/27/17 120 Signed Impressions: Service Date/Time: Thursday, July 27, 2017 12:10 - CONCLUSION: No acute disease. There is mild scarring. Srinivas Trevino MD Objective Remarks GENERAL: This is a well-nourished, well-developed patient, in no apparent distress. HEENT: [place], AT. CARDIOVASCULAR: Regular rate and regular rhythm without murmurs, gallops, or rubs. RESPIRATORY: Clear to auscultation. Breath sounds equal bilaterally. No wheezes , rales or rhonchi. GASTROINTESTINAL: Abdomen soft, non-tender, nondistended. MUSCULOSKELETAL: Extremities without clubbing, cyanosis. TR edema in the LEs. NEURO: Awake and alert. Medications and IVs Current Medications Medications (Trade) Dose Ordered Sig/Diego Route Start Time Stop Time Status Last Admin (NS Flush) 2 ml UNSCH PRN IV FLUSH 07/27/17 14:45 (NS Flush) 2 ml BID IV FLUSH 07/27/17 21:00 07/31/17 08:58 (Tylenol) 650 mg Q4H PRN PO 07/27/17 14:45 (Zofran Inj) 4 mg Q6H PRN IVP 07/27/17 14:45 (Narcan Inj) 0.4 mg UNSCH PRN IV PUSH 07/27/17 14:45 (Milk Of Magnesia Liq) 30 ml Q12H PRN PO 07/27/17 14:45 (Senokot) 17.2 mg Q12H PRN PO 07/27/17 14:45 (Dulcolax Supp) 10 mg DAILY PRN RECTAL 07/27/17 14:45 (Lactulose Liq) 30 ml DAILY PRN PO 07/27/17 14:45 (Ecotrin Ec) 81 mg DAILY PO 07/28/17 11:00 07/31/17 08:59 (Lipitor) 40 mg HS PO 07/28/17 21:00 07/30/17 22:32 (Plavix) 75 mg DAILY PO 07/28/17 11:00 Future Hold 07/29/17 07:57 (Lopressor) 25 mg BID PO 07/28/17 21:00 07/31/17 08:59 (Heparin Inj) 5,000 units Q12HR SQ 07/28/17 21:00 Future Hold Sodium Chloride 1,000 ml @ 0 mls/hr Q0M PRN OTHER 07/28/17 12:33 (Heparin Inj) 8,000 units UNSCH PRN IV FLUSH 07/28/17 12:45 Sodium Chloride 1,000 ml @ 200 mls/hr Q5H PRN IV 07/28/17 12:33 Sodium Chloride 1,000 ml @ 0 mls/hr Q0M PRN OTHER 07/28/17 12:33 (Mannitol Inj) 12.5 gm UNSCH PRN IV 07/28/17 12:45 Albumin Human 100 ml @ 60 mls/hr UNSCH PRN IV 07/28/17 12:45 (NS Flush) 5 ml UNSCH PRN IV FLUSH 07/28/17 12:45 (Heparin Inj) UNSCH PRN .XX 07/28/17 12:45 (Gentamicin Inj) 20 mg UNSCH PRN OTHER 07/28/17 12:45 (Zofran Inj) 4 mg UNSCH PRN IV PUSH 07/28/17 12:45 (Tylenol) 650 mg UNSCH PRN PO 07/28/17 12:45 (Benadryl) 25 mg UNSCH PRN PO 07/28/17 12:45 (Nitrostat Sl) 0.4 mg UNSCH PRN SL 07/28/17 12:45 (Catapres) 0.1 mg UNSCH PRN PO 07/28/17 12:45 (Gelfoam 12 Mm/7 Mm Top) 1 foam UNSCH PRN TOP 07/28/17 12:45 (VANCOMYCIN for oral use only) 125 mg Q6H PO 07/28/17 20:00 07/31/17 08:58 (Ro-Colace) 1 tab BID PRN PO 07/29/17 19:45 (NS Flush) UNSCH PRN IV FLUSH 07/30/17 11:30 (Heparin Inj) UNSCH PRN IV FLUSH 07/30/17 11:30 (Xanax) 0.125 mg Q8HR PRN PO 07/30/17 14:30 (Pill Splitter) 1 ea UNSCH PRN OTHER 07/30/17 15:00 (KCl) 20 meq ONCE ONCE PO 07/31/17 11:30 07/31/17 11:31 UNV A/P Assessment and Plan Acute encephalopathy Possibly 2/2 benzos and missed HD. Per son patient gets altered mental status when she is missing HD. Seems stable. - dialysis. - holding benzos. Will resume at lower dose as needed. End-stage renal disease On hemodialysis. Non compliant with HD. Clotted AV fistuala. VasCath placed by IR. - Consultation nephrology, Dr Wu. Continue dialysis as scheduled. - Vascular surgery consulted for definitive dialysis access. Atrial fibrillation/ Chronic systolic and diastolic heart failure/Coronary disease status post stent LAD 2014 Stable at this time. - Cont metoprolol 25 mg by mouth twice a day. - hold Plavix for now. - telemetry. C diff colitis PCR was positive. - started on Vanco- will monitor. Hypokalemia Secondary to above. - Replete potassium cautiously in the setting of renal disease. COPD No exacerbation. - Duonebs and oxygen as needed. Hypoglycemia Likely s/t decreased PO intake. - follow glucose per protocol. DVT - SCD/teds Srinivas Guzman DO Jul 31, 2017 11:30
--- NOTE | 2017-07-31 12:08 | HHI.NPPN ---
Subjective General Problems: Anemia, Edema, Heart Disease, Hypertension, Mebatolic Acidosis Renal Failure: Chronic, End Stage Renal Disease Interval History Vascath placed, she had dialysis yesterday. 2.7L UF. Slightly hypokalemic today. Wanting to be discharged. (Mily Gray) Review of Systems General Constitutional: Fatigue (Mily Gray) Cardiovascular Cardiac: Edema (Mily Gray) Gastrointestinal Gastrointestinal: Nausea & Vomiting (Mily Gray) Skin Skin: Skin Rash, Lesions (Mily Gray) Psych Psych: Depression (Mily Gray) Objective Data Data Vital Signs Date Time Temp Pulse Resp B/P (MAP) Pulse Ox O2 Delivery O2 Flow Rate FiO2 07/31/17 11:29 98.3 66 16 100/54 (69) 95 07/31/17 08:28 98.6 71 20 105/59 (74) 99 07/31/17 05:46 07/31/17 00:27 98.2 81 16 114/59 (77) 98 07/30/17 17:24 96.7 68 18 134/70 (91) 94 07/30/17 12:20 97.4 64 18 121/59 (79) (Mily Gray) -: 07/28/17 0720 07/31/17 0524 Imaging Last 72 hours Impressions Catheter Placement X-Ray 07/30/17 0000 Signed Impressions: Service Date/Time: Sunday, July 30, 2017 10:53 - CONCLUSION: Uncomplicated line placement as above. Marlon Waite Jr., MD Shunt Study 07/29/17 0000 Signed Impressions: Service Date/Time: Saturday, July 29, 2017 13:25 - CONCLUSION: Uncomplicated declotting of thrombosed fistula. Adrian Sánchez MD (Mily Gray) Physical Exam General Appearance: No Acute Distress, Comfortable, Malnourished Appearance Remarks flat affect (Mily Gray) Eyes Eye Exam: Pupils Equal, Pupils Reactive (Mily Gray) Throat Throat Exam: Oral Mucosa [place] & Moist (Mily Gray) Pulmonary Resp Exam: Breath Sounds Equal, Crackles (Mily Gray) Cardiology CV Exam: Regular, Normal Sinus Rhythm (Mily Gray) Gastrointestinal/Abdomen GI Exam: Soft, Non-Tender (Mily Gray) Musculoskeletal MS Exam: Normal Tone, Atrophy, Unable to Ambulate (Mily Gray) Integumentary Skin Exam: Warm, Dry Skin Remarks dark blister left leg, medial thigh (Mily Gray) Extremeties Extremities Exam: Pedal Pulses Palpable, Moderate Edema Extremeties Remarks left arm, AVG, dressing in place. AVG feels hard, not patent (Mily Gray) Neurologic Neuro Exam: Awake, Speech Clear (Mily Gray) Assessment/Plan Discussed Condition With: Patient Assessment Summary: Fluid/Volume Overload, CHF, Hypertension, End Stage Renal Disease Problem List: (1) ESRD (end stage renal disease) on dialysis ICD Codes: N18.6 - End stage renal disease; Z99.2 - Dependence on renal dialysis Status: Chronic Plan: Typical Saturday/Saturday HD schedule outpatient; prior to yesterday, her last HD was on 07/06 unsuccessful AVG declotting; vascular has been consulted for new AV access Vascath placed 07/31; Needs Permcath exchange on Saturday, Plavix hold x 5 days, Last dose 07/29 2.7L UF yesterday HD TTS while admitted. Off oral bicarbonate Potassium was replaced On Sevelamer for hyperphosphatemia Avoid IVF, gadolinium is contraindicated High protein diet Needs catheter exchange prior to discharge. She wants to go home, however discussed risk of leaving AMA including catheter dislodgement that may lead to uncontrolled bleeding. She is historically non compliant with medical advice, medications, treatment schedules including dialysis. (2) HTN (hypertension) ICD Codes: I10 - Essential (primary) hypertension Status: Chronic Plan: Monitor blood pressure, titrate medications as needed (3) C. difficile colitis ICD Codes: A04.7 - Enterocolitis due to Clostridium difficile Status: Acute Plan: On PO Vancomycin Also contact precautions (4) Tobacco abuse ICD Codes: Z72.0 - Tobacco use Status: Chronic Plan: Counseled on cessation of ETOH and tobacco (5) Combined systolic and diastolic congestive heart failure ICD Codes: I50.40 - Unspecified combined systolic (congestive) and diastolic ( congestive) heart failure Status: Acute Plan: Monitor fluid status UF as tolerated with dialysis (Mily Gray) Plan patient was seen and examined on 07/31/17. Agree with above assessment and plan. Non compliant. Patient is threatening to leave AMA. (Arvin Farnsworth MD) Mily Gray Jul 31, 2017 12:08 Arvin Farnsworth MD Aug 01, 2017 14:35
[2017-07-31 16:10] VITALS: BP 123/62; PULSE 76; RESP 16; TEMP 98.4; O2SAT 95
[2017-07-31 17:31] VITALS: BP 117/63; PULSE 71; RESP 20; TEMP 98.5; O2SAT 97
[2017-07-31 19:35] VITALS: BP 132/69; PULSE 73; RESP 18; TEMP 97.7; O2SAT 98
[2017-07-31] MEDS: ATORVASTATIN 40 MG TAB PO SCH (20:54)
[2017-08-01 00:03] VITALS: BP 115/56; PULSE 71; RESP 18; TEMP 98.2; O2SAT 100
[2017-08-01] MEDS: VANCOMYCIN 500 MG VIAL (FOR ORAL USE ONLY) PO SCH ×4 (03:31→22:30)
[2017-08-01 03:36] VITALS: BP 105/59; PULSE 73; RESP 18; TEMP 98; O2SAT 97
[2017-08-01 08:00] VITALS: BP 100/59; PULSE 68; RESP 22; TEMP 98; O2SAT 99
[2017-08-01 08:11] LABS: HEMATOCRIT 33.7 % (35.0-46.0); HEMOGLOBIN 10.8 GM/DL (11.6-15.3); MEAN CELL VOLUME 96.2 FL (80.0-100.0); MEAN CORPUSCULAR HEMOGLOBIN 30.9 PG (27.0-34.0); MEAN CORPUSCULAR HGB CONC 32.1 % (32.0-36.0); MEAN PLATELET VOLUME 7.9 FL (7.0-11.0); PLATELET COUNT 154 TH/MM3 (150-450); RED BLOOD COUNT 3.51 MIL/MM3 (4.00-5.30); RED CELL DISTRIBUTION WIDTH 18.4 % (11.6-17.2); WHITE BLOOD COUNT 6.9 TH/MM3 (4.0-11.0)
[2017-08-01] MEDS: METOPROLOL TARTRATE 25 MG TAB PO SCH ×2 (08:22→22:29)
[2017-08-01] MEDS: ASPIRIN EC 81 MG TABEC PO SCH (08:22)
[2017-08-01] MEDS: SODIUM CHLORIDE 0.9% FLUSH 10 ML FLUSH IV FLUSH SCH ×2 (08:23→22:30)
--- NOTE | 2017-08-01 08:41 | HHI.PR ---
Subjective Remarks In bed she says she 1 dialysis in the morning. However she ate breakfast and when she is reconsidering having dialysis. Patient will not like to wait until Saturday . She denies having any chest pain or shortness of breath. No nausea vomiting no diarrhea constipation. Eating fairly well. Will like to go home. Not clear by nephrology yet. Objective Vitals Vital Signs Date Time Temp Pulse Resp B/P (MAP) Pulse Ox O2 Delivery O2 Flow Rate FiO2 08/01/17 03:36 98.0 73 18 105/59 (74) 97 08/01/17 00:03 98.2 71 18 115/56 (75) 100 07/31/17 19:35 97.7 73 18 132/69 (90) 98 07/31/17 17:31 98.5 71 20 117/63 (81) 97 07/31/17 16:10 98.4 76 16 123/62 (82) 95 07/31/17 11:29 98.3 66 16 100/54 (69) 95 I/O 07/31/17 07/31/17 07/31/17 08/01/17 08/01/17 08/01/17 07:00 15:00 23:00 07:00 15:00 23:00 Intake Total 400 ml Output Total 0 ml Balance 400 ml Intake Oral 400 ml Output Urine Total 0 ml # Voids 2 # Bowel Movements 2 5 Result Diagram: 08/01/17 0740 07/31/17 0524 Imaging Last Impressions Catheter Placement X-Ray 07/30/17 0000 Signed Impressions: Service Date/Time: Sunday, July 30, 2017 10:53 - CONCLUSION: Uncomplicated line placement as above. Marlon Waite Jr., MD Shunt Study 07/29/17 0000 Signed Impressions: Service Date/Time: Saturday, July 29, 2017 13:25 - CONCLUSION: Uncomplicated declotting of thrombosed fistula. Adrian Sánchez MD Head CT 07/27/17 1207 Signed Impressions: Service Date/Time: Thursday, July 27, 2017 13:14 - CONCLUSION: No acute intracranial process, trauma or fracture. Benedicto Pérez MD Chest X-Ray 07/27/17 1207 Signed Impressions: Service Date/Time: Thursday, July 27, 2017 12:10 - CONCLUSION: No acute disease. There is mild scarring. Srinivas Trevino MD Objective Remarks GENERAL: This is a well-nourished, well-developed patient, in no apparent distress. HEENT: NC, AT. CARDIOVASCULAR: Regular rate and regular rhythm without murmurs, gallops, or rubs. RESPIRATORY: Clear to auscultation. Breath sounds equal bilaterally. No wheezes , rales or rhonchi. GASTROINTESTINAL: Abdomen soft, non-tender, nondistended. MUSCULOSKELETAL: Extremities without clubbing, cyanosis. TR edema in the LEs. NEURO: Awake and alert. A/P Assessment and Plan Acute encephalopathy Possibly 2/2 benzos and missed HD. Per son patient gets altered mental status when she is missing HD. Seems stable. - dialysis. - holding benzos. Will resume at lower dose as needed. End-stage renal disease On hemodialysis. Non compliant with HD. Clotted AV fistuala. VasCath placed by IR. - Consultation nephrology, Dr Wu. Continue dialysis as scheduled. - Vascular surgery consulted for definitive dialysis access. Atrial fibrillation/ Chronic systolic and diastolic heart failure/Coronary disease status post stent LAD 2014 Stable at this time. - Cont metoprolol 25 mg by mouth twice a day. - hold Plavix for now. - telemetry. C diff colitis PCR was positive. - started on Vanco- will monitor. Hypokalemia Secondary to above. - Replete potassium cautiously in the setting of renal disease. COPD Not in exacerbation at this time. - Duonebs and oxygen as needed. Hypoglycemia Likely s/t decreased PO intake. - follow glucose per protocol. DVT - SCD/teds Discussed with the patient, nurse Patient wants to go home however she has not cleared by nephrology. Patient needs vas cath, plan for vas catheter on Saturday. Tish Stafford MD Aug 01, 2017 08:41
[2017-08-01 08:57] LABS: BICARBONATE 23.6 MEQ/L (21.0-32.0); CALCIUM 7.7 MG/DL (8.5-10.1); CREATININE 6.98 MG/DL (0.50-1.00)
--- NOTE | 2017-08-01 10:28 | HHI.NPPN ---
Subjective General Problems: Anemia, Edema, Heart Disease, Hypertension, Mebatolic Acidosis Renal Failure: Chronic, End Stage Renal Disease Interval History Refused to go to dialysis earlier. Now that she has eaten breakfast, she andre agreed to go. She is not wanting to wait until Saturday for discharge. Due to having Plavix 07/29 , need to wait until at least Saturday for Permcath exchange, being the weekend Saturday is the soonest it can happen. No new complaints. (Mily Gray) Review of Systems General Constitutional: Fatigue (Mily Gray) Cardiovascular Cardiac: Edema (Mily Gray) Gastrointestinal Gastrointestinal: Nausea & Vomiting (Mily Gray) Skin Skin: Skin Rash, Lesions (Mily Gray) Psych Psych: Depression (Mily Gray) Objective Data Data Vital Signs Date Time Temp Pulse Resp B/P (MAP) Pulse Ox O2 Delivery O2 Flow Rate FiO2 08/01/17 08:00 98.0 68 22 100/59 (73) 99 08/01/17 03:36 98.0 73 18 105/59 (74) 97 08/01/17 00:03 98.2 71 18 115/56 (75) 100 07/31/17 19:35 97.7 73 18 132/69 (90) 98 07/31/17 17:31 98.5 71 20 117/63 (81) 97 07/31/17 16:10 98.4 76 16 123/62 (82) 95 07/31/17 11:29 98.3 66 16 100/54 (69) 95 (Mily Gray) -: 08/01/17 0740 08/01/17 0740 Imaging Last 72 hours Impressions Catheter Placement X-Ray 07/30/17 0000 Signed Impressions: Service Date/Time: Sunday, July 30, 2017 10:53 - CONCLUSION: Uncomplicated line placement as above. Marlon Waite Jr., MD (Mily Gray) Physical Exam General Appearance: No Acute Distress, Comfortable, Malnourished (Mily Gray) Eyes Eye Exam: Pupils Equal, Pupils Reactive (Mily Gray) Throat Throat Exam: Oral Mucosa [place] & Moist (Mily Gray) Pulmonary Resp Exam: Breath Sounds Equal, Crackles (Mily Gray) Cardiology CV Exam: Regular, Normal Sinus Rhythm (Mily Gray) Gastrointestinal/Abdomen GI Exam: Soft, Non-Tender, Positive Bowel Movement (Mily Gray) Musculoskeletal MS Exam: Normal Tone, Atrophy, Unable to Ambulate (Mily Gray) Integumentary Skin Exam: Warm, Dry Skin Remarks dark blister left leg, medial thigh (Mily Gray) Extremeties Extremities Exam: Pedal Pulses Palpable, Moderate Edema Extremeties Remarks left arm, AVG, dressing in place. AVG feels hard, not patent (Mily Gray) Neurologic Neuro Exam: Alert, Awake, Oriented, Speech Clear, Moving All Extremities (Mily Gray) Psychiatric Psych Exam: Appropriate Responses (Mily Gray) Assessment/Plan Discussed Condition With: Patient Assessment Summary: Fluid/Volume Overload, CHF, Hypertension, End Stage Renal Disease Problem List: (1) ESRD (end stage renal disease) on dialysis ICD Codes: N18.6 - End stage renal disease; Z99.2 - Dependence on renal dialysis Status: Chronic Plan: We have her on TTS HD while admitted, due today unsuccessful AVG declotting; vascular (Dr. Barragan has evaluated), has appointment outpatient for vein mapping and surgery next week Vascath placed 07/31; Needs Permcath exchanged. Needs 5 day Plavix hold, (Last dose 07/29). She is not willing to wait until Saturday. She will need to be discharged AMA today. -We again discussed the risks of leaving AMA including catheter dislodgement that may lead to uncontrolled bleeding. Have scheduled her outpatient at vascular center Saturday at 1pm (NPO from 9am Saturday) on Saturday, order sent. She will miss HD Saturday, come to clinic Saturday for HD. Advised to hold Plavix until Saturday On Sevelamer for hyperphosphatemia Avoid IVF, gadolinium is contraindicated High protein diet She is historically non compliant with medical advice, medications, treatment schedules including dialysis. (2) HTN (hypertension) ICD Codes: I10 - Essential (primary) hypertension Status: Chronic Plan: Monitor blood pressure, titrate medications as needed (3) C. difficile colitis ICD Codes: A04.7 - Enterocolitis due to Clostridium difficile Status: Acute Plan: On PO Vancomycin Also contact precautions (4) Tobacco abuse ICD Codes: Z72.0 - Tobacco use Status: Chronic Plan: Counseled on cessation of ETOH and tobacco (5) Combined systolic and diastolic congestive heart failure ICD Codes: I50.40 - Unspecified combined systolic (congestive) and diastolic ( congestive) heart failure Status: Acute Plan: Monitor fluid status UF as tolerated with dialysis (Mily Gray) Plan patient was seen and examined. Agree with above assessment and plan. (Arvin Farnsworth MD) Mily Gray Aug 01, 2017 10:28 Arvin Farnsworth MD Aug 01, 2017 14:54
[2017-08-01] MEDS: GENTAMICIN SULFATE 20 MG/2 ML VIAL OTHER PRN (11:24)
[2017-08-01 17:04] VITALS: BP 112/65; PULSE 74; RESP 20; TEMP 98.8; O2SAT 98
[2017-08-01 20:00] VITALS: BP 124/59; PULSE 78; RESP 18; TEMP 98.2; O2SAT 98
[2017-08-01] MEDS: REMOVE OLD PATCH T-DERMAL SCH (21:00)
[2017-08-01] MEDS: ATORVASTATIN 40 MG TAB PO SCH (22:30)
[2017-08-02] VITALS: BP 127/62; PULSE 73; RESP 18; TEMP 98; O2SAT 98
[2017-08-02] MEDS: VANCOMYCIN 500 MG VIAL (FOR ORAL USE ONLY) PO SCH ×4 (02:45→21:27)
[2017-08-02 04:00] VITALS: BP 142/72; PULSE 85; RESP 18; TEMP 98.3; O2SAT 95
[2017-08-02 08:00] VITALS: BP 116/57; PULSE 75; RESP 17; TEMP 99.2; O2SAT 98
[2017-08-02] MEDS: METOPROLOL TARTRATE 25 MG TAB PO SCH ×2 (08:55→21:27)
[2017-08-02] MEDS: NICOTINE 21 MG/24 HR PATCH T-DERMAL SCH (08:56)
[2017-08-02] MEDS: SODIUM CHLORIDE 0.9% FLUSH 10 ML FLUSH IV FLUSH SCH ×2 (08:56→21:27)
[2017-08-02] MEDS: ASPIRIN EC 81 MG TABEC PO SCH ×2 (08:56→09:00)
--- NOTE | 2017-08-02 11:13 | HHI.PR ---
Subjective Remarks Has a small blister in her right thigh. Says is painful. No fever or chills. No n/v/d/c. Objective Vitals Vital Signs Date Time Temp Pulse Resp B/P (MAP) Pulse Ox O2 Delivery O2 Flow Rate FiO2 08/02/17 08:00 99.2 75 17 116/57 (76) 98 08/02/17 04:00 98.3 85 18 142/72 (95) 95 08/02/17 00:00 98.0 73 18 127/62 (83) 98 08/01/17 20:00 98.2 78 18 124/59 (80) 98 08/01/17 17:04 98.8 74 20 112/65 (81) 98 I/O 08/01/17 08/01/17 08/01/17 08/02/17 08/02/17 08/02/17 07:00 15:00 23:00 07:00 15:00 23:00 Intake Total 400 ml Output Total 0 ml 1000 ml Balance 400 ml -1000 ml Intake Oral 400 ml Output Urine Total 0 ml Hemodialysis 1000 ml # Voids 2 3 # Bowel Movements 5 3 3 Result Diagram: 08/01/17 0740 08/01/17 0740 Imaging Last Impressions Catheter Placement X-Ray 07/30/17 0000 Signed Impressions: Service Date/Time: Sunday, July 30, 2017 10:53 - CONCLUSION: Uncomplicated line placement as above. Marlon Waite Jr., MD Shunt Study 07/29/17 0000 Signed Impressions: Service Date/Time: Saturday, July 29, 2017 13:25 - CONCLUSION: Uncomplicated declotting of thrombosed fistula. Adrian Sánchez MD Head CT 07/27/17 1207 Signed Impressions: Service Date/Time: Thursday, July 27, 2017 13:14 - CONCLUSION: No acute intracranial process, trauma or fracture. Benedicto Pérez MD Chest X-Ray 07/27/171206 Signed Impressions: Service Date/Time: Thursday, July 27, 2017 12:10 - CONCLUSION: No acute disease. There is mild scarring. Srinivas Trevino MD Objective Remarks GENERAL: This is a well-nourished, well-developed patient, in no apparent distress. HEENT: [place], AT. CARDIOVASCULAR: Regular rate and regular rhythm without murmurs, gallops, or rubs. RESPIRATORY: Clear to auscultation. Breath sounds equal bilaterally. No wheezes , rales or rhonchi. GASTROINTESTINAL: Abdomen soft, non-tender, nondistended. MUSCULOSKELETAL: Extremities without clubbing, cyanosis. TR edema in the LEs. NEURO: Awake and alert. A/P Assessment and Plan Acute encephalopathy Possibly 2/2 benzos and missed HD. Per son patient gets altered mental status when she is missing HD. Seems stable. - dialysis. - holding benzos. Will resume at lower dose as needed. End-stage renal disease On hemodialysis. Non compliant with HD. Clotted AV fistula. VasCath placed by IR. - Consultation nephrology, Dr Wu. Continue dialysis as scheduled. - Vascular surgery consulted for definitive dialysis access. Atrial fibrillation/ Chronic systolic and diastolic heart failure/Coronary disease status post stent LAD 2014 Stable at this time. - Cont metoprolol 25 mg by mouth twice a day. - hold Plavix for now. - telemetry. C diff colitis PCR was positive. - started on Vanco- will monitor. Hypokalemia Secondary to above. - Replete potassium cautiously in the setting of renal disease. COPD Not in exacerbation at this time. - Duonebs and oxygen as needed. Hypoglycemia Likely s/t decreased PO intake. - follow glucose per protocol. DVT - SCD/teds Discussed with the patient, nurse Patient wants to go home however she has not cleared by nephrology. Patient needs vas cath, plan for catheter exchange on Saturday. NOT cleared by nephro to DC Tish Stafford MD Aug 02, 2017 11:13
[2017-08-02 12:56] VITALS: BP 123/64; PULSE 72; RESP 20; TEMP 97.6; O2SAT 100
[2017-08-02] MEDS: ACETAMINOPHEN/HYDROcodone 325 MG/5 MG TAB PO PRN ×2 (13:19→21:27)
--- NOTE | 2017-08-02 14:09 | HHI.NPPN ---
Subjective General Problems: Anemia, Edema, Heart Disease, Hypertension, Mebatolic Acidosis Renal Failure: Chronic, End Stage Renal Disease Interval History She is sitting in a chair, eating lunch. Has agreed to stay until Saturday for catheter exchange. No new concerns. (Mily Gray) Review of Systems General Constitutional: Fatigue (Mily Gray) Cardiovascular Cardiac: Edema (Mily Gray) Gastrointestinal Gastrointestinal: Nausea & Vomiting (Mily Gray) Skin Skin: Skin Rash, Lesions (Mily Gray) Psych Psych: Depression (Mily Gray) Objective Data Data 08/02/17 08/03/17 19:00 07:00 # Voids 3 # Bowel Movements 3 Vital Signs Date Time Temp Pulse Resp B/P (MAP) Pulse Ox O2 Delivery O2 Flow Rate FiO2 08/02/17 12:56 97.6 72 20 123/64 (83) 100 08/02/17 08:00 99.2 75 17 116/57 (76) 98 08/02/17 04:00 98.3 85 18 142/72 (95) 95 08/02/17 00:00 98.0 73 18 127/62 (83) 98 08/01/17 20:00 98.2 78 18 124/59 (80) 98 08/01/17 17:04 98.8 74 20 112/65 (81) 98 (Mily Gray) -: 08/01/17 0740 08/01/17 0740 Tubes & Lines: Vas-Cath (Mily Gray) Physical Exam General Appearance: No Acute Distress, Comfortable, Malnourished (Mily Gray) Eyes Eye Exam: Pupils Equal, Pupils Reactive (Mily Gray) Throat Throat Exam: Oral Mucosa [place] & Moist (Mily Gray) Pulmonary Resp Exam: Breath Sounds Equal, Crackles (Mily Gray) Cardiology CV Exam: Regular, Normal Sinus Rhythm (Mily Gray) Gastrointestinal/Abdomen GI Exam: Soft, Non-Tender, Positive Bowel Movement (Mily Gray) Musculoskeletal MS Exam: Normal Tone, Atrophy, Unable to Ambulate (Mily Gray) Integumentary Skin Exam: Warm, Dry Skin Remarks dark blister left leg, medial thigh (Mily Gray) Extremeties Extremities Exam: Pedal Pulses Palpable, Moderate Edema Extremeties Remarks left arm, AVG, dressing in place. AVG feels hard, not patent (Mily Gray) Neurologic Neuro Exam: Alert, Awake, Oriented, Speech Clear, Moving All Extremities (Mily Gray) Psychiatric Psych Exam: Appropriate Responses (Mily Gray) Assessment/Plan Discussed Condition With: Patient Assessment Summary: Fluid/Volume Overload, CHF, Hypertension, End Stage Renal Disease Problem List: (1) ESRD (end stage renal disease) on dialysis ICD Codes: N18.6 - End stage renal disease; Z99.2 - Dependence on renal dialysis Status: Chronic Plan: We have her on TTS HD while admitted, due tomorrow, 1L UF yesterday unsuccessful AVG declotting; vascular (Dr. Barragan has evaluated), has appointment outpatient for vein mapping and surgery next week Vascath placed 07/31; Needs Permcath exchange. Required 5 day hold on Plavix ( Last dose 07/29). Scheduled for Saturday morning. Will be NPO Saturday after midnight. Order entered. If discharged prior to Saturday, it will need to be AMA. -We discussed the risks of leaving AMA including catheter dislodgement that may lead to uncontrolled bleeding and . We cancelled outpatient appt at vascular center since she is not leaving. Holding Plavix until Saturday On Sevelamer for hyperphosphatemia however she refuses Avoid IVF, gadolinium is contraindicated High protein diet encouraged She is historically non compliant with medical advice, medications, treatment schedules including dialysis. (2) HTN (hypertension) ICD Codes: I10 - Essential (primary) hypertension Status: Chronic Plan: Monitor blood pressure, titrate medications as needed (3) C. difficile colitis ICD Codes: A04.7 - Enterocolitis due to Clostridium difficile Status: Acute Plan: On PO Vancomycin Also contact precautions (4) Tobacco abuse ICD Codes: Z72.0 - Tobacco use Status: Chronic Plan: Counseled on cessation of ETOH and tobacco (5) Combined systolic and diastolic congestive heart failure ICD Codes: I50.40 - Unspecified combined systolic (congestive) and diastolic ( congestive) heart failure Status: Acute Plan: Monitor fluid status UF as tolerated with dialysis (Mily Gray) Plan patient was seen and examined. Agree with above assessment and plan. (Arvin Farnsworth MD) Problem Qualifiers (1) HTN (hypertension): Qualified Codes: I15.1 - Hypertension secondary to other renal disorders; N28.89 - Other specified disorders of kidney and ureter Mily Gray Aug 02, 2017 14:09 Arvin Farnsworth MD Aug 02, 2017 15:49
[2017-08-02 16:00] VITALS: BP 119/60; PULSE 73; RESP 20; TEMP 97.8; O2SAT 99
[2017-08-02 20:00] VITALS: BP 176/84; PULSE 86; RESP 21; TEMP 97.5; O2SAT 99
[2017-08-02] MEDS: ATORVASTATIN 40 MG TAB PO SCH (21:27)
[2017-08-03] VITALS: BP 115/57; PULSE 74; RESP 19; TEMP 98.5; O2SAT 94
[2017-08-03] MEDS: VANCOMYCIN 500 MG VIAL (FOR ORAL USE ONLY) PO SCH ×4 (02:00→23:04)
[2017-08-03] MEDS: REMOVE OLD PATCH T-DERMAL SCH ×2 (02:02→23:10)
[2017-08-03] MEDS: ACETAMINOPHEN/HYDROcodone 325 MG/5 MG TAB PO PRN ×2 (03:49→19:07)
[2017-08-03 04:00] VITALS: BP 150/70; PULSE 78; RESP 18; TEMP 98.3; O2SAT 94
--- NOTE | 2017-08-03 08:03 | HHI.PR ---
Subjective Remarks All the patient in the bed. Says she has more edema in her legs and she has pain in her left leg. Will do ultrasound Doppler to rule out DVT. She feels tired. No nausea or vomiting. Able to eat. Saturating well on room air no shortness of breath or chest pain. Objective Vitals Vital Signs Date Time Temp Pulse Resp B/P (MAP) Pulse Ox O2 Delivery O2 Flow Rate FiO2 08/03/17 04:00 98.3 78 18 150/70 (96) 94 08/03/17 00:00 98.5 74 19 115/57 (76) 94 08/02/17 20:00 97.5 86 21 176/84 (114) 99 08/02/17 16:00 97.8 73 20 119/60 (79) 99 08/02/17 12:56 97.6 72 20 123/64 (83) 100 I/O 08/02/17 08/02/17 08/02/17 08/03/17 08/03/17 08/03/17 07:00 15:00 23:00 07:00 15:00 23:00 # Voids 3 0 # Bowel Movements 3 0 Result Diagram: 08/01/17 0740 08/01/17 0740 Imaging Last Impressions Catheter Placement X-Ray 07/30/17 0000 Signed Impressions: Service Date/Time: Sunday, July 30, 2017 10:53 - CONCLUSION: Uncomplicated line placement as above. Marlon Waite Jr., MD Shunt Study 07/29/17 0000 Signed Impressions: Service Date/Time: Saturday, July 29, 2017 13:25 - CONCLUSION: Uncomplicated declotting of thrombosed fistula. Adrian Sánchez MD Head CT 07/27/17 1207 Signed Impressions: Service Date/Time: Thursday, July 27, 2017 13:14 - CONCLUSION: No acute intracranial process, trauma or fracture. Benedicto Pérez MD Chest X-Ray 07/27/171206 Signed Impressions: Service Date/Time: Thursday, July 27, 2017 12:10 - CONCLUSION: No acute disease. There is mild scarring. Srinivas Trevino MD Objective Remarks GENERAL: This is a well-nourished, well-developed patient, in no apparent distress. HEENT: [place], AT. CARDIOVASCULAR: Regular rate and regular rhythm without murmurs, gallops, or rubs. RESPIRATORY: Clear to auscultation. Breath sounds equal bilaterally. No wheezes , rales or rhonchi. GASTROINTESTINAL: Abdomen soft, non-tender, nondistended. MUSCULOSKELETAL: Extremities without clubbing, cyanosis. TR edema in the LEs. NEURO: Awake and alert. A/P Assessment and Plan Acute encephalopathy Possibly 2/2 benzos and missed HD. Per son patient gets altered mental status when she is missing HD. Seems stable. - dialysis. - holding benzos. Will resume at lower dose as needed. End-stage renal disease On hemodialysis. Non compliant with HD. Clotted AV fistula. VasCath placed by IR. - Consultation nephrology, Dr Wu. Continue dialysis as scheduled. - Vascular surgery consulted for definitive dialysis access. LE edema bilateral worse on the left leg. Will do doppler US to r/o dvt Atrial fibrillation/ Chronic systolic and diastolic heart failure/Coronary disease status post stent LAD 2014 Stable at this time. - Cont metoprolol 25 mg by mouth twice a day. - hold Plavix for now. - telemetry. C diff colitis PCR was positive. - started on Vanco- will monitor. Hypokalemia Secondary to above. - Replete potassium cautiously in the setting of renal disease. COPD Not in exacerbation at this time. - Duonebs and oxygen as needed. Hypoglycemia Likely s/t decreased PO intake. - follow glucose per protocol. DVT - SCD/teds Discussed with the patient, nurse, roma son at bedside Patient wants to go home however she has not cleared by nephrology. Patient needs vas cath, plan for catheter exchange on Saturday. NOT cleared by nephro to DC Tish Stafford MD Aug 03, 2017 08:03
[2017-08-03 08:26] VITALS: BP 138/68; PULSE 75; RESP 18; TEMP 97.7; O2SAT 97
[2017-08-03] MEDS: METOPROLOL TARTRATE 25 MG TAB PO SCH ×2 (09:26→23:04)
[2017-08-03] MEDS: NICOTINE 21 MG/24 HR PATCH T-DERMAL SCH (09:27)
[2017-08-03] MEDS: SODIUM CHLORIDE 0.9% FLUSH 10 ML FLUSH IV FLUSH SCH ×2 (09:28→23:04)
[2017-08-03] MEDS: ASPIRIN EC 81 MG TABEC PO SCH (09:28)
[2017-08-03 12:35] VITALS: BP 154/73; PULSE 73; RESP 18; TEMP 97.8; O2SAT 100
--- NOTE | 2017-08-03 13:51 | HHI.NPPN ---
Subjective General Problems: Anemia, Edema, Heart Disease, Hypertension, Mebatolic Acidosis Renal Failure: Chronic, End Stage Renal Disease Additional Remarks No acute complaints Review of Systems General Constitutional: Fatigue Cardiovascular Cardiac: Edema Gastrointestinal Gastrointestinal: Nausea & Vomiting Skin Skin: Skin Rash, Lesions Psych Psych: Depression Objective Data Data 08/03/17 08/04/17 19:00 07:00 # Bowel Movements 1 Vital Signs Date Time Temp Pulse Resp B/P (MAP) Pulse Ox O2 Delivery O2 Flow Rate FiO2 08/03/17 12:35 97.8 73 18 154/73 (100) 100 08/03/17 08:26 97.7 75 18 138/68 (91) 97 08/03/17 04:00 98.3 78 18 150/70 (96) 94 08/03/17 00:00 98.5 74 19 115/57 (76) 94 08/02/17 20:00 97.5 86 21 176/84 (114) 99 08/02/17 16:00 97.8 73 20 119/60 (79) 99 -: 08/01/17 0740 08/01/17 0740 Tubes & Lines: Vas-Cath Physical Exam General Appearance: No Acute Distress, Comfortable, Malnourished Eyes Eye Exam: Pupils Equal, Pupils Reactive Throat Throat Exam: Oral Mucosa [place] & Moist Pulmonary Resp Exam: Breath Sounds Equal, Crackles Cardiology CV Exam: Regular, Normal Sinus Rhythm Gastrointestinal/Abdomen GI Exam: Soft, Non-Tender, Positive Bowel Movement Musculoskeletal MS Exam: Normal Tone, Atrophy, Unable to Ambulate Integumentary Skin Exam: Warm, Dry Extremeties Extremities Exam: Pedal Pulses Palpable, Moderate Edema Neurologic Neuro Exam: Alert, Awake, Oriented, Speech Clear, Moving All Extremities Psychiatric Psych Exam: Appropriate Responses Assessment/Plan Discussed Condition With: Patient Assessment Summary: Fluid/Volume Overload, CHF, Hypertension, End Stage Renal Disease Problem List: (1) ESRD (end stage renal disease) on dialysis ICD Codes: N18.6 - End stage renal disease; Z99.2 - Dependence on renal dialysis Status: Chronic Plan: We have her on TTS HD while admitted HD Saturday Unsuccessful AVG declotting here; vascular (Dr. Barragan has evaluated), has appointment outpatient for vein mapping and surgery next week Vascath placed 07/31; Needs Permcath exchange. Required 5 day hold on Plavix ( Last dose 07/29). Scheduled for Saturday morning. Will be NPO Saturday after midnight. Order entered. Holding Plavix until Saturday On Sevelamer for hyperphosphatemia however she refuses Avoid IVF, gadolinium is contraindicated High protein diet encouraged She is historically non compliant with medical advice, medications, treatment schedules including dialysis. * Patient well known to me. Left upper arm 4-7mm tapered AV graft placed with Dr. Thibodeaux 11/2015. I performed a recent thrombectomy 06/2017. Continue to follow up for tunneled catheter placement with IR Saturday. This graft may be able to be salvaged - she had a previous axillary artery angioplasty in 2015, and the axillary artery was not investigated during the thrombectomy procedure here. [facility]2 [facility] for an attempt at graft salvage. (2) HTN (hypertension) ICD Codes: I10 - Essential (primary) hypertension Status: Chronic Plan: Monitor blood pressure, titrate medications as needed (3) C. difficile colitis ICD Codes: A04.7 - Enterocolitis due to Clostridium difficile Status: Acute Plan: On PO Vancomycin Also contact precautions (4) Tobacco abuse ICD Codes: Z72.0 - Tobacco use Status: Chronic Plan: Counseled on cessation of ETOH and tobacco (5) Combined systolic and diastolic congestive heart failure ICD Codes: I50.40 - Unspecified combined systolic (congestive) and diastolic ( congestive) heart failure Status: Acute Plan: Monitor fluid status UF as tolerated with dialysis Problem Qualifiers (1) HTN (hypertension): Qualified Codes: I15.1 - Hypertension secondary to other renal disorders; N28.89 - Other specified disorders of kidney and ureter Chucho Wu MD Aug 03, 2017 13:51
[2017-08-03 19:00] VITALS: BP 151/69; PULSE 78; RESP 21; TEMP 98.4; O2SAT 96
--- NOTE | 2017-08-03 20:04 | RADRPT ---
EXAM DATE/TIME: 08/03/2017 19:13 [facility] COMPARISON: US LEG BILATERAL VENOUS DOPPLER, August 20, 2014, 14:45. INDICATIONS : Bilateral leg swelling. MEDICAL HISTORY : Myocardial infarction. Congestive heart failure. Hypercholesterolemia. Migraine. Coronary artery dise ase. Afib. Hyperlipidemia. Chest pain. HTN. COPD. Emphysema. GERD. Renal disease and failure. Renal c alculi. Arthritis. Anemia. Depression. Anxiety. Anticoagulant therapy, Plavix. C-diff. ESBL. SURGICAL HISTORY : Tonsillectomy.Coronary artery stent. Cardiac cath. D&C. Left arm AV fistula. Dialysis. Right vas cath . Blood transfusions. ENCOUNTER: Initial ACUITY: 1 month PAIN SCORE: 4/10 LOCATION: Bilateral lower extremity TECHNIQUE: Venous ultrasound of the left and right leg was performed from the inguinal ligament to the proximal calf. Real-time, color Doppler and spectral tracing, compression and augmentation techniques were us ed. FINDINGS: RIGHT LEG: There is normal compressibility of the deep venous system from the inguinal region to the proximal ca lf. No echogenic clot is seen in the lumen of the common femoral, femoral, popliteal, and posterior tibial veins. There is a normal response of the venous system to proximal and distal augmentation an d respiration. LEFT LEG: There is normal compressibility of the deep venous system from the inguinal region to the proximal ca lf. No echogenic clot is seen in the lumen of the common femoral, femoral, popliteal, and posterior tibial veins. There is a normal response of the venous system to proximal and distal augmentation an d respiration. CONCLUSION: No DVT in either leg. . Alli Pagan MD on August 03, 2017 at 20:01 Board Certified Radiologist. This report was verified electronically.
[2017-08-03] MEDS: ATORVASTATIN 40 MG TAB PO SCH (23:04)
[2017-08-03] MEDS: ALPRAZolam 0.25 MG TAB PO PRN (23:06)
[2017-08-03 23:14] VITALS: BP 120/61; PULSE 73; RESP 18; TEMP 98.2; O2SAT 98
[2017-08-04] MEDS: VANCOMYCIN 500 MG VIAL (FOR ORAL USE ONLY) PO SCH ×4 (02:46→21:52)
[2017-08-04] MEDS: ACETAMINOPHEN/HYDROcodone 325 MG/5 MG TAB PO PRN ×4 (02:46→21:52)
[2017-08-04 04:00] VITALS: BP 111/57; PULSE 77; RESP 20; TEMP 98.2; O2SAT 94
[2017-08-04 08:00] VITALS: BP 121/75; PULSE 73; RESP 18; TEMP 98; O2SAT 96
--- NOTE | 2017-08-04 08:38 | HHI.PR ---
Subjective Remarks In bed she has some shortness of breath. No coughing. Saturating well on room air at this time. Feels tired. Not eating much. Pain in her left thigh improved with medications. No nausea vomiting no diarrhea or constipation. this is Objective Vitals Vital Signs Date Time Temp Pulse Resp B/P (MAP) Pulse Ox O2 Delivery O2 Flow Rate FiO2 08/04/17 08:00 98.0 73 18 121/75 (90) 96 08/04/17 04:00 98.2 77 20 111/57 (75) 94 08/03/17 23:14 98.2 73 18 120/61 (80) 98 08/03/17 19:00 98.4 78 21 151/69 (96) 96 08/03/17 12:35 97.8 73 18 154/73 (100) 100 I/O 08/03/17 08/03/17 08/03/17 08/04/17 08/04/17 08/04/17 07:00 15:00 23:00 07:00 15:00 23:00 Intake Total 360 ml Output Total 2500 ml Balance -2500 ml 360 ml Intake Oral 360 ml Hemodialysis 2500 ml # Voids 0 3 # Bowel Movements 0 1 Result Diagram: 08/01/17 0740 08/01/17 0740 Imaging Last Impressions Lower Extremity Ultrasound 08/03/17 0000 Signed Impressions: Service Date/Time: Thursday, August 03, 2017 19:13 - CONCLUSION: No DVT in either leg. . Alli Pagan MD Catheter Placement X-Ray 07/30/17 0000 Signed Impressions: Service Date/Time: Sunday, July 30, 2017 10:53 - CONCLUSION: Uncomplicated line placement as above. Marlon Waite Jr., MD Shunt Study 07/29/17 0000 Signed Impressions: Service Date/Time: Saturday, July 29, 2017 13:25 - CONCLUSION: Uncomplicated declotting of thrombosed fistula. Adrian Sánchez MD Head CT 07/27/17 1207 Signed Impressions: Service Date/Time: Thursday, July 27, 2017 13:14 - CONCLUSION: No acute intracranial process, trauma or fracture. Benedicto Pérez MD Chest X-Ray 07/27/17 1207 Signed Impressions: Service Date/Time: Thursday, July 27, 2017 12:10 - CONCLUSION: No acute disease. There is mild scarring. Srinivas Trevino MD Objective Remarks GENERAL: This is a well-nourished, well-developed patient, in no apparent distress. HEENT: NC, AT. CARDIOVASCULAR: Regular rate and regular rhythm without murmurs, gallops, or rubs. RESPIRATORY: Clear to auscultation. Breath sounds equal bilaterally. No wheezes , rales or rhonchi. GASTROINTESTINAL: Abdomen soft, non-tender, nondistended. MUSCULOSKELETAL: Extremities without clubbing, cyanosis. TR edema in the LEs. NEURO: Awake and alert. A/P Assessment and Plan Acute encephalopathy Possibly 2/2 benzos and missed HD. Per son patient gets altered mental status when she is missing HD. Seems stable. - dialysis. - holding benzos. Will resume at lower dose as needed. End-stage renal disease On hemodialysis. Non compliant with HD. Clotted AV fistula. VasCath placed by IR. - Consultation nephrology, Dr Wu. Continue dialysis as scheduled. - Vascular surgery consulted for definitive dialysis access. LE edema bilateral worse on the left leg. Doppler US reviewed no DVT. Patient will need to have HD Atrial fibrillation/ Chronic systolic and diastolic heart failure/Coronary disease status post stent LAD 2014 Stable at this time. - Cont metoprolol 25 mg by mouth twice a day. - hold Plavix for now. - telemetry. C diff colitis PCR was positive. - started on Vanco- will monitor. Hypokalemia Secondary to above. - Replete potassium cautiously in the setting of renal disease. COPD Not in exacerbation at this time. - Duonebs and oxygen as needed. Hypoglycemia Likely s/t decreased PO intake. - follow glucose per protocol. DVT - SCD/teds Discussed with the patient, nurse, fsmily son at bedside Patient wants to go home however she has not cleared by nephrology. Patient needs vas cath, plan for catheter exchange on Saturday. NOT cleared by nephro to DC until gets the cath exchange per nephro. Plan to DC to SNF poss tomorrow after cath exchange. Tish Stafford MD Aug 04, 2017 08:38
[2017-08-04] MEDS: METOPROLOL TARTRATE 25 MG TAB PO SCH ×2 (09:21→21:52)
[2017-08-04] MEDS: NICOTINE 21 MG/24 HR PATCH T-DERMAL SCH (09:21)
[2017-08-04] MEDS: ASPIRIN EC 81 MG TABEC PO SCH (09:22)
[2017-08-04] MEDS: SODIUM CHLORIDE 0.9% FLUSH 10 ML FLUSH IV FLUSH SCH ×2 (09:31→21:52)
[2017-08-04 12:00] VITALS: BP 126/73; PULSE 78; RESP 18; TEMP 98.4; O2SAT 96
--- NOTE | 2017-08-04 13:49 | HHI.NPPN ---
Subjective General Problems: Anemia, Edema, Heart Disease, Hypertension, Mebatolic Acidosis Renal Failure: Chronic, End Stage Renal Disease Additional Remarks No acute complaints Review of Systems General Constitutional: Fatigue Cardiovascular Cardiac: Edema Gastrointestinal Gastrointestinal: Nausea & Vomiting Skin Skin: Skin Rash, Lesions Psych Psych: Depression Objective Data Data Vital Signs Date Time Temp Pulse Resp B/P (MAP) Pulse Ox O2 Delivery O2 Flow Rate FiO2 08/04/17 12:00 98.4 78 18 126/73 (90) 96 08/04/17 08:00 98.0 73 18 121/75 (90) 96 08/04/17 04:00 98.2 77 20 111/57 (75) 94 08/03/17 23:14 98.2 73 18 120/61 (80) 98 08/03/17 19:00 98.4 78 21 151/69 (96) 96 -: 08/01/17 0740 08/01/17 0740 Tubes & Lines: Vas-Cath Physical Exam General Appearance: No Acute Distress, Comfortable, Malnourished Eyes Eye Exam: Pupils Equal, Pupils Reactive Throat Throat Exam: Oral Mucosa [place] & Moist Pulmonary Resp Exam: Breath Sounds Equal, Crackles Cardiology CV Exam: Regular, Normal Sinus Rhythm Gastrointestinal/Abdomen GI Exam: Soft, Non-Tender, Positive Bowel Movement Musculoskeletal MS Exam: Normal Tone, Atrophy, Unable to Ambulate Integumentary Skin Exam: Warm, Dry Extremeties Extremities Exam: Pedal Pulses Palpable, Moderate Edema Neurologic Neuro Exam: Alert, Awake, Oriented, Speech Clear, Moving All Extremities Psychiatric Psych Exam: Appropriate Responses Assessment/Plan Discussed Condition With: Patient Assessment Summary: Fluid/Volume Overload, CHF, Hypertension, End Stage Renal Disease Problem List: (1) ESRD (end stage renal disease) on dialysis ICD Codes: N18.6 - End stage renal disease; Z99.2 - Dependence on renal dialysis Status: Chronic Plan: We have her on TTS HD while admitted HD done yesterday, with 2.9L UF. Unsuccessful AVG declotting here; vascular (Dr. Barragan has evaluated), has appointment outpatient for vein mapping and surgery next week Vascath placed 07/31; Needs Permcath exchange. Required 5 day hold on Plavix per IR (Last dose 07/29). Scheduled for Saturday morning. Will be NPO Saturday after midnight. Order entered. Holding Plavix until Saturday On Sevelamer for hyperphosphatemia however she refuses Avoid IVF, gadolinium is contraindicated High protein diet encouraged She is historically non compliant with medical advice, medications, treatment schedules including dialysis. Stable for D/C after catheter exchanged, from renal standpoint. * Patient well known to me. Left upper arm 4-7mm tapered AV graft placed with Dr. Thibodeaux 11/2015. I performed a recent thrombectomy 06/2017. Continue to follow up for tunneled catheter placement with IR Saturday. This graft may be able to be salvaged - she had a previous axillary artery angioplasty in 2015, and the axillary artery was not investigated during the thrombectomy procedure here. She may [facility] in 1 -2 weeks for an attempt at graft salvage. (2) HTN (hypertension) ICD Codes: I10 - Essential (primary) hypertension Status: Chronic Plan: Monitor blood pressure, titrate medications as needed (3) C. difficile colitis ICD Codes: A04.7 - Enterocolitis due to Clostridium difficile Status: Acute Plan: On PO Vancomycin Also contact precautions (4) Tobacco abuse ICD Codes: Z72.0 - Tobacco use Status: Chronic Plan: Counseled on cessation of ETOH and tobacco (5) Combined systolic and diastolic congestive heart failure ICD Codes: I50.40 - Unspecified combined systolic (congestive) and diastolic ( congestive) heart failure Status: Acute Plan: Monitor fluid status UF as tolerated with dialysis Problem Qualifiers (1) HTN (hypertension): Qualified Codes: I15.1 - Hypertension secondary to other renal disorders; N28.89 - Other specified disorders of kidney and ureter Chucho Wu MD Aug 04, 2017 13:49
[2017-08-04 16:00] VITALS: BP 135/63; PULSE 80; RESP 16; TEMP 98.4; O2SAT 95
[2017-08-04 20:07] VITALS: BP 164/80; PULSE 108; RESP 16; TEMP 99.4; O2SAT 94
[2017-08-04] MEDS: ATORVASTATIN 40 MG TAB PO SCH (21:52)
[2017-08-04] MEDS: REMOVE OLD PATCH T-DERMAL SCH (21:53)
[2017-08-05] VITALS (9 sets, daily range): BP systolic 89–147; BP diastolic 50–93; PULSE 68–91; RESP 16–20; TEMP 97.8–99.3; O2SAT 89–98
[2017-08-05] MEDS: ACETAMINOPHEN/HYDROcodone 325 MG/5 MG TAB PO PRN ×3 (01:43→15:15)
[2017-08-05] MEDS: ALPRAZolam 0.25 MG TAB PO PRN (02:00)
[2017-08-05] MEDS: VANCOMYCIN 500 MG VIAL (FOR ORAL USE ONLY) PO SCH ×5 (02:00→22:18)
[2017-08-05] MEDS: SODIUM CHLORIDE 0.9% FLUSH 10 ML FLUSH IV FLUSH SCH ×3 (08:26→21:00)
[2017-08-05] MEDS: METOPROLOL TARTRATE 25 MG TAB PO SCH ×2 (08:26→22:19)
[2017-08-05] MEDS: NICOTINE 21 MG/24 HR PATCH T-DERMAL SCH (08:27)
[2017-08-05] MEDS: ASPIRIN EC 81 MG TABEC PO SCH (08:27)
[2017-08-05] MEDS ORDERED: VANCOMYCIN 1,000 MG/NS 250 ML IV SCH ×2 (09:30)
[2017-08-05] MEDS ORDERED: ceFAZolin 2 GM/DEX PREMIX 50 ML IV SCH (09:30)
--- NOTE | 2017-08-05 10:40 | HHI.NPPN ---
Subjective General Problems: Anemia, Edema, Heart Disease, Hypertension, Mebatolic Acidosis Renal Failure: Chronic, End Stage Renal Disease Interval History She is NPO. To have permcath exchange today. No new concerns. (Mily Gray) Review of Systems General Constitutional: Fatigue (Mily Gray) Cardiovascular Cardiac: Edema (Mily Gray) Gastrointestinal Gastrointestinal: Nausea & Vomiting (Mily Gray) Skin Skin: Skin Rash, Lesions (Mily Gray) Psych Psych: Depression (Mily Gray) Objective Data Data Vital Signs Date Time Temp Pulse Resp B/P (MAP) Pulse Ox O2 Delivery O2 Flow Rate FiO2 08/05/17 00:00 98.6 76 16 94/50 (65) 98 08/04/17 20:07 99.4 108 16 164/80 (108) 94 08/04/17 16:00 98.4 80 16 135/63 (87) 95 08/04/17 12:00 98.4 78 18 126/73 (90) 96 (Mily Gray) -: 08/01/17 0740 08/01/17 0740 Tubes & Lines: Vas-Cath (Mily Gray) Physical Exam General Appearance: No Acute Distress, Comfortable, Sleeping, Malnourished (Mily Gray) Eyes Eye Exam: Pupils Equal, Pupils Reactive (Mily Gray) Throat Throat Exam: Oral Mucosa [place] & Moist (Mily Gray) Neck Neck Exam: Neck Supple, Trachea Midline (Mily Gray) Pulmonary Resp Exam: Clear Bilaterally, Breath Sounds Equal, No Distress, Crackles (Mily Gray) Cardiology CV Exam: Regular, Normal Sinus Rhythm (Mily Gray) Gastrointestinal/Abdomen GI Exam: Soft, Non-Tender, Positive Bowel Movement (Mily Gray) Musculoskeletal MS Exam: Joints Intact, Normal Tone, Atrophy, Unable to Ambulate (Mily Gray) Integumentary Skin Exam: Warm, Dry Skin Remarks dark blister left leg, medial thigh (Mily Gray) Extremeties Extremities Exam: Pedal Pulses Palpable, Moderate Edema Extremeties Remarks left arm, AVG, dressing in place. AVG feels hard, not patent (Mily Gray) Neurologic Neuro Exam: Alert, Awake, Oriented, Speech Clear, Moving All Extremities (Mily Gray) Psychiatric Psych Exam: Appropriate Responses (Mily Gray) Assessment/Plan Discussed Condition With: Patient Assessment Summary: Fluid/Volume Overload, CHF, Hypertension, End Stage Renal Disease Problem List: (1) ESRD (end stage renal disease) on dialysis ICD Codes: N18.6 - End stage renal disease; Z99.2 - Dependence on renal dialysis Status: Chronic Plan: We have her on TTS HD while admitted, due tomorrow. Unsuccessful AVG declotting here Vascath placed 07/31; Pending Permcath exchange today, plavix on hold, resume tomorrow. Left upper arm 4-7mm tapered AV graft placed with Dr. Thibodeaux 11/2015. s/p thrombectomy 06/2017. This graft may be able to be salvaged - she had a previous axillary artery angioplasty in 2015, and the axillary artery was not investigated during the thrombectomy procedure here. She [facility] -2 weeks for an attempt at graft salvage. Other option is to follow with Dr. Barragan. She is historically non compliant with medical advice, medications, treatment schedules including dialysis. On Sevelamer for hyperphosphatemia however she refuses Avoid IVF, gadolinium is contraindicated High protein diet encouraged Stable for D/C after catheter exchanged, from renal standpoint. (2) HTN (hypertension) ICD Codes: I10 - Essential (primary) hypertension Status: Chronic Plan: Monitor blood pressure, titrate medications as needed (3) C. difficile colitis ICD Codes: A04.7 - Enterocolitis due to Clostridium difficile Status: Acute Plan: On PO Vancomycin Also contact precautions (4) Tobacco abuse ICD Codes: Z72.0 - Tobacco use Status: Chronic Plan: Counseled on cessation of ETOH and tobacco (5) Combined systolic and diastolic congestive heart failure ICD Codes: I50.40 - Unspecified combined systolic (congestive) and diastolic ( congestive) heart failure Status: Acute Plan: Monitor fluid status UF as tolerated with dialysis (Mily Gray) Plan patient was seen and examined. Agree with above assessment and plan. Patient to follow up with Dr. Tony Wu. (Arvin Farnsworth MD) Problem Qualifiers (1) HTN (hypertension): Qualified Codes: I15.1 - Hypertension secondary to other renal disorders; N28.89 - Other specified disorders of kidney and ureter Mily Gray Aug 05, 2017 10:40 Arvin Farnsworth MD Aug 05, 2017 11:02
[2017-08-05] MEDS ORDERED: fentaNYL CITRATE 250 MCG/5 ML AMP ONE (12:10)
[2017-08-05] MEDS ORDERED: MIDAZOLAM HCL 5 MG/5 ML VIAL ONE (12:10)
[2017-08-05] MEDS ORDERED: LIDOCAINE 1%/EPINEPHrine 1:100,000 SOLN 30 ML VIAL ONE (12:53)
[2017-08-05] MEDS ORDERED: SODIUM CHLORIDE 0.9% FLUSH 10 ML FLUSH IV FLUSH PRN (14:15)
[2017-08-05] MEDS ORDERED: HEPARIN SODIUM - IV 2,000 UNITS/2 ML VIAL IV FLUSH PRN (14:15)
--- NOTE | 2017-08-05 16:29 | RADRPT ---
EXAM DATE/TIME: 08/05/2017 00:00 [facility] COMPARISON: No previous studies available for comparison. INDICATIONS : Patient with history of end stage renal disease in need of non tunnelled dialysis catheter removal. MEDICAL HISTORY : HTN, ESRD on hemodialysis, Systolic and diastolic heart failure ejection fraction 3-%, CAD, GI Bleed, C-Diff, COPD, HLD SURGICAL HISTORY : Left upper AV fistula, LAD Stent, Sigmoidoscopy, Fistula declot, Dialysis catheter placement, EGD ENCOUNTER: Subsequent ACUITY: 1 week PAIN SCORE: 10/10 LOCATION: Bilateral legs IMAGE SERIES: 0 PROCEDURE : 1. Temporary central venous catheter removal. The prescribed catheter was removed intact and hemostasis was achieved with direct pressure. The sit e was dressed appropriately. The patient tolerated the procedure well. CONCLUSION: Uncomplicated catheter removal. Guerrero Mcclain MD on August 05, 2017 at 16:05 Board Certified Radiologist. This report was verified electronically.
[2017-08-05] MEDS ORDERED: SODIUM CHLOR 0.9% 1000 ML INJ 1,000 ML IV ONE (16:30)
--- NOTE | 2017-08-05 16:32 | RADRPT ---
EXAM DATE/TIME: 08/05/2017 13:32 [facility] COMPARISON: PERM CV CATH PLCMT W US RIGHT, August 27, 2014, 14:31. INDICATIONS : Patient with history of end stage renal disease in need of tunnelled dialysis catheter placement. MEDICAL HISTORY : HTN, ESRD on hemodialysis, Systolic and diastolic heart failure ejection fraction 3-%, CAD, GI Bleed, C-Diff, COPD, HLD SURGICAL HISTORY : Left upper AV fistula, LAD Stent, Sigmoidoscopy, Fistula declot, Dialysis catheter placement, EGD ENCOUNTER: Subsequent ACUITY: 1 week PAIN SCORE: 9/10 LOCATION: Bilateral legs FLUORO TIME: 5.74 minutes IMAGE SERIES: 2 SEDATION TIME: 45 minutes ACCESS: Right internal jugular vein SEDATION: 1.) 2.5 mg midazolam (Versed) IV 2.) 150 mcg fentanyl (Sublimaze) IV Prophylactic antibiotics were administered with appropriate pre-procedure timing. Vancomycin within 2 hours of procedure, Ancef (or alternative) within 1 hour of procedure. DEVICE: 1. 15 [place] dual lumen 23 cm [place]isco[place] II Plus catheter PROCEDURE : 1. Ultrasound-guided venipuncture. 2. PermaCath placement. 3. Conscious sedation with continuous EKG and oximetry monitoring. The risks, benefits and alternatives to the procedure were explained and verbal and written consent w as obtained. The site was prepped in sterile fashion. Full sterile technique was used, including ca p, mask, sterile gloves and gown and a large sterile sheet. Hand hygiene and 2% chlorhexidine and/or betadine/alcohol prep was utilized per protocol for cutaneous antisepsis. Sterile gel and sterile p robe cover were utilized for ultrasound guidance. The skin and subcutaneous tissues were infiltrated with local anesthetic solution. With ultrasound and fluoroscopic guidance a dermatotomy was created over the prescribed vein. A micr opuncture set was used to access the targeted vein and serial dilatation was performed to accept the prescribed length catheter. A subcutaneous tunnel was created in a retrograde fashion the catheter w as pulled through the tunnel. The catheter was flushed and assembled and locked with heparin. The c atheter was sutured in place. Conscious sedation was performed with the prescribed dosages and duration as above in the presence of an independent trained radiology nurse to assist in the monitoring of the patient. EKG and oximetry remained stable throughout the procedure. The patient tolerated the procedure well and there were n o complications. The patient was sent to post anesthesia recovery in stable condition. CONCLUSION: Uncomplicated PermaCath placement as above. Guerrero Mcclain MD on August 05, 2017 at 16:30 Board Certified Radiologist. This report was verified electronically.
--- NOTE | 2017-08-05 18:31 | HHI.PR ---
Subjective Remarks 71-year-old female with a history of dialysis is eager to go home today. She was admitted a few days ago after having confusion related to skipping dialysis. She has no complaints today. Objective Vitals Vital Signs Date Time Temp Pulse Resp B/P (MAP) Pulse Ox O2 Delivery O2 Flow Rate FiO2 08/05/17 17:16 104/58 (73) 08/05/17 16:31 99.3 85 20 89/51 (64) 93 08/05/17 14:35 90 16 145/93 (110) 91 08/05/17 14:05 91 16 147/91 (109) 89 08/05/17 13:50 97.8 89 16 134/86 (102) 89 08/05/17 12:00 97.9 80 18 125/65 (85) 98 08/05/17 08:00 98.7 81 18 121/66 (84) 98 08/05/17 00:00 98.6 76 16 94/50 (65) 98 08/04/17 20:07 99.4 108 16 164/80 (108) 94 I/O 08/04/17 08/04/17 08/04/17 08/05/17 08/05/17 08/05/17 07:00 15:00 23:00 07:00 15:00 23:00 Intake Total 360 ml 480 ml Output Total 2 ml Balance 360 ml 478 ml Intake Oral 360 ml 480 ml Output Urine Total 2 ml # Voids 3 # Bowel Movements 1 1 Result Diagram: 08/01/17 0740 08/01/17 0740 Objective Remarks GENERAL: Well-nourished, well-developed patient. SKIN: Warm and dry. Vas-Cath and left neck, AV fistula left arm. HEAD: Normocephalic. EYES: No scleral icterus. No injection or drainage. NECK: Supple, trachea midline. No JVD or lymphadenopathy. CARDIOVASCULAR: Regular rate and rhythm without murmurs, gallops, or rubs. RESPIRATORY: Breath sounds equal bilaterally. No accessory muscle use. GASTROINTESTINAL: Abdomen soft, non-tender, nondistended. EXTREMITIES: No cyanosis, or edema. NEUROLOGICAL: Awake, alert, and oriented x 3. Non-focal. A/P Assessment and Plan Acute encephalopathy Related to skipped dialysis treatment versus benzodiazepine use. Currently resolved after starting dialysis again Benzodiazepines as needed (currently held) End-stage renal disease AV fistula is clotted, patient received permacath today, Vas-Cath to be removed Appreciate nephrology consult. Appreciate vascular surgery consult Lower extremity edema Mostly resolved Doppler US reviewed no DVT. Continue routine hemodialysis Atrial fibrillation, CHF, CAD Stable at this time. Stents placed in LAD 2014 Continue metoprolol Plavix held Continue telemetry C diff colitis PCR was positive. Continue p.o. vancomycin Hypokalemia Resolved h/o COPD Supportive care as needed Not an issue at this time DVT prophylaxis Akash Roberts MD Aug 05, 2017 18:31
[2017-08-05] MEDS: REMOVE OLD PATCH T-DERMAL SCH (21:00)
[2017-08-05] MEDS: ATORVASTATIN 40 MG TAB PO SCH (22:19)
[2017-08-06 00:30] VITALS: BP 115/60; PULSE 60; RESP 19; TEMP 98.8; O2SAT 95
[2017-08-06] MEDS: VANCOMYCIN 500 MG VIAL (FOR ORAL USE ONLY) PO SCH ×3 (02:15→14:19)
[2017-08-06 03:40] VITALS: BP 120/66; PULSE 66; RESP 18; TEMP 98; O2SAT 95
[2017-08-06] MEDS: ACETAMINOPHEN/HYDROcodone 325 MG/5 MG TAB PO PRN ×2 (06:30→14:19)
[2017-08-06 08:00] VITALS: BP 107/61; PULSE 84; RESP 20; TEMP 98.1; O2SAT 93
[2017-08-06 08:12] LABS: CREATININE 5.12 MG/DL (0.50-1.00)
[2017-08-06 08:19] LABS: BICARBONATE 24.8 MEQ/L (21.0-32.0); CALCIUM 8.1 MG/DL (8.5-10.1); PHOSPHORUS 4.9 MG/DL (2.5-4.9)
[2017-08-06] MEDS: NICOTINE 21 MG/24 HR PATCH T-DERMAL SCH (08:44)
[2017-08-06] MEDS: METOPROLOL TARTRATE 25 MG TAB PO SCH (08:44)
[2017-08-06] MEDS: ASPIRIN EC 81 MG TABEC PO SCH (08:44)
[2017-08-06] MEDS: SODIUM CHLORIDE 0.9% FLUSH 10 ML FLUSH IV FLUSH SCH (08:45)
--- NOTE | 2017-08-06 11:29 | HHI.NPPN ---
Subjective General Problems: Anemia, Edema, Heart Disease, Hypertension, Mebatolic Acidosis Renal Failure: Chronic, End Stage Renal Disease Interval History Seen during dialysis. No new concerns. Permcath successfully placed yesterday. (Mily Gray) Review of Systems General Constitutional: Fatigue (Mily Gray) Cardiovascular Cardiac: Edema (Mily Gray) Gastrointestinal Gastrointestinal: Nausea & Vomiting (Mily Gray) Skin Skin: Skin Rash, Lesions (Mily Gray) Psych Psych: Depression (Mily Gray) Objective Data Data Vital Signs Date Time Temp Pulse Resp B/P (MAP) Pulse Ox O2 Delivery O2 Flow Rate FiO2 08/06/17 08:00 98.1 84 20 107/61 (76) 93 08/06/17 03:40 98.0 66 18 120/66 (84) 95 08/06/17 00:30 98.8 60 19 115/60 (78) 95 08/05/17 21:50 97.9 68 20 110/65 (80) 96 08/05/17 17:16 104/58 (73) 08/05/17 16:31 99.3 85 20 89/51 (64) 93 08/05/17 14:35 90 16 145/93 (110) 91 08/05/17 14:05 91 16 147/91 (109) 89 08/05/17 13:50 97.8 89 16 134/86 (102) 89 08/05/17 12:00 97.9 80 18 125/65 (85) 98 (Mily Gray) -: 08/06/17 0616 Imaging Last 72 hours Impressions Catheter Placement X-Ray 08/05/17 0800 Signed Impressions: Service Date/Time: Saturday, August 05, 2017 13:32 - CONCLUSION: Uncomplicated PermaCath placement as above. Guerrero Mcclain MD Central Venous Line 08/05/17 0000 Signed Impressions: Service Date/Time: Saturday, August 05, 2017 00:00 - CONCLUSION: Uncomplicated catheter removal. Guerrero Mcclain MD Tubes & Lines: Vas-Cath (Mily Gray) Physical Exam General Appearance: Well Developed, No Acute Distress, Comfortable, Sleeping, Malnourished (Mily Gray) Eyes Eye Exam: Pupils Equal, Pupils Reactive (Mily Gray) Throat Throat Exam: Oral Mucosa [place] & Moist (Mily Gray) Neck Neck Exam: Neck Supple, Trachea Midline (Mily Gray) Pulmonary Resp Exam: Clear Bilaterally, Breath Sounds Equal, No Distress, Crackles (Mily Gray) Cardiology CV Exam: Regular, Normal Sinus Rhythm (Mily Gray) Gastrointestinal/Abdomen GI Exam: Soft, Non-Tender, Positive Bowel Movement (Mily Gray) Musculoskeletal MS Exam: Joints Intact, Normal Tone, Atrophy, Unable to Ambulate (Mily Gray) Integumentary Skin Exam: Warm, Dry Skin Remarks dark blister left leg, medial thigh (Mily Gray) Extremeties Extremities Exam: Pedal Pulses Palpable, Moderate Edema Extremeties Remarks left arm, AVG, dressing in place. AVG feels hard, not patent (Mily Gray) Neurologic Neuro Exam: Alert, Awake, Oriented, Speech Clear, Moving All Extremities (Mily Gray) Psychiatric Psych Exam: Appropriate Responses (Mily Gray) Assessment/Plan Discussed Condition With: Patient Assessment Summary: Fluid/Volume Overload, CHF, Hypertension, End Stage Renal Disease Problem List: (1) ESRD (end stage renal disease) on dialysis ICD Codes: N18.6 - End stage renal disease; Z99.2 - Dependence on renal dialysis Status: Chronic Plan: Seen during dialysis today on a 2K, 320 BFR, goal 3L We have her on TTS HD while admitted Can be discharged from renal perspective Unsuccessful AVG declotting here * Left upper arm 4-7mm tapered AV graft placed with Dr. Thibodeaux 11/2015. s/p thrombectomy 06/2017. This graft may be able to be salvaged - she had a previous axillary artery angioplasty in 2015, and the axillary artery was not investigated during the thrombectomy procedure here. Will have her follow with Dr. Tony Wu in 1-2 weeks. Other option is to follow with Dr. Barragan. She is historically non compliant with medical advice, medications, treatment schedules including dialysis. On Sevelamer for hyperphosphatemia however she refuses Avoid IVF, gadolinium is contraindicated High protein diet encouraged Stable for D/C after catheter exchanged, from renal standpoint. (2) HTN (hypertension) ICD Codes: I10 - Essential (primary) hypertension Status: Chronic Plan: Monitor blood pressure, titrate medications as needed (3) C. difficile colitis ICD Codes: A04.7 - Enterocolitis due to Clostridium difficile Status: Acute Plan: On PO Vancomycin Also contact precautions (4) Tobacco abuse ICD Codes: Z72.0 - Tobacco use Status: Chronic Plan: Counseled on cessation of ETOH and tobacco (5) Combined systolic and diastolic congestive heart failure ICD Codes: I50.40 - Unspecified combined systolic (congestive) and diastolic ( congestive) heart failure Status: Acute Plan: Monitor fluid status UF as tolerated with dialysis Plan Cleared for discharge from renal perspective (Mily Gray) Plan patient was seen and examined. Agree with above assessment and plan. (Arvin Farnsworth MD) Problem Qualifiers (1) HTN (hypertension): Qualified Codes: I15.1 - Hypertension secondary to other renal disorders; N28.89 - Other specified disorders of kidney and ureter Mily Gray August 06, 2017 11:29 Arvin Farnsworth MD August 06, 2017 13:46
[2017-08-06] MEDS ORDERED: VANC500I3 PO (12:05)
--- NOTE | 2017-08-06 12:09 | HHI.DS ---
Discharge Summary Admission Date Jul 29, 2017 at 13:57 Discharge Date: August 06, 2017 Admitting Diagnosis (1) Encephalopathy ICD Code: G93.40 - Encephalopathy, unspecified (2) ESRD (end stage renal disease) ICD Code: N18.6 - End-stage renal disease Status: Chronic (3) C. difficile colitis ICD Code: A04.7 - Enterocolitis due to Clostridium difficile Status: Acute (4) Atrial fibrillation ICD Code: I48.91 - Atrial fibrillation Status: Chronic Procedures dialysis Brief History - From Admission 71 year old female with PMH of end-stage renal disease on hemodialysis Tuesdays and Saturdays, combined systolic and diastolic heart failure ejection fraction 30%, coronary disease with a stent LAD 2014, h.o GIB and ulcers, history of C. difficile and ESBL positive Klebsiella UTI. She is also a history of depression on chronic clonazepam. She is on aspirin and Plavix. Was sent by [facility] dialysis center for evaluation of altered mental status. Patient is here alert and oriented x2. CBC/BMP: 08/06/17 0616 Significant Findings Laboratory Tests Test 08/06/17 06:16 Blood Urea Nitrogen 50 MG/DL (7-18) Creatinine 5.12 MG/DL (0.50-1.00) Random Glucose 58 MG/DL (74-106) Albumin 2.0 GM/DL (3.4-5.0) Calcium Level 8.1 MG/DL (8.5-10.1) Sodium Level 131 MEQ/L (136-145) Chloride Level 94 MEQ/L (98-107) Estimat Glomerular Filtration Rate 8 ML/MIN (>89) PE at Discharge GENERAL: Well-nourished, well-developed patient. SKIN: Warm and dry. Vas-Cath and left neck, AV fistula left arm. HEAD: Normocephalic. EYES: No scleral icterus. No injection or drainage. NECK: Supple, trachea midline. No JVD or lymphadenopathy. CARDIOVASCULAR: Regular rate and rhythm without murmurs, gallops, or rubs. RESPIRATORY: Breath sounds equal bilaterally. No accessory muscle use. GASTROINTESTINAL: Abdomen soft, non-tender, nondistended. EXTREMITIES: No cyanosis, or edema. NEUROLOGICAL: Awake, alert, and oriented x 3. Non-focal. Hospital Course 71-year-old female who presented with metabolic encephalopathy following missed dialysis treatment last week. ER workup revealed incidental findings such as PCR positive asymptomatic C. difficile. She also has chronic atrial fibrillation which was active on admission. Her mentation cleared up following 2 dialysis treatments. She has a AV fistula on her left arm which is clotted. Vas-Cath was used as temporary access but she had a permacath placed yesterday and tolerated the procedure well. She is undergoing dialysis currently and is expecting to go home today. Pt Condition on Discharge: Good Discharge Disposition: Discharge to SNF Discharge Time: <= 30 minutes Discharge Instructions DIET: Follow Instructions for: As Tolerated, No Restrictions Activities you can perform: Regular-No Restrictions Akash Padron MD August 06, 2017 12:09
[2017-08-06] MEDS: GENTAMICIN SULFATE 20 MG/2 ML VIAL OTHER PRN (13:22)
[2017-08-06 14:15] VITALS: BP 124/68
== END 2017-08-06 16:44 | DRG 252 ==
LOC: NEPC 11:40 → NEDA 14:47 → NEPGCP 17:02 → OBSVTOIN 07-29 13:57 → N05B 07-31 17:15
PROVIDERS: ADMIT Family Medicine; ATTEND Family Medicine
PROC: 5A1D70Z Performance of Urinary Filtration, Intermittent, Less than 6 Hours Per Day (ICD-10-PCS; 2017-07-28)
PROC: 037Y3ZZ Dilation of Upper Artery, Percutaneous Approach (ICD-10-PCS; principal; 2017-07-29)
PROC: 057Y3ZZ Dilation of Upper Vein, Percutaneous Approach (ICD-10-PCS; 2017-07-29)
PROC: 05CY3ZZ Extirpation of Matter from Upper Vein, Percutaneous Approach (ICD-10-PCS; 2017-07-29)
PROC: 0X363ZZ Control Bleeding in Right Upper Extremity, Percutaneous Approach (ICD-10-PCS; 2017-07-29)
PROC: 3E03317 Introduction of Other Thrombolytic into Peripheral Vein, Percutaneous Approach (ICD-10-PCS; 2017-07-29)
PROC: B51NYZZ Fluoroscopy of Left Upper Extremity Veins using Other Contrast (ICD-10-PCS; 2017-07-29)
PROC: B518YZZ Fluoroscopy of Superior Vena Cava using Other Contrast (ICD-10-PCS; 2017-07-29)
PROC: B51WYZZ Fluoroscopy of Dialysis Shunt/Fistula using Other Contrast (ICD-10-PCS; 2017-07-29)
PROC: 05HM33Z Insertion of Infusion Device into Right Internal Jugular Vein, Percutaneous Approach (ICD-10-PCS; 2017-07-30)
PROC: B513ZZA Fluoroscopy of Right Jugular Veins, Guidance (ICD-10-PCS; 2017-07-30)
PROC: B543ZZA Ultrasonography of Right Jugular Veins, Guidance (ICD-10-PCS; 2017-07-30)
PROC: 05PYX3Z Removal of Infusion Device from Upper Vein, External Approach (ICD-10-PCS; 2017-08-05)
PROC: 0JH63XZ Insertion of Tunneled Vascular Access Device into Chest Subcutaneous Tissue and Fascia, Percutaneous Approach (ICD-10-PCS; 2017-08-05)
PROC: 05HM33Z Insertion of Infusion Device into Right Internal Jugular Vein, Percutaneous Approach (ICD-10-PCS; 2017-08-05)
PROC: B513YZA Fluoroscopy of Right Jugular Veins using Other Contrast, Guidance (ICD-10-PCS; 2017-08-05)
PROC: B543ZZA Ultrasonography of Right Jugular Veins, Guidance (ICD-10-PCS; 2017-08-05)
DX: T82.868A Thrombosis due to vascular prosthetic devices, implants and grafts, initial encounter (principal); G93.41 Metabolic encephalopathy; I13.2 Hypertensive heart and chronic kidney disease with heart failure and with stage 5 chronic kidney disease, or end stage renal disease; E87.2 Acidosis; N18.6 End stage renal disease; D69.6 Thrombocytopenia, unspecified; A04.72 Enterocolitis due to Clostridium difficile, not specified as recurrent; F03.90 Unspecified dementia, unspecified severity, without behavioral disturbance, psychotic disturbance, mood disturbance, and anxiety; I50.42 Chronic combined systolic (congestive) and diastolic (congestive) heart failure; I97.618 Postprocedural hemorrhage of a circulatory system organ or structure following other circulatory system procedure; I48.2 Chronic atrial fibrillation; E83.39 Other disorders of phosphorus metabolism; J44.9 Chronic obstructive pulmonary disease, unspecified; I25.10 Atherosclerotic heart disease of native coronary artery without angina pectoris; E16.2 Hypoglycemia, unspecified; D63.1 Anemia in chronic kidney disease; K21.9 Gastro-esophageal reflux disease without esophagitis; I25.2 Old myocardial infarction; E78.5 Hyperlipidemia, unspecified; E87.6 Hypokalemia; S70.321A Blister (nonthermal), right thigh, initial encounter; M19.90 Unspecified osteoarthritis, unspecified site; F17.210 Nicotine dependence, cigarettes, uncomplicated; F32.9 Major depressive disorder, single episode, unspecified; F41.9 Anxiety disorder, unspecified; Z82.49 Family history of ischemic heart disease and other diseases of the circulatory system; Z91.15 Patient's noncompliance with renal dialysis; Z91.19 Patient's noncompliance with other medical treatment and regimen; Z95.5 Presence of coronary angioplasty implant and graft; Z99.2 Dependence on renal dialysis
CPT/HCPCS: 36556; 36558; 36901; 36905; 70450; 71045; 76937; 77001; 80048; 80053; 80069; 80307; 82140; 82550; 82948; 83735; 84100; 84155; 84443; 84484; 85025; 85027; 85610; 85730; 87493; 90935; 93005; 93970; 96374; 99152; 99153; C1725; C1750; C1752; C1769; C1887; C1894; G8987-GP; G8988-GP; J0690; J1580; J1644; J1650; J2250; J2997; J3010; J3370; J7050

== ENCOUNTER 2017-08-28 19:24 | Emergency (ER) | payer MEDICARE, OTHER ==
[~2017-08-28] VITALS: Ht 172.7 cm; Wt 77.0 kg
[~2017-08-28 19:24] MED LIST changes: -LANT500 CHEW; +VANC500I3 PO; -ZOLO50TA PO
[2017-08-28 19:37] VITALS: BP 134/73; PULSE 84; RESP 16; TEMP 98.7; O2SAT 97
[2017-08-28] MEDS ORDERED: SODIUM CHLORIDE 0.9% FLUSH 10 ML FLUSH IVF PRN (19:45)
[2017-08-28] MEDS: RESP: ALBUTEROL 2.5 MG/3 ML NEB (SCH) INH ×2 (20:11→20:12)
--- NOTE | 2017-08-28 20:38 | PD ---
HPI Chief Complaint: Medical Clearance Time Seen by Provider: 19:44 Travel History International Travel<30 days: No Contact w/Intl Traveler<30days: No Traveled to known affect area: No History of Present Illness HPI 71-year-old white female presents emergency department by EMS from [facility] for evaluation of a potassium of 7.2. Patient has a history of end-stage renal disease on hemodialysis, CAD, A. fib, CDT, hypertension, anxiety, depression. Patient has dialysis on Saturday and Saturdays. Patient here has no medical complaints. She denies any chest pain, palpitations, shortness of breath. She does have chronic pedal edema and a chronic healing sore to the left leg. The patient states that she does not want to have anything done that is unnecessary. She has agreed to have her laboratory tests reevaluated. Symptoms are severe. Worsened by her end-stage renal disease. No alleviating factor. PFSH Past Medical History Narrative Medical End-stage renal disease on hemodialysis, CAD, atrial fibrillation, CDT, hypertension, anxiety, depression Hx Anticoagulant Therapy: Yes (PLAVIX) Anemia: Yes Arthritis: Yes Asthma: No Atrial Fibrillation: Yes Autoimmune Disease: No Blood Disorders: No Anxiety: Yes Depression: Yes Heart Rhythm Problems: Yes (HX OF A-FIB) Cancer: No Cardiac Catheterization: Yes Cardiovascular Problems: Yes (CHF) High Cholesterol: Yes Chest Pain: Yes Congestive Heart Failure: Yes COPD: Yes Cerebrovascular Accident: No Coronary Artery Disease: Yes Diabetes: No Dialysis: Yes (Sat) Diminished Hearing: No Endocrine: No Gastrointestinal Disorders: Yes (gerd) Genitourinary: Yes (uti's) Headaches: No Hepatitis: No Hypertension: Yes Immune Disorder: No Implanted Vascular Access Dvce: Yes Kidney Stones: Yes Musculoskeletal: Yes (Arthritis) Neurologic: No Psychiatric: No Reproductive: No Respiratory: Yes (COPD) Migraines: Yes Myocardial Infarction: Yes (JUNE 2014) Renal Failure: Yes (Left upper fistula) Seizures: No Triglycerides - High: Yes Menopausal: Yes Past Surgical History Abdominal Surgery: No AICD: No Arteriovenous Shunt: No Body Medical Devices: right dialysis catheter Cardiac Surgery: Yes (STENTS X 2) Coronary Stent: Yes Ear Surgery: No Endocrine Surgery: No Eye Surgery: No Genitourinary Surgery: No Gynecologic Surgery: Yes (D & C) Insulin Pump: No Joint Replacement: No Neurologic Surgery: No Oral Surgery: No Pacemaker: No Tonsillectomy: Yes Other Surgery: Yes (right vas cath;LEFT ARM ARTIFICIAL VEIN) Social History Alcohol Use: No Tobacco Use: Yes Substance Use: No Allergies-Medications (Allergen,Severity, Reaction): Coded Allergies: niacin (Unverified Allergy, Severe, ANAPHALACTIC, 08/28/17) Reported Meds & Prescriptions Reported Meds & Active Scripts Active Vancomycin Inj (Vancomycin HCl) 500 Mg Inj 125 Mg PO Q6H 14 Days Meclizine (Meclizine HCl) 25 Mg Tab 25 Mg PO TID PRN 5 Days Clonazepam 0.5 Mg Tab 0.5 Mg PO BID Paroxetine (Paroxetine HCl) 10 Mg Tab 10 Mg PO DAILY Adult Aspirin EC Low Strength (Aspirin) 81 Mg Tabec 81 Mg PO DAILY Plavix (Clopidogrel Bisulfate) 75 Mg Tab 75 Mg PO DAILY Reported Metoprolol Tartrate 25 Mg Tab 25 Mg PO BID Atorvastatin (Atorvastatin Calcium) 40 Mg Tab 40 Mg PO HS Review of Systems General / Constitutional: No: Fever, Chills Eyes: No: Visual changes HENT: No: Headaches Cardiovascular: No: Chest Pain or Discomfort, Palpitations Respiratory: No: Cough, Shortness of Breath Gastrointestinal: No: Nausea, Vomiting, Abdominal Pain Genitourinary: No: Dysuria Musculoskeletal: Positive: Myalgias, Arthralgias, Limited ROM, Weakness, Edema , Pain Skin: Positive Rash, Positive Other (Left leg healing sores) Neurologic: No: Weakness Psychiatric: Positive: Depression Endocrine: No: Polydipsia Hematologic/Lymphatic: No: Easy Bruising Physical Exam Narrative GENERAL: Well-developed, well-nourished in no apparent distress. Nontoxic appearing. HEAD: Normocephalic, atraumatic. EYES: Pupils equal round and reactive. Extraocular motions intact. No scleral icterus. No injection or drainage. ENT: Nose clear. Throat without erythema, tonsillar hypertrophy or exudate. Uvula midline. Airway patent. NECK: Trachea midline. Supple, nontender, moves head freely. No central bony tenderness or spasm. Upper chest/neck CARDIOVASCULAR: Mildly tachycardic. 2/6 murmur left sternal border, gallops, or rubs. RESPIRATORY:Decreased breath sounds. Fine expiratory wheeze diffusely. Decreased air movement. Few rales at the bases. GASTROINTESTINAL: Abdomen soft, non-tender, nondistended. No hepato-splenomegaly , or palpable masses. No guarding. EXTREMITIES: +1 no pedal edema. Patient has a large he eschar with a dressing intact to the left medial upper leg and knee. She has multiple other dressed lesions on the lower leg. Dialysis catheter in the right BACK: Nontender without deformity. No flank tenderness. NEUROLOGICAL: Awake, alert and oriented x 3 .Cranial nerves grossly intact. Motor and sensory grossly within normal limits. Normal speech. Data Data Last Documented VS Vital Signs Date Time Temp Pulse Resp B/P (MAP) Pulse Ox O2 Delivery O2 Flow Rate FiO2 08/28/17 19:37 98.7 84 16 134/73 (93) 97 Orders Orders Complete Blood Count With Diff (08/28/17 19:44) Comprehensive Metabolic Panel (08/28/17 19:44) Act Partial Throm Time (Ptt) (08/28/17 19:44) Prothrombin Time / Inr (Pt) (08/28/17 19:44) Iv Access Insert/Monitor (08/28/17 19:44) Electrocardiogram (08/28/17 19:44) Ecg Monitoring (08/28/17 19:44) Oximetry (08/28/17 19:44) Chest, Single Ap (08/28/17 19:44) Sodium Chloride 0.9% Flush (Ns Flush) (08/28/17 19:45) Albuterol Neb (Albuterol Neb) (08/28/17 19:45) Vascular Access Team Consult/P PRN (08/28/17 20:41) Vascular Poc Ultrasound (08/28/17 ) Labs Laboratory Tests Test 08/28/17 20:08 08/28/17 21:00 Total Protein 7.5 GM/DL Alkaline Phosphatase 356 U/L Alanine Aminotransferase (ALT/SGPT) 13 U/L Total Bilirubin 0.5 MG/DL White Blood Count 5.5 TH/MM3 Red Blood Count 3.46 MIL/MM3 Hemoglobin 10.4 GM/DL Hematocrit 33.4 % Mean Corpuscular Volume 96.3 FL Mean Corpuscular Hemoglobin 30.0 PG Mean Corpuscular Hemoglobin Concent 31.2 % Red Cell Distribution Width 19.3 % Platelet Count 231 TH/MM3 Mean Platelet Volume 6.7 FL Neutrophils (%) (Auto) 66.4 % Lymphocytes (%) (Auto) 13.1 % Monocytes (%) (Auto) 16.7 % Eosinophils (%) (Auto) 2.8 % Basophils (%) (Auto) 1.0 % Neutrophils # (Auto) 3.7 TH/MM3 Lymphocytes # (Auto) 0.7 TH/MM3 Monocytes # (Auto) 0.9 TH/MM3 Eosinophils # (Auto) 0.2 TH/MM3 Basophils # (Auto) 0.1 TH/MM3 CBC Comment DIFF FINAL Differential Comment MDM Medical Decision Making Medical Screen Exam Complete: Yes Emergency Medical Condition: Yes Medical Record Reviewed: Yes Differential Diagnosis Differential diagnosis: Hyperkalemia, electrolyte abnormality, CHF, acute exacerbation of congestive heart failure, chronic kidney disease, arrhythmia, infection Narrative Course Patient has been very reluctant to allow us to care for the patient. She has been a barrier to her care. She is initiated on albuterol nebulizer treatments. Attempts at IV access and blood draw. Patient is placed on a surveillance monitor. EKG ordered. Repeat laboratory tests. I spoke with Dr. PATEL regarding the patient's care. He has gone in and seen the patient and discussed the urgency of her evaluation and treatment. We also have discussed possible AGAINST MEDICAL ADVICE due to her reluctance to care. At 2049 patient's care has been transferred to Joey Patel August 28, 2017 20:38
[2017-08-28 20:42] LABS: ALT (GPT) 13 U/L (10-53)
[2017-08-28 20:45] LABS: ALKALINE PHOSPHATASE 356 U/L (45-117); TOTAL BILIRUBIN ADULT 0.5 MG/DL (0.2-1.0); TOTAL PROTEIN 7.5 GM/DL (6.4-8.2)
--- NOTE | 2017-08-28 21:10 | RADRPT ---
EXAM DATE: 08/28/2017 9:08 PM EDT AGE/SEX: 71 years / Female INDICATIONS: Short of breath. CLINICAL DATA: This is the patient's initial encounter. Patient reports that signs and symptoms have been present for 1 day and indicates a pain score of 0/10. MEDICAL/SURGICAL HISTORY: Hypertension. Chronic obstructive pulmonary disease. Hypercholester olemia. CHF. Coronary artery disease. Hyperlipid. Emphysema. GERD. Dialysis. Coronary artery stent. COMPARISON: [facility] [place], CHEST SINGLE AP, 07/27/2017. . FINDINGS: Frontal view of the chest demonstrates the lungs to be symmetrically aerated and clear. The heart is enlarged, similar to prior. Both hemidiaphragms well delineated. Double-lumen right central line with tip projecting over the proximal and mid superior vena cava. No evidence of pneumothorax. CONCLUSION: 1. Double-lumen catheter in good position. No evidence of pneumothorax. 2. The lungs are clear. Electronically signed by: Marlon Gonzáles MD 08/28/2017 9:09 PM EDT
[2017-08-28 21:16] LABS: AUTOMATED NEUTROPHIL # 3.7 TH/MM3 (1.8-7.7); BASOPHIL # 0.1 TH/MM3 (0-0.2); EOSINOPHIL # 0.2 TH/MM3 (0-0.4); EOSINOPHIL % 2.8 % (0.0-4.0); HEMATOCRIT 33.4 % (35.0-46.0); HEMOGLOBIN 10.4 GM/DL (11.6-15.3); LYMPH % 13.1 % (9.0-44.0); LYMPHOCYTE # 0.7 TH/MM3 (1.0-4.8); MEAN CELL VOLUME 96.3 FL (80.0-100.0); MEAN CORPUSCULAR HGB CONC 31.2 % (32.0-36.0); MEAN PLATELET VOLUME 6.7 FL (7.0-11.0); MONO % 16.7 % (0.0-8.0); MONOCYTE # 0.9 TH/MM3 (0-0.9); NEUT % 66.4 % (16.0-70.0); PLATELET COUNT 231 TH/MM3 (150-450); RED BLOOD COUNT 3.46 MIL/MM3 (4.00-5.30); RED CELL DISTRIBUTION WIDTH 19.3 % (11.6-17.2); WHITE BLOOD COUNT 5.5 TH/MM3 (4.0-11.0)
[2017-08-28 21:24] LABS: ALBUMIN 2.3 GM/DL (3.4-5.0); AST (GOT) 39 U/L (15-37); BICARBONATE 18.7 MEQ/L (21.0-32.0); BLOOD UREA NITROGEN 19 MG/DL (7-18); CALCIUM 8.2 MG/DL (8.5-10.1); CHLORIDE 99 MEQ/L (98-107); CREATININE 4.49 MG/DL (0.50-1.00); GLOMERULAR FILTRATION RATE 10 ML/MIN (>89); GLUCOSE,RANDOM 78 MG/DL (74-106); SODIUM (NA) 131 MEQ/L (136-145)
[2017-08-28 21:27] LABS: INTERNATIONAL NORMALIZED RATIO 1.2 RATIO; PROTHROMBIN TIME - PATIENT 12.6 SEC (9.8-11.6)
[2017-08-28] MEDS ORDERED: SODIUM POLYSTYRENE SULFONATE SUSP 15 GM/60 ML CUP PO ONE (21:45)
[2017-08-28] MEDS ORDERED: SODIUM BICARBONATE 8.4% SOLN 50 MEQ/50 ML VIAL SLOW IVP ONE (21:45)
[2017-08-28] MEDS ORDERED: DEXTROSE 50% IN WATER 50 ML VIAL(D50) IV PUSH ONE (21:45)
[2017-08-28] MEDS ORDERED: INSULIN HUMAN REGULAR 1,000 UNITS/10 ML VIAL IV PUSH ONE (21:45)
--- NOTE | 2017-08-28 23:22 | PD ---
Data Data Last Documented VS Vital Signs Date Time Temp Pulse Resp B/P (MAP) Pulse Ox O2 Delivery O2 Flow Rate FiO2 08/28/17 19:37 98.7 84 16 134/73 (93) 97 Orders Orders Complete Blood Count With Diff (08/28/17 19:44) Comprehensive Metabolic Panel (08/28/17 19:44) Act Partial Throm Time (Ptt) (08/28/17 19:44) Prothrombin Time / Inr (Pt) (08/28/17 19:44) Iv Access Insert/Monitor (08/28/17 19:44) Electrocardiogram (08/28/17 19:44) Ecg Monitoring (08/28/17 19:44) Oximetry (08/28/17 19:44) Chest, Single Ap (08/28/17 19:44) Sodium Chloride 0.9% Flush (Ns Flush) (08/28/17 19:45) Albuterol Neb (Albuterol Neb) (08/28/17 19:45) Vascular Access Team Consult/P PRN (08/28/17 20:41) Vascular Poc Ultrasound (08/28/17 ) Insulin Human Regular Inj (Novolin R Inj (08/28/17 21:45) Dextrose 50% In Trish (Vial) Inj (D50w (Vi (08/28/17 21:45) Sodium Bicarbonate 8.4% Inj (Sodium Bica (08/28/17 21:45) Sodium Polysty Sulfate Liq (Kayexalate L (08/28/17 21:45) Ed Discharge Order (08/28/17 23:10) Labs Laboratory Tests Test 08/28/17 20:08 08/28/17 21:00 Blood Urea Nitrogen 19 MG/DL Creatinine 4.49 MG/DL Random Glucose 78 MG/DL Total Protein 7.5 GM/DL Albumin 2.3 GM/DL Calcium Level 8.2 MG/DL Alkaline Phosphatase 356 U/L Aspartate Amino Transf (AST/SGOT) 39 U/L Alanine Aminotransferase (ALT/SGPT) 13 U/L Total Bilirubin 0.5 MG/DL Sodium Level 131 MEQ/L Potassium Level 5.6 MEQ/L Chloride Level 99 MEQ/L Carbon Dioxide Level 18.7 MEQ/L Anion Gap 13 MEQ/L Estimat Glomerular Filtration Rate 10 ML/MIN White Blood Count 5.5 TH/MM3 Red Blood Count 3.46 MIL/MM3 Hemoglobin 10.4 GM/DL Hematocrit 33.4 % Mean Corpuscular Volume 96.3 FL Mean Corpuscular Hemoglobin 30.0 PG Mean Corpuscular Hemoglobin Concent 31.2 % Red Cell Distribution Width 19.3 % Platelet Count 231 TH/MM3 Mean Platelet Volume 6.7 FL Neutrophils (%) (Auto) 66.4 % Lymphocytes (%) (Auto) 13.1 % Monocytes (%) (Auto) 16.7 % Eosinophils (%) (Auto) 2.8 % Basophils (%) (Auto) 1.0 % Neutrophils # (Auto) 3.7 TH/MM3 Lymphocytes # (Auto) 0.7 TH/MM3 Monocytes # (Auto) 0.9 TH/MM3 Eosinophils # (Auto) 0.2 TH/MM3 Basophils # (Auto) 0.1 TH/MM3 CBC Comment DIFF FINAL Differential Comment Prothrombin Time 12.6 SEC Prothromb Time International Ratio 1.2 RATIO Activated Partial Thromboplast Time 27.8 SEC MDM Supervised Visit with CHRISS: No Narrative Course This case is checked out to me to take over the case and assist with disposition. This patient is very challenging to deal with. She is uncooperative and argumentative. [facility] because an outpatient blood draw revealed a potassium of 7.2. This is a dialysis patient. Her last dialysis was Saturday per her report. She does not have any acute symptoms and initially refused IV placement and blood draw I went to great lengths to try to explain to this patient the importance of these things. IV placement was very challenging. She eventually agreed. Vascular access team placed an ultrasound-guided IV in her right forearm and labs were drawn. Her potassium turns out to be 5.6 and a slightly hemolyzed specimen I reviewed her EKG which showed sinus rhythm but no arrhythmia or peak T waves Given her renal failure and elevated potassium I gave her IV glucose and IV insulin and IV sodium bicarbonate I gave her dose of Kayexalate as well She is stable for return to [facility]dc in outpatient follow-up and continuing of dialysis Aggregate critical care time was 36 minutes. Time to perform other separately billable procedures was not included in the critical care time. My time did not include minutes spent treating any other patients simultaneously or on activities that did not directly contribute to the patient's treatment. The services I provided to this patient were to treat and/or prevent clinically significant deterioration that could result in: Cardiopulmonary arrest, cardiac arrhythmia I provided critical care services requiring my management, as noted below: Chart data review, documentation time, medication orders and management, vital sign assessments/reviewing monitor data, ordering and reviewing lab tests, ordering and interpreting/reviewing x-rays and diagnostic studies, care of the patient and discussion of the patient with the admitting physicians. Critical Care Narrative See above Diagnosis Primary Impression: Hyperkalemia, diminished renal excretion Additional Impression: Chronic kidney disease (CKD) Qualified Codes: N18.6 - End stage renal disease; Z99.2 - Dependence on renal dialysis Additional Instruction: Follow-up with [facility] MD Med/Other Pt SpecificInfo: Other Disposition: 03 DISCHARGE TO SNF Condition: Stable Trae Ohara MD August 28, 2017 23:22
--- NOTE | 2017-08-30 08:15 | EKG ---
Date Performed: 08/28/2017 Time Performed: 21:09:11 PTAGE: 71 years EKG: Sinus rhythm WITH OCCASIONAL SUPRAVENTRICULAR PREMATURE COMPLEXES POSSIBLE RIGHT VENTRICULAR HYPERTROPHY ANTEROSE PTAL MYOCARDIAL INFARCTION ABNORMAL ECG PREVIOUS TRACING : 07/27/2017 11.55 DOCTOR: Sydni Squires Interpretating Date/Time 08/30/2017 08:12:28
== END 2017-08-29 ==
LOC: NEPD 19:24
DX: I13.2 Hypertensive heart and chronic kidney disease with heart failure and with stage 5 chronic kidney disease, or end stage renal disease (principal); I50.9 Heart failure, unspecified; E78.00 Pure hypercholesterolemia, unspecified; I25.10 Atherosclerotic heart disease of native coronary artery without angina pectoris; J44.9 Chronic obstructive pulmonary disease, unspecified; N18.6 End stage renal disease; Z72.0 Tobacco use; Z99.2 Dependence on renal dialysis
CPT/HCPCS: 71045; 80053; 85025; 85610; 85730; 93005; 94640; 94664; 96374; 96375; 99285; J1815; J7613

== ENCOUNTER 2017-09-18 15:50 | Inpatient (IN) | payer MEDICARE, MEDICAID ==
[~2017-09-18] VITALS: Ht 172.7 cm; Wt 71.4 kg
[2017-09-18] VITALS (7 sets, daily range): BP systolic 122–145; BP diastolic 56–73; PULSE 75–94; RESP 16–22; TEMP 98.2–99.2; O2SAT 94–99
--- NOTE | 2017-09-18 16:43 | PD ---
HPI Chief Complaint: Laceration/Skin Injury Time Seen by Provider: 16:37 Travel History International Travel<30 days: No Contact w/Intl Traveler<30days: No Traveled to known affect area: No History of Present Illness HPI 72-year-old female with significant CAD with stents 2, COPD, end-stage renal disease on dialysis Saturday and Saturday, PAD, presents emergency department for evaluation of multiple wounds in her left lower extremity. Patient states about a month ago she fell onto "something metal" and the wounds have progressively gotten worse. She tells me at her place of residence in a shelter facility, they are doing dressing changes but she has not been on any oral antibiotics. She hopes that they would have just gotten well, however today she went to Dr. Barragan for evaluation and he advised to come to the emergency department. Patient reports significant pain in the left lower extremity. She denies any fever or chills. States she has felt tired and weak but this is her norm. She has no other symptoms at this time to report. PFSH Past Medical History Hx Anticoagulant Therapy: Yes Anemia: Yes Arthritis: Yes Asthma: No Atrial Fibrillation: Yes Autoimmune Disease: No Blood Disorders: No Anxiety: Yes Depression: Yes Heart Rhythm Problems: Yes (HX OF A-FIB) Cancer: No Cardiac Catheterization: Yes Cardiovascular Problems: Yes High Cholesterol: Yes Chest Pain: Yes Congestive Heart Failure: Yes COPD: Yes Cerebrovascular Accident: No Coronary Artery Disease: Yes Diabetes: No Dialysis: Yes (Sat) Diminished Hearing: No Endocrine: No Gastrointestinal Disorders: Yes (gerd) Genitourinary: Yes (uti's) Headaches: No Hepatitis: No Hypertension: Yes Immune Disorder: No Implanted Vascular Access Dvce: Yes Kidney Stones: Yes Musculoskeletal: Yes (Arthritis) Neurologic: No Psychiatric: No Reproductive: No Respiratory: Yes Migraines: Yes Myocardial Infarction: Yes (JUNE 2014) Renal Failure: Yes (Left upper fistula) Seizures: No Triglycerides - High: Yes ?: Not Menopausal: Yes Past Surgical History Abdominal Surgery: No AICD: No Arteriovenous Shunt: No Body Medical Devices: right dialysis catheter Cardiac Surgery: Yes (STENTS X 2) Coronary Stent: Yes Ear Surgery: No Endocrine Surgery: No Eye Surgery: No Genitourinary Surgery: No Gynecologic Surgery: Yes (D & C) Insulin Pump: No Joint Replacement: No Neurologic Surgery: No Oral Surgery: No Pacemaker: No Tonsillectomy: Yes Other Surgery: Yes (right vas cath;LEFT ARM ARTIFICIAL VEIN) Social History Alcohol Use: No Tobacco Use: Yes Substance Use: No Allergies-Medications (Allergen,Severity, Reaction): Coded Allergies: niacin (Unverified Allergy, Severe, ANAPHALACTIC, 08/28/17) Reported Meds & Prescriptions Reported Meds & Active Scripts Active Clonazepam 0.5 Mg Tab 0.5 Mg PO BID Paroxetine (Paroxetine HCl) 10 Mg Tab 10 Mg PO DAILY Adult Aspirin EC Low Strength (Aspirin) 81 Mg Tabec 81 Mg PO DAILY Plavix (Clopidogrel Bisulfate) 75 Mg Tab 75 Mg PO DAILY Reported Isosorbide Mononitrate ER (Isosorbide Mononitrate) 30 Mg Kavitha 30 Mg PO DAILY Metoprolol Tartrate 25 Mg Tab 12.5 Mg PO BID Atorvastatin (Atorvastatin Calcium) 40 Mg Tab 40 Mg PO HS Review of Systems ROS Limitations: Poor Historian Except as stated in HPI: all other systems reviewed are Neg Physical Exam Exam Limitations: Poor Historian Narrative GENERAL: Well-nourished female patient, sitting up in bed. She appears in no acute distress. SKIN: Focused skin assessment warm/dry. Patient has multiple large ulcerative like lesions on the left lower extremity with necrosis and yellow slough. Malodorous. There is surrounded by erythema. The left lower extremity is edematous. The left great toe is erythematous with blister formation on the dorsal aspect of it.. Distal pulses are weak but palpable. HEAD: Atraumatic. Normocephalic. EYES: Pupils equal and round. No scleral icterus. No injection or drainage. ENT: No nasal bleeding or discharge. Mucous membranes pink and moist. NECK: Trachea midline. No JVD. CARDIOVASCULAR: Regular rate and rhythm. RESPIRATORY: No accessory muscle use. Diminished to auscultation. Breath sounds equal bilaterally. Right subclavian Vas-Cath in place. GASTROINTESTINAL: Abdomen soft, non-tender, nondistended. Hepatic and splenic margins not palpable. MUSCULOSKELETAL: No obvious deformities. No clubbing. No cyanosis. Left lower extremity edema. NEUROLOGICAL: Awake and alert. No obvious cranial nerve deficits. Limited range of motion of the left lower extremity due to edema and pain. Data Data Last Documented VS Vital Signs Date Time Temp Pulse Resp B/P (MAP) Pulse Ox O2 Delivery O2 Flow Rate FiO2 09/18/17 19:22 87 16 126/65 (85) 94 Room Air 09/18/17 16:31 99.2 Orders Orders Sepsis Workup Initiated (09/18/17 ) Electrocardiogram (09/18/17 16:49) Complete Blood Count With Diff (09/18/17 16:49) Comprehensive Metabolic Panel (09/18/17 16:49) Lactic Acid Sepsis Protocol (09/18/17 16:49) Urinalysis - C+S If Indicated (09/18/17 16:49) Blood Culture (09/18/17 16:49) Blood Glucose (09/18/17 16:49) Ecg Monitoring (09/18/17 16:49) Iv Access Insert/Monitor (09/18/17 16:49) Oximetry (09/18/17 16:49) Oxygen Administration (09/18/17 16:49) Vancomycin Inj (Vancomycin Inj) (09/18/17 17:15) Clindamycin 900 Mg/Ns Premix (Cleocin 90 (09/18/17 17:45) Morphine Inj (Morphine Inj) (09/18/17 18:15) Oxycodone-Acetamin 5-325 Mg (Percocet (09/18/17 18:30) Labs Laboratory Tests Test 09/18/17 18:10 White Blood Count 12.3 TH/MM3 Red Blood Count 3.57 MIL/MM3 Hemoglobin 10.4 GM/DL Hematocrit 33.8 % Mean Corpuscular Volume 94.5 FL Mean Corpuscular Hemoglobin 29.0 PG Mean Corpuscular Hemoglobin Concent 30.7 % Red Cell Distribution Width 18.0 % Platelet Count 427 TH/MM3 Mean Platelet Volume 7.1 FL Neutrophils (%) (Auto) 87.0 % Lymphocytes (%) (Auto) 3.2 % Monocytes (%) (Auto) 8.2 % Eosinophils (%) (Auto) 1.1 % Basophils (%) (Auto) 0.5 % Neutrophils # (Auto) 10.7 TH/MM3 Lymphocytes # (Auto) 0.4 TH/MM3 Monocytes # (Auto) 1.0 TH/MM3 Eosinophils # (Auto) 0.1 TH/MM3 Basophils # (Auto) 0.1 TH/MM3 CBC Comment DIFF FINAL Differential Comment Blood Urea Nitrogen 36 MG/DL Creatinine 6.07 MG/DL Random Glucose 56 MG/DL Total Protein 7.7 GM/DL Albumin 2.0 GM/DL Calcium Level 9.1 MG/DL Alkaline Phosphatase 353 U/L Aspartate Amino Transf (AST/SGOT) 32 U/L Alanine Aminotransferase (ALT/SGPT) 10 U/L Total Bilirubin 0.7 MG/DL Sodium Level 130 MEQ/L Potassium Level 5.5 MEQ/L Chloride Level 95 MEQ/L Carbon Dioxide Level 21.7 MEQ/L Anion Gap 13 MEQ/L Estimat Glomerular Filtration Rate 7 ML/MIN Lactic Acid Level 1.7 mmol/L [facility] Medical Decision Making Medical Screen Exam Complete: Yes Emergency Medical Condition: Yes Medical Record Reviewed: Yes Differential Diagnosis Sepsis versus wound necrosis versus cellulitis Narrative Course 72-year-old female presents emergency department for evaluation left lower extremity wounds. Patient has multiple ulcerative wounds that are open with necrosis and yellow slough. The left lower extremity is cellulitic. The wounds are foul-smelling. Sepsis workup is initiated. Patient is given IV vancomycin and clindamycin initially. I discussed the patient my attending physician who recommends this be coordinated with her bdr. Laboratory Tests Test 09/18/17 18:10 White Blood Count 12.3 TH/MM3 Red Blood Count 3.57 MIL/MM3 Hemoglobin 10.4 GM/DL Hematocrit 33.8 % Mean Corpuscular Volume 94.5 FL Mean Corpuscular Hemoglobin 29.0 PG Mean Corpuscular Hemoglobin Concent 30.7 % Red Cell Distribution Width 18.0 % Platelet Count 427 TH/MM3 Mean Platelet Volume 7.1 FL Neutrophils (%) (Auto) 87.0 % Lymphocytes (%) (Auto) 3.2 % Monocytes (%) (Auto) 8.2 % Eosinophils (%) (Auto) 1.1 % Basophils (%) (Auto) 0.5 % Neutrophils # (Auto) 10.7 TH/MM3 Lymphocytes # (Auto) 0.4 TH/MM3 Monocytes # (Auto) 1.0 TH/MM3 Eosinophils # (Auto) 0.1 TH/MM3 Basophils # (Auto) 0.1 TH/MM3 CBC Comment DIFF FINAL Differential Comment Blood Urea Nitrogen 36 MG/DL Creatinine 6.07 MG/DL Random Glucose 56 MG/DL Total Protein 7.7 GM/DL Albumin 2.0 GM/DL Calcium Level 9.1 MG/DL Alkaline Phosphatase 353 U/L Aspartate Amino Transf (AST/SGOT) 32 U/L Alanine Aminotransferase (ALT/SGPT) 10 U/L Total Bilirubin 0.7 MG/DL Sodium Level 130 MEQ/L Potassium Level 5.5 MEQ/L Chloride Level 95 MEQ/L Carbon Dioxide Level 21.7 MEQ/L Anion Gap 13 MEQ/L Estimat Glomerular Filtration Rate 7 ML/MIN Lactic Acid Level 1.7 mmol/L Vital Signs Date Time Temp Pulse Resp B/P (MAP) Pulse Ox O2 Delivery O2 Flow Rate FiO2 09/18/17 19:22 87 16 126/65 (85) 94 Room Air 09/18/17 18:26 22 99 Room Air 09/18/17 16:31 99.2 94 16 145/73 (97) 96 Patient is with mild leukocytosis of 12.3 with neutrophilia of 10.7. Mild anemia 10.4. Come panels with hyponatremia 130. Hyperkalemia 5.5. Patient's creatinine is 6.07. Lactic acid is 1.7. Patient will be admitted to the hospitalist. Sepsis Criteria SIRS Criteria (2 or more): Heart rate over 90, WBC > 36008, < 4000 or > 10% bands Sepsis Criteria (SIRS+source): Infect source susp/known Diagnosis Primary Impression: Open wound of left lower extremity with complication Qualified Codes: S81.802A - Unspecified open wound, left lower leg, initial encounter Additional Impressions: Cellulitis and abscess of left lower extremity ESRD (end stage renal disease) on dialysis Hyperkalemia, diminished renal excretion Admitting Information Admitting Physician Requests: Admit Condition: Stable Evon Pak Sep 18, 2017 16:43
[2017-09-18] MEDS ORDERED: VANCOMYCIN INJ 1,000 MG in SODIUM CHLOR 0.9% 250 ML INJ 250 ML IV ONE (17:15)
[2017-09-18] MEDS ORDERED: ISOS30TA3 PO (17:37)
[2017-09-18] MEDS ORDERED: CLINDAMYCIN 900 MG/NS PREMIX 50 ML IV ONE (17:45)
[2017-09-18] MEDS ORDERED: MORPHINE SULFATE 4 MG/ML INJ IV PUSH ONE (18:15)
[2017-09-18] MEDS ORDERED: oxyCODONE/ACETAMINOPHEN 5 MG/325 MG TAB PO ONE (18:30)
[2017-09-18 18:45] LABS: AUTOMATED NEUTROPHIL # 10.7 TH/MM3 (1.8-7.7); BASOPHIL # 0.1 TH/MM3 (0-0.2); BASOPHIL % 0.5 % (0.0-2.0); EOSINOPHIL # 0.1 TH/MM3 (0-0.4); EOSINOPHIL % 1.1 % (0.0-4.0); HEMATOCRIT 33.8 % (35.0-46.0); HEMOGLOBIN 10.4 GM/DL (11.6-15.3); LYMPH % 3.2 % (9.0-44.0); LYMPHOCYTE # 0.4 TH/MM3 (1.0-4.8); MEAN CELL VOLUME 94.5 FL (80.0-100.0); MEAN CORPUSCULAR HGB CONC 30.7 % (32.0-36.0); MEAN PLATELET VOLUME 7.1 FL (7.0-11.0); MONO % 8.2 % (0.0-8.0); PLATELET COUNT 427 TH/MM3 (150-450); RED BLOOD COUNT 3.57 MIL/MM3 (4.00-5.30); WHITE BLOOD COUNT 12.3 TH/MM3 (4.0-11.0)
[2017-09-18 19:08] LABS: ALKALINE PHOSPHATASE 353 U/L (45-117); ALT (GPT) 10 U/L (10-53); TOTAL BILIRUBIN ADULT 0.7 MG/DL (0.2-1.0); TOTAL PROTEIN 7.7 GM/DL (6.4-8.2)
[2017-09-18 19:12] LABS: AST (GOT) 32 U/L (15-37); BICARBONATE 21.7 MEQ/L (21.0-32.0); BLOOD UREA NITROGEN 36 MG/DL (7-18); CALCIUM 9.1 MG/DL (8.5-10.1); CHLORIDE 95 MEQ/L (98-107); CREATININE 6.07 MG/DL (0.50-1.00); GLOMERULAR FILTRATION RATE 7 ML/MIN (>89); GLUCOSE,RANDOM 56 MG/DL (74-106); SODIUM (NA) 130 MEQ/L (136-145)
--- NOTE | 2017-09-18 20:46 | HHI.HP ---
HPI Service [facility] Service Dr. Wheeler, attending Primary Care Physician Georgie Mccarthy MD Admission Diagnosis LLE ulcerative wounds; cellulitis; PAD; ESRD Diagnoses: International Travel<30 Days: No Contact w/Intl Traveler<30days: No History of Present Illness Patient is a 72F with multiple medical conditions including ESRD (/Sat), CAD with stent x 2, COPD, and possible severe PAD who presented to ED after prompted by vascular surgeon due to LE wounds x 1 month. She notes she fell into a metal object due to "lost my balance" and sustained a laceration. Since then her wounds have gotten worse since then. She self-admitted to [facility], where she has been for 6 weeks. During this time, the wounds she had were treated by a wound nurse at the facility, but the wounds got worse rather than better. She went to see Dr. Barragan for new patient visit (was recommended by her sawmill hand Dr. Wu) and Dr. Barragan recommended to come to ED for further evaluation and antibiotics. PCP is Dr. Georgie Mccarthy but last visit was in 2017. She has been to ED since last office visit. She has significant pain located in the left lower leg , from knee down to foot. She is able to move the legs but does have balance issues requiring wheelchair. She has severe pain with ambulation. Character is "sharp, constant, unrelenting" and max intensity is 10/10. She is not on any pain medications at home. She denies any fever, chills, nausea, vomiting. She states "yes" and "no" on whether her wounds leak but notes the lesions are wrapped often. She notes there has been blood staining the wrapping. She denies paresthesias, poikilothermia, and difficulty moving the limbs including toes but does note her skin feels tighter in the LEs over the last few months and she has had swelling. She is noted to not have a history of diabetes. She reports a history of MRSA infection 2-3 years ago which was "short-term" and it is unclear whether this was a skin infection. Review of Systems Constitutional: DENIES: Fever, Chills, Change in appetite Eyes: DENIES: Blurred vision, Diplopia Ears, nose, mouth, throat: DENIES: Oral lesions, Throat pain Respiratory: DENIES: Cough, Shortness of breath Cardiovascular: DENIES: Chest pain, Palpitations Gastrointestinal: DENIES: Abdominal pain, Black stools, Bloody stools, Nausea, Vomiting Genitourinary: DENIES: Urinary frequency, Urinary incontinence, Dysuria Musculoskeletal: DENIES: Joint pain, Stiffness, Back pain, Neck pain Integumentary: COMPLAINS OF: Rash (LEs), DENIES: Pruritus Hematologic/lymphatic: DENIES: Bruising, Lymphadenopathy Neurologic: DENIES: Headache, Seizures Psychiatric: COMPLAINS OF: Depression, DENIES: Anxiety, Confusion, Suicidal Ideation, Homicidal Ideation Other Patient reports her breasts are both hardened over the last few months Past Family Social History Past Medical History ESRD - related to HTN per pt (Sat, Tues), on Renvela HTN - historical, not on meds CHF - last echo 10/2015 per EMR, EF 30-35%, PA pressure 46 not seeing cardiology (used to be Dr. Woo) COPD OA - left knee Anxiety Depression History of NM in 2014 - 2 stents Past Surgical History Heart cath 2014, 2016 Perm-cath placement - 11/2015 Multiple fistula surgeries LUE - 12/08/2015 Reported Medications Renvela dose unknown, "probably won't be taking it long" Klonopin 0.5mg with dialysis (Clonazepam 0.5 Mg Tab 0.5 Mg PO BID) -L-y-n-b-c-t-t-i-n-e- -(--A-x-h-c-r-o-t-i-n-e- -H-C-l--)- -1-0- -M-g- -T-a-b- -1-0- -M-g- -P-O- -D-A-I-L-Y- -A-d-u-l-t- -F-b-y-i-r-i-n- -E-C- -L-o-w- -B-p-z-e-n-g-t-h- -(--D-l-m-i-r-i-n- -)- -8-1- -M-g- -T-a-b-e-c- -8-1- -M-g- -P-O- -D-A-I-L-Y- Plavix (Clopidogrel Bisulfate) 75 Mg Tab 75 Mg PO DAILY -O-t-y-n-d-q-b-i-d-e- -L-u-d-f-d-w-t-r-a-t-e- -E-R- -(--F-h-k-r-d-v-b-i-d-e- -F-p-u-e-a-v-t-r-a-t-e--)- -3-0- -M-g- -T-a-b-e-r- -3-0- -M-g- -P-O- -D-A-I-L-Y- Metoprolol Tartrate 25 Mg Tab 12.5 Mg PO BID Atorvastatin (Atorvastatin Calcium) 40 Mg Tab 40 Mg PO HS Allergies: Coded Allergies: niacin (Unverified Allergy, Severe, ANAPHALACTIC, 08/28/17) Active Ordered Medications Inpatient Medications Clindamycin/ Sodium Chloride 50 ml @ 100 mls/hr ONCE ONCE IV Last administered on 09/18/17at 18:21; Start 09/18/17 at 17:45; Stop 09/18/17 at 18:14 ; Status DC Morphine Sulfate (Morphine Inj) 4 mg ONCE ONCE IV PUSH ; Start 09/18/17 at 18: 15; Stop 09/18/17 at 18:21; Status DC Oxycodone/ Acetaminophen (Percocet 5-325 Mg) 1 tab ONCE ONCE PO Last administered on 09/18/17at 18:26; Start 09/18/17 at 18:30; Stop 09/18/17 at 18:31 ; Status DC Vancomycin HCl 1000 mg/Sodium Chloride 250 ml @ 250 mls/hr ONCE ONCE IV Last administered on 09/18/17at 18:22; Start 09/18/17 at 17:15; Stop 09/18/17 at 18:14 ; Status DC Family History Mother and father both in their 60s from heart disease Siblings - all alive, no reported medical problems Children - "good shape" Social History Lives at [facility] for 6-8 weeks, Medicare reportedly covering this Uses walker intermittently with pain, uses wheelchair primarily Smokin pack per day, 50 pack year history Alcohol: moderate per report, drinks 2-3 weeks per week Illicit: denies any current or previous use Family: one son named Missael Richey ([place]), phone number [phone] Physical Exam Vital Signs Vital Signs Date Time Temp Pulse Resp B/P (MAP) Pulse Ox O2 Delivery O2 Flow Rate FiO2 09/18/17 20:24 91 16 98 Room Air 09/18/17 19:22 87 16 126/65 (85) 94 Room Air 09/18/17 18:26 22 99 Room Air 09/18/17 16:31 99.2 94 16 145/73 (97) 96 Physical Exam GENERAL: Patient is a well-nourished female in no apparent distress. She is eating dinner. On room air. SKIN: Full skin exam reveals multiple skin wounds noted as follows: -Scattered ecchymoses on the right distal upper extremity -Right-sided Vas-Cath in place with surrounding skin nonerythematous. Vas-Cath sutured in place -No hair noted on the lower extremities -Lower extremity skin bilaterally is taut but non-edematous, hyperpigmentation noted in the LLE > RLE -RLE notable for 1.51 cm necrotic lesion at mid anterior lateral calf area, wound culture collected. Foot with erythematous leaking lesion 1.5 x 1.5" over second through fourth MTP dorsal surface (appearance of previous blister); small blisters on medial lower extremity noted as well as erythema suggestive of cellulitis -LLE notable for 3 major wounds and a few minor wounds. The medial thigh has a 3 x 3" necrotic lesion with surrounding erythema, non-leaking at time of evaluation. There is also a large medial calf necrotic lesion with 1 x 1" central core of necrosis, wound culture collected. There are also for posterior calf shallow ulcers 1-2 inch in diameter each with active leakage. Leakage is serosanguineous fluid in each of the leaking wounds. -The toes bilaterally have some evidence of ecchymoses with the right great toe of concern with some erythema and blister on the dorsal surface with one small necrotic lesion. -Hardened vasculature on the left upper extremity where fistula previously was placed HEAD: Atraumatic. Normocephalic. EYES: Pupils equal and round. No scleral icterus or pallor. No injection or drainage. ENT: No nasal bleeding or discharge. Mucous membranes pink and moist. NECK: Trachea midline. No JVD. No carotid bruits. CARDIOVASCULAR: Regular rate and rhythm without possible mild systolic murmur. RESPIRATORY: No accessory muscle use. On room air. Expiratory wheezing noted throughout. Breath sounds equal bilaterally. GASTROINTESTINAL: Abdomen soft, non-tender, nondistended. Normal bowel sounds. Hepatic and splenic margins not palpable. MUSCULOSKELETAL: Extremities as noted above. Discoloration suggestive of vascular disease but no cyanosis or edema. NEUROLOGICAL: Awake and alert. No obvious cranial nerve deficits. Motor function reduced due to pain in LLE but grossly within normal limits otherwise. Sensory exam of UEs and LEs reveal no sensory loss and no paresthesias. Good ROM of toes, ankles, knees, and hips. Muscle strength in UE 5/5, and LEs despite pain 4/5 bilaterally. Normal speech. PSYCHIATRIC: Appropriate mood and affect; insight and judgment normal. Laboratory Laboratory Tests Test 09/18/17 18:10 White Blood Count 12.3 Red Blood Count 3.57 Hemoglobin 10.4 Hematocrit 33.8 Mean Corpuscular Volume 94.5 Mean Corpuscular Hemoglobin 29.0 Mean Corpuscular Hemoglobin Concent 30.7 Red Cell Distribution Width 18.0 Platelet Count 427 Mean Platelet Volume 7.1 Neutrophils (%) (Auto) 87.0 Lymphocytes (%) (Auto) 3.2 Monocytes (%) (Auto) 8.2 Eosinophils (%) (Auto) 1.1 Basophils (%) (Auto) 0.5 Neutrophils # (Auto) 10.7 Lymphocytes # (Auto) 0.4 Monocytes # (Auto) 1.0 Eosinophils # (Auto) 0.1 Basophils # (Auto) 0.1 CBC Comment DIFF FINAL Differential Comment Blood Urea Nitrogen 36 Creatinine 6.07 Random Glucose 56 Total Protein 7.7 Albumin 2.0 Calcium Level 9.1 Alkaline Phosphatase 353 Aspartate Amino Transf (AST/SGOT) 32 Alanine Aminotransferase (ALT/SGPT) 10 Total Bilirubin 0.7 Sodium Level 130 Potassium Level 5.5 Chloride Level 95 Carbon Dioxide Level 21.7 Anion Gap 13 Estimat Glomerular Filtration Rate 7 Lactic Acid Level 1.7 Date/Time Source Procedure Growth Status 09/18/17 18:10 Blood Peripheral Aerobic Blood Culture Pending Received 09/18/17 18:10 Blood Peripheral Anaerobic Blood Culture Pending Received Result Diagram: 09/18/170 6/13/18 1810 Caprini VTE Risk Assessment Caprini VTE Risk Assessment: Mod/High Risk (score >= 2) VTE [facility] Contraindication: LE injury/wound Caprini Risk Assessment Model Point Value = 1 Point Value = 2 Point Value = 3 Point Value = 5 Age 41-60 Minor surgery BMI > 25 kg/m2 Swollen legs Varicose veins or History of unexplained or recurrent spontaneous Oral contraceptives or hormone replacement Sepsis (< 1 month) Serious lung disease, including pneumonia (< 1 month) Abnormal pulmonary function Acute myocardial infarction Congestive heart failure (< 1 month) History of inflammatory bowel disease Medical patient at bed rest Age 61-74 Arthroscopic surgery Major open surgery (> 45 min) Laparoscopic surgery (> 45 min) Malignancy Confined to bed (> 72 hours) Immobilizing plaster cast Central venous access Age >= 75 History of VTE Family history of VTE Factor V Leiden Prothrombin [id number] Lupus anticoagulant Anticardiolipin antibodies Elevated serum homocysteine Heparin-induced thrombocytopenia Other congenital or acquired thrombophilia Stroke (< 1 month) Elective arthroplasty Hip, pelvis, or leg fracture Acute spinal cord injury (< 1 month) Prophylaxis Regimen Total Risk Factor Score Risk Level Prophylaxis Regimen 0-1 Low Early ambulation 2 Moderate Order ONE of the following: *Sequential Compression Device (SCD) *Heparin 5000 units SQ BID 3-4 Higher Order ONE of the following medications: *Heparin 5000 units SQ TID *Enoxaparin/Lovenox 40 mg SQ daily (WT < 150 kg, CrCl > 30 mL/min) *Enoxaparin/Lovenox 30 mg SQ daily (WT < 150 kg, CrCl > 10-29 mL/min) *Enoxaparin/Lovenox 30 mg SQ BID (WT < 150 kg, CrCl > 30 mL/min) AND/OR *Sequential Compression Device (SCD) 5 or more Highest Order ONE of the following medications: *Heparin 5000 units SQ TID (Preferred with Epidurals) *Enoxaparin/Lovenox 40 mg SQ daily (WT < 150 kg, CrCl > 30 mL/min) *Enoxaparin/Lovenox 30 mg SQ daily (WT < 150 kg, CrCl > 10-29 mL/min) *Enoxaparin/Lovenox 30 mg SQ BID (WT < 150 kg, CrCl > 30 mL/min) AND *Sequential Compression Device (SCD) Assessment and Plan Assessment and Plan 72F with COPD, CAD, and ESRD with likely concomitant severe PAD who presents with multiple LE infected wounds of the left lower extremity. At this time I suspect infected ischemic leg ulcers secondary to PAD but cannot rule out deeper infection given extent of leg involvement and chronicity (>1 month). In ED, patient did refuse CXR because "I always get them" but can be ordered for the morning given hx of COPD and CHF. No significant exacerbations of COPD in the past reported. She is s/p IV vancomycin and clindamycin in ED. She will be admitted to inpatient for further workup of wounds including wound management, vascular imaging, and infection workup to include rule out of osteomyelitis. Chronic disease management to continue while in hospital. Anticipate discharge to SNF but only after extensive workup. PLAN: General * admit to inpatient, diet renal, vital signs with pulse checks every 4 hours as per protocol * EKG pending Infected leg ulcers * Mild leukocytosis, no fever or other systemic signs * ESR to be added to labs * Wound care physician consult ordered: Patient will need long-term care for her wounds. * Wound cultures collected from draining wounds at the left posterior calf and left lower medial calf however patient did receive IV antibiotics prior to this. * Nursing wound care order placed for saline rinse with loose wrapping at this time. * Will continue vancomycin only at this time, antibiotics may be titrated by culture results. Vancomycin pharmacy consult given ESRD. * MRSA screen * Pain control with hydrocodone 5 mg for pain 3-10, will titrate medications as needed Severe limb threatening PAD * Patient does have bilateral dorsalis pedis pulses by Doppler and palpation though they are weak * No evidence of critical limb ischemia however patient does report symptoms suggestive of claudication * Vascular surgery consulted: Patient did see Dr. Barragan for the first time in clinic today, likely will require CTA or MRA runoff studies, will order ANUSHA and bilateral lower extremity ultrasound at this time. Lipid profile and A1c ordered. * Patient is on atorvastatin 40 mg hs, will continue * Patient is on Plavix 75 mg daily, will continue Bilateral breast hardening * Unclear etiology, likely amenable to outpt followup given bilateral and symmetric, cannot rule out mass End-stage renal disease on dialysis * Creatinine 6 on admission, baseline around 4 * Nephrology consulted: Patient receives dialysis Saturday and Saturday via recently placed Vas-Cath. Previously had dialysis through a left upper extremity fistula but this has failed. Of note, patient will likely require contrast imaging which will need to be coordinated without. * Pt reported she is on Renvela, nephrology may know dosing to continue while inpt Hyperkalemia of 5.5 * slight hemolysis noted * re-evaluate K in the morning, EKG pending Hyponatremia * Mild, will monitor closely and intervene as needed Anemia of Chronic Disease * Monitor CBCs regularly while inpt CHF * per report last echo was 2015, no exacerbation of symptoms at this time, outpt f/u warranted * I/Os, renal diet COPD * 50 pack year smoker, not on oxygen, has not seen her PCP recently * Will offer Duonebs q6hr PRN for SOB or wheezing * Likely PFTs in her future in outpt setting * Needs smoking cessation counseling, likely strong contributor to vascular disease * Refused CXR in ED but agreed to this at admission, will order for AM HTN * BP wnl on admission * Continue home dose metoprolol 12.5 mg BID * Clonidine PO PRN CAD * Hx NM and stents, on Plavix * To monitor for any symptoms of NM, none noted on admission * Needs close outpt f/u, previously established with Dr. Woo but has been lost to followup per pt Depression/Anxiety * Chronic. Patient previously on paroxetine but stopped this. Reports depression but denies SI/HI. Will monitor while inpt, likely would benefit her to restart SSRI which was discussed briefly with her Smoker * Patient requests nicotine patch but will hold off at admission given nighttime use increases risk of adverse reaction and nicotine does have associated vascular risks FEN * Fluids: tolerating PO, fluid caution given ESRD, pt does make urine (monitor I /Os) * Electrolytes: monitor closely given ESRD, K 5.5 on admission * Nutrition: renal diet * DVT Prophylaxis: Early ambulation. PT ordered. Heparin 5000U subQ q8hr. Hold SCDs given wounds * GI Prophylaxis: none indicated * PRN anti-HTN: Clonidine 0.1mg PO PRN for SBP > 180/ and/or DBP > 100 Code Status Full code, confirmed 09/18/2017 Discussed Condition With Discussed with Evon Pak and will discuss with FPTS resident in the morning Problem List: (1) Arterial leg ulcer ICD Codes: L97.909 - Non-pressure chronic ulcer of unspecified part of unspecified lower leg with unspecified severity Status: Acute (2) PAD (peripheral artery disease) ICD Codes: I73.9 - Peripheral vascular disease, unspecified Status: Acute (3) Hardness of breast ICD Codes: N64.51 - Induration of breast Status: Acute (4) Acute on chronic diastolic (congestive) heart failure ICD Codes: I50.33 - Acute on chronic diastolic (congestive) heart failure Status: Chronic (5) ESRD (end stage renal disease) on dialysis ICD Codes: N18.6 - End stage renal disease; Z99.2 - Dependence on renal dialysis Status: Chronic (6) COPD (chronic obstructive pulmonary disease) ICD Codes: J44.9 - COPD (chronic obstructive pulmonary disease) Status: Chronic (7) Hypertension ICD Codes: I10 - Essential (primary) hypertension Status: Chronic (8) CAD (coronary artery disease) ICD Codes: I25.10 - Atherosclerotic heart disease of [place]qu[place] coronary artery without angina pectoris Status: Chronic (9) Tobacco abuse ICD Codes: Z72.0 - Tobacco use Status: Chronic (10) Depression ICD Codes: F32.9 - Major depressive disorder, single episode, unspecified Status: Chronic (11) Anxiety ICD Codes: F41.9 - Anxiety disorder, unspecified Status: Chronic (12) Weakness ICD Codes: R53.1 - Weakness Status: Acute Physician Certification 2 Midnight Certification Type: Admission for Inpatient Services Order for Inpatient Services The services are ordered in accordance with Medicare regulations or non- Medicare payer requirements, as applicable. In the case of services not specified as inpatient-only, they are appropriately provided as inpatient services in accordance with the 2-midnight benchmark. Estimated LOS (days): 3 days is the estimated time the patient will need to remain in the hospital, assuming treatment plan goals are met and no additional complications. Post-Hospital Plan: SNF Mignon Mccarthy MD R2 Sep 18, 2017 20:46
[2017-09-18] MEDS ORDERED: SODIUM CHLORIDE 0.9% FLUSH 10 ML FLUSH IV FLUSH PRN (21:00)
[2017-09-18] MEDS ORDERED: ONDANSETRON HCL 4 MG/2 ML VIAL IVP PRN (21:00)
[2017-09-18] MEDS: SODIUM CHLORIDE 0.9% FLUSH 10 ML FLUSH IV FLUSH SCH (21:00)
[2017-09-18] MEDS: DOCUSATE SODIUM 50 MG/SENNA 8.6 MG TAB PO SCH (21:00)
[2017-09-18] MEDS ORDERED: SENNOSIDES 8.6 MG TAB PO PRN (21:00)
[2017-09-18] MEDS ORDERED: NALOXONE HCL 0.4 MG/ML AMP IV PUSH PRN (21:00)
[2017-09-18] MEDS ORDERED: MAGNESIUM HYDROXIDE SUSP 30 ML CUP PO PRN (21:00)
[2017-09-18] MEDS ORDERED: HEPARIN SODIUM - SQ 10,000 UNITS/ML VIAL SQ SCH (22:00)
[2017-09-18] MEDS ORDERED: cloNIDine HCL 0.1 MG TAB PO PRN (23:15)
[2017-09-18] MEDS ORDERED: ONDANSETRON ODT 4 MG TAB PO PRN (23:15)
[2017-09-18] MEDS ORDERED: Vancomycin Consult Pharmacy 1 EA OTHER SCH (23:30)
[2017-09-18] MEDS ORDERED: PILL SPLITTER OTHER PRN (23:45)
[2017-09-19] VITALS: BP 142/66; PULSE 84; RESP 18; TEMP 98.2; O2SAT 92
[2017-09-19] MEDS ORDERED: RESP: ALBUTEROL 2.5 MG/IPRATROPIUM 0.5 MG NEB (PRN) NEB
[2017-09-19 03:55] VITALS: PULSE 102
[2017-09-19 04:06] VITALS: BP 136/71; PULSE 105; RESP 18; TEMP 99; O2SAT 92
[2017-09-19 05:47] LABS: AUTOMATED NEUTROPHIL # 9.6 TH/MM3 (1.8-7.7); BASOPHIL # 0.1 TH/MM3 (0-0.2); BASOPHIL % 0.6 % (0.0-2.0); EOSINOPHIL # 0.2 TH/MM3 (0-0.4); EOSINOPHIL % 1.4 % (0.0-4.0); HEMATOCRIT 32.1 % (35.0-46.0); HEMOGLOBIN 10.1 GM/DL (11.6-15.3); LYMPHOCYTE # 0.4 TH/MM3 (1.0-4.8); MEAN CELL VOLUME 94.4 FL (80.0-100.0); MEAN CORPUSCULAR HEMOGLOBIN 29.6 PG (27.0-34.0); MEAN CORPUSCULAR HGB CONC 31.3 % (32.0-36.0); MEAN PLATELET VOLUME 7.2 FL (7.0-11.0); MONO % 7.4 % (0.0-8.0); MONOCYTE # 0.8 TH/MM3 (0-0.9); NEUT % 86.6 % (16.0-70.0); PLATELET COUNT 411 TH/MM3 (150-450); RED BLOOD COUNT 3.41 MIL/MM3 (4.00-5.30)
[2017-09-19 05:52] LABS: INTERNATIONAL NORMALIZED RATIO 1.3 RATIO; PROTHROMBIN TIME - PATIENT 13.2 SEC (9.8-11.6)
[2017-09-19 06:14] LABS: ALT (GPT) 10 U/L (10-53); AST (GOT) 10 U/L (15-37); BICARBONATE 20.3 MEQ/L (21.0-32.0); BLOOD UREA NITROGEN 39 MG/DL (7-18); CALCIUM 8.8 MG/DL (8.5-10.1); CHLORIDE 98 MEQ/L (98-107); CREATININE 6.24 MG/DL (0.50-1.00); GLOMERULAR FILTRATION RATE 7 ML/MIN (>89); GLUCOSE,RANDOM 66 MG/DL (74-106); SODIUM (NA) 134 MEQ/L (136-145)
[2017-09-19 06:17] LABS: ALKALINE PHOSPHATASE 332 U/L (45-117); HDL CHOLESTEROL 29.5 MG/DL (40.0-60.0); TOTAL BILIRUBIN ADULT 0.6 MG/DL (0.2-1.0); TOTAL PROTEIN 7.2 GM/DL (6.4-8.2); TRIGLYCERIDES 62 MG/DL (42-150)
[2017-09-19 06:18] LABS: CHOLESTEROL LESS THAN 50 MG/DL (120-200); CHOLESTEROL/ HDL RATIO 1.69 RATIO; LDL CHOLESTEROL 8 MG/DL (0-99)
--- NOTE | 2017-09-19 06:36 | RADRPT ---
EXAM DATE: 09/19/2017 6:32 AM EDT AGE/SEX: 72 years / Female INDICATIONS: Short of breath, cough, evaluate COPD CLINICAL DATA: This is the patient's initial encounter. Patient reports that signs and symptoms have been present for 1 day and indicates a pain score of 4/10. MEDICAL/SURGICAL HISTORY: Chronic obstructive pulmonary disease. Congestive heart failure. Ca rdiovascular disease. GERDdialysisLLE ulcerative wounds Coronary artery stent. dialysis catheter COMPARISON: [facility] [place], CHEST SINGLE AP, 08/28/2017. . FINDINGS: Single AP view the chest. Right IJ dual-lumen central venous catheter remains in place. Cardiac silho uette is mildly enlarged but unchanged. Lungs are clear. No evidence of pleural effusion or pneumotho rax. CONCLUSION: No acute cardiopulmonary disease identified. Electronically signed by: Pavan Thorpe MD 09/19/2017 6:35 AM EDT
[2017-09-19 07:55] VITALS: BP 112/66; PULSE 103; RESP 18; TEMP 98.1; O2SAT 97
[2017-09-19] MEDS: DOCUSATE SODIUM 50 MG/SENNA 8.6 MG TAB PO SCH ×2 (09:00→22:43)
[2017-09-19] MEDS: HEPARIN SODIUM - SQ 10,000 UNITS/ML VIAL SQ SCH ×3 (09:00→22:42)
[2017-09-19] MEDS ORDERED: ACETAMINOPHEN 325 MG TAB PO PRN ×2 (09:00→09:15)
[2017-09-19] MEDS ORDERED: HYDROmorphone HCL PF 2 MG/ML VIAL IV PUSH PRN ×2 (09:00→17:30)
[2017-09-19] MEDS: METOPROLOL TARTRATE 25 MG TAB PO SCH ×2 (09:03→22:42)
[2017-09-19] MEDS: CLOPIDOGREL 75 MG TAB PO SCH (09:03)
[2017-09-19] MEDS: SODIUM CHLORIDE 0.9% FLUSH 10 ML FLUSH IV FLUSH SCH ×2 (09:03→22:43)
[2017-09-19] MEDS ORDERED: SODIUM CHLOR 0.9% 1000 ML INJ 1,000 ML IV PRN (09:14)
[2017-09-19] MEDS ORDERED: SODIUM CHLOR 0.9% 1000 ML INJ 1,000 ML OTHER PRN ×2 (09:14)
[2017-09-19] MEDS ORDERED: NITROGLYCERIN 0.4 MG SL 25 TABS/BTL SL PRN (09:15)
[2017-09-19] MEDS ORDERED: GELATIN 12 MM/7 MM FOAM TOP PRN (09:15)
[2017-09-19] MEDS ORDERED: MANNITOL 12.5 GM/50 ML VIAL IV PRN (09:15)
[2017-09-19] MEDS ORDERED: HEPARIN SODIUM - IV 10,000 UNITS/10 ML VIAL IV FLUSH PRN (09:15)
[2017-09-19] MEDS ORDERED: SODIUM CHLORIDE 0.9% FLUSH 10 ML FLUSH IV FLUSH PRN (09:15)
[2017-09-19] MEDS ORDERED: cloNIDine HCL 0.1 MG TAB PO PRN (09:15)
[2017-09-19] MEDS ORDERED: diphenhydrAMINE HCL 25 MG CAP PO PRN (09:15)
[2017-09-19] MEDS ORDERED: ONDANSETRON HCL 4 MG/2 ML VIAL IV PUSH PRN (09:15)
--- NOTE | 2017-09-19 09:58 | HHI.HP ---
[facility] Service Family Medicine Primary Care Physician Georgie Mccarthy MD Admission Diagnosis LLE ulcerative wounds; cellulitis; PAD; ESRD Diagnoses: (1) Arterial leg ulcer Diagnosis: Principal (2) PAD (peripheral artery disease) Diagnosis: Principal (3) Hardness of breast Diagnosis: Principal (4) Acute on chronic diastolic (congestive) heart failure Diagnosis: Principal (5) ESRD (end stage renal disease) on dialysis Diagnosis: Principal (6) COPD (chronic obstructive pulmonary disease) Diagnosis: Principal (7) Hypertension Diagnosis: Principal (8) CAD (coronary artery disease) Diagnosis: Principal (9) Tobacco abuse Diagnosis: Principal (10) Depression Diagnosis: Principal (11) Anxiety Diagnosis: Principal (12) Weakness Diagnosis: Principal International Travel<30 Days: No Contact w/Intl Traveler<30days: No History of Present Illness Ms Richey is a 72F with multiple medical conditions including ESRD (Tues/Sat), CAD with stent x 2, COPD, and possible severe PAD who presented to ED after prompted by vascular surgeon due to LE wounds x 1-2 months. She notes she fell into a metal object due to "lost my balance" and sustained a laceration. Since then her wounds have gotten worse. She self-admitted to [facility], where she has been for 6 weeks. During this time, the wounds she had were treated by a wound nurse at the facility, but the wounds got worse rather than better. She went to see Dr. Barragan (was recommended by her mold sander Dr. Wu) and Dr. Barragan recommended to come to ED for further evaluation and antibiotics. PCP is Dr. Georgie Mccarthy but last visit was in 2017. She has been to ED since last office visit. She has significant pain located in the left lower leg , from knee down to foot. She is able to move the legs but does have balance issues requiring wheelchair. She has severe pain with ambulation. Character is "sharp, constant, unrelenting" and max intensity is 10/10. She is not on any pain medications at home. She denies any fever, chills, nausea, vomiting. She states "yes" and "no" on whether her wounds leak but notes the lesions are wrapped often. She notes there has been blood staining the wrapping. She denies paresthesias, poikilothermia, and difficulty moving the limbs including toes but does note her skin feels tighter in the LEs over the last few months and she has had swelling. She is noted to not have a history of diabetes. She reports a history of MRSA infection 2-3 years ago which was "short-term" and it is unclear whether this was a skin infection. She has also developed hardening of both breasts over the past few months as well. Her wounds are multiple and above the knee on the left. Review of Systems Other Constitutional: DENIES: Fever, Chills, Change in appetite Eyes: DENIES: Blurred vision, Diplopia Ears, nose, mouth, throat: DENIES: Oral lesions, Throat pain Respiratory: DENIES: Cough, Shortness of breath Cardiovascular: DENIES: Chest pain, Palpitations Gastrointestinal: DENIES: Abdominal pain, Black stools, Bloody stools, Nausea, Vomiting Genitourinary: DENIES: Urinary frequency, Urinary incontinence, Dysuria Musculoskeletal: DENIES: Joint pain, Stiffness, Back pain, Neck pain Integumentary: COMPLAINS OF: Rash (LEs), DENIES: Pruritus Hematologic/lymphatic: DENIES: Bruising, Lymphadenopathy Neurologic: DENIES: Headache, Seizures Psychiatric: COMPLAINS OF: Depression, DENIES: Anxiety, Confusion, Suicidal Ideation, Homicidal Ideation Other Patient reports her breasts are both hardened over the last few months Past Family Social History Past Medical History ESRD - related to HTN per pt (Sat, Tujuli), on Renvela HTN - historical, not on meds CHF - last echo 10/2015 per EMR, EF 30-35%, PA pressure 46 not seeing cardiology (used to be Dr. Woo) COPD OA - left knee Anxiety Depression History of MN in 2014 - 2 stents Past Surgical History Heart cath 2014, 2016 Perm-cath placement - 11/2015 Multiple fistula surgeries LUE - 12/08/2015 Allergies: Coded Allergies: niacin (Unverified Allergy, Severe, ANAPHALACTIC, 08/28/17) Family History Mother and father both in their 60s from heart disease Siblings - all alive, no reported medical problems Children - "good shape Social History Lives at [facility] for 6-8 weeks, Medicare reportedly covering this Uses walker intermittently with pain, uses wheelchair primarily Smokin pack per day, 50 pack year history Alcohol: moderate per report, drinks 2-3 weeks per week Illicit: denies any current or previous use Family: one son named Missael Richey ([place]), phone number [phone] Physical Exam Vital Signs Vital Signs Date Time Temp Pulse Resp B/P (MAP) Pulse Ox O2 Delivery O2 Flow Rate FiO2 09/19/17 07:55 98.1 103 18 112/66 (81) 97 09/19/17 04:06 99.0 105 18 136/71 (92) 92 09/19/17 03:55 102 09/19/17 00:00 98.2 84 18 142/66 (91) 92 09/18/17 23:57 81 09/18/17 23:16 86 09/18/17 22:30 Room Air 09/18/17 21:58 98.2 75 18 122/56 (78) 96 09/18/17 21:56 09/18/17 20:24 91 16 98 Room Air 09/18/17 20:24 98 21 09/18/17 19:22 87 16 126/65 (85) 94 Room Air 09/18/17 18:26 22 99 Room Air 09/18/17 16:31 99.2 94 16 145/73 (97) 96 Physical Exam GENERAL: This is a well-nourished, well-developed patient, in no apparent distress. SKIN: No rashes, ecchymoses or lesions. Cool and dry. HEAD: Atraumatic. Normocephalic. No temporal or scalp tenderness. EYES: Pupils equal round and reactive. Extraocular motions intact. No scleral icterus. No injection or drainage. ENT: Nose without bleeding, purulent drainage or septal hematoma. Throat without erythema, tonsillar hypertrophy or exudate. Uvula midline. Airway patent. NECK: Trachea midline. No JVD or lymphadenopathy. Supple, nontender, no meningeal signs. CARDIOVASCULAR: Regular rate and rhythm without murmurs, gallops, or rubs. RESPIRATORY: Clear to auscultation. Breath sounds equal bilaterally. No wheezes , rales, or rhonchi. GASTROINTESTINAL: Abdomen soft, non-tender, nondistended. No hepato-splenomegaly , or palpable masses. No guarding. MUSCULOSKELETAL: Extremities without clubbing, cyanosis, or edema. No joint tenderness, effusion, or edema noted. No calf tenderness. Negative Homans sign bilaterally. NEUROLOGICAL: Awake and alert. Cranial nerves II through XII intact. Motor and sensory grossly within normal limits. Five out of 5 muscle strength in all muscle groups. Normal speech. Laboratory Laboratory Tests Test 09/18/17 18:10 09/19/17 05:02 White Blood Count 12.3 11.0 Red Blood Count 3.57 3.41 Hemoglobin 10.4 10.1 Hematocrit 33.8 32.1 Mean Corpuscular Volume 94.5 94.4 Mean Corpuscular Hemoglobin 29.0 29.6 Mean Corpuscular Hemoglobin Concent 30.7 31.3 Red Cell Distribution Width 18.0 18.0 Platelet Count 427 411 Mean Platelet Volume 7.1 7.2 Neutrophils (%) (Auto) 87.0 86.6 Lymphocytes (%) (Auto) 3.2 4.0 Monocytes (%) (Auto) 8.2 7.4 Eosinophils (%) (Auto) 1.1 1.4 Basophils (%) (Auto) 0.5 0.6 Neutrophils # (Auto) 10.7 9.6 Lymphocytes # (Auto) 0.4 0.4 Monocytes # (Auto) 1.0 0.8 Eosinophils # (Auto) 0.1 0.2 Basophils # (Auto) 0.1 0.1 CBC Comment DIFF FINAL DIFF FINAL Differential Comment Erythrocyte Sedimentation Rate 69 Blood Urea Nitrogen 36 39 Creatinine 6.07 6.24 Random Glucose 56 66 Total Protein 7.7 7.2 Albumin 2.0 2.0 Calcium Level 9.1 8.8 Alkaline Phosphatase 353 332 Aspartate Amino Transf (AST/SGOT) 32 10 Alanine Aminotransferase (ALT/SGPT) 10 10 Total Bilirubin 0.7 0.6 Sodium Level 130 134 Potassium Level 5.5 4.8 Chloride Level 95 98 Carbon Dioxide Level 21.7 20.3 Anion Gap 13 16 Estimat Glomerular Filtration Rate 7 7 Lactic Acid Level 1.7 Prothrombin Time 13.2 Prothromb Time International Ratio 1.3 Triglycerides Level 62 Cholesterol Level LESS THAN 50 LDL Cholesterol 8 HDL Cholesterol 29.5 Cholesterol/HDL Ratio 1.69 Date/Time Source Procedure Growth Status 09/18/17 18:10 Blood Peripheral Aerobic Blood Culture Pending Received 09/18/17 18:10 Blood Peripheral Anaerobic Blood Culture Pending Received 09/18/17 21:00 Wound Leg Gram Stain - Final Resulted 09/18/17 21:00 Wound Leg Wound Culture Pending Resulted Result Diagram: 09/19/17 0502 09/19/17 0502 Caprini VTE Risk Assessment Caprini VTE Risk Assessment: Mod/High Risk (score >= 2) VTE [facility] Contraindication: LE injury/wound Caprini Risk Assessment Model Point Value = 1 Point Value = 2 Point Value = 3 Point Value = 5 Age 41-60 Minor surgery BMI > 25 kg/m2 Swollen legs Varicose veins or History of unexplained or recurrent spontaneous Oral contraceptives or hormone replacement Sepsis (< 1 month) Serious lung disease, including pneumonia (< 1 month) Abnormal pulmonary function Acute myocardial infarction Congestive heart failure (< 1 month) History of inflammatory bowel disease Medical patient at bed rest Age 61-74 Arthroscopic surgery Major open surgery (> 45 min) Laparoscopic surgery (> 45 min) Malignancy Confined to bed (> 72 hours) Immobilizing plaster cast Central venous access Age >= 75 History of VTE Family history of VTE Factor V Leiden Prothrombin [id number] Lupus anticoagulant Anticardiolipin antibodies Elevated serum homocysteine Heparin-induced thrombocytopenia Other congenital or acquired thrombophilia Stroke (< 1 month) Elective arthroplasty Hip, pelvis, or leg fracture Acute spinal cord injury (< 1 month) Prophylaxis Regimen Total Risk Factor Score Risk Level Prophylaxis Regimen 0-1 Low Early ambulation 2 Moderate Order ONE of the following: *Sequential Compression Device (SCD) *Heparin 5000 units SQ BID 3-4 Higher Order ONE of the following medications: *Heparin 5000 units SQ TID *Enoxaparin/Lovenox 40 mg SQ daily (WT < 150 kg, CrCl > 30 mL/min) *Enoxaparin/Lovenox 30 mg SQ daily (WT < 150 kg, CrCl > 10-29 mL/min) *Enoxaparin/Lovenox 30 mg SQ BID (WT < 150 kg, CrCl > 30 mL/min) AND/OR *Sequential Compression Device (SCD) 5 or more Highest Order ONE of the following medications: *Heparin 5000 units SQ TID (Preferred with Epidurals) *Enoxaparin/Lovenox 40 mg SQ daily (WT < 150 kg, CrCl > 30 mL/min) *Enoxaparin/Lovenox 30 mg SQ daily (WT < 150 kg, CrCl > 10-29 mL/min) *Enoxaparin/Lovenox 30 mg SQ BID (WT < 150 kg, CrCl > 30 mL/min) AND *Sequential Compression Device (SCD) Assessment and Plan Assessment and Plan 72F with COPD, CAD, and ESRD with likely concomitant severe PAD who presents with multiple LE infected wounds of the left lower extremity. At this time I suspect infected ischemic leg ulcers secondary to PAD but cannot rule out deeper infection given extent of leg involvement and chronicity (>1 month). In ED, patient did refuse CXR because "I always get them" but can be ordered for the morning given hx of COPD and CHF. No significant exacerbations of COPD in the past reported. She is s/p IV vancomycin and clindamycin in ED. She will be admitted to inpatient for further workup of wounds including wound management, vascular imaging, and infection workup to include rule out of osteomyelitis. Chronic disease management to continue while in hospital. Anticipate discharge to SNF but only after extensive workup. PLAN: General * admit to inpatient, diet renal, vital signs with pulse checks every 4 hours as per protocol * EKG pending * Smoker * Patient requests nicotine patch but will hold off at admission given nighttime use increases risk of adverse reaction and nicotine does have associated vascular risks FEN * Fluids: tolerating PO, fluid caution given ESRD, pt does make urine (monitor I /Os) * Electrolytes: monitor closely given ESRD, K 5.5 on admission * Nutrition: renal diet * DVT Prophylaxis: Early ambulation. PT ordered. Heparin 5000U subQ q8hr. Hold SCDs given wounds * GI Prophylaxis: none indicated * PRN anti-HTN: Clonidine 0.1mg PO PRN for SBP > 180/ and/or DBP > 100 Problem List: (1) Arterial leg ulcer ICD Codes: L97.909 - Non-pressure chronic ulcer of unspecified part of unspecified lower leg with unspecified severity Status: Acute Plan: Infected leg ulcers * Mild leukocytosis, no fever or other systemic signs * ESR to be added to labs * Wound care physician consult ordered: Patient will need long-term care for her wounds. * Wound cultures collected from draining wounds at the left posterior calf and left lower medial calf however patient did receive IV antibiotics prior to this. * Nursing wound care order placed for saline rinse with loose wrapping at this time. * Will continue vancomycin only at this time, antibiotics may be titrated by culture results. Vancomycin pharmacy consult given ESRD. may be able to stop abx * MRSA screen * Pain control with hydrocodone 5 mg for pain 3-10 initially, will titrate medications as needed and try iv dilaudid as her pain is severe (2) PAD (peripheral artery disease) ICD Codes: I73.9 - Peripheral vascular disease, unspecified Status: Acute Plan: PAD. had CTA done as outpt. will work on getting those results * Patient does have bilateral dorsalis pedis pulses by Doppler and palpation though they are weak * No evidence of critical limb ischemia however patient does report symptoms suggestive of claudication * Vascular surgery consulted: Patient did see Dr. Barragan for the first time in clinic today, likely will require CTA or MRA runoff studies, will order ANUSHA and bilateral lower extremity ultrasound at this time. Lipid profile and A1c ordered. * Patient is on atorvastatin 40 mg hs, will continue * Patient is on Plavix 75 mg daily, will continue (3) Hardness of breast ICD Codes: N64.51 - Induration of breast Status: Acute Plan: Bilateral breast hardening * Unclear etiology, likely amenable to outpt followup given bilateral and symmetric, cannot rule out mass. 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 Previously had dialysis through a left upper extremity fistula but this has failed. Of note, patient will likely require contrast imaging which will need to be coordinated. * Pt reported she is on Renvela, nephrology may know dosing to continue while inpt Hyperkalemia of 5.5 * slight hemolysis noted * re-evaluate K in the morning, EKG pending Hyponatremia * Mild, will monitor closely and intervene as needed Anemia of Chronic Disease * Monitor CBCs regularly while inpt CHF * per report last echo was 2015, no exacerbation of symptoms at this time, outpt f/u warranted * I/Os, renal diet (5) COPD (chronic obstructive pulmonary disease) ICD Codes: J44.9 - COPD (chronic obstructive pulmonary disease) Status: Chronic Plan: COPD * 50 pack year smoker, not on oxygen, has not seen her PCP recently * Will offer Duonebs q6hr PRN for SOB or wheezing * Likely PFTs in her future in outpt setting * Needs smoking cessation counseling, likely strong contributor to vascular disease * Refused CXR in ED but agreed to this at admission, will order for AM (6) Hypertension ICD Codes: I10 - Essential (primary) hypertension Status: Chronic Plan: HTN * BP wnl on admission * Continue home dose metoprolol 12.5 mg BID * Clonidine PO PRN (7) CAD (coronary artery disease) ICD Codes: I25.10 - Atherosclerotic heart disease of [place] coronary artery without angina pectoris Status: Chronic Plan: CAD * Hx MN and stents, on Plavix * To monitor for any symptoms of MN, none noted on admission * Needs close outpt f/u, previously established with Dr. Woo but has been lost to followup per pt (8) Tobacco abuse ICD Codes: Z72.0 - Tobacco use Status: Chronic (9) Depression ICD Codes: F32.9 - Major depressive disorder, single episode, unspecified Status: Chronic Plan: Depression/Anxiety * Chronic. Patient previously on paroxetine but stopped this. Reports depression but denies SI/HI. Will monitor while inpt, likely would benefit her to restart SSRI which was discussed briefly with her (10) Anxiety ICD Codes: F41.9 - Anxiety disorder, unspecified Status: Chronic (11) Acute on chronic diastolic (congestive) heart failure ICD Codes: I50.33 - Acute on chronic diastolic (congestive) heart failure Status: Chronic Problem Qualifiers (1) COPD (chronic obstructive pulmonary disease): Qualified Codes: J44.9 - Chronic obstructive pulmonary disease, unspecified (2) Hypertension: Qualified Codes: I10 - Essential (primary) hypertension (3) CAD (coronary artery disease): Qualified Codes: I25.10 - Atherosclerotic heart disease of [place] coronary artery without angina pectoris (4) Depression: Qualified Codes: F32.9 - Major depressive disorder, single episode, unspecified Mily Wheeler MD Sep 19, 2017 09:58
--- NOTE | 2017-09-19 10:01 | PD.WOU.CON ---
Patient Intake Chief Complaint Calciphylaxis Consult Requested by Primary Care Physician Georgie Mccarthy MD Coded Allergies: niacin (Unverified Allergy, Severe, ANAPHALACTIC, 08/28/17) Vital Signs Date Time Temp Pulse Resp B/P (MAP) Pulse Ox O2 Delivery O2 Flow Rate FiO2 09/19/17 07:55 98.1 103 18 112/66 (81) 97 09/19/17 04:06 99.0 105 18 136/71 (92) 92 09/19/17 03:55 102 09/19/17 00:00 98.2 84 18 142/66 (91) 92 09/18/17 23:57 81 09/18/17 23:16 86 09/18/17 22:30 Room Air 09/18/17 21:58 98.2 75 18 122/56 (78) 96 09/18/17 21:56 09/18/17 20:24 91 16 98 Room Air 09/18/17 20:24 98 21 09/18/17 19:22 87 16 126/65 (85) 94 Room Air 09/18/17 18:26 22 99 Room Air 09/18/17 16:31 99.2 94 16 145/73 (97) 96 Past, Family & Social History Past Surgical History Gynecologic: DENIES HX OF: Hysterectomy Breast: DENIES HX OF: Mastectomy, bilateral, Mastectomy, left, Mastectomy, right Lab and Radiology Results Radiology Last Impressions Chest X-Ray 09/19/17 0600 Signed Impressions: CONCLUSION: No acute cardiopulmonary disease identified. Latoya Vanegas MD Sep 19, 2017 10:01
--- NOTE | 2017-09-19 10:39 | RADRPT ---
EXAM DATE: 09/19/2017 10:27 AM EDT AGE/SEX: 72 years / Female INDICATIONS: Bilateral lower extremity pain. CLINICAL DATA: This is the patient's initial encounter. Patient reports that signs and symptoms have been present for 1 month and indicates a pain score of 10/10. MEDICAL/SURGICAL HISTORY: . Hypertension. Hyperlipidemia. Hypercholesterolemia. Renal failur e. Dialysis. ID [id number]. Cardiac catheterization. Cardiac stents. Congestive heart failure. [place] ry artery disease. COPD. Arthritis. Tobacco use. . Tonsillectomy. Left hand surgery. COMPARISON: [facility] [place], LEG BILATERAL VENOUS DOPPLER, 08/03/2017. . No external comparison. TECHNIQUE: Venous ultrasound of both lower extremities was performed from the inguinal ligament to t he proximal calf. Real-time, color Doppler and spectral tracing, compression and augmentation techni ques were used. FINDINGS: Right Leg: There is normal compressibility of the deep venous system from the inguinal region to the proximal calf. No echogenic clot is seen in the lumen of the common femoral, femoral, popliteal, an d posterior tibial veins. There is a normal response of the venous system to proximal and distal aug mentation and respiration. Left Leg: Exam was limited due to inability to compress the femoral, popliteal and proximal infrapopl iteal veins. There is significant edema and wounds in this area. Doppler demonstrated normal flow wit h good augmentation. CONCLUSION: 1. No evidence of DVT. 2. Limited evaluation of the left lower extremity. Electronically signed by: Willian Lemus MD 09/19/2017 10:38 AM EDT
--- NOTE | 2017-09-19 11:52 | PD.VS.CON ---
History of Present Illness Chief Complaint: Worsening L LE ulcerations Consult Requested by: History of Present Illness Ms. Richey has a PMH of severe PAD Pt was seen and evaluated in our out pt clinic yesterday for f/u of L >R LE PAD and ESRD. She was initially an inpatient consult for an AVF and ultimately needs a R UE brach-ax because of no autogenous conduit. She has worsening LEFT leg wounds and no pedal pulses Pt was sent for an out pt CTA ([facility])- L SFA occlusion Pt was sent to the ED given the appearance of her wounds Past/Family/Social History Past Medical History SD ESRD HTN CHF COPD OA - left knee Anxiety Depression Past Surgical History Perm-cath placement Multiple fistula surgeries LUE - Social History Smokes daily ETOH- daily Illicit drugs- Denied Home Medications Active Scripts Clonazepam (Clonazepam) 0.5 Mg Tab, 0.5 MG PO BID, #60 TAB 0 Refills Prov:Georgie Mccarthy MD R3 05/05/17 Paroxetine (Paroxetine) 10 Mg Tab, 10 MG PO DAILY, #30 TAB 0 Refills Prov:Georgie Mccarthy MD R3 03/08/[address] (Adult Aspirin EC Low Strength) 81 Mg Tabec, 81 MG PO DAILY for CAD, #30 TAB 0 Refills Prov:Caridad Schaefer MD 11/21/16 Clopidogrel (Plavix) 75 Mg Tab, 75 MG PO DAILY for Blood Clot Prevention, #30 TAB 5 Refills Prov:Inessa Hollingsworth MD R2 10/29/16 Reported Medications Isosorbide Mononitrate ER (Isosorbide Mononitrate ER) 30 Mg Kavitha, 30 MG PO DAILY for Prevent Chest Pain, #30 TAB 0 Refills 09/18/17 Metoprolol Tartrate (Metoprolol Tartrate) 25 Mg Tab, 12.5 MG PO BID, #60 TAB 0 Refills 02/28/16 Atorvastatin (Atorvastatin) 40 Mg Tab, 40 MG PO HS for Cholesterol Management, # 30 TAB 0 Refills 02/28/16 Discontinued Scripts Vancomycin Inj (Vancomycin Inj) 500 Mg Inj, 125 MG PO Q6H for c diff treatment for 14 Days, #42 INJECTION Prov:[place]ash Padron MD 08/06/17 Meclizine (Meclizine) 25 Mg Tab, 25 MG PO TID Y for VERTIGO for 5 Days, TAB 0 Refills Prov:Kristie Mackey MD 06/13/17 Coded Allergies: niacin (Unverified Allergy, Severe, ANAPHALACTIC, 08/28/17) Review of Systems Respiratory: DENIES: Shortness of breath Cardiovascular: COMPLAINS OF: Lower Extremity Edema, Claudication, DENIES: Chest pain Gastrointestinal: COMPLAINS OF: Abdominal pain (L LE w/ multiple worsening necrotic ulcerations ) Physical Exam Vitals/I&O Date Time Temp Pulse Resp B/P (MAP) Pulse Ox O2 Delivery O2 Flow Rate FiO2 09/19/17 07:55 98.1 103 18 112/66 (81) 97 09/19/17 04:06 99.0 105 18 136/71 (92) 92 09/19/17 03:55 102 09/19/17 00:00 98.2 84 18 142/66 (91) 92 09/18/17 23:57 81 09/18/17 23:16 86 09/18/17 22:30 Room Air 09/18/17 21:58 98.2 75 18 122/56 (78) 96 09/18/17 21:56 09/18/17 20:24 91 16 98 Room Air 09/18/17 20:24 98 21 09/18/17 19:22 87 16 126/65 (85) 94 Room Air 09/18/17 18:26 22 99 Room Air 09/18/17 16:31 99.2 94 16 145/73 (97) 96 Neuro: GCS 15 Speech clear HEENT: FREDI Neck: No JVD Distention Heart: RRR Lungs: CTA Abdomen: S/NT Vascular: NON palpable R/L DP/PT Pt w/ multiple necrotic ulcerations to L LE worsening over the past week Laboratory Tests Test 09/18/17 18:10 09/19/17 05:02 White Blood Count 12.3 11.0 Red Blood Count 3.57 3.41 Hemoglobin 10.4 10.1 Hematocrit 33.8 32.1 Mean Corpuscular Volume 94.5 94.4 Mean Corpuscular Hemoglobin 29.0 29.6 Mean Corpuscular Hemoglobin Concent 30.7 31.3 Red Cell Distribution Width 18.0 18.0 Platelet Count 427 411 Mean Platelet Volume 7.1 7.2 Neutrophils (%) (Auto) 87.0 86.6 Lymphocytes (%) (Auto) 3.2 4.0 Monocytes (%) (Auto) 8.2 7.4 Eosinophils (%) (Auto) 1.1 1.4 Basophils (%) (Auto) 0.5 0.6 Neutrophils # (Auto) 10.7 9.6 Lymphocytes # (Auto) 0.4 0.4 Monocytes # (Auto) 1.0 0.8 Eosinophils # (Auto) 0.1 0.2 Basophils # (Auto) 0.1 0.1 CBC Comment DIFF FINAL DIFF FINAL Differential Comment Erythrocyte Sedimentation Rate 69 Blood Urea Nitrogen 36 39 Creatinine 6.07 6.24 Random Glucose 56 66 Total Protein 7.7 7.2 Albumin 2.0 2.0 Calcium Level 9.1 8.8 Alkaline Phosphatase 353 332 Aspartate Amino Transf (AST/SGOT) 32 10 Alanine Aminotransferase (ALT/SGPT) 10 10 Total Bilirubin 0.7 0.6 Sodium Level 130 134 Potassium Level 5.5 4.8 Chloride Level 95 98 Carbon Dioxide Level 21.7 20.3 Anion Gap 13 16 Estimat Glomerular Filtration Rate 7 7 Lactic Acid Level 1.7 Prothrombin Time 13.2 Prothromb Time International Ratio 1.3 Phosphorus Level 6.5 Triglycerides Level 62 Cholesterol Level LESS THAN 50 LDL Cholesterol 8 HDL Cholesterol 29.5 Cholesterol/HDL Ratio 1.69 Date/Time Source Procedure Growth Status 09/18/17 18:10 Blood Peripheral Aerobic Blood Culture - Preliminary NO GROWTH IN 1 DAY Resulted 09/18/17 18:10 Blood Peripheral Anaerobic Blood Culture - Preliminary NO GROWTH IN 1 DAY Resulted 09/18/17 21:00 Wound Leg Gram Stain - Final Resulted 09/18/17 21:00 Wound Leg Wound Culture Pending Resulted Last 48 hours Impressions Chest X-Ray 09/19/17 0600 Signed Impressions: CONCLUSION: No acute cardiopulmonary disease identified. Lower Extremity Ultrasound 09/19/17 0000 Signed Impressions: CONCLUSION: 1. No evidence of DVT. 2. Limited evaluation of the left lower extremity. 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 Barragan Consent obtained and placed in the chart Marjan Lamar NP [facility] [phone] Problem Qualifiers (1) Open wound of left lower extremity with complication: Qualified Codes: S81.802A - Unspecified open wound, left lower leg, initial encounter Marjan Lamar Sep 19, 2017 11:52
[2017-09-19 12:05] VITALS: BP_SYST 101; BP_SYST 156; BP_DIAS 56; BP_DIAS 71; PULSE 102; PULSE 85; RESP 20; RESP 24; TEMP 97.7; TEMP 98.2; O2SAT 94; O2SAT 99
--- NOTE | 2017-09-19 12:06 | PD.CONS ---
HPI Service Nephrology Consult Requested By Reason for Consult ESRD on HD Primary Care Physician Georgie Mccarthy MD History of Present Illness This is a 72 y/o female patient with ESRD who is on HD twice weekly. Historically she is noncompliant with medical advice. She came to ER for left leg wounds, endorses a fall one month ago but the wounds have gotten worse. PMH includes HTN, tobacco abuse, CHF, anxiety/depression. Her left leg has multiple wounds, irregular in shape/size, have drainage and foul smelling odor. She was at a vascular appointment as her AVF had failed recently, we are using a Perm Cath for HD. Vascular had noticed the wounds on her leg one to two weeks ago were much less severe compared to now, the slough and odor became more apparent , therefore she was referred for hospital admission. She has occlusion in her left SFA, is due for angiography and stent placement on Saturday if needed. We were consutled to assist with dialysis management. Of note the patient has firm mass/tissue in her right breast region without open wounds to the area. (Mily Gray) Review of Systems Constitutional: COMPLAINS OF: Fever, DENIES: Fatigue, Weight gain Musculoskeletal: COMPLAINS OF: Muscle aches, DENIES: Joint pain (Mily Gray) Past Family Social History Allergies: Coded Allergies: niacin (Unverified Allergy, Severe, ANAPHALACTIC, 08/28/17) Past Medical History ESRD on HD /Sat but non compliant HTN - historical, not on meds CHF - last echo 10/2015 per EMR, EF 30-35%, PA pressure 46 not seeing cardiology (used to be Dr. Woo) COPD OA - left knee Anxiety Depression Metabolic Bone Disorder History of [facility] in 2014 - 2 stents Past Surgical History Heart cath 2014, 2016 Perm-cath placement - 11/2015 Multiple fistula surgeries LUE - 12/08/2015 Reported Medications Clonazepam 0.5 Mg Tab 0.5 Mg PO BID Paroxetine (Paroxetine HCl) 10 Mg Tab 10 Mg PO DAILY Adult Aspirin EC Low Strength (Aspirin) 81 Mg Tabec 81 Mg PO DAILY Plavix (Clopidogrel Bisulfate) 75 Mg Tab 75 Mg PO DAILY Renvela 1600 mg po with meals Isosorbide Mononitrate ER (Isosorbide Mononitrate) 30 Mg Kavitha 30 Mg PO DAILY Metoprolol Tartrate 25 Mg Tab 12.5 Mg PO BID Atorvastatin (Atorvastatin Calcium) 40 Mg Tab 40 Mg PO HS Active Ordered Medications Last 72 hours Impressions Chest X-Ray 09/19/17 0600 Signed Impressions: CONCLUSION: No acute cardiopulmonary disease identified. Lower Extremity Ultrasound 09/19/17 0000 Signed Impressions: CONCLUSION: 1. No evidence of DVT. 2. Limited evaluation of the left lower extremity. Family History Non contributory Social History Daily Smoker + ETOH Lives alone Non complaint with treatment Full code (Mily Gray) Physical Exam Vital Signs Vital Signs Date Time Temp Pulse Resp B/P (MAP) Pulse Ox O2 Delivery O2 Flow Rate FiO2 09/19/17 07:55 98.1 103 18 112/66 (81) 97 09/19/17 04:06 99.0 105 18 136/71 (92) 92 09/19/17 03:55 102 09/19/17 00:00 98.2 84 18 142/66 (91) 92 09/18/17 23:57 81 09/18/17 23:16 86 09/18/17 22:30 Room Air 09/18/17 21:58 98.2 75 18 122/56 (78) 96 09/18/17 21:56 09/18/17 20:24 91 16 98 Room Air 09/18/17 20:24 98 21 09/18/17 19:22 87 16 126/65 (85) 94 Room Air 09/18/17 18:26 22 99 Room Air 09/18/17 16:31 99.2 94 16 145/73 (97) 96 Physical Exam Elderly Female in NAD sitting in bed Alert, oriented x 3 S1/S2, no murmurs appreciated Lungs clear throughout Abd: soft, non tender, no distension Permcath right chest Right leg: some edema, no wounds, erythema is present Left leg: multiple ulcers anterior and medial side, eschar on base, foul smelling; pedal pulse 1+, limited range of motion due to pain Laboratory Laboratory Tests Test 09/18/17 18:10 09/19/17 05:02 White Blood Count 12.3 11.0 Red Blood Count 3.57 3.41 Hemoglobin 10.4 10.1 Hematocrit 33.8 32.1 Mean Corpuscular Volume 94.5 94.4 Mean Corpuscular Hemoglobin 29.0 29.6 Mean Corpuscular Hemoglobin Concent 30.7 31.3 Red Cell Distribution Width 18.0 18.0 Platelet Count 427 411 Mean Platelet Volume 7.1 7.2 Neutrophils (%) (Auto) 87.0 86.6 Lymphocytes (%) (Auto) 3.2 4.0 Monocytes (%) (Auto) 8.2 7.4 Eosinophils (%) (Auto) 1.1 1.4 Basophils (%) (Auto) 0.5 0.6 Neutrophils # (Auto) 10.7 9.6 Lymphocytes # (Auto) 0.4 0.4 Monocytes # (Auto) 1.0 0.8 Eosinophils # (Auto) 0.1 0.2 Basophils # (Auto) 0.1 0.1 CBC Comment DIFF FINAL DIFF FINAL Differential Comment Erythrocyte Sedimentation Rate 69 Blood Urea Nitrogen 36 39 Creatinine 6.07 6.24 Random Glucose 56 66 Total Protein 7.7 7.2 Albumin 2.0 2.0 Calcium Level 9.1 8.8 Alkaline Phosphatase 353 332 Aspartate Amino Transf (AST/SGOT) 32 10 Alanine Aminotransferase (ALT/SGPT) 10 10 Total Bilirubin 0.7 0.6 Sodium Level 130 134 Potassium Level 5.5 4.8 Chloride Level 95 98 Carbon Dioxide Level 21.7 20.3 Anion Gap 13 16 Estimat Glomerular Filtration Rate 7 7 Lactic Acid Level 1.7 Prothrombin Time 13.2 Prothromb Time International Ratio 1.3 Phosphorus Level 6.5 Triglycerides Level 62 Cholesterol Level LESS THAN 50 LDL Cholesterol 8 HDL Cholesterol 29.5 Cholesterol/HDL Ratio 1.69 Date/Time Source Procedure Growth Status 09/18/17 18:10 Blood Peripheral Aerobic Blood Culture - Preliminary NO GROWTH IN 1 DAY Resulted 09/18/17 18:10 Blood Peripheral Anaerobic Blood Culture - Preliminary NO GROWTH IN 1 DAY Resulted 09/18/17 21:00 Wound Leg Gram Stain - Final Resulted 09/18/17 21:00 Wound Leg Wound Culture Pending Resulted (Mily Gray) Result Diagram: 09/19/17 0502 09/19/17 0502 Imaging Last 72 hours Impressions Chest X-Ray 09/19/17 0600 Signed Impressions: CONCLUSION: No acute cardiopulmonary disease identified. Lower Extremity Ultrasound 09/19/17 0000 Signed Impressions: CONCLUSION: 1. No evidence of DVT. 2. Limited evaluation of the left lower extremity. (Mily Gray) Assessment and Plan Problem List: (1) ESRD (end stage renal disease) on dialysis ICD Codes: N18.6 - End stage renal disease; Z99.2 - Dependence on renal dialysis Status: Chronic Plan: We will provide dialysis TTS while admitted, she will have treatment today. Intermittently monitor electrolyte profile. She has mild acidosis, should improve with dialysis. Avoid IVF administration. Gadolinium is contraindicated. Obtain phosphorus level, start Renvela with meals. Check PTH level. PermCath is to be used for HD, needs new access created at some point. 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 Ordered Vancomycin and clindamycin. (3) Hardness of breast ICD Codes: N64.51 - Induration of breast Status: Acute Plan: Most likely is manifestation of calciphylaxis. (4) Tobacco abuse ICD Codes: Z72.0 - Tobacco use Status: Chronic Plan: Cessation advised. (5) AV graft thrombosis ICD Codes: T82.868A - Thrombosis due to vascular prosthetic devices, implants and grafts, initial encounter Plan: Using Perm cath for HD Vascular has been following to obtain new AV access. (Mily Gray) Problem List: (1) ESRD (end stage renal disease) on dialysis ICD Codes: N18.6 - End stage renal disease; Z99.2 - Dependence on renal dialysis Status: Chronic Plan: We will provide dialysis TTS while admitted, she will have treatment today. Intermittently monitor electrolyte profile. She has mild acidosis, should improve with dialysis. Avoid IVF administration. Gadolinium is contraindicated. Obtain phosphorus level, start Renvela with meals. Check PTH level. PermCath is to be used for HD, needs new access created at some point. 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 Ordered Vancomycin and clindamycin. (3) Hardness of breast ICD Codes: N64.51 - Induration of breast Status: Acute Plan: Most likely is manifestation of calciphylaxis. (4) Tobacco abuse ICD Codes: Z72.0 - Tobacco use Status: Chronic Plan: Cessation advised. (5) AV graft thrombosis ICD Codes: T82.868A - Thrombosis due to vascular prosthetic devices, implants and grafts, initial encounter Plan: Using Perm cath for HD Vascular has been following to obtain new AV access. Assessment and Plan patient was seen and examined. Leg wounds were examined. She is extremely non compliant, continues to smoke. She may have left SFA occlusion, but her wounds have appearance of calciphylaxis. These wounds may not heal. Will attempt Sodium thiosulfate. Her prognosis is extremely poor. Hospice is appropriate for this patient. (Arvin Farnsworth MD) Mily Gray Sep 19, 2017 12:06 Arvin Farnsworth MD Sep 19, 2017 20:34
--- NOTE | 2017-09-19 13:08 | RADRPT ---
EXAM DATE: 09/19/2017 11:48 AM EDT AGE/SEX: 72 years / Female INDICATIONS: Left lower extremity ulcerative wounds, cellulitis, peripheral artery disease CLINICAL DATA: This is the patient's initial encounter. Patient reports that signs and symptoms have been present for 2 months and indicates a pain score of 10/10. MEDICAL/SURGICAL HISTORY: . End stage renal disease, CAD, COPD, CHF, peripheral artery disease, smoking, infected leg ulcers, hypertension, depression, anxiety, arterial leg ulcer . stent x 2, pe rm cath placement, hysterectomy COMPARISON: No prior exams available for comparison. TECHNIQUE: Four-cuff ankle and brachial pressures were obtained. Pulse cuff waveform tracings of the ankles were recorded, and ankle-brachial indices were calculated. PRESSURES (mmHg): Brachial (arm) : RIGHT: IV SITE, LEFT: 131 Ankle : RIGHT: 33, LEFT: 29 ANUSHA : RIGHT: 0.25, LEFT: 0.22 TBI : RIGHT: 0.00, LEFT: 0.00 Unable to obtain tracings in either toe. PULSED CUFF WAVEFORMS: Monophasic waveforms bilaterally. CONCLUSION: 1. Severely reduced ABIs bilaterally. Electronically signed by: Marlon Waite MD 09/19/2017 1:07 PM EDT
[2017-09-19] MEDS: SEVELAMER CARBONATE 800 MG TAB PO SCH ×2 (13:41→18:39)
--- NOTE | 2017-09-19 14:20 | PD.WCN.NOT ---
Wound Consult Description: Wound care consult ordered by Communicated with: Recommendation: Please refer to wound care orders. Additional Information: Patient was seen today by editorial writer and wound care physician .Patient alert and oriented x4 resting in bed.Visual assessment of patient lower extremities performed.Patient has multiple calciphylaxis wound to left lower extremity. Left lower medial distal thigh measures 6.5cm x 5.4cm x eschar/yellow slough wound edges are well defined sloped with wound base.Moderate serosanguineous exudate noted with out odor. Left lower medial Proximal gaiter area measures 7.7cm x6.3cm x black eschar/ yellow dry slough.Wound edges are well defined and steep with wound base.Moderate serosanguineous exudate noted with out odor. Left lower posterior wound measures 6.3cm x5.3cm x black eschar/dry yellow slough.Wound edges well defined and steep with wound base all wounds irregular in shape. Left lower posterior proximal wound measures 3.4cm x3.0cm x black eschar/dry yellow slough.Wound edges are well defined irregular in shape.Scant serous drainage noted with out odor. Left lower lateral wound measures 2.8cm x3.0cm x black eschar/dry yellow slough.Wound edges are well defined irregular in shape .Moderate serous exudate noted with out odor. Left lower posterior lateral distal wound measures 6.2cm 5.9cm x black eschar/ dry yellow slough .Wound edges are well defined irregular in shape ,scant serous exudate noted without odor. Patient has 2 roofed bullas noted to left 1 and 2end digits with area of dry stable eschar measuring ~1.0cm x0.8cm to left 1st digit base. Patient currently getting vascular studies performed in which lower extremities need to remain open to air.Staff nurse to provide wound care when studies complete. Assessment of bilateral breast patient noted to have hard firm/indurated normal skin tone tissue extending over ~75% of breast tissue. Sarah Galdamez [facility] Sep 19, 2017 14:20
[2017-09-19] MEDS: ALBUMIN 25% INJ 100 ML IV PRN ×2 (14:40→15:30)
[2017-09-19] MEDS: EPOETIN ALFA 10,000 UNITS/ML VIAL IV PUSH PRN (17:10)
[2017-09-19 17:32] LABS: HEMOGLOBIN A1C 5.1 % (4.3-6.0)
[2017-09-19] MEDS: GENTAMICIN SULFATE 20 MG/2 ML VIAL OTHER PRN (17:40)
[2017-09-19] MEDS: HEPARIN SODIUM - IV 10,000 UNITS/10 ML VIAL PRN (17:40)
[2017-09-19] MEDS: LIDOCAINE 2% JELLY 30 ML TUBE TOPICAL SCH ×2 (18:39→22:42)
--- NOTE | 2017-09-19 18:39 | EKG ---
Date Performed: 09/18/2017 Time Performed: 17:05:25 PTAGE: 72 years EKG: Sinus rhythm WITH FREQUENT ECTOPIC PREMATURE COMPLEXES POSSIBLE RIGHT VENTRICULAR HYPERTROPHY ABNORMAL ECG PREVIOUS TRACING : 08/28/2017 21.09 Since the previous tracing, no significant change noted DOCTOR: Vandana Puente Interpretating Date/Time 09/19/2017 18:37:43
[2017-09-19 20:00] VITALS: BP 139/62; PULSE 108; PULSE 96; RESP 16; TEMP 98.8; O2SAT 93
[2017-09-19] MEDS: ATORVASTATIN 40 MG TAB PO SCH (22:42)
[2017-09-20] VITALS (8 sets, daily range): BP systolic 105–144; BP diastolic 55–74; PULSE 74–107; RESP 16–20; TEMP 97.7–102.3; O2SAT 92–96
[2017-09-20] MEDS: HEPARIN SODIUM - SQ 10,000 UNITS/ML VIAL SQ SCH ×4 (06:21→22:00)
[2017-09-20] MEDS: SEVELAMER CARBONATE 800 MG TAB PO SCH ×3 (09:02→17:17)
[2017-09-20] MEDS: METOPROLOL TARTRATE 25 MG TAB PO SCH ×2 (09:02→21:19)
[2017-09-20] MEDS: DOCUSATE SODIUM 50 MG/SENNA 8.6 MG TAB PO SCH ×2 (09:02→21:00)
[2017-09-20] MEDS: LIDOCAINE 2% JELLY 30 ML TUBE TOPICAL SCH ×2 (09:03→21:22)
[2017-09-20] MEDS: CLOPIDOGREL 75 MG TAB PO SCH (09:03)
--- NOTE | 2017-09-20 09:03 | HHI.FPPN ---
Subjective Remarks Feeling "OK". Pain in left lower leg, 5/10, better than yesterday. Has not gotten pain medication since yesterday at 11:41 pm. Eating well. Denies chest pain or shortness of breath. (Dwayne Burgos MD, R3) Objective Vitals Vital Signs Date Time Temp Pulse Resp B/P (MAP) Pulse Ox O2 Delivery O2 Flow Rate FiO2 09/20/17 08:00 97.7 94 16 144/74 (97) 96 09/20/17 04:00 97.9 89 18 138/63 (88) 93 09/20/17 04:00 89 09/20/17 00:00 102.3 104 20 106/58 (74) 92 09/20/17 00:00 104 09/19/17 20:00 108 09/19/17 20:00 98.8 96 16 139/62 (87) 93 09/19/17 19:00 93 Room Air 21 09/19/17 12:05 98.2 102 20 101/56 (71) 94 I/O 09/19/17 09/19/17 09/19/17 09/20/17 09/20/17 09/20/17 07:00 15:00 23:00 07:00 15:00 23:00 Intake Total 920 ml 480 ml Output Total 3000 ml Balance -2080 ml 480 ml Intake Oral 720 ml 480 ml IV Total 200 ml Output Hemodialysis 3000 ml # Voids 0 # Bowel Movements 0 (Dwayne Burgos MD, R3) Result Diagram: 09/19/17 0502 09/19/17 0502 Objective Remarks GENERAL: Patient is a well-nourished female in no apparent distress. She is eating dinner. On room air. SKIN: Full skin exam reveals multiple skin wounds noted as follows: -Scattered ecchymoses on the right distal upper extremity -Right-sided Vas-Cath in place with surrounding skin nonerythematous. Vas-Cath sutured in place -No hair noted on the lower extremities -Lower extremity skin bilaterally is taut but non-edematous, hyperpigmentation noted in the LLE > RLE -RLE notable for 1.51 cm necrotic lesion at mid anterior lateral calf area, wound culture collected. Foot with erythematous leaking lesion 1.5 x 1.5" over second through fourth MTP dorsal surface (appearance of previous blister); small blisters on medial lower extremity noted as well as erythema suggestive of cellulitis -LLE notable for 3 major wounds and a few minor wounds. The medial thigh has a 3 x 3" necrotic lesion with surrounding erythema, non-leaking at time of evaluation. There is also a large medial calf necrotic lesion with 1 x 1" central core of necrosis, wound culture collected. There are also for posterior calf shallow ulcers 1-2 inch in diameter each with active leakage. Leakage is serosanguineous fluid in each of the leaking wounds. -The toes bilaterally have some evidence of ecchymoses with the right great toe of concern with some erythema and blister on the dorsal surface with one small necrotic lesion. -Hardened vasculature on the left upper extremity where fistula previously was placed HEAD: Atraumatic. Normocephalic. EYES: Pupils equal and round. No scleral icterus or pallor. No injection or drainage. ENT: No nasal bleeding or discharge. Mucous membranes pink and moist. NECK: Trachea midline. No JVD. No carotid bruits. CARDIOVASCULAR: Regular rate and rhythm without possible mild systolic murmur. RESPIRATORY: No accessory muscle use. On room air. Expiratory wheezing noted throughout. Breath sounds equal bilaterally. GASTROINTESTINAL: Abdomen soft, non-tender, nondistended. Normal bowel sounds. Hepatic and splenic margins not palpable. MUSCULOSKELETAL: Extremities as noted above. Discoloration suggestive of vascular disease but no cyanosis or edema. NEUROLOGICAL: Awake and alert. No obvious cranial nerve deficits. Motor function reduced due to pain in LLE but grossly within normal limits otherwise. Sensory exam of UEs and LEs reveal no sensory loss and no paresthesias. Good ROM of toes, ankles, knees, and hips. Muscle strength in UE 5/5, and LEs despite pain 4/5 bilaterally. Normal speech. PSYCHIATRIC: Appropriate mood and affect; insight and judgment normal. (Dwayne Burgos MD, R3) A/P Assessment and Plan 72F with COPD, CAD, and ESRD with likely concomitant severe PAD who presents with multiple LE infected wounds of the left lower extremity. 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 Admitted for wound care, hemodialysis, IV antibiotics, and further treatment of BEAN. Prognosis is guarded. Patient aware of poor prognosis, but wants aggressive treatment at this time. Will trial sodium thiosulfate and local wound care. (Dwayne Burgos MD, R3) Attending Attestation Patient seen and examined. Case reviewed and discussed with the resident team. Agree with plan of care as discussed with me and documented in the resident note. she is improving with her pain. appreciate help of wound care and vascular (Mily Wheeler MD) Problem List: (1) Arterial leg ulcer ICD Codes: L97.909 - Non-pressure chronic ulcer of unspecified part of unspecified lower leg with unspecified severity Status: Acute Plan: Likely BEAN, will trial sodium thiosulfate as arranged by nephrology. Appreciate their assistance. Infected leg ulcers * Mild leukocytosis resolved. * ESR elevated at 65. Non-specific * Wound care physician consult ordered: appreciate assistance with wound care needs. * Wound cultures pending. * Nursing wound care order placed for saline rinse with loose wrapping at this time. * Will continue vancomycin only at this time, antibiotics may be titrated by culture results. Vancomycin pharmacy consult given ESRD. May be able to stop abx * Dilaudid 0.5 mg q 4 hours for pain. Wean to oral hydrocodone-acetaminophen 10- 325 q 4 in near future. (2) PAD (peripheral artery disease) ICD Codes: I73.9 - Peripheral vascular disease, unspecified Status: Chronic Plan: PAD. had CTA done as outpt. will work on getting those results * Patient does have bilateral dorsalis pedis pulses by Doppler and palpation though they are weak * No evidence of critical limb ischemia, however patient does report symptoms suggestive of claudication * Vascular surgery consulted: Patient did see Dr. Barragan, likely will require CTA or MRA runoff studies, will order ANUSHA and bilateral lower extremity ultrasound at this time. * Patient is on atorvastatin 40 mg hs, will continue * Patient is on Plavix 75 mg daily, will continue. Heparin 5,000 units q 8 hours. (3) Hardness of breast ICD Codes: N64.51 - Induration of breast Status: Acute Plan: Bilateral breast hardening * Suspect this is part of BEAN. (4) ESRD (end stage renal disease) on dialysis ICD Codes: N18.6 - End stage renal disease; Z99.2 - Dependence on renal dialysis Status: Chronic Plan: End-stage renal disease on dialysis * Creatinine 6 on admission, baseline around 4 * Nephrology consulted: Patient receives dialysis Saturday and Saturday via recently placed Vas-Cath. Previously had dialysis through a left upper extremity fistula but this has failed. * Continue phosphate binders TID. * Hyperkalemia of 5.5 --> resolved to 4.8 on 09/20/2017. * slight hemolysis noted * re-evaluate K in the morning, EKG pending Hyponatremia * Mild, will monitor closely and intervene as needed Anemia of Chronic Disease * Monitor CBCs regularly while inpt CHF * per report last echo was 2015, no exacerbation of symptoms at this time, outpt f/u warranted * I/Os, renal diet (5) COPD (chronic obstructive pulmonary disease) ICD Codes: J44.9 - COPD (chronic obstructive pulmonary disease) Status: Chronic Plan: COPD * 50 pack year smoker, not on oxygen, has not seen her PCP recently * Will offer Duonebs q6hr PRN for SOB or wheezing * Likely PFTs in her future in outpt setting * Needs smoking cessation counseling, likely strong contributor to vascular disease * Refused CXR in ED but agreed to this at admission, will order for AM (6) Hypertension ICD Codes: I10 - Essential (primary) hypertension Status: Chronic Plan: HTN * BP wnl on admission * Continue home dose metoprolol 12.5 mg BID * Clonidine PO PRN (7) CAD (coronary artery disease) ICD Codes: I25.10 - Atherosclerotic heart disease of [place] coronary artery without angina pectoris Status: Chronic Plan: CAD * Hx ND and stents, on Plavix * To monitor for any symptoms of ND, none noted on admission * Needs close outpt f/u, previously established with Dr. Woo but has been lost to followup per pt (8) Tobacco abuse ICD Codes: Z72.0 - Tobacco use Status: Chronic Plan: Can have nicotine patch q daily. (9) Depression ICD Codes: F32.9 - Major depressive disorder, single episode, unspecified Status: Chronic Plan: Depression/Anxiety * Chronic. Patient previously on paroxetine but stopped this. Reports depression but denies SI/HI. Will monitor while inpt, likely would benefit her to restart SSRI which was discussed briefly with her (10) Nutrition, metabolism, and development symptoms ICD Codes: R63.8 - Symptoms concerning nutrition, metabolism, and development Status: Acute Plan: FEN * Fluids: tolerating PO, fluid caution given ESRD, pt does make urine (monitor I /Os) * Electrolytes: monitor closely given ESRD, K wnl. * Nutrition: renal diet * DVT Prophylaxis: Early ambulation. PT ordered. Heparin 5000U subQ q8hr. Hold SCDs given wounds * GI Prophylaxis: none indicated * PRN anti-HTN: Clonidine 0.1mg PO PRN for SBP > 180/ and/or DBP > [address] Wheeler. (Dwayne Burgos MD, R3) Problem Qualifiers (1) COPD (chronic obstructive pulmonary disease): Qualified Codes: J44.9 - Chronic obstructive pulmonary disease, unspecified (2) Hypertension: Qualified Codes: I10 - Essential (primary) hypertension (3) CAD (coronary artery disease): Qualified Codes: I25.10 - Atherosclerotic heart disease of [place] coronary artery without angina pectoris (4) Depression: Qualified Codes: F32.9 - Major depressive disorder, single episode, unspecified Dwayne Burgos MD, R3 Sep 20, 2017 09:02 Mily Wheeler MD Sep 22, 2017 11:25
[2017-09-20] MEDS: SODIUM CHLORIDE 0.9% FLUSH 10 ML FLUSH IV FLUSH SCH ×2 (09:04→21:22)
[2017-09-20] MEDS: NICOTINE 14 MG/24 HR PATCH T-DERMAL SCH (09:24)
[2017-09-20 13:24] LABS: HEMATOCRIT 30.3 % (35.0-46.0); HEMOGLOBIN 9.5 GM/DL (11.6-15.3); MEAN CELL VOLUME 93.4 FL (80.0-100.0); MEAN CORPUSCULAR HEMOGLOBIN 29.3 PG (27.0-34.0); MEAN CORPUSCULAR HGB CONC 31.4 % (32.0-36.0); PLATELET COUNT 347 TH/MM3 (150-450); RED BLOOD COUNT 3.25 MIL/MM3 (4.00-5.30); RED CELL DISTRIBUTION WIDTH 17.9 % (11.6-17.2); WHITE BLOOD COUNT 11.9 TH/MM3 (4.0-11.0)
--- NOTE | 2017-09-20 15:10 | HHI.NPPN ---
Subjective Renal Failure: Chronic, End Stage Renal Disease Interval History Having pain left leg. Dialyzed yesterday. No new complaints. (Mily Gray) Review of Systems Skin Skin: Lesions, Ulcers (Mily Gray) Objective Data Data 09/20/17 09/21/17 19:00 07:00 Intake Total 480 ml Balance 480 ml Intake Oral 480 ml # Voids 2 # Bowel Movements 2 Vital Signs Date Time Temp Pulse Resp B/P (MAP) Pulse Ox O2 Delivery O2 Flow Rate FiO2 09/20/17 13:42 93 09/20/17 12:00 98.3 79 18 105/55 (72) 93 09/20/17 12:00 74 09/20/17 08:00 95 09/20/17 08:00 97.7 94 16 144/74 (97) 96 09/20/17 07:00 Room Air 09/20/17 04:00 97.9 89 18 138/63 (88) 93 09/20/17 04:00 89 09/20/17 00:00 102.3 104 20 106/58 (74) 92 09/20/17 00:00 104 09/19/17 20:00 108 09/19/17 20:00 98.8 96 16 139/62 (87) 93 09/19/17 19:00 93 Room Air 21 (Mily Gray) -: 09/20/17 1245 09/19/17 0502 Imaging Last 72 hours Impressions Chest X-Ray 09/19/17 0600 Signed Impressions: CONCLUSION: No acute cardiopulmonary disease identified. Lower Extremity Ultrasound 09/19/17 0000 Signed Impressions: CONCLUSION: 1. No evidence of DVT. 2. Limited evaluation of the left lower extremity. Extremity Arterial Study 09/18/17 0000 Signed Impressions: CONCLUSION: 1. Severely reduced ABIs bilaterally. (Mily Gray) Physical Exam General Appearance: Well Developed, Well Nourished, Comfortable (Mily Gray) Eyes Eye Exam: Pupils Equal (Mily Gray) Throat Throat Exam: Oral Mucosa [place] & Moist (Mily Gray) Pulmonary Resp Exam: Clear Bilaterally, Breath Sounds Equal (Mily Gray) Cardiology CV Exam: Regular, Normal Sinus Rhythm, Good Perfusion (Mily Gray) Gastrointestinal/Abdomen GI Exam: Soft, Non-Tender, Bowel Sounds Present (Mily Gray) Musculoskeletal MS Exam: Joints Intact, Normal Tone (Mily Gray) Integumentary Skin Exam: Warm, Dry, Intact (Mily Gray) Extremeties Extremities Exam: No Edema, Pedal Pulses Palpable (Mily Gray) Neurologic Neuro Exam: Alert, Awake, Oriented, Speech Clear, Moving All Extremities (Mily Gray) Assessment/Plan Problem List: (1) ESRD (end stage renal disease) on dialysis ICD Codes: N18.6 - End stage renal disease; Z99.2 - Dependence on renal dialysis Status: Chronic Plan: Continue HD support TTS. Intermittently monitor electrolyte profile. Repeat renal panel in process. Avoid IVF administration. Gadolinium is contraindicated. On Renvela with meals. PTH is acceptable given ESRD. PermCath is to be used for HD, needs new access created at some point. 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 Overall her prognosis is poor. She may be a candidate for hospice. (3) Hardness of breast ICD Codes: N64.51 - Induration of breast Status: Acute Plan: Most likely is manifestation of calciphylaxis. (4) Tobacco abuse ICD Codes: Z72.0 - Tobacco use Status: Chronic Plan: Cessation advised. (5) AV graft thrombosis ICD Codes: T82.868A - Thrombosis due to vascular prosthetic devices, implants and grafts, initial encounter Plan: Using Perm cath for HD Vascular has been following to obtain new AV access. (Mily Gray) Plan patient was seen and examined. Most likely the patient has Calciphylaxis. Very poor prognosis. Sodium thiosulfate started. Very poor prognosis. Hospice is appropriate. Avoid Calcium containing binders. Avoid Vitamin D analogs. Avoid IV iron. (Arvin Farnsworth MD) Mily Gray Sep 20, 2017 15:10 Arvin Farnsworth MD Sep 20, 2017 16:07
[2017-09-20] MEDS: HYDROmorphone HCL PF 2 MG/ML VIAL IV PUSH PRN ×2 (17:17→21:21)
[2017-09-20 20:21] LABS: CALCIUM 8.7 MG/DL (8.5-10.1); CREATININE 4.7 MG/DL (0.50-1.00); PHOSPHORUS 5.3 MG/DL (2.5-4.9)
[2017-09-20] MEDS: REMOVE OLD PATCH T-DERMAL SCH (21:00)
[2017-09-20] MEDS: ATORVASTATIN 40 MG TAB PO SCH (21:19)
[2017-09-21] VITALS (10 sets, daily range): BP systolic 99–137; BP diastolic 55–72; PULSE 84–101; RESP 18–20; TEMP 96.7–99; O2SAT 90–100
[2017-09-21] MEDS: HYDROmorphone HCL PF 2 MG/ML VIAL IV PUSH PRN ×3 (01:17→23:16)
[2017-09-21] MEDS: HEPARIN SODIUM - SQ 10,000 UNITS/ML VIAL SQ SCH ×4 (05:39→21:37)
[2017-09-21] MEDS ORDERED: ACETAMINOPHEN/HYDROcodone 325 MG/5 MG TAB PO PRN (07:30)
--- NOTE | 2017-09-21 07:35 | HHI.FPPN ---
Subjective Remarks No acute issues overnight. Vitals are stable, patient remains afebrile. She continues to have chronic pain but denies any chest pain or shortness of breath. She endorses intermittent nausea and subjective fever. Her last recorded fever was at 0000 on 09/20 at 102.3 F. She has a new productive cough today. (Lucia Haji MD R3) Objective Vitals Vital Signs Date Time Temp Pulse Resp B/P (MAP) Pulse Ox O2 Delivery O2 Flow Rate FiO2 09/21/17 04:00 101 09/21/17 04:00 97.1 98 20 126/72 (90) 93 09/21/17 00:00 96.7 95 20 119/59 (79) 93 09/21/17 00:00 92 09/20/17 20:00 107 09/20/17 20:00 98.1 102 18 121/60 (80) 94 09/20/17 17:28 94 21 09/20/17 16:00 97.7 92 18 109/57 (74) 94 09/20/17 16:00 90 09/20/17 13:42 93 09/20/17 12:00 98.3 79 18 105/55 (72) 93 09/20/17 12:00 74 09/20/17 08:00 95 09/20/17 08:00 97.7 94 16 144/74 (97) 96 I/O 09/20/17 09/20/17 09/20/17 09/21/17 09/21/17 09/21/17 07:00 15:00 23:00 07:00 15:00 23:00 Intake Total 480 ml 480 ml Balance 480 ml 480 ml Intake Oral 480 ml 480 ml # Voids 0 2 # Bowel Movements 0 2 2 (Lucia Haji MD R3) Result Diagram: 09/20/17 1245 09/20/17 1245 Imaging Last Impressions Chest X-Ray 09/19/17 0600 Signed Impressions: CONCLUSION: No acute cardiopulmonary disease identified. Lower Extremity Ultrasound 09/19/17 0000 Signed Impressions: CONCLUSION: 1. No evidence of DVT. 2. Limited evaluation of the left lower extremity. Extremity Arterial Study 09/18/17 0000 Signed Impressions: CONCLUSION: 1. Severely reduced ABIs bilaterally. Objective Remarks GENERAL: Patient is a well-nourished female in no apparent distress. Breathing comfortably on room air. SKIN: Full skin exam reveals multiple skin wounds noted as follows: -Scattered ecchymoses on the right distal upper extremity -Right-sided Vas-Cath in place with surrounding skin nonerythematous. Vas-Cath sutured in place -No hair noted on the lower extremities -Lower extremity skin bilaterally is taut but non-edematous, hyperpigmentation noted in the LLE > RLE -RLE notable for 1.51 cm necrotic lesion at mid anterior lateral calf area, wound culture collected. Foot with erythematous leaking lesion 1.5 x 1.5" over second through fourth MTP dorsal surface (appearance of previous blister); small blisters on medial lower extremity noted as well as erythema suggestive of cellulitis -LLE notable for 3 major wounds and a few minor wounds. The medial thigh has a 3 x 3" necrotic lesion with surrounding erythema, non-leaking at time of evaluation. There is also a large medial calf necrotic lesion with 1 x 1" central core of necrosis, wound culture collected. There are also for posterior calf shallow ulcers 1-2 inch in diameter each with active leakage. Leakage is serosanguineous fluid in each of the leaking wounds. -The toes bilaterally have some evidence of ecchymoses with the right great toe of concern with some erythema and blister on the dorsal surface with one small necrotic lesion. -Hardened vasculature on the left upper extremity where fistula previously was placed HEAD: Atraumatic. Normocephalic. EYES: Pupils equal and round. No scleral icterus or pallor. No injection or drainage. ENT: No nasal bleeding or discharge. Mucous membranes pink and moist. NECK: Trachea midline. CARDIOVASCULAR: Regular rate and rhythm without possible mild systolic murmur. RESPIRATORY: No accessory muscle use. Breath sounds equal bilaterally. Clear to auscultation bilaterally. GASTROINTESTINAL: Abdomen soft, non-tender, nondistended. MUSCULOSKELETAL: Extremities as noted above. Discoloration suggestive of vascular disease but no cyanosis or edema. NEUROLOGICAL: Awake and alert. No obvious cranial nerve deficits. Good ROM of toes, ankles, knees, and hips. Normal speech. PSYCHIATRIC: Appropriate mood and affect; insight and judgment normal. (Lucia Haji MD R3) A/P Assessment and Plan 72F with COPD, CAD, and ESRD with likely concomitant severe PAD who presented with multiple LE infected wounds of the left lower extremity and was admitted for wound care, hemodialysis, IV antibiotics, and further treatment of BEAN. Prognosis is guarded. Patient aware of poor prognosis, but wants aggressive treatment at this time. Will trial sodium thiosulfate and local wound care. Discharge Planning Unclear timetable at this time. (Lucia Haji MD R3) Attending Attestation Patient seen and examined. Case reviewed and discussed with the resident team. Agree with plan of care as discussed with me and documented in the resident note. she is fine with doing her angiogram on Saturday. she knows it likely will not "fix" all her wounds as she has calciphylaxis. discussed rehab and her conditions with her and her son extensively and answered all their questions (Mily Wheeler MD) Problem List: (1) Arterial leg ulcer ICD Codes: L97.909 - Non-pressure chronic ulcer of unspecified part of unspecified lower leg with unspecified severity Status: Acute Plan: Likely BEAN, will trial sodium thiosulfate as arranged by nephrology. Appreciate their assistance. Infected leg ulcers ESR elevated at 69 Wound care physician consult ordered: appreciate assistance with wound care needs. 09/18 Wound cultures growing heavy growth of gram positive and gram negative javier Nursing wound care order placed for saline rinse with loose wrapping at this time. s/p Vancomycin, Dc'd on 09/20 Change Dilaudid 0.5 mg q 4 hours to PRN breakthrough pain. Start oral hydrocodone-acetaminophen 10-325 q4h PRN pain 5-10. (2) PAD (peripheral artery disease) ICD Codes: I73.9 - Peripheral vascular disease, unspecified Status: Chronic Plan: PAD. had CTA done as outpt. Patient does have bilateral dorsalis pedis pulses by Doppler and palpation though they are weak No evidence of critical limb ischemia, however patient does report symptoms suggestive of claudication Vascular surgery consulted: Patient did see Dr. Barragan, likely will require CTA or MRA runoff studies ANUSHA shows severely reduced ANUSHA's bilaterally bilateral lower extremity ultrasound shows no DVT. Continue atorvastatin 40 mg hs and Plavix 75 mg daily (3) Hardness of breast ICD Codes: N64.51 - Induration of breast Status: Acute Plan: Bilateral breast hardening * Suspect this is part of BEAN. (4) ESRD (end stage renal disease) on dialysis ICD Codes: N18.6 - End stage renal disease; Z99.2 - Dependence on renal dialysis Status: Chronic Plan: End-stage renal disease on dialysis * Nephrology consulted: Dialysis Saturday and Saturday via recently placed Vas- Cath. * Continue phosphate binders TID. Anemia of Chronic Disease * Monitor CBCs regularly while inpt (5) COPD (chronic obstructive pulmonary disease) ICD Codes: J44.9 - COPD (chronic obstructive pulmonary disease) Status: Chronic Plan: COPD * 50 pack year smoker * Duonebs q6hr PRN for SOB or wheezing * CXR wnl * Given new cough, will order incentive spirometer (6) Hypertension ICD Codes: I10 - Essential (primary) hypertension Status: Chronic Plan: Stable * Continue home dose metoprolol 12.5 mg BID * Clonidine PO PRN (7) CAD (coronary artery disease) ICD Codes: I25.10 - Atherosclerotic heart disease of [place] coronary artery without angina pectoris Status: Chronic Plan: CAD * Hx CT and stents, on Plavix * To monitor for any symptoms of CT, none noted on admission * Needs close outpt f/u, previously established with Dr. Woo but has been lost to followup per pt (8) Tobacco abuse ICD Codes: Z72.0 - Tobacco use Status: Chronic Plan: nicotine patch daily. (9) Depression ICD Codes: F32.9 - Major depressive disorder, single episode, unspecified Status: Chronic Plan: Chronic and stable. Patient previously on paroxetine but currently not on any antidepressants. (10) Nutrition, metabolism, and development symptoms ICD Codes: R63.8 - Symptoms concerning nutrition, metabolism, and development Status: Acute Plan: Fluids: tolerating PO, fluid caution given ESRD, pt does make urine ( monitor I/Os) Electrolytes: monitor closely given ESRD. Nutrition: renal diet DVT Prophylaxis: Early ambulation. PT ordered. Heparin 5000U subQ q8hr. Hold SCDs given wounds dw Dr. Wheeler. (Lucia Haji MD R3) Problem Qualifiers (1) COPD (chronic obstructive pulmonary disease): Qualified Codes: J44.9 - Chronic obstructive pulmonary disease, unspecified (2) Hypertension: Qualified Codes: I10 - Essential (primary) hypertension (3) CAD (coronary artery disease): Qualified Codes: I25.10 - Atherosclerotic heart disease of [place] coronary artery without angina pectoris (4) Depression: Qualified Codes: F32.9 - Major depressive disorder, single episode, unspecified Lucia Haji MD R3 Sep 21, 2017 07:35 Mily Wheeler MD Sep 22, 2017 13:49
[2017-09-21] MEDS: SEVELAMER CARBONATE 800 MG TAB PO SCH ×3 (10:06→16:57)
[2017-09-21] MEDS: DOCUSATE SODIUM 50 MG/SENNA 8.6 MG TAB PO SCH ×2 (10:06→21:00)
[2017-09-21] MEDS: CLOPIDOGREL 75 MG TAB PO SCH (10:07)
[2017-09-21] MEDS: ACETAMINOPHEN/HYDROcodone 325 MG/10 MG TAB PO PRN ×2 (10:07→21:28)
[2017-09-21] MEDS: NICOTINE 14 MG/24 HR PATCH T-DERMAL SCH (10:07)
[2017-09-21] MEDS: METOPROLOL TARTRATE 25 MG TAB PO SCH ×2 (10:07→21:28)
[2017-09-21 10:25] LABS: AUTOMATED NEUTROPHIL # 10.3 TH/MM3 (1.8-7.7); BASOPHIL # 0.1 TH/MM3 (0-0.2); BASOPHIL % 0.8 % (0.0-2.0); EOSINOPHIL # 0.1 TH/MM3 (0-0.4); EOSINOPHIL % 0.9 % (0.0-4.0); HEMATOCRIT 33.3 % (35.0-46.0); HEMOGLOBIN 10.2 GM/DL (11.6-15.3); LYMPHOCYTE # 0.5 TH/MM3 (1.0-4.8); MEAN CELL VOLUME 95.7 FL (80.0-100.0); MEAN CORPUSCULAR HEMOGLOBIN 29.2 PG (27.0-34.0); MEAN CORPUSCULAR HGB CONC 30.5 % (32.0-36.0); MEAN PLATELET VOLUME 7.1 FL (7.0-11.0); MONO % 8.7 % (0.0-8.0); MONOCYTE # 1.1 TH/MM3 (0-0.9); NEUT % 85.6 % (16.0-70.0); PLATELET COUNT 263 TH/MM3 (150-450); RED BLOOD COUNT 3.47 MIL/MM3 (4.00-5.30); RED CELL DISTRIBUTION WIDTH 18.1 % (11.6-17.2); WHITE BLOOD COUNT 12.1 TH/MM3 (4.0-11.0)
[2017-09-21 10:41] LABS: ALBUMIN 2.2 GM/DL (3.4-5.0); ALKALINE PHOSPHATASE 328 U/L (45-117); ALT (GPT) 10 U/L (10-53); AST (GOT) 20 U/L (15-37); BICARBONATE 22.9 MEQ/L (21.0-32.0); BLOOD UREA NITROGEN 33 MG/DL (7-18); CALCIUM 9.3 MG/DL (8.5-10.1); CHLORIDE 97 MEQ/L (98-107); CREATININE 5.45 MG/DL (0.50-1.00); GLOMERULAR FILTRATION RATE 8 ML/MIN (>89); GLUCOSE,RANDOM 78 MG/DL (74-106); PHOSPHORUS 5.8 MG/DL (2.5-4.9); RANDOM VANCOMYCIN 10.1 COMMENT; SODIUM (NA) 133 MEQ/L (136-145); TOTAL BILIRUBIN ADULT 0.6 MG/DL (0.2-1.0); TOTAL PROTEIN 7.5 GM/DL (6.4-8.2)
--- NOTE | 2017-09-21 14:33 | HHI.NPPN ---
Subjective Renal Failure: Chronic, End Stage Renal Disease Interval History sleepy. No distress. To have HD today. Review of Systems Skin Skin: Lesions, Ulcers Objective Data Data Vital Signs Date Time Temp Pulse Resp B/P (MAP) Pulse Ox O2 Delivery O2 Flow Rate FiO2 09/21/17 11:30 18 09/21/17 08:00 99.0 98 20 115/68 (84) 100 09/21/17 04:00 101 09/21/17 04:00 97.1 98 20 126/72 (90) 93 09/21/17 00:00 96.7 95 20 119/59 (79) 93 09/21/17 00:00 92 09/20/17 21:00 Room Air 09/20/17 20:00 107 09/20/17 20:00 98.1 102 18 121/60 (80) 94 09/20/17 17:28 94 21 09/20/17 16:00 97.7 92 18 109/57 (74) 94 09/20/17 16:00 90 -: 09/21/17 0910 09/21/17 0910 Physical Exam General Appearance: Well Developed, Well Nourished, Comfortable Eyes Eye Exam: Pupils Equal Throat Throat Exam: Oral Mucosa [place] & Moist Pulmonary Resp Exam: Clear Bilaterally, Breath Sounds Equal Cardiology CV Exam: Regular, Normal Sinus Rhythm, Good Perfusion Gastrointestinal/Abdomen GI Exam: Soft, Non-Tender, Bowel Sounds Present Musculoskeletal MS Exam: Joints Intact, Normal Tone Integumentary Skin Exam: Warm, Dry, Ulcer(s) Extremeties Extremities Exam: No Edema, Pedal Pulses Palpable Neurologic Neuro Exam: Alert, Awake, Speech Clear, Moving All Extremities Assessment/Plan Problem List: (1) ESRD (end stage renal disease) on dialysis ICD Codes: N18.6 - End stage renal disease; Z99.2 - Dependence on renal dialysis Status: Chronic Plan: Continue HD support TTS. Intermittently monitor electrolyte profile. Repeat renal panel in process. Avoid IVF administration. Gadolinium is contraindicated. On Renvela with meals. I have increased the dose. PTH is acceptable given ESRD. I have started Sensipar. Avoid Calcium containing binders, avoid Vitamin D analogs. PermCath is to be used for HD, needs new access created at some point. 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 Overall her prognosis is poor. She may be a candidate for hospice. (3) Hardness of breast ICD Codes: N64.51 - Induration of breast Status: Acute Plan: Most likely is manifestation of calciphylaxis. (4) Tobacco abuse ICD Codes: Z72.0 - Tobacco use Status: Chronic Plan: Cessation advised. (5) AV graft thrombosis ICD Codes: T82.868A - Thrombosis due to vascular prosthetic devices, implants and grafts, initial encounter Plan: Using Perm cath for HD Vascular has been following to obtain new AV access. Arvin Farnsworth MD Sep 21, 2017 14:33
[2017-09-21] MEDS: SODIUM THIOSULFATE INJ 12,500 MG in WATER STERILE FOR INJ 100 ML IV SCH (15:29)
[2017-09-21] MEDS: EPOETIN ALFA 10,000 UNITS/ML VIAL IV PUSH PRN (15:30)
[2017-09-21] MEDS: GENTAMICIN SULFATE 20 MG/2 ML VIAL OTHER PRN (15:30)
[2017-09-21] MEDS: HEPARIN SODIUM - IV 10,000 UNITS/10 ML VIAL PRN (15:31)
[2017-09-21] MEDS: CINACALCET HYDROCHLORIDE 30 MG TAB PO SCH (16:54)
[2017-09-21] MEDS: LIDOCAINE 2% JELLY 30 ML TUBE TOPICAL SCH ×2 (18:30→21:00)
[2017-09-21] MEDS: REMOVE OLD PATCH T-DERMAL SCH (21:00)
[2017-09-21] MEDS: ATORVASTATIN 40 MG TAB PO SCH (21:28)
[2017-09-21] MEDS: SODIUM CHLORIDE 0.9% FLUSH 10 ML FLUSH IV FLUSH SCH (21:30)
[2017-09-22] VITALS (8 sets, daily range): BP systolic 110–146; BP diastolic 56–66; PULSE 70–90; RESP 17–20; TEMP 96.9–97.9; O2SAT 90–94
[2017-09-22] MEDS: ACETAMINOPHEN/HYDROcodone 325 MG/10 MG TAB PO PRN ×5 (01:32→22:04)
[2017-09-22] MEDS: HYDROmorphone HCL PF 2 MG/ML VIAL IV PUSH PRN ×5 (04:05→23:43)
[2017-09-22] MEDS: HEPARIN SODIUM - SQ 10,000 UNITS/ML VIAL SQ SCH ×3 (05:22→20:24)
[2017-09-22] MEDS: DOCUSATE SODIUM 50 MG/SENNA 8.6 MG TAB PO SCH ×2 (08:27→20:25)
[2017-09-22] MEDS: METOPROLOL TARTRATE 25 MG TAB PO SCH ×2 (08:27→20:26)
[2017-09-22] MEDS: CLOPIDOGREL 75 MG TAB PO SCH (08:27)
[2017-09-22] MEDS: CINACALCET HYDROCHLORIDE 30 MG TAB PO SCH (08:27)
[2017-09-22] MEDS: NICOTINE 14 MG/24 HR PATCH T-DERMAL SCH (08:28)
[2017-09-22] MEDS: SEVELAMER CARBONATE 800 MG TAB PO SCH ×3 (08:28→18:07)
--- NOTE | 2017-09-22 08:43 | HHI.FPPN ---
Subjective Remarks No acute issues overnight. Vitals are stable, patient remains afebrile. She continues to have pain in her legs. She denies any chest pain, shortness of breath, fever, chills, nausea or vomiting. (Lucia Haji MD R3) Objective Vitals Vital Signs Date Time Temp Pulse Resp B/P (MAP) Pulse Ox O2 Delivery O2 Flow Rate FiO2 09/22/17 04:00 97.7 90 17 146/63 (90) 92 09/22/17 04:00 Room Air 09/22/17 03:46 88 09/22/17 00:12 96.9 86 18 112/56 (74) 93 09/22/17 00:12 Room Air 09/21/17 23:50 88 09/21/17 20:00 97.7 86 18 111/58 (75) 92 09/21/17 20:00 Room Air 09/21/17 19:50 90 09/21/17 19:30 21 09/21/17 17:28 84 09/21/17 16:00 97.9 99 20 137/69 (91) 90 09/21/17 14:45 96 21 09/21/17 12:00 98.5 87 20 99/55 (70) 90 09/21/17 11:30 18 I/O 09/21/17 09/21/17 09/21/17 09/22/17 09/22/17 09/22/17 07:00 15:00 23:00 07:00 15:00 23:00 Intake Total 240 ml 720 ml Output Total 3000 ml Balance -2760 ml 720 ml Intake Oral 240 ml 720 ml Hemodialysis 3000 ml # Voids 1 3 # Bowel Movements 2 1 (Lucia Haji MD R3) Result Diagram: 09/21/17 0910 09/21/17 0910 Imaging Last Impressions Chest X-Ray 09/19/17 0600 Signed Impressions: CONCLUSION: No acute cardiopulmonary disease identified. Lower Extremity Ultrasound 09/19/17 0000 Signed Impressions: CONCLUSION: 1. No evidence of DVT. 2. Limited evaluation of the left lower extremity. Extremity Arterial Study 09/18/17 0000 Signed Impressions: CONCLUSION: 1. Severely reduced ABIs bilaterally. Objective Remarks GENERAL: Patient is a well-nourished female in no apparent distress. Breathing comfortably on room air. SKIN: Full skin exam reveals multiple skin wounds noted as follows: -Scattered ecchymoses on the right distal upper extremity -Right-sided Vas-Cath in place with surrounding skin nonerythematous. Vas-Cath sutured in place -No hair noted on the lower extremities -Lower extremity skin bilaterally is taut but non-edematous, hyperpigmentation noted in the LLE > RLE -RLE notable for 1.51 cm necrotic lesion at mid anterior lateral calf area, wound culture collected. Foot with erythematous leaking lesion 1.5 x 1.5" over second through fourth MTP dorsal surface (appearance of previous blister); small blisters on medial lower extremity noted as well as erythema suggestive of cellulitis -LLE notable for 3 major wounds and a few minor wounds. The medial thigh has a 3 x 3" necrotic lesion with surrounding erythema, non-leaking at time of evaluation. There is also a large medial calf necrotic lesion with 1 x 1" central core of necrosis, wound culture collected. There are also for posterior calf shallow ulcers 1-2 inch in diameter each with active leakage. Leakage is serosanguineous fluid in each of the leaking wounds. -The toes bilaterally have some evidence of ecchymoses with the right great toe of concern with some erythema and blister on the dorsal surface with one small necrotic lesion. -Hardened vasculature on the left upper extremity where fistula previously was placed HEAD: Atraumatic. Normocephalic. EYES: Pupils equal and round. No scleral icterus or pallor. No injection or drainage. ENT: Mucous membranes pink and moist. NECK: Trachea midline. CARDIOVASCULAR: Regular rate and rhythm. RESPIRATORY: No accessory muscle use. Breath sounds equal bilaterally. Bibasilar rales. GASTROINTESTINAL: Abdomen soft, non-tender, nondistended. MUSCULOSKELETAL: Extremities as noted above. Discoloration suggestive of vascular disease but no cyanosis or edema. NEUROLOGICAL: Awake and alert. No obvious cranial nerve deficits. Good ROM of toes, ankles, knees, and hips. Normal speech. PSYCHIATRIC: Appropriate mood and affect; insight and judgment normal. (Lucia Haji MD R3) A/P Assessment and Plan 72F with COPD, CAD, and ESRD with likely concomitant severe PAD who presented with multiple LE infected wounds of the left lower extremity and was admitted for wound care, hemodialysis, and further treatment of BEAN. Prognosis is guarded. Patient aware of poor prognosis, but wants aggressive treatment at this time. Will trial sodium thiosulfate and local wound care. Discharge Planning Unclear timetable at this time. (Lucia Haji MD R3) Attending Attestation Patient seen and examined. Case reviewed and discussed with the resident team. Agree with plan of care as discussed with me and documented in the resident note. can continue to adjust her meds to be all po when she goes home. unsure if she would be a [facility] candidate as she was ambulatory in the not distant past but is not strong now. PT and OT will evaluate (Mily Wheeler MD) Problem List: (1) Arterial leg ulcer ICD Codes: L97.909 - Non-pressure chronic ulcer of unspecified part of unspecified lower leg with unspecified severity Status: Acute Plan: Likely BEAN, will trial sodium thiosulfate as arranged by nephrology. Appreciate their assistance. Infected leg ulcers ESR elevated at 69 Wound care physician consult ordered: appreciate assistance with wound care needs. 09/18 Wound cultures growing MRSA and Group D enterococcus Nursing wound care order placed for saline rinse with loose wrapping at this time. s/p Vancomycin, Dc'd on 09/20 Dilaudid 0.5 mg q 4 hours to PRN breakthrough pain. oral hydrocodone-acetaminophen 10-325 q4h PRN pain 5-10. (2) PAD (peripheral artery disease) ICD Codes: I73.9 - Peripheral vascular disease, unspecified Status: Chronic Plan: Patient does have bilateral dorsalis pedis pulses by Doppler and palpation though they are weak No evidence of critical limb ischemia, however patient does report symptoms suggestive of claudication Vascular surgery consulted: Dr. Barragan plans for revascularization tomorrow ANUSHA shows severely reduced ANUSHA's bilaterally bilateral lower extremity ultrasound shows no DVT. Continue atorvastatin 40 mg hs and Plavix 75 mg daily (3) Hardness of breast ICD Codes: N64.51 - Induration of breast Status: Acute Plan: Bilateral breast hardening * Suspect this is part of BEAN. (4) ESRD (end stage renal disease) on dialysis ICD Codes: N18.6 - End stage renal disease; Z99.2 - Dependence on renal dialysis Status: Chronic Plan: End-stage renal disease on dialysis * Nephrology consulted: Dialysis Saturday and Saturday via recently placed Vas- Cath. * Continue phosphate binders TID. Anemia of Chronic Disease * Monitor CBCs regularly while inpt (5) COPD (chronic obstructive pulmonary disease) ICD Codes: J44.9 - COPD (chronic obstructive pulmonary disease) Status: Chronic Plan: COPD * 50 pack year smoker * Duonebs q6hr PRN for SOB or wheezing * CXR wnl * incentive spirometer (6) Hypertension ICD Codes: I10 - Essential (primary) hypertension Status: Chronic Plan: Stable * Continue home dose metoprolol 12.5 mg BID * Clonidine PO PRN (7) CAD (coronary artery disease) ICD Codes: I25.10 - Atherosclerotic heart disease of [place] coronary artery without angina pectoris Status: Chronic Plan: CAD * Hx [place] and stents, on Plavix * Needs outpt f/u, previously established with Dr. Woo but has been lost to followup per pt (8) Tobacco abuse ICD Codes: Z72.0 - Tobacco use Status: Chronic Plan: nicotine patch daily. (9) Depression ICD Codes: F32.9 - Major depressive disorder, single episode, unspecified Status: Chronic Plan: Chronic and stable. Patient previously on paroxetine but currently not on any antidepressants. (10) Nutrition, metabolism, and development symptoms ICD Codes: R63.8 - Symptoms concerning nutrition, metabolism, and development Status: Acute Plan: Fluids: tolerating PO, fluid caution given ESRD, pt does make urine ( monitor I/Os) Electrolytes: monitor closely given ESRD. Nutrition: renal diet, NPO after midnight in anticipation of surgery tomorrow DVT Prophylaxis: Early ambulation. PT ordered. Heparin 5000U subQ q8hr. Hold SCDs given wounds dw Dr. Wheeler. (Lucia Haji MD R3) Problem Qualifiers (1) COPD (chronic obstructive pulmonary disease): Qualified Codes: J44.9 - Chronic obstructive pulmonary disease, unspecified (2) Hypertension: Qualified Codes: I10 - Essential (primary) hypertension (3) CAD (coronary artery disease): Qualified Codes: I25.10 - Atherosclerotic heart disease of [place] coronary artery without angina pectoris (4) Depression: Qualified Codes: F32.9 - Major depressive disorder, single episode, unspecified Lucia Haji MD R3 Sep 22, 2017 08:43 Mily Wheeler MD Sep 22, 2017 13:52
[2017-09-22] MEDS: LIDOCAINE 2% JELLY 30 ML TUBE TOPICAL SCH ×2 (09:00→20:30)
[2017-09-22] MEDS: SODIUM CHLORIDE 0.9% FLUSH 10 ML FLUSH IV FLUSH SCH ×2 (09:23→19:32)
[2017-09-22 10:01] LABS: AUTOMATED NEUTROPHIL # 9.1 TH/MM3 (1.8-7.7); BASOPHIL % 0.3 % (0.0-2.0); EOSINOPHIL % 0.4 % (0.0-4.0); HEMOGLOBIN 10.2 GM/DL (11.6-15.3); LYMPH % 3.8 % (9.0-44.0); LYMPHOCYTE # 0.4 TH/MM3 (1.0-4.8); MEAN CELL VOLUME 95.8 FL (80.0-100.0); MEAN CORPUSCULAR HEMOGLOBIN 29.6 PG (27.0-34.0); MEAN CORPUSCULAR HGB CONC 30.9 % (32.0-36.0); MEAN PLATELET VOLUME 7.2 FL (7.0-11.0); NEUT % 86.5 % (16.0-70.0); PLATELET COUNT 294 TH/MM3 (150-450); RED BLOOD COUNT 3.44 MIL/MM3 (4.00-5.30); WHITE BLOOD COUNT 10.6 TH/MM3 (4.0-11.0)
[2017-09-22 10:37] LABS: ALBUMIN 2.3 GM/DL (3.4-5.0); ALKALINE PHOSPHATASE 298 U/L (45-117); ALT (GPT) 8 U/L (10-53); AST (GOT) 6 U/L (15-37); BICARBONATE 26.1 MEQ/L (21.0-32.0); BLOOD UREA NITROGEN 22 MG/DL (7-18); CALCIUM 9.1 MG/DL (8.5-10.1); CHLORIDE 96 MEQ/L (98-107); CREATININE 3.89 MG/DL (0.50-1.00); GLOMERULAR FILTRATION RATE 11 ML/MIN (>89); GLUCOSE,RANDOM 95 MG/DL (74-106); SODIUM (NA) 135 MEQ/L (136-145); TOTAL BILIRUBIN ADULT 0.5 MG/DL (0.2-1.0); TOTAL PROTEIN 7.7 GM/DL (6.4-8.2)
--- NOTE | 2017-09-22 11:28 | HHI.NPPN ---
Subjective Renal Failure: Chronic, End Stage Renal Disease Interval History Appears comfortable. Had dialysis yesterday. Sodium thiosulfate initiated. Review of Systems General Constitutional: Fatigue Skin Skin: Lesions, Ulcers Objective Data Data Vital Signs Date Time Temp Pulse Resp B/P (MAP) Pulse Ox O2 Delivery O2 Flow Rate FiO2 09/22/17 08:00 97.9 83 20 125/66 (85) 90 09/22/17 08:00 Nasal Cannula 2.00 09/22/17 08:00 83 09/22/17 04:00 97.7 90 17 146/63 (90) 92 09/22/17 04:00 Room Air 09/22/17 03:46 88 09/22/17 00:12 96.9 86 18 112/56 (74) 93 09/22/17 00:12 Room Air 09/21/17 23:50 88 09/21/17 20:00 97.7 86 18 111/58 (75) 92 09/21/17 20:00 Room Air 09/21/17 19:50 90 09/21/17 19:30 21 09/21/17 17:28 84 09/21/17 16:00 97.9 99 20 137/69 (91) 90 09/21/17 14:45 96 21 09/21/17 12:00 98.5 87 20 99/55 (70) 90 09/21/17 11:30 18 -: 09/22/17 0843 09/22/17 0843 Physical Exam General Appearance: Well Developed, Well Nourished, Comfortable Eyes Eye Exam: Pupils Equal Throat Throat Exam: Oral Mucosa [place] & Moist Pulmonary Resp Exam: Clear Bilaterally, Breath Sounds Equal Cardiology CV Exam: Regular, Normal Sinus Rhythm, Good Perfusion Gastrointestinal/Abdomen GI Exam: Soft, Non-Tender, Bowel Sounds Present Musculoskeletal MS Exam: Joints Intact, Normal Tone Integumentary Skin Exam: Warm, Dry, Ulcer(s) Extremeties Extremities Exam: No Edema, Pedal Pulses Palpable Neurologic Neuro Exam: Alert, Awake, Speech Clear, Moving All Extremities Assessment/Plan Problem List: (1) ESRD (end stage renal disease) on dialysis ICD Codes: N18.6 - End stage renal disease; Z99.2 - Dependence on renal dialysis Status: Chronic Plan: Continue HD support TTS. Intermittently monitor electrolyte profile. Low phosphorus diet was stressed: she was drinking diet Pepsi Repeat renal panel in process. Avoid IVF administration. Gadolinium is contraindicated. On Renvela with meals. PTH is acceptable given ESRD. I have started Sensipar. Avoid Calcium containing binders, avoid Vitamin D analogs. PermCath is to be used for HD, needs new access created at some point. 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 Overall her prognosis is poor. She may be a candidate for hospice. (3) Hardness of breast ICD Codes: N64.51 - Induration of breast Status: Acute Plan: Most likely is manifestation of calciphylaxis. (4) Tobacco abuse ICD Codes: Z72.0 - Tobacco use Status: Chronic Plan: Cessation advised. (5) AV graft thrombosis ICD Codes: T82.868A - Thrombosis due to vascular prosthetic devices, implants and grafts, initial encounter Plan: Using Perm cath for HD Vascular has been following to obtain new AV access. Arvin Farnsworth MD Sep 22, 2017 11:28
[2017-09-22] MEDS: ATORVASTATIN 40 MG TAB PO SCH (20:25)
[2017-09-22] MEDS: REMOVE OLD PATCH T-DERMAL SCH (20:29)
[2017-09-23] VITALS (9 sets, daily range): BP systolic 111–131; BP diastolic 57–65; PULSE 74–87; RESP 16–20; TEMP 97.5–98.4; O2SAT 91–92
[2017-09-23] MEDS: ACETAMINOPHEN/HYDROcodone 325 MG/10 MG TAB PO PRN ×3 (03:17→21:13)
[2017-09-23] MEDS: HEPARIN SODIUM - SQ 10,000 UNITS/ML VIAL SQ SCH ×3 (05:37→21:16)
[2017-09-23 07:48] LABS: AUTOMATED NEUTROPHIL # 7.8 TH/MM3 (1.8-7.7); BASOPHIL % 0.5 % (0.0-2.0); EOSINOPHIL # 0.2 TH/MM3 (0-0.4); EOSINOPHIL % 1.7 % (0.0-4.0); HEMOGLOBIN 10.7 GM/DL (11.6-15.3); LYMPH % 6.9 % (9.0-44.0); LYMPHOCYTE # 0.7 TH/MM3 (1.0-4.8); MEAN CELL VOLUME 96.1 FL (80.0-100.0); MEAN CORPUSCULAR HEMOGLOBIN 29.4 PG (27.0-34.0); MEAN CORPUSCULAR HGB CONC 30.6 % (32.0-36.0); MEAN PLATELET VOLUME 7.2 FL (7.0-11.0); MONO % 10.7 % (0.0-8.0); NEUT % 80.2 % (16.0-70.0); PLATELET COUNT 302 TH/MM3 (150-450); RED BLOOD COUNT 3.64 MIL/MM3 (4.00-5.30); RED CELL DISTRIBUTION WIDTH 17.9 % (11.6-17.2); WHITE BLOOD COUNT 9.7 TH/MM3 (4.0-11.0)
[2017-09-23] MEDS: DOCUSATE SODIUM 50 MG/SENNA 8.6 MG TAB PO SCH ×2 (07:50→21:11)
[2017-09-23] MEDS: CLOPIDOGREL 75 MG TAB PO SCH (07:50)
[2017-09-23] MEDS: METOPROLOL TARTRATE 25 MG TAB PO SCH ×2 (07:51→21:11)
[2017-09-23] MEDS: SEVELAMER CARBONATE 800 MG TAB PO SCH ×3 (07:55→16:34)
[2017-09-23] MEDS: CINACALCET HYDROCHLORIDE 30 MG TAB PO SCH (07:55)
[2017-09-23] MEDS: SODIUM CHLORIDE 0.9% FLUSH 10 ML FLUSH IV FLUSH SCH ×2 (07:55→21:00)
[2017-09-23] MEDS: LIDOCAINE 2% JELLY 30 ML TUBE TOPICAL SCH ×2 (07:56→21:00)
[2017-09-23] MEDS: NICOTINE 14 MG/24 HR PATCH T-DERMAL SCH (07:57)
[2017-09-23 08:01] LABS: BICARBONATE 29.6 MEQ/L (21.0-32.0); CALCIUM 8.9 MG/DL (8.5-10.1); CREATININE 4.74 MG/DL (0.50-1.00)
[2017-09-23] MEDS: HYDROmorphone HCL PF 2 MG/ML VIAL IV PUSH PRN ×2 (09:29→23:46)
--- NOTE | 2017-09-23 10:20 | HHI.NPPN ---
Subjective Renal Failure: Chronic, End Stage Renal Disease Interval History NPO for angiogram today. (Mily Gray) Review of Systems General Constitutional: Fatigue (Mily Gray) Skin Skin: Lesions, Ulcers (Mily Gray) Objective Data Data Vital Signs Date Time Temp Pulse Resp B/P (MAP) Pulse Ox O2 Delivery O2 Flow Rate FiO2 09/23/17 08:00 97.8 85 20 131/64 (86) 91 09/23/17 04:00 Room Air 09/23/17 04:00 97.6 80 16 111/58 (75) 92 09/23/17 04:00 84 09/23/17 00:00 78 09/23/17 00:00 Room Air 09/23/17 00:00 97.5 79 17 121/61 (81) 92 09/22/17 20:00 97.6 75 17 125/59 (81) 93 09/22/17 20:00 75 09/22/17 20:00 Room Air 09/22/17 16:00 97.4 71 20 110/56 (74) 92 09/22/17 16:00 79 09/22/17 12:00 73 09/22/17 12:00 97.8 70 20 118/63 (81) 91 (Mily Gray) -: 09/23/17 0715 09/23/17 0715 Physical Exam General Appearance: Well Developed, Well Nourished, Comfortable (Mily Gray) Eyes Eye Exam: Pupils Equal (Mily Gray) Throat Throat Exam: Oral Mucosa [place] & Moist (Mily Gray) Pulmonary Resp Exam: Clear Bilaterally, Breath Sounds Equal (Mily Gray) Cardiology CV Exam: Regular, Normal Sinus Rhythm, Good Perfusion (Mily Gray) Gastrointestinal/Abdomen GI Exam: Soft, Non-Tender, Bowel Sounds Present (Mily Gray) Musculoskeletal MS Exam: Joints Intact, Normal Tone (Mily Gray) Integumentary Skin Exam: Warm, Dry, Ulcer(s) (Mily Gray) Extremeties Extremities Exam: No Edema, Pedal Pulses Palpable (Mily Gray) Neurologic Neuro Exam: Alert, Awake, Speech Clear, Moving All Extremities (Mily Gray) Assessment/Plan Problem List: (1) ESRD (end stage renal disease) on dialysis ICD Codes: N18.6 - End stage renal disease; Z99.2 - Dependence on renal dialysis Status: Chronic Plan: Continue HD support TTS. Intermittently monitor electrolyte profile. Low phosphorus diet encouraged. Avoid IVF administration. Gadolinium is contraindicated. On Renvela with meals. PTH is acceptable given ESRD. On Sensipar. Avoid Calcium containing binders, avoid Vitamin D analogs. PermCath is to be used for HD, needs new access created at some point. 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 Begin wound care Ordered sodium thiosulfate to be given with dialysis. Ordered Vancomycin and clindamycin. Overall her prognosis is poor. She may be a candidate for hospice. (3) Hardness of breast ICD Codes: N64.51 - Induration of breast Status: Acute Plan: Most likely is manifestation of calciphylaxis. (4) Tobacco abuse ICD Codes: Z72.0 - Tobacco use Status: Chronic Plan: Cessation advised. (5) AV graft thrombosis ICD Codes: T82.868A - Thrombosis due to vascular prosthetic devices, implants and grafts, initial encounter Plan: Using Perm cath for HD Vascular has been following to obtain new AV access. (Mily Gray) Plan Patient was seen and examined. Patient to have angiogram. Poor prognosis. Dialysis TTS. (Arvin Farnsworth MD) Mily Gray Sep 23, 2017 10:20 Arvin Farnsworth MD Sep 24, 2017 10:50
--- NOTE | 2017-09-23 11:10 | HHI.FPPN ---
Subjective Remarks No acute issues overnight. Vitals are stable, patient remains afebrile. She denies any changes in symptoms overnight. She continues to have significant pain in her left lower extremity. She is less willing to talk today than previously. (Lucia Haji MD R3) Objective Vitals Vital Signs Date Time Temp Pulse Resp B/P (MAP) Pulse Ox O2 Delivery O2 Flow Rate FiO2 09/23/17 08:00 97.8 85 20 131/64 (86) 91 09/23/17 07:48 83 09/23/17 04:00 Room Air 09/23/17 04:00 97.6 80 16 111/58 (75) 92 09/23/17 04:00 84 09/23/17 00:00 78 09/23/17 00:00 Room Air 09/23/17 00:00 97.5 79 17 121/61 (81) 92 09/22/17 20:00 97.6 75 17 125/59 (81) 93 09/22/17 20:00 75 09/22/17 20:00 Room Air 09/22/17 16:00 97.4 71 20 110/56 (74) 92 09/22/17 16:00 79 09/22/17 12:00 73 09/22/17 12:00 97.8 70 20 118/63 (81) 91 I/O 09/22/17 09/22/17 09/22/17 09/23/17 09/23/17 09/23/17 07:00 15:00 23:00 07:00 15:00 23:00 Intake Total 720 ml 480 ml 720 ml Output Total 0 ml Balance 720 ml 480 ml 720 ml Intake Oral 720 ml 480 ml 720 ml Output Urine Total 0 ml # Voids 3 3 # Bowel Movements 0 (Lucia Haji MD R3) Result Diagram: 09/23/17 0715 09/23/17 0715 Imaging Last Impressions Chest X-Ray 09/19/17 0600 Signed Impressions: CONCLUSION: No acute cardiopulmonary disease identified. Lower Extremity Ultrasound 09/19/17 0000 Signed Impressions: CONCLUSION: 1. No evidence of DVT. 2. Limited evaluation of the left lower extremity. Extremity Arterial Study 09/18/17 0000 Signed Impressions: CONCLUSION: 1. Severely reduced ABIs bilaterally. Objective Remarks GENERAL: Patient is a well-nourished female in no apparent distress. Breathing comfortably on room air. SKIN: Left lower extremity wrapped in bandages with greenish yellow discharge visible through the bandages and malodorous. Significant tenderness to palpation of left lower extremity and foot. HEAD: Atraumatic. Normocephalic. EYES: Pupils equal and round. No scleral icterus or pallor. No injection or drainage. ENT: Mucous membranes pink and moist. NECK: Trachea midline. CARDIOVASCULAR: Regular rate and rhythm. RESPIRATORY: No accessory muscle use. Breath sounds equal bilaterally. Bibasilar rales. GASTROINTESTINAL: Abdomen soft, non-tender, nondistended. MUSCULOSKELETAL: Extremities as noted above. Discoloration suggestive of vascular disease but no cyanosis or edema. NEUROLOGICAL: Awake and alert. No obvious cranial nerve deficits. Good ROM of toes, ankles, knees, and hips. Normal speech. PSYCHIATRIC: Odd mood and affect, unwilling to communicate today or answer questions. (Lucia Haji MD R3) A/P Assessment and Plan 72F with COPD, CAD, and ESRD with likely concomitant severe PAD who presented with multiple LE infected wounds of the left lower extremity and was admitted for wound care, hemodialysis, and further treatment of BEAN. Prognosis is guarded. Patient aware of poor prognosis, but wants aggressive treatment at this time. Will trial sodium thiosulfate and local wound care. Discharge Planning Unclear timetable at this time. (Lucia Haji MD R3) Attending Attestation Patient seen and examined. Case reviewed and discussed with the resident team. Agree with plan of care as discussed with me and documented in the resident note. discussed with her and her son that she has 2 different problems. 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 her procedure today can greatly improve her blood flow. per pt her calciphylaxis is stable. initially, stability is the best that can be hoped for. then after about 2 weeks of sodium thiosulfate, many people begin having less pain and healing (Mily Wheeler MD) Problem List: (1) Arterial leg ulcer ICD Codes: L97.909 - Non-pressure chronic ulcer of unspecified part of unspecified lower leg with unspecified severity Status: Acute Plan: Likely BEAN, will trial sodium thiosulfate as arranged by nephrology. Appreciate their assistance. Infected leg ulcers ESR elevated at 69 Wound care physician consult ordered: appreciate assistance with wound care needs. 09/18 Wound cultures growing MRSA and Group D enterococcus Nursing wound care order placed for saline rinse with loose wrapping at this time. s/p Vancomycin, Dc'd on 09/20 Dilaudid 0.5 mg q 4 hours to PRN breakthrough pain. oral hydrocodone-acetaminophen 10-325 q4h PRN pain 5-10. (2) PAD (peripheral artery disease) ICD Codes: I73.9 - Peripheral vascular disease, unspecified Status: Chronic Plan: Patient does have bilateral dorsalis pedis pulses by Doppler and palpation though they are weak No evidence of critical limb ischemia, however patient does report symptoms suggestive of claudication Vascular surgery consulted: Dr. Barragan plans for revascularization today ANUSHA shows severely reduced ANUSHA's bilaterally bilateral lower extremity ultrasound shows no DVT. Continue atorvastatin 40 mg hs and Plavix 75 mg daily (3) Hardness of breast ICD Codes: N64.51 - Induration of breast Status: Acute Plan: Bilateral breast hardening * Suspect this is part of BEAN. (4) ESRD (end stage renal disease) on dialysis ICD Codes: N18.6 - End stage renal disease; Z99.2 - Dependence on renal dialysis Status: Chronic Plan: End-stage renal disease on dialysis * Nephrology consulted: Dialysis Saturday and Saturday via recently placed Vas- Cath. * Continue phosphate binders TID. Anemia of Chronic Disease * Monitor CBCs regularly while inpt (5) COPD (chronic obstructive pulmonary disease) ICD Codes: J44.9 - COPD (chronic obstructive pulmonary disease) Status: Chronic Plan: COPD * 50 pack year smoker * Duonebs q6hr PRN for SOB or wheezing * CXR wnl * incentive spirometer (6) Hypertension ICD Codes: I10 - Essential (primary) hypertension Status: Chronic Plan: Stable * Continue home dose metoprolol 12.5 mg BID * Clonidine PO PRN (7) CAD (coronary artery disease) ICD Codes: I25.10 - Atherosclerotic heart disease of [place] coronary artery without angina pectoris Status: Chronic Plan: CAD * Hx HI and stents, on Plavix * Needs outpt f/u, previously established with Dr. Woo but has been lost to followup per pt (8) Tobacco abuse ICD Codes: Z72.0 - Tobacco use Status: Chronic Plan: nicotine patch daily. (9) Depression ICD Codes: F32.9 - Major depressive disorder, single episode, unspecified Status: Chronic Plan: Chronic and stable. Patient previously on paroxetine but currently not on any antidepressants. (10) Nutrition, metabolism, and development symptoms ICD Codes: R63.8 - Symptoms concerning nutrition, metabolism, and development Status: Acute Plan: Fluids: tolerating PO, fluid caution given ESRD, pt does make urine ( monitor I/Os) Electrolytes: monitor closely given ESRD. Nutrition: NPO in anticipation of procedure DVT Prophylaxis: Heparin 5000U subQ q8hr. dw Dr. Wheeler. (Lucia Haji MD R3) Problem Qualifiers (1) COPD (chronic obstructive pulmonary disease): Qualified Codes: J44.9 - Chronic obstructive pulmonary disease, unspecified (2) Hypertension: Qualified Codes: I10 - Essential (primary) hypertension (3) CAD (coronary artery disease): Qualified Codes: I25.10 - Atherosclerotic heart disease of [place] coronary artery without angina pectoris (4) Depression: Qualified Codes: F32.9 - Major depressive disorder, single episode, unspecified Lucia Haji MD R3 Sep 23, 2017 11:09 Mily Wheeler MD Sep 23, 2017 11:56
[2017-09-23] MEDS ORDERED: IOHEXOL 300 MG/ML 50 ML BTL (for RAD DIAG) IVCONTRAST ONE (12:00)
[2017-09-23] MEDS ORDERED: LIDOCAINE HCL 1% PF 5 ML SYRINGE OTHER ONE (12:00)
[2017-09-23] MEDS ORDERED: PROPOFOL 200 MG/20 ML AMP IV ONE (12:00)
[2017-09-23] MEDS ORDERED: PHENYLEPH/NS 1000 MCG/10 ML SYR IV ONE (12:00)
[2017-09-23] MEDS ORDERED: HEPARIN SODIUM - IV 10,000 UNITS/10 ML VIAL ONE (15:01)
[2017-09-23] MEDS ORDERED: IOHEXOL 300 INJ 50 ML IV ONE (15:24)
[2017-09-23] MEDS ORDERED: DO NOT ADM ANY ANTICOAGULANT DRUGS PRN (16:00)
--- NOTE | 2017-09-23 16:02 | HHI.PR ---
cc: Cyrus Barragan MD Immediate Post Op Note Procedure Date: Sep 23, 2017 Pre Op Diagnosis: L LE PAD, wounds Post Op Diagnosis: same Surgeon: Cyrus Barragan Cyanide Furnace Operator(s): none Procedure: 1. Aortogram w/ L LE angiogram 2. R BARBER OR BEAUTY SHOP MANAGER Angioseal Findings: 1. L BARBER OR BEAUTY SHOP MANAGER calcific stenosis 2. L SFA flush occlusion and popliteal reconstitution 3. AT runoff only Additional Information: needs L groin reconstruction and fem-BK popliteal bypass depending on progress with PT (ambulation) Complications: none Specimen(s) removed: none Estimated blood loss: 10mL Anesthesia: LMA Drains: None Fluids: 50mL IVF Patient to: PACU Patient Condition: Good Implant/Devices: SEE IMPLANT LOG (if applicable) Date/Time of Procedure: SEE SURGICAL CARE RECORD Cyrus Barragan MD Sep 23, 2017 16:02
[2017-09-23] MEDS ORDERED: *RESP: ALBUTEROL 2.5 MG/3 ML NEB (PRN) PERIprocedural Use ONLY NEB ONE (16:04)
[2017-09-23] MEDS ORDERED: *morphine SULFATE 4 MG/ML PERIprocedure ONLY ONE (16:28)
--- NOTE | 2017-09-23 17:28 | MP ---
cc: Cyrus Barragan MD DATE OF OPERATION: 09/23/2017 PREOPERATIVE DIAGNOSES: 1. Left lower extremity tissue loss. 2. Peripheral vascular disease. POSTOPERATIVE DIAGNOSES: 1. Left lower extremity tissue loss. 2. Peripheral vascular disease. PROCEDURE PERFORMED: Aortogram with left lower extremity angiogram. ATTENDING SURGEON: Cyrus Barragan MD ANESTHESIA: LMA. INDICATIONS: Ms. Richey is a 72-year-old female with left lower extremity tissue loss and nonpalpable pulses. She was taken to the operating room for angiographic evaluation, there was no prior catheter-based imaging available for my review. DESCRIPTION OF PROCEDURE: Informed consent was obtained from the patient. She was taken to the operating room and placed supine on the operating table. An appropriate timeout was taken to ensure the identity of the patient, the operative site and the planned procedure. Administration of antibiotics was not necessary as the patient is on systemic antibiotics and these will be continued postoperatively for ongoing therapy. Everyone in the room agreed with the timeout and we proceeded. The bilateral groins were prepped and draped. The right groin was accessed with a 21-gauge micropuncture needle. This was exchanged using Seldinger technique for a micropuncture sheath, through which a 0.035 Glidewire was introduced. The micropuncture sheath was exchanged for a 5-Gibraltarian sheath and a VCF catheter was placed over the wire and through the sheath and aortogram and pelvic arteriogram was obtained. The Glidewire and sheath was introduced and navigated down to the left lower extremity, left common femoral artery. VCF catheter was attempted to be navigated down to this, but we were not able to due to the tortuosity of her aorta and the VCF was exchanged for a Payson catheter and with the Payson catheter position, a left lower extremity arteriogram was obtained. The patient was systemically heparinized with 5000 units of IV heparin. A 0.035 Nelson was introduced down to the profunda. The Payson catheter was removed. The 5-Gibraltarian sheath was removed and a 6-Gibraltarian 55 cm Mohamud was introduced and a CXI catheter was placed over the wire and through the sheath. The Nelson exchange for a CLOTH MERCERIZER OPERATOR. Multiple attempts were made to recanalized the SFA which was unsuccessful. The wire, catheter and sheath were removed and the groin was closed with an Angio-Seal. There were no complications. I was present and scrubbed and performed the entire procedure. INTERPRETATION OF IMAGES: This patient had the patent terminal aorta, common iliac artery and external iliac arteries without any hemodynamically significant stenoses. The left common femoral artery has a high-grade calcific boulder-like plaque. The profunda is patent. The SFA has a flush occlusion, but reconstitutes at the adductor canal and there appears to be one focal high-grade above-knee popliteal artery stenosis. The below-knee popliteal artery is patent. The anterior tibial artery has the only runoff to the level of the foot. MD ROBERT Stock/KYLEIGH , 04:12 PM , 05:27 PM
[2017-09-23] MEDS: REMOVE OLD PATCH T-DERMAL SCH (21:00)
[2017-09-23] MEDS: ATORVASTATIN 40 MG TAB PO SCH (21:11)
[2017-09-24] VITALS (10 sets, daily range): BP systolic 99–136; BP diastolic 54–66; PULSE 71–93; RESP 15–20; TEMP 97.5–99; O2SAT 93–97
[2017-09-24] MEDS: HEPARIN SODIUM - SQ 10,000 UNITS/ML VIAL SQ SCH ×3 (05:06→20:48)
[2017-09-24] MEDS: METOPROLOL TARTRATE 25 MG TAB PO SCH ×2 (09:11→20:47)
[2017-09-24] MEDS: CINACALCET HYDROCHLORIDE 30 MG TAB PO SCH (09:11)
[2017-09-24] MEDS: SEVELAMER CARBONATE 800 MG TAB PO SCH ×3 (09:11→17:00)
[2017-09-24] MEDS: CLOPIDOGREL 75 MG TAB PO SCH (09:11)
[2017-09-24] MEDS: NICOTINE 14 MG/24 HR PATCH T-DERMAL SCH (09:11)
[2017-09-24] MEDS: DOCUSATE SODIUM 50 MG/SENNA 8.6 MG TAB PO SCH ×2 (09:11→20:47)
[2017-09-24] MEDS: LIDOCAINE 2% JELLY 30 ML TUBE TOPICAL SCH ×2 (09:12→20:50)
[2017-09-24] MEDS: SODIUM CHLORIDE 0.9% FLUSH 10 ML FLUSH IV FLUSH SCH ×2 (09:15→20:50)
--- NOTE | 2017-09-24 10:40 | HHI.NPPN ---
Subjective Renal Failure: Chronic, End Stage Renal Disease Interval History Having wounds redressed. Angiogram yesterday, may need intervention in groin area per vascular. Due for dialysis. Still having significant pain left leg. (Mily Gray) Review of Systems General Constitutional: Fatigue (Mily Gray) Skin Skin: Lesions, Ulcers (Mily Gray) Objective Data Data Vital Signs Date Time Temp Pulse Resp B/P (MAP) Pulse Ox O2 Delivery O2 Flow Rate FiO2 09/24/17 07:48 98.3 71 20 99/54 (69) 96 09/24/17 04:32 76 09/24/17 03:33 97.5 85 16 114/58 (76) 94 09/24/17 00:44 17 09/24/17 00:23 73 09/24/17 00:00 Nasal Cannula 4.00 09/23/17 23:18 98.4 82 16 116/57 (76) 91 09/23/17 21:10 Room Air 09/23/17 20:57 21 09/23/17 20:04 98.4 87 16 121/57 (78) 91 09/23/17 20:00 86 09/23/17 17:57 98.0 92 15 131/79 (96) 92 Nasal Cannula 4 09/23/17 17:15 92 15 138/67 (90) 96 Nasal Cannula 4 09/23/17 17:00 92 15 143/68 (93) 96 Nasal Cannula 4 09/23/17 16:45 90 15 156/67 (96) 96 Nasal Cannula 4 09/23/17 16:30 84 15 151/73 (99) 90 Nasal Cannula 4 09/23/17 16:15 84 18 139/77 (97) 90 Nasal Cannula 4 09/23/17 15:57 97.5 84 18 139/74 (95) 90 Nasal Cannula 4 09/23/17 12:00 98.1 76 20 120/65 (83) 91 09/23/17 11:45 74 (Mily Gray) -: 09/23/17 0715 09/23/17 0715 Physical Exam General Appearance: Well Developed, Well Nourished, Comfortable (Mily Gray) Eyes Eye Exam: Pupils Equal (Mily Gray B. PLATE GRAINER) Throat Throat Exam: Oral Mucosa Roby & Moist (Mily Gray B. PLATE GRAINER) Pulmonary Resp Exam: Clear Bilaterally, Breath Sounds Equal (Mily Gray B. PLATE GRAINER) Cardiology CV Exam: Regular, Normal Sinus Rhythm, Good Perfusion (Mily Gray B. PLATE GRAINER) Gastrointestinal/Abdomen GI Exam: Soft, Non-Tender, Bowel Sounds Present (Mily Gray B. PLATE GRAINER) Musculoskeletal MS Exam: Joints Intact, Normal Tone (Mily Gray B. PLATE GRAINER) Integumentary Skin Exam: Warm, Dry, Ulcer(s) (Mily Gray B. PLATE GRAINER) Extremeties Extremities Exam: No Edema, Pedal Pulses Palpable (Mily Gray B. PLATE GRAINER) Neurologic Neuro Exam: Alert, Awake, Speech Clear, Moving All Extremities (Mily Gray. PLATE GRAINER) Assessment/Plan Problem List: (1) ESRD (end stage renal disease) on dialysis ICD Codes: N18.6 - End stage renal disease; Z99.2 - Dependence on renal dialysis Status: Chronic Plan: Continue HD support TTS. Due today. Intermittently monitor electrolyte profile. Low phosphorus diet encouraged. Avoid IVF administration. Gadolinium is contraindicated. On Renvela with meals. On Sensipar. Avoid Calcium containing binders, avoid Vitamin D analogs. PermCath is to be used for HD, needs new access created at some point. 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 continue wound care Ordered sodium thiosulfate to be given with dialysis. Ordered Vancomycin and clindamycin. Overall her prognosis is poor. She may be a candidate for hospice. (3) Hardness of breast ICD Codes: N64.51 - Induration of breast Status: Acute Plan: Most likely is manifestation of calciphylaxis. (4) Tobacco abuse ICD Codes: Z72.0 - Tobacco use Status: Chronic Plan: Cessation advised. (5) AV graft thrombosis ICD Codes: T82.868A - Thrombosis due to vascular prosthetic devices, implants and grafts, initial encounter Plan: Using Perm cath for HD Vascular has been following to obtain new AV access. (Mily Gray) Plan patient was seen and examined. Seen during dialysis. She had several questions regarding future plans. We have her on Sodium thiosulfate for possible calciphylaxis involving the extremities and the breast. Vascular surgery wants her to start PT. (Arvin Farnsworth MD) Mily Gray Sep 24, 2017 10:40 Arvin Farnsworth MD Sep 24, 2017 15:19
[2017-09-24 10:53] LABS: HEMATOCRIT 33.4 % (35.0-46.0); HEMOGLOBIN 10.2 GM/DL (11.6-15.3); MEAN CELL VOLUME 94.8 FL (80.0-100.0); MEAN CORPUSCULAR HEMOGLOBIN 29.1 PG (27.0-34.0); MEAN CORPUSCULAR HGB CONC 30.7 % (32.0-36.0); MEAN PLATELET VOLUME 7.4 FL (7.0-11.0); PLATELET COUNT 285 TH/MM3 (150-450); RED BLOOD COUNT 3.52 MIL/MM3 (4.00-5.30); RED CELL DISTRIBUTION WIDTH 17.9 % (11.6-17.2); WHITE BLOOD COUNT 10.8 TH/MM3 (4.0-11.0)
[2017-09-24 11:28] LABS: BICARBONATE 26.6 MEQ/L (21.0-32.0); CALCIUM 8.4 MG/DL (8.5-10.1); CREATININE 5.48 MG/DL (0.50-1.00)
--- NOTE | 2017-09-24 12:10 | HHI.FPPN ---
Subjective Remarks No acute events overnight. Patient currently in dialysis. Patient reports that she is doing well. Spoke with son this morning. [facility] declined patient. Son and patient will decide patient will return to [facility]. Patient has no complaints this morning. Informed patient that she may need breast ultrasound to check for breast cancer. Patient states that she had an MRI done of her breast about a month ago with Dr. Ashleigh Mccarthy. Will obtain records. She denies chest pain, shortness of breath, nausea vomiting, and abdominal pain. (Martina Schaefer MD R1) Objective Vitals Vital Signs Date Time Temp Pulse Resp B/P (MAP) Pulse Ox O2 Delivery O2 Flow Rate FiO2 09/24/17 08:00 Nasal Cannula 4.00 09/24/17 07:48 98.3 71 20 99/54 (69) 96 09/24/17 04:32 76 09/24/17 03:33 97.5 85 16 114/58 (76) 94 09/24/17 00:44 17 09/24/17 00:23 73 09/24/17 00:00 Nasal Cannula 4.00 09/23/17 23:18 98.4 82 16 116/57 (76) 91 09/23/17 21:10 Room Air 09/23/17 20:57 21 09/23/17 20:04 98.4 87 16 121/57 (78) 91 09/23/17 20:00 86 09/23/17 17:57 98.0 92 15 131/79 (96) 92 Nasal Cannula 4 09/23/17 17:15 92 15 138/67 (90) 96 Nasal Cannula 4 09/23/17 17:00 92 15 143/68 (93) 96 Nasal Cannula 4 09/23/17 16:45 90 15 156/67 (96) 96 Nasal Cannula 4 09/23/17 16:30 84 15 151/73 (99) 90 Nasal Cannula 4 09/23/17 16:15 84 18 139/77 (97) 90 Nasal Cannula 4 09/23/17 15:57 97.5 84 18 139/74 (95) 90 Nasal Cannula 4 I/O 09/23/17 09/23/17 09/23/17 09/24/17 09/24/17 09/24/17 07:00 15:00 23:00 07:00 15:00 23:00 Intake Total 720 ml 100 ml 480 ml Output Total 10 ml 0 ml Balance 720 ml 90 ml 480 ml Intake Oral 720 ml 50 ml 480 ml IV Total 0 ml Other 50 ml Output Urine Total 0 ml 0 ml Estimated Blood Loss 10 ml # Voids 3 # Bowel Movements 0 (Martina Schaefer MD R1) Result Diagram: 09/24/17 1035 09/24/17 1035 Objective Remarks GENERAL: Patient is a well-nourished female in no apparent distress. She currently dialysis. SKIN: Left lower extremity wrapped in bandages. HEAD: Atraumatic. Normocephalic. EYES: Pupils equal and round. No scleral icterus or pallor. No injection or drainage. ENT: Mucous membranes pink and moist. NECK: Trachea midline. CARDIOVASCULAR: Regular rate and rhythm. RESPIRATORY: No accessory muscle use. Breath sounds equal bilaterally. Bibasilar rales. GASTROINTESTINAL: Abdomen soft, non-tender, nondistended. MUSCULOSKELETAL: Extremities as noted above. Discoloration suggestive of vascular disease but no cyanosis or edema. NEUROLOGICAL: Awake and alert. No obvious cranial nerve deficits. Good ROM of toes, ankles, knees, and hips. Normal speech. PSYCHIATRIC: Odd mood and affect, unwilling to communicate today or answer questions. (Martina Schaefer MD R1) A/P Assessment and Plan 72F with COPD, CAD, and ESRD with likely concomitant severe PAD who presented with multiple LE infected wounds of the left lower extremity and was admitted for wound care, hemodialysis, and further treatment of BEAN. Prognosis is guarded. Patient aware of poor prognosis, but wants aggressive treatment at this time. Will trial sodium thiosulfate and local wound care. Discharge Planning Unclear timetable at this time. [facility] declined this patient. Patient possibly returning to [facility] upon discharge. (Martina Schaefer MD R1) Attending Attestation Patient seen and examined. Case reviewed and discussed with the resident team. Agree with plan of care as discussed with me and documented in the resident note. she should be ready to leave the hospital soon. her wounds are stable which is the best that can be hoped for at this point (Mily Wheelre MD) Problem List: (1) Arterial leg ulcer ICD Codes: L97.909 - Non-pressure chronic ulcer of unspecified part of unspecified lower leg with unspecified severity Status: Acute Plan: Likely BEAN, will trial sodium thiosulfate as arranged by nephrology. Appreciate their assistance. Infected leg ulcers ESR elevated at 69 Wound care physician consult ordered: appreciate assistance with wound care needs. 09/18 Wound cultures growing MRSA and Group D enterococcus Nursing wound care order placed for saline rinse with loose wrapping at this time. s/p Vancomycin, Dc'd on 09/20 Dilaudid 0.5 mg q 4 hours to PRN breakthrough pain. oral hydrocodone-acetaminophen 10-325 q4h PRN pain 5-10. (2) PAD (peripheral artery disease) ICD Codes: I73.9 - Peripheral vascular disease, unspecified Status: Chronic Plan: Patient does have bilateral dorsalis pedis pulses by Doppler and palpation though they are weak No evidence of critical limb ischemia, however patient does report symptoms suggestive of claudication Vascular surgery consulted: Recommendations appreciated. Patient had aortogram with L LE angiogram. Findings showed left MEDICAL SERVICES COORDINATOR calcific stenosis, L SFA flush occlusion and popliteal reconstitution. AT funoff only. She may need left groin reconstruction and fem-BK until bypass depending on progress with PT. ANUSHA shows severely reduced ANUSHA's bilaterally bilateral lower extremity ultrasound shows no DVT. Continue atorvastatin 40 mg hs and Plavix 75 mg daily (3) Hardness of breast ICD Codes: N64.51 - Induration of breast Status: Acute Plan: Bilateral breast hardening * Suspect this is part of BEAN. * Breast ultrasound ordered to rule out possible breast cancer. Ultrasound looking at breast mass unavailable per radiology. Patient states that she had an MRI of her breast about a month ago with Dr. Georgie Mccarthy. Will obtain results. (4) ESRD (end stage renal disease) on dialysis ICD Codes: N18.6 - End stage renal disease; Z99.2 - Dependence on renal dialysis Status: Chronic Plan: End-stage renal disease on dialysis * Nephrology consulted: Dialysis Saturday and Saturday via recently placed Vas- Cath. * Continue phosphate binders TID. Anemia of Chronic Disease * Monitor CBCs regularly while inpt (5) COPD (chronic obstructive pulmonary disease) ICD Codes: J44.9 - COPD (chronic obstructive pulmonary disease) Status: Chronic Plan: COPD * 50 pack year smoker * Duonebs q6hr PRN for SOB or wheezing * CXR wnl * incentive spirometer (6) Hypertension ICD Codes: I10 - Essential (primary) hypertension Status: Chronic Plan: Stable * Continue home dose metoprolol 12.5 mg BID * Clonidine PO PRN (7) CAD (coronary artery disease) ICD Codes: I25.10 - Atherosclerotic heart disease of [place] coronary artery without angina pectoris Status: Chronic Plan: CAD * Hx MA and stents, on Plavix * Needs outpt f/u, previously established with Dr. Woo but has been lost to followup per pt (8) Tobacco abuse ICD Codes: Z72.0 - Tobacco use Status: Chronic Plan: nicotine patch daily. (9) Depression ICD Codes: F32.9 - Major depressive disorder, single episode, unspecified Status: Chronic Plan: Chronic and stable. Patient previously on paroxetine but currently not on any antidepressants. (10) Nutrition, metabolism, and development symptoms ICD Codes: R63.8 - Symptoms concerning nutrition, metabolism, and development Status: Acute Plan: Fluids: tolerating PO, fluid caution given ESRD, pt does make urine ( monitor I/Os) Electrolytes: monitor closely given ESRD. Nutrition: NPO in anticipation of procedure DVT Prophylaxis: Heparin 5000U subQ q8hr. dw Dr. Wheeler. (Martina Schaefer MD R1) Problem Qualifiers (1) COPD (chronic obstructive pulmonary disease): Qualified Codes: J44.9 - Chronic obstructive pulmonary disease, unspecified (2) Hypertension: Qualified Codes: I10 - Essential (primary) hypertension (3) CAD (coronary artery disease): Qualified Codes: I25.10 - Atherosclerotic heart disease of [place] coronary artery without angina pectoris (4) Depression: Qualified Codes: F32.9 - Major depressive disorder, single episode, unspecified Martina Schaefer MD R1 Sep 24, 2017 12:10 Mily Wheeler MD Sep 25, 2017 10:10
--- NOTE | 2017-09-24 12:15 | PD.VS.PN ---
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 Subjective/Hospital Course 72/F w/ a hx of L LE PAD and multiple wounds Pt s/p Aortogram w/ L LE angiogram L LE malodorous wounds w/ slight improvement Pt c/o pain to L LE Pt has not ambulated in months per son and pt R Groin S/NT Objective Vitals/I&O Date Time Temp Pulse Resp B/P (MAP) Pulse Ox O2 Delivery O2 Flow Rate FiO2 09/24/17 08:00 Nasal Cannula 4.00 09/24/17 07:48 98.3 71 20 99/54 (69) 96 09/24/17 04:32 76 09/24/17 03:33 97.5 85 16 114/58 (76) 94 09/24/17 00:44 17 09/24/17 00:23 73 09/24/17 00:00 Nasal Cannula 4.00 09/23/17 23:18 98.4 82 16 116/57 (76) 91 09/23/17 21:10 Room Air 09/23/17 20:57 21 09/23/17 20:04 98.4 87 16 121/57 (78) 91 09/23/17 20:00 86 09/23/17 17:57 98.0 92 15 131/79 (96) 92 Nasal Cannula 4 09/23/17 17:15 92 15 138/67 (90) 96 Nasal Cannula 4 09/23/17 17:00 92 15 143/68 (93) 96 Nasal Cannula 4 09/23/17 16:45 90 15 156/67 (96) 96 Nasal Cannula 4 09/23/17 16:30 84 15 151/73 (99) 90 Nasal Cannula 4 09/23/17 16:15 84 18 139/77 (97) 90 Nasal Cannula 4 09/23/17 15:57 97.5 84 18 139/74 (95) 90 Nasal Cannula 4 09/23/17 12:00 98.1 76 20 120/65 (83) 91 09/24/17 09/24/17 09/24/17 07:00 15:00 23:00 Intake Total 480 ml Output Total 0 ml Balance 480 ml Exam: GENERAL: Afebrile 72/F A&OX3 SKIN: Warm and dry. R groin S/NT Pt w/ multiple malodorous necrotic ulcerations to L LE - not worsening HEAD: Normocephalic. EYES: No scleral icterus. No injection or drainage. NECK: Supple, trachea midline. No JVD or lymphadenopathy. CARDIOVASCULAR: Regular rate and rhythm without murmurs, gallops, or rubs. RESPIRATORY: Breath sounds equal bilaterally. No accessory muscle use. GASTROINTESTINAL: Abdomen soft, non-tender, nondistended. NON palpable R/L DP/PT Laboratory Laboratory Tests Test 09/24/17 10:35 White Blood Count 10.8 Red Blood Count 3.52 Hemoglobin 10.2 Hematocrit 33.4 Mean Corpuscular Volume 94.8 Mean Corpuscular Hemoglobin 29.1 Mean Corpuscular Hemoglobin Concent 30.7 Red Cell Distribution Width 17.9 Platelet Count 285 Mean Platelet Volume 7.4 Blood Urea Nitrogen 37 Creatinine 5.48 Random Glucose 90 Calcium Level 8.4 Phosphorus Level 5.0 Sodium Level 134 Potassium Level 4.8 Chloride Level 94 Carbon Dioxide Level 26.6 Anion Gap 13 Estimat Glomerular Filtration Rate 8 Date/Time Source Procedure Growth Status 09/18/17 18:10 Blood Peripheral Aerobic Blood Culture - Final NO GROWTH IN 5 DAYS Complete 09/18/17 18:10 Blood Peripheral Anaerobic Blood Culture - Final NO GROWTH IN 5 DAYS Complete 09/18/17 21:00 Wound Leg Gram Stain - Final Complete 09/18/17 21:00 Wound Culture - Final S. 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 stenosis/L SFA flush occlusion and popliteal reconstitution/AT runoff only Pt ultimately needs L groin reconstruction and fem-BK popliteal bypass depending on progress with PT (ambulation) Plan Discussed Aortogram/Angiogram results w/ pt and son Pt and son made aware of pt ultimately needing a L groin reconstruction and fem- BK popliteal bypass depending on progress with PT (ambulation) Questions answered Recommend PT/OOB w/ ambulation- If able to ambulate will schedule distal bypass next week Continue pain control Will continue to monitor Marjan Lamar NP [facility] [phone] Problem Qualifiers (1) Open wound of left lower extremity with complication: Qualified Codes: S81.802A - Unspecified open wound, left lower leg, initial encounter Marjan Lamar Sep 24, 2017 12:15
[2017-09-24] MEDS: ACETAMINOPHEN/HYDROcodone 325 MG/10 MG TAB PO PRN ×2 (14:53→19:00)
[2017-09-24] MEDS: EPOETIN ALFA 10,000 UNITS/ML VIAL IV PUSH PRN (16:45)
[2017-09-24] MEDS: GENTAMICIN SULFATE 20 MG/2 ML VIAL OTHER PRN (16:45)
[2017-09-24] MEDS: HEPARIN SODIUM - IV 10,000 UNITS/10 ML VIAL PRN (16:45)
[2017-09-24] MEDS: SODIUM THIOSULFATE INJ 12,500 MG in WATER STERILE FOR INJ 100 ML IV SCH (16:45)
--- NOTE | 2017-09-24 19:47 | PD.CONS ---
HPI Service Rehabilitation Medicine Consult Requested By Reason for Consult Comprehensive rehabilitation evaluation. Primary Care Physician Georgie Mccarthy MD Past Family Social History Allergies: Coded Allergies: niacin (Unverified Allergy, Severe, ANAPHALACTIC, 08/28/17) Current Medications Current Medications Medications (Trade) Dose Ordered Sig/Diego Route Start Time Stop Time Status Last Admin (NS Flush) 2 ml UNSCH PRN IV FLUSH 09/18/17 21:00 09/21/17 23:17 (NS Flush) 2 ml BID IV FLUSH 09/18/17 21:00 09/24/17 09:15 (Narcan Inj) 0.4 mg UNSCH PRN IV PUSH 09/18/17 21:00 (Ro-Colace) 1 tab BID PO 09/18/17 21:00 09/24/17 09:11 (Milk Of Magnnicholas Liq) 30 ml Q12H PRN PO 09/18/17 21:00 (Senokot) 17.2 mg Q12H PRN PO 09/18/17 21:00 (Heparin Inj) 5,000 units Q8HR SQ 09/19/17 09:00 09/22/17 20:24 (Zofran Odt) 4 mg Q6H PRN PO 09/18/17 23:15 09/22/17 02:46 (Lipitor) 40 mg HS PO 09/19/17 21:00 09/23/17 21:11 (Plavix) 75 mg DAILY PO 09/19/17 09:00 09/24/17 09:11 (Lopressor) 12.5 mg BID PO 09/19/17 09:00 09/24/17 09:11 (Catapres) 0.1 mg Q6H PRN PO 09/18/17 23:15 (Duoneb Neb) 1 ampule Q6HR NEB PRN NEB 09/19/17 00:00 (Pill Splitter) 1 ea UNSCH PRN OTHER 09/18/17 23:45 09/19/17 09:03 (Tylenol) 650 mg Q6H PRN PO 09/19/17 09:00 09/20/17 09:04 Sodium Chloride 1,000 ml @ 0 mls/hr Q0M PRN OTHER 09/19/17 09:14 09/21/17 15:30 (Heparin Inj) 8,000 units UNSCH PRN IV FLUSH 09/19/17 09:15 Sodium Chloride 1,000 ml @ 200 mls/hr Q5H PRN IV 09/19/17 09:14 Sodium Chloride 1,000 ml @ 0 mls/hr Q0M PRN OTHER 09/19/17 09:14 (Mannitol Inj) 12.5 gm UNSCH PRN IV 09/19/17 09:15 Albumin Human 100 ml @ 60 mls/hr UNSCH PRN IV 09/19/17 09:15 09/19/17 15:30 (NS Flush) 5 ml UNSCH PRN IV FLUSH 09/19/17 09:15 (Heparin Inj) UNSCH PRN .XX 09/19/17 09:15 09/24/17 16:45 (Gentamicin Inj) 20 mg UNSCH PRN OTHER 09/19/17 09:15 09/24/17 16:45 (Zofran Inj) 4 mg UNSCH PRN IV PUSH 09/19/17 09:15 (Tylenol) 650 mg UNSCH PRN PO 09/19/17 09:15 09/20/17 00:19 (Benadryl) 25 mg UNSCH PRN PO 09/19/17 09:15 (Nitrostat Sl) 0.4 mg UNSCH PRN SL 09/19/17 09:15 (Catapres) 0.1 mg UNSCH PRN PO 09/19/17 09:15 (Epogen Inj) 4,000 units UNSCH PRN IV PUSH 09/19/17 09:15 09/24/17 16:45 (Gelfoam 12 Mm/7 Mm Top) 1 foam UNSCH PRN TOP 09/19/17 09:15 (Xylocaine 2% Jelly) 1 applic BID TOPICAL 09/19/17 13:00 09/24/17 09:12 Sodium Thiosulfate 93957 mg/Sterile Water 150 ml @ 150 mls/hr WITH DIALYSIS IV 09/19/17 20:45 09/24/17 16:45 (Habitrol 14 Mg Patch.24 Hr) 1 patch DAILY T-DERMAL 09/20/17 09:15 09/24/17 09:11 Miscellaneous Information 1 HS T-DERMAL 09/20/17 21:00 09/23/17 21:00 (Dilaudid Pf Inj) 0.5 mg Q4H PRN IV PUSH 09/20/17 17:00 09/23/17 23:46 (Hoyt 10-325 Mg) 1 tab Q4H PRN PO 09/21/17 07:30 09/24/17 19:00 (Hoyt 5-325 Mg) 1 tab Q4H PRN PO 09/21/17 07:30 09/24/17 09:22 (Sensipar) 30 mg DAILY PO 09/21/17 11:00 09/24/17 09:11 (Renvela) 1,600 mg TIDAC PO 09/21/17 17:00 09/24/17 17:00 Exam I&O / VS 09/24/17 09/24/17 09/25/17 15:00 23:00 07:00 Intake Total 720 ml Output Total 2000 ml 0 ml Balance -2000 ml 720 ml Intake Oral 720 ml Output Urine Total 0 ml Hemodialysis 2000 ml Vital Signs Date Time Temp Pulse Resp B/P (MAP) Pulse Ox O2 Delivery O2 Flow Rate FiO2 09/24/17 16:05 98.0 84 20 127/63 (84) 97 09/24/17 08:00 Nasal Cannula 4.00 09/24/17 07:48 98.3 71 20 99/54 (69) 96 09/24/17 04:32 76 09/24/17 03:33 97.5 85 16 114/58 (76) 94 09/24/17 00:44 17 09/24/17 00:23 73 09/24/17 00:00 Nasal Cannula 4.00 09/23/17 23:18 98.4 82 16 116/57 (76) 91 09/23/17 21:10 Room Air 09/23/17 20:57 21 09/23/17 20:04 98.4 87 16 121/57 (78) 91 09/23/17 20:00 86 Billie Raygoza MD Sep 24, 2017 19:47
[2017-09-24] MEDS: ATORVASTATIN 40 MG TAB PO SCH (20:47)
[2017-09-24] MEDS: REMOVE OLD PATCH T-DERMAL SCH (20:50)
[2017-09-25] VITALS: PULSE 82
[2017-09-25 04:00] VITALS: PULSE 87
[2017-09-25] MEDS: ACETAMINOPHEN/HYDROcodone 325 MG/10 MG TAB PO PRN ×2 (04:55→10:17)
[2017-09-25] MEDS: HEPARIN SODIUM - SQ 10,000 UNITS/ML VIAL SQ SCH (04:55)
[2017-09-25 07:52] LABS: BICARBONATE 24.1 MEQ/L (21.0-32.0); CALCIUM 8.1 MG/DL (8.5-10.1); CREATININE 4.17 MG/DL (0.50-1.00)
[2017-09-25 07:56] LABS: HEMATOCRIT 30.8 % (35.0-46.0); MEAN CELL VOLUME 93.4 FL (80.0-100.0); MEAN CORPUSCULAR HEMOGLOBIN 30.3 PG (27.0-34.0); MEAN CORPUSCULAR HGB CONC 32.4 % (32.0-36.0); MEAN PLATELET VOLUME 7.9 FL (7.0-11.0); PLATELET COUNT 224 TH/MM3 (150-450); RED CELL DISTRIBUTION WIDTH 17.9 % (11.6-17.2); WHITE BLOOD COUNT 10.6 TH/MM3 (4.0-11.0)
[2017-09-25 08:00] VITALS: PULSE 86
[2017-09-25 08:05] VITALS: BP 125/63; PULSE 86; RESP 20; TEMP 98.7; O2SAT 93
--- NOTE | 2017-09-25 09:52 | HHI.FPPN ---
Subjective Remarks No acute events overnight. 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 Patient doing well this morning. Patient is open to going back to [facility] for PT We will have to discuss with son She denies fevers, chest pain, shortness of breath, abdominal pain, nausea vomiting, and diarrhea. (Martina Schaefer MD R1) Objective Vitals Vital Signs Date Time Temp Pulse Resp B/P (MAP) Pulse Ox O2 Delivery O2 Flow Rate FiO2 09/25/17 08:05 98.7 86 20 125/63 (83) 93 09/25/17 05:27 Room Air 09/25/17 04:00 87 09/25/17 00:00 82 09/24/17 23:53 99.0 85 16 136/66 (89) 94 09/24/17 21:30 Room Air 09/24/17 20:00 93 09/24/17 20:00 98.5 82 15 122/57 (78) 93 09/24/17 16:05 98.0 84 20 127/63 (84) 97 09/24/17 16:00 87 09/24/17 12:00 74 I/O 09/24/17 09/24/17 09/24/17 09/25/17 09/25/17 09/25/17 07:00 15:00 23:00 07:00 15:00 23:00 Intake Total 480 ml 720 ml Output Total 0 ml 2000 ml 0 ml 1 ml Balance 480 ml -2000 ml 720 ml -1 ml Intake Oral 480 ml 720 ml Output Urine Total 0 ml 0 ml Stool Total 1 ml Hemodialysis 2000 ml # Voids 0 # Bowel Movements 0 (Martina Schaefer MD R1) Result Diagram: 09/25/17 0611 09/25/17 0611 Objective Remarks GENERAL: Patient is a well-nourished female in no apparent distress. She currently dialysis. SKIN: Left lower extremity wrapped in bandages. HEAD: Atraumatic. Normocephalic. EYES: Pupils equal and round. No scleral icterus or pallor. No injection or drainage. ENT: Mucous membranes pink and moist. NECK: Trachea midline. CARDIOVASCULAR: Regular rate and rhythm. RESPIRATORY: No accessory muscle use. Breath sounds equal bilaterally. Bibasilar rales. GASTROINTESTINAL: Abdomen soft, non-tender, nondistended. MUSCULOSKELETAL: Extremities as noted above. Discoloration suggestive of vascular disease but no cyanosis or edema. NEUROLOGICAL: Awake and alert. No obvious cranial nerve deficits. Good ROM of toes, ankles, knees, and hips. Normal speech. PSYCHIATRIC: Odd mood and affect, unwilling to communicate today or answer questions. (Martina Schaefer MD R1) A/P Assessment and Plan 72F with COPD, CAD, and ESRD with likely concomitant severe PAD who presented with multiple LE infected wounds of the left lower extremity and was admitted for wound care, hemodialysis, and further treatment of BEAN. Prognosis is guarded. Patient aware of poor prognosis, but wants aggressive treatment at this time. Will trial sodium thiosulfate and local wound care. Discharge Planning [facility] declined this patient. Patient returning to [facility] upon discharge. (Martina Schaefer MD R1) Attending Attestation Patient seen and examined. Case reviewed and discussed with the resident team. Agree with plan of care as discussed with me and documented in the resident note. she very much wants to go to [facility] as opposed to any other SNF. She was happy there. It was explained to her that she needs to improve and be ready to get aggressive rehab before she would be ready for [facility]. Dr Barragan wants her to be walking before he does any more procedures (Mily Wheeler MD) Problem List: (1) Arterial leg ulcer ICD Codes: L97.909 - Non-pressure chronic ulcer of unspecified part of unspecified lower leg with unspecified severity Status: Acute Plan: Likely BEAN, will trial sodium thiosulfate as arranged by nephrology. Appreciate their assistance. Wound care physician consult ordered: appreciate assistance with wound care needs. 09/18 Wound cultures growing MRSA and Group D enterococcus Nursing wound care order placed for saline rinse with loose wrapping at this time. Continue upon discharge. Patient currently off antibiotics. s/p Vancomycin, Dc'd on 09/20, Gentamicin w/ dialysis discharged on 09/25 Dilaudid 0.5 mg q 4 hours to PRN breakthrough pain. oral hydrocodone-acetaminophen 10-325 q4h PRN pain 5-10. (2) PAD (peripheral artery disease) ICD Codes: I73.9 - Peripheral vascular disease, unspecified Status: Chronic Plan: Patient does have bilateral dorsalis pedis pulses by Doppler and palpation though they are weak No evidence of critical limb ischemia, however patient does report symptoms suggestive of claudication Vascular surgery consulted: Recommendations appreciated. Patient had aortogram with L LE angiogram. 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 AT funoff only. She may need left groin reconstruction and fem-BK until bypass depending on progress with PT. ANUSHA shows severely reduced ANUSHA's bilaterally bilateral lower extremity ultrasound shows no DVT. Continue atorvastatin 40 mg hs and Plavix 75 mg daily (3) Hardness of breast ICD Codes: N64.51 - Induration of breast Status: Acute Plan: Bilateral breast hardening * Suspect this is part of BEAN. * Breast ultrasound ordered to rule out possible breast cancer. Ultrasound looking at breast mass unavailable per radiology. Patient states that she had an MRI of her breast about a month ago with Dr. Georgie Mccarthy. Could not obtain results. Will order ultrasound of the breasts as an outpatient. (4) ESRD (end stage renal disease) on dialysis ICD Codes: N18.6 - End stage renal disease; Z99.2 - Dependence on renal dialysis Status: Chronic Plan: End-stage renal disease on dialysis * Nephrology consulted: Dialysis Saturday and Saturday via recently placed Vas- Cath. * Continue phosphate binders TID. * Patient on Renvela with meals and Sensipar. PermCath is to be used for hemodialysis, needs new access created at some point. Anemia of Chronic Disease * Monitor CBCs regularly while inpt (5) COPD (chronic obstructive pulmonary disease) ICD Codes: J44.9 - COPD (chronic obstructive pulmonary disease) Status: Chronic Plan: COPD * 50 pack year smoker * Duonebs q6hr PRN for SOB or wheezing * CXR wnl * incentive spirometer (6) Hypertension ICD Codes: I10 - Essential (primary) hypertension Status: Chronic Plan: Stable * Continue home dose metoprolol 12.5 mg BID * Clonidine PO PRN (7) CAD (coronary artery disease) ICD Codes: I25.10 - Atherosclerotic heart disease of [place] coronary artery without angina pectoris Status: Chronic Plan: CAD * Hx [place] and stents, on Plavix * Needs outpt f/u, previously established with Dr. Woo but has been lost to followup per pt (8) Tobacco abuse ICD Codes: Z72.0 - Tobacco use Status: Chronic Plan: nicotine patch daily. (9) Depression ICD Codes: F32.9 - Major depressive disorder, single episode, unspecified Status: Chronic Plan: Chronic and stable. Patient previously on paroxetine but currently not on any antidepressants. (10) Nutrition, metabolism, and development symptoms ICD Codes: R63.8 - Symptoms concerning nutrition, metabolism, and development Status: Acute Plan: Fluids: tolerating PO, fluid caution given ESRD, pt does make urine ( monitor I/Os) Electrolytes: monitor closely given ESRD. Nutrition: renal diet DVT Prophylaxis: Heparin 5000U subQ q8hr. dw Dr. Wheeler. (Martina Schaefer MD R1) Problem Qualifiers (1) COPD (chronic obstructive pulmonary disease): Qualified Codes: J44.9 - Chronic obstructive pulmonary disease, unspecified (2) Hypertension: Qualified Codes: I10 - Essential (primary) hypertension (3) CAD (coronary artery disease): Qualified Codes: I25.10 - Atherosclerotic heart disease of [place] coronary artery without angina pectoris (4) Depression: Qualified Codes: F32.9 - Major depressive disorder, single episode, unspecified Martina Schaefer MD R1 Sep 25, 2017 09:52 Mily Wheeler MD Sep 26, 2017 12:01
[2017-09-25] MEDS: DOCUSATE SODIUM 50 MG/SENNA 8.6 MG TAB PO SCH (09:58)
[2017-09-25] MEDS: SEVELAMER CARBONATE 800 MG TAB PO SCH (09:58)
[2017-09-25] MEDS: CINACALCET HYDROCHLORIDE 30 MG TAB PO SCH (09:59)
[2017-09-25] MEDS: CLOPIDOGREL 75 MG TAB PO SCH (09:59)
[2017-09-25] MEDS: SODIUM CHLORIDE 0.9% FLUSH 10 ML FLUSH IV FLUSH SCH (09:59)
[2017-09-25] MEDS: LIDOCAINE 2% JELLY 30 ML TUBE TOPICAL SCH (09:59)
[2017-09-25] MEDS: NICOTINE 14 MG/24 HR PATCH T-DERMAL SCH (09:59)
[2017-09-25] MEDS: METOPROLOL TARTRATE 25 MG TAB PO SCH (09:59)
[2017-09-25] MEDS ORDERED: BENZONATATE 100 MG CAP PO PRN (10:15)
[2017-09-25] MEDS ORDERED: HYDR-3583 PO (11:09)
--- NOTE | 2017-09-25 11:20 | HHI.DS ---
Discharge Summary Admission Date Sep 18, 2017 at 20:34 Admitting Diagnosis LLE ulcerative wounds; cellulitis; PAD; ESRD (1) Arterial leg ulcer Plan: Likely BEAN, will trial sodium thiosulfate as arranged by nephrology. Appreciate their assistance. Infected leg ulcers ESR elevated at 69 Wound care physician consult ordered: appreciate assistance with wound care needs. 09/18 Wound cultures growing MRSA and Group D enterococcus Nursing wound care order placed for saline rinse with loose wrapping at this time. Gentamicin with dialysis, possibly will go home on p.o. Clinda s/p Vancomycin, Dc'd on 09/20 Dilaudid 0.5 mg q 4 hours to PRN breakthrough pain. oral hydrocodone-acetaminophen 10-325 q4h PRN pain 5-10. ICD Codes: L97.909 - Non-pressure chronic ulcer of unspecified part of unspecified lower leg with unspecified severity Status: Acute (2) PAD (peripheral artery disease) Plan: Patient does have bilateral dorsalis pedis pulses by Doppler and palpation though they are weak No evidence of critical limb ischemia, however patient does report symptoms suggestive of claudication Vascular surgery consulted: Recommendations appreciated. Patient had aortogram with L LE angiogram. 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 AT funoff only. She may need left groin reconstruction and fem-BK until bypass depending on progress with PT. ANUSHA shows severely reduced ANUSHA's bilaterally bilateral lower extremity ultrasound shows no DVT. Continue atorvastatin 40 mg hs and Plavix 75 mg daily ICD Codes: I73.9 - Peripheral vascular disease, unspecified Status: Chronic (3) Hardness of breast Plan: Bilateral breast hardening * Suspect this is part of BEAN. * Breast ultrasound ordered to rule out possible breast cancer. Ultrasound looking at breast mass unavailable per radiology. Patient states that she had an MRI of her breast about a month ago with Dr. Georgie Mccarthy. Will obtain results. ICD Codes: N64.51 - Induration of breast Status: Acute (4) ESRD (end stage renal disease) on dialysis Plan: End-stage renal disease on dialysis * Nephrology consulted: Dialysis Saturday and Saturday via recently placed Vas- Cath. * Continue phosphate binders TID. Anemia of Chronic Disease * Monitor CBCs regularly while inpt ICD Codes: N18.6 - End stage renal disease; Z99.2 - Dependence on renal dialysis Status: Chronic (5) COPD (chronic obstructive pulmonary disease) Plan: COPD * 50 pack year smoker * Duonebs q6hr PRN for SOB or wheezing * CXR wnl * incentive spirometer ICD Codes: J44.9 - COPD (chronic obstructive pulmonary disease) Status: Chronic (6) Hypertension Plan: Stable * Continue home dose metoprolol 12.5 mg BID * Clonidine PO PRN ICD Codes: I10 - Essential (primary) hypertension Status: Chronic (7) CAD (coronary artery disease) Plan: CAD * Hx CT and stents, on Plavix * Needs outpt f/u, previously established with Dr. Woo but has been lost to followup per pt ICD Codes: I25.10 - Atherosclerotic heart disease of [place] coronary artery without angina pectoris Status: Chronic (8) Tobacco abuse Plan: nicotine patch daily. ICD Codes: Z72.0 - Tobacco use Status: Chronic (9) Depression Plan: Chronic and stable. Patient previously on paroxetine but currently not on any antidepressants. ICD Codes: F32.9 - Major depressive disorder, single episode, unspecified Status: Chronic (10) Nutrition, metabolism, and development symptoms Plan: Fluids: tolerating PO, fluid caution given ESRD, pt does make urine ( monitor I/Os) Electrolytes: monitor closely given ESRD. Nutrition: NPO in anticipation of procedure DVT Prophylaxis: Heparin 5000U subQ q8hr. dw Dr. Wheeler. ICD Codes: R63.8 - Symptoms concerning nutrition, metabolism, and development Status: Acute Brief History Ms Richey is a 72F with multiple medical conditions including ESRD (Tu/Sat), CAD with stent x 2, COPD, and possible severe PAD who presented to ED after prompted by vascular surgeon due to LE wounds x 1-2 months. She notes she fell into a metal object due to "lost my balance" and sustained a laceration. Since then her wounds have gotten worse. She self-admitted to [facility], where she has been for 6 weeks. During this time, the wounds she had were treated by a wound nurse at the facility, but the wounds got worse rather than better. She went to see Dr. Barragan (was recommended by her rn mds Dr. Wu) and Dr. Barragan recommended to come to ED for further evaluation and antibiotics. PCP is Dr. Georgie Mccarthy but last visit was in 2017. She has been to ED since last office visit. She has significant pain located in the left lower leg , from knee down to foot. She is able to move the legs but does have balance issues requiring wheelchair. She has severe pain with ambulation. Character is "sharp, constant, unrelenting" and max intensity is 10/10. She is not on any pain medications at home. She denies any fever, chills, nausea, vomiting. She states "yes" and "no" on whether her wounds leak but notes the lesions are wrapped often. She notes there has been blood staining the wrapping. She denies paresthesias, poikilothermia, and difficulty moving the limbs including toes but does note her skin feels tighter in the LEs over the last few months and she has had swelling. She is noted to not have a history of diabetes. She reports a history of MRSA infection 2-3 years ago which was "short-term" and it is unclear whether this was a skin infection. She has also developed hardening of both breasts over the past few months as well. Her wounds are multiple and above the knee on the left. CBC/BMP: 09/25/17 0611 09/25/17 0611 Significant Findings Laboratory Tests Test 09/23/17 07:15 09/24/17 10:35 09/25/17 06:11 Red Blood Count 3.64 MIL/MM3 (4.00-5.30) 3.52 MIL/MM3 (4.00-5.30) 3.30 MIL/MM3 (4.00-5.30) Hemoglobin 10.7 GM/DL (11.6-15.3) 10.2 GM/DL (11.6-15.3) 10.0 GM/DL (11.6-15.3) Mean Corpuscular Hemoglobin Concent 30.6 % (32.0-36.0) 30.7 % (32.0-36.0) Red Cell Distribution Width 17.9 % (11.6-17.2) 17.9 % (11.6-17.2) 17.9 % (11.6-17.2) Neutrophils (%) (Auto) 80.2 % (16.0-70.0) Lymphocytes (%) (Auto) 6.9 % (9.0-44.0) Monocytes (%) (Auto) 10.7 % (0.0-8.0) Neutrophils # (Auto) 7.8 TH/MM3 (1.8-7.7) Lymphocytes # (Auto) 0.7 TH/MM3 (1.0-4.8) Monocytes # (Auto) 1.0 TH/MM3 (0-0.9) Blood Urea Nitrogen 30 MG/DL (7-18) 37 MG/DL (7-18) 23 MG/DL (7-18) Creatinine 4.74 MG/DL (0.50-1.00) 5.48 MG/DL (0.50-1.00) 4.17 MG/DL (0.50-1.00) Sodium Level 135 MEQ/L (136-145) 134 MEQ/L (136-145) 135 MEQ/L (136-145) Chloride Level 95 MEQ/L (98-107) 94 MEQ/L (98-107) 97 MEQ/L (98-107) Estimat Glomerular Filtration Rate 9 ML/MIN (>89) 8 ML/MIN (>89) 11 ML/MIN (>89) Hematocrit 33.4 % (35.0-46.0) 30.8 % (35.0-46.0) Calcium Level 8.4 MG/DL (8.5-10.1) 8.1 MG/DL (8.5-10.1) Phosphorus Level 5.0 MG/DL (2.5-4.9) Random Glucose 58 MG/DL (74-106) PE at Discharge GENERAL: Patient is a well-nourished female in no apparent distress. She currently dialysis. SKIN: Left lower extremity wrapped in bandages. HEAD: Atraumatic. Normocephalic. EYES: Pupils equal and round. No scleral icterus or pallor. No injection or drainage. ENT: Mucous membranes pink and moist. NECK: Trachea midline. CARDIOVASCULAR: Regular rate and rhythm. RESPIRATORY: No accessory muscle use. Breath sounds equal bilaterally. Bibasilar rales. GASTROINTESTINAL: Abdomen soft, non-tender, nondistended. MUSCULOSKELETAL: Extremities as noted above. Discoloration suggestive of vascular disease but no cyanosis or edema. NEUROLOGICAL: Awake and alert. No obvious cranial nerve deficits. Good ROM of toes, ankles, knees, and hips. Normal speech. PSYCHIATRIC: Odd mood and affect, unwilling to communicate today or answer questions. Martina Schaefer MD R1 Sep 25, 2017 11:20
--- NOTE | 2017-09-25 11:21 | HHI.DCPOC ---
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 Avoid second hand smoke Call the 24-hour hour crisis hotline for domestic abuse at Martina Schaefer MD R1 Sep 25, 2017 11:21
[2017-09-25] MEDS ORDERED: CINA30 PO (11:25)
[2017-09-25] MEDS ORDERED: SEVEL800 PO (11:25)
--- NOTE | 2017-09-25 11:45 | HHI.NPPN ---
Subjective Renal Failure: Chronic, End Stage Renal Disease Interval History She is sleeping. Dialyzed yesterday. (Mily Gray) Review of Systems General Constitutional: Fatigue (Mily Gray) Skin Skin: Lesions, Ulcers (Mily Gray) Objective Data Data 09/25/17 09/26/17 19:00 07:00 # Bowel Movements 1 Vital Signs Date Time Temp Pulse Resp B/P (MAP) Pulse Ox O2 Delivery O2 Flow Rate FiO2 09/25/17 08:05 98.7 86 20 125/63 (83) 93 09/25/17 05:27 Room Air 09/25/17 04:00 87 09/25/17 00:00 82 09/24/17 23:53 99.0 85 16 136/66 (89) 94 09/24/17 21:30 Room Air 09/24/17 20:00 93 09/24/17 20:00 98.5 82 15 122/57 (78) 93 09/24/17 16:05 98.0 84 20 127/63 (84) 97 09/24/17 16:00 87 09/24/17 12:00 74 (Mily Gray) -: 09/25/17 0611 09/25/17 0611 Physical Exam General Appearance: Well Developed, Well Nourished, Comfortable (Mily Gray) Eyes Eye Exam: Pupils Equal (Mily Gray) Throat Throat Exam: Oral Mucosa [place] & Moist (Mily Gray) Pulmonary Resp Exam: Clear Bilaterally, Breath Sounds Equal (Mily Gray) Cardiology CV Exam: Regular, Normal Sinus Rhythm, Good Perfusion (Mily Gray) Gastrointestinal/Abdomen GI Exam: Soft, Non-Tender, Bowel Sounds Present (Mily Gray) Musculoskeletal MS Exam: Joints Intact, Normal Tone (Mily Gray) Integumentary Skin Exam: Warm, Dry, Ulcer(s) (Mily Gray) Extremeties Extremities Exam: No Edema, Pedal Pulses Palpable (Mily Gray) Neurologic Neuro Exam: Alert, Awake, Speech Clear, Moving All Extremities (Mily Gray) Assessment/Plan Problem List: (1) ESRD (end stage renal disease) on dialysis ICD Codes: N18.6 - End stage renal disease; Z99.2 - Dependence on renal dialysis Status: Chronic Plan: Continue HD support TTS. Had treatment yesterday. Intermittently monitor electrolyte profile. Low phosphorus diet encouraged. Avoid IVF administration. Gadolinium is contraindicated. On Renvela with meals. On Sensipar. Avoid Calcium containing binders, avoid Vitamin D analogs. PermCath is to be used for HD, needs new access created at some point. 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 continue wound care Ordered sodium thiosulfate to be given with dialysis. Off antibiotics. Overall her prognosis is poor. She may be a candidate for hospice. (3) Hardness of breast ICD Codes: N64.51 - Induration of breast Status: Acute Plan: Most likely is manifestation of calciphylaxis. (4) Tobacco abuse ICD Codes: Z72.0 - Tobacco use Status: Chronic Plan: Cessation advised. (5) AV graft thrombosis ICD Codes: T82.868A - Thrombosis due to vascular prosthetic devices, implants and grafts, initial encounter Plan: Using Perm cath for HD Vascular has been following to obtain new AV access. (Mily Gray) Plan patient was seen and examined. Agree with above assessment and plan. Consider biopsy of the skin over breast lesions. (Arvin Farnsworth MD) Mily Gray Sep 25, 2017 11:45 Arvin Farnsworth MD Sep 25, 2017 17:57
== END 2017-09-25 11:44 | DRG 592 ==
LOC: NEPE 15:50 → NEDA 20:34 → N04B 21:59
PROVIDERS: ADMIT Family Medicine; ATTEND Family Medicine
PROC: 5A1D70Z Performance of Urinary Filtration, Intermittent, Less than 6 Hours Per Day (ICD-10-PCS; 2017-09-19)
PROC: B41C1ZZ Fluoroscopy of Pelvic Arteries using Low Osmolar Contrast (ICD-10-PCS; 2017-09-23)
PROC: B41G1ZZ Fluoroscopy of Left Lower Extremity Arteries using Low Osmolar Contrast (ICD-10-PCS; principal; 2017-09-23 15:01)
PROC: B410ZZZ Fluoroscopy of Abdominal Aorta (ICD-10-PCS; 2017-09-23 15:01)
DX: L97.928 Non-pressure chronic ulcer of unspecified part of left lower leg with other specified severity (principal); N18.6 End stage renal disease; I50.33 Acute on chronic diastolic (congestive) heart failure; I77.2 Rupture of artery; E87.2 Acidosis; I48.91 Unspecified atrial fibrillation; T82.868A Thrombosis due to vascular prosthetic devices, implants and grafts, initial encounter; I13.2 Hypertensive heart and chronic kidney disease with heart failure and with stage 5 chronic kidney disease, or end stage renal disease; E87.1 Hypo-osmolality and hyponatremia; B95.62 Methicillin resistant Staphylococcus aureus infection as the cause of diseases classified elsewhere; B95.2 Enterococcus as the cause of diseases classified elsewhere; I25.2 Old myocardial infarction; J44.9 Chronic obstructive pulmonary disease, unspecified; F32.9 Major depressive disorder, single episode, unspecified; D63.8 Anemia in other chronic diseases classified elsewhere; I70.202 Unspecified atherosclerosis of native arteries of extremities, left leg; E87.5 Hyperkalemia; F17.210 Nicotine dependence, cigarettes, uncomplicated; M89.8X9 Other specified disorders of bone, unspecified site; N64.51 Induration of breast; E88.89 Other specified metabolic disorders; S81.802A Unspecified open wound, left lower leg, initial encounter; F41.9 Anxiety disorder, unspecified; G89.29 Other chronic pain; I77.1 Stricture of artery; I25.10 Atherosclerotic heart disease of native coronary artery without angina pectoris; K21.9 Gastro-esophageal reflux disease without esophagitis; Y83.2 Surgical operation with anastomosis, bypass or graft as the cause of abnormal reaction of the patient, or of later complication, without mention of misadventure at the time of the procedure; Z95.828 Presence of other vascular implants and grafts; E83.59 Other disorders of calcium metabolism; Z95.5 Presence of coronary angioplasty implant and graft; Z79.02 Long term (current) use of antithrombotics/antiplatelets; Z79.82 Long term (current) use of aspirin; Z99.2 Dependence on renal dialysis; Z86.14 Personal history of Methicillin resistant Staphylococcus aureus infection; Z87.442 Personal history of urinary calculi; Z91.19 Patient's noncompliance with other medical treatment and regimen; Z98.890 Other specified postprocedural states
CPT/HCPCS: 71045; 75710; 80048; 80053; 80061; 80202; 82948; 83036; 83605; 83970; 84100; 85025; 85027; 85610; 85652; 87040; 87070; 87077; 87186; 87205; 90935; 93005; 93922; 93970; 94150; 96365; 96368; 96374; 96375; C1725; C1769; J1170; J1580; J1644; J2270; J2370; J3370; J7030; J7050; J7613; P9047; Q4081; Q9967